=== PATIENT | male | born 1950 | race Caucasian/White ===

== ENCOUNTER 2017-07-25 07:36 | Day surgery (SDC) | payer OTHER, SELFPAY ==
[2017-07-25] VITALS (7 sets, daily range): BP systolic 109–143; BP diastolic 70–88; PULSE 77–102; RESP 16–18; TEMP 36.2–37.3; O2SAT 92–95; BMI 40.6
--- NOTE | 2017-07-25 07:47 | EKG12_ITS ---
Test Reason : PRE OP Blood Pressure : / mmHG Vent. Rate : 075 BPM Atrial Rate : 075 BPM P-R Int : 144 ms QRS Dur : 136 ms QT Int : 414 ms P-R-T Axes : 034 059 035 degrees QTc Int : 462 ms Normal sinus rhythm Right bundle branch block Abnormal ECG When compared with ECG of 27-OCT-2015 16:54, Right bundle branch block is now Present Confirmed by BRANDEE HWALEY, MICHAEL ([id number]), photographic editor MONTSERRAT NORRIS ([id number]) on 07/27/2017 2:35:31 PM Referred By: Chuyita Mcbride Confirmed By:MICHAEL IRVIN MD
[2017-07-25 08:13] LABS: Anion Gap 8 (5-15); BUN 12 mg/dL (7-18); Chloride 105 mmol/L (98-107); Creatinine, Serum 1.09 mg/dL (0.70-1.30); EST Glomerular Filtration Rate 72 mL/min (>60); Est Glom Filt Rate - Afr Amer 87 mL/min (>60); Glucose 183 mg/dL (74-106); Potassium 4.2 mmol/L (3.5-5.1); Sodium Level 141 mmol/L (136-145)
[2017-07-25 08:22] LABS: Hemoglobin A1c 6.8 % (4.2-6.3)
[2017-07-25 08:41] LABS: Bedside Glucose 185 mg/dL (70-110)
[2017-07-25] MEDS: Bupivacaine 0.25% 30 ML Vial (08:55)
[2017-07-25] MEDS: Clindamycin 900 MG/50 ML BAG 75 MG IV (09:12)
--- NOTE | 2017-07-25 09:30 | RAD_ITS ---
PROCEDURE: INTRAOPERATIVE CHOLANGIOGRAM. REASON FOR EXAM: Male, 67 years old. Laparoscopic cholecystectomy. FLUOROSCOPY TIME (if supplied): (0:02) minutes/seconds TECHNIQUE: Real-time fluoroscopy was provided during intraoperative contrast infusion via the cystic duct. A single intraoperative fluoroscopic spot film is submitted. COMPARISON: None. FINDINGS: Normal caliber extrahepatic bile ducts. The bile duct segments above the cystic duct are not opacified. No filling defects or strictures seen. Contrast flows to the duodenum. RAD/Cholangiogram/ O R,Initial IMPRESSION: Normal intraoperative cholangiogram. Electronically Signed: Bebeto Rosenberg MD at 13:08 EDT , Service support ,
--- NOTE | 2017-07-25 09:35 | GALL_PTH ---
PATIENT: PHILLIP MOORE LOC: [facility] U#:[id number] AGE/SX: 67/M ROOM: RE07/25/[address]: Dr. Chuyita Mcbride MD : 1950 BED: DIS: 07/25/2017 SPEC #: [id number] RECD: 07/25/17 11:49 STATUS: KILEY RADHA #: [id number] WESLY: 07/25/17 09:[address]: Chuyita Mcbride DEPT: SURGICAL PATHOLOGY RECD BY: Reji Laura ENTERED: 07/25/17 12:28 SP TYPE: WILBER VELASQUEZ DR: Dr. Ignacio Ayon III, MD Tissues: Gallbladder, NOS Procedures: Surgery Specimen Level III HEADER OPERATION: Laparoscopic cholecystectomy PRE-OP DIAGNOSIS: Cholelithiasis TISSUE SUBMITTED: Gallbladder and contents MICROSCOPIC DIAGNOSIS Gallbladder and contents: Chronic cholecystitis, cholelithiasis and focal cholesterolosis. 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 SJ:syed 07/26/17 MICROSCOPIC DESCRIPTION Slides are reviewed. GROSS DESCRIPTION Received is one container labeled with the patient's name and designated gallbladder and contents. The specimen consists of a gallbladder measuring 10 cm in length and up to 4 cm in diameter. The external surface is pink-drake, smooth and glistening for the most part. Focally it is granular, hemorrhagic and contains cautery artifact. The gallbladder contains green-yellow mucoid bile and two round to ovoid, mulberry-black stones measuring 0.7 and 0.6 cm in greatest dimension. The mucosa is bile-stained and without any mass lesions. A focal cystic to solid area is noted at the fundus measuring 1.5 x 1 x 1 cm. The rest of the gallbladder wall measures up to 0.3 cm in thickness. A few yellowish, minute raised lesions are noted consistent with cholesterolosis. Breaker Unit Assembler sections are submitted in two cassettes as follows: 1 ? gallbladder wall and cystic duct, 2 ? solid to cystic area at the fundus. This area is completely submitted. Cassette 1 also contains the minute raised yellowish lesion. / SANJUANA:syed 07/25/17 TC:3 CPT: 51645
--- NOTE | 2017-07-25 10:33 | PCM.IMDPSTOP ---
Immediate Post-Op Note Date of Procedure: 07/25/17 Primary Surgeon/Physician: Chuyita Mcbride integrated logistics programs director: Cody Quinn Pre-Operative Diagnosis: cholelithiasis Post-Operative Diagnosis: cholelithiasis, chronic cholecystitis Surgery/Procedure Performed:: laparoscopic cholecystectomy with cholangiograms Description of Surgical Findings:: intraoperative cholangiograms - no lesions in common bile duct, nodular liver - almost cirrhotic appearing, chronic cholecystitis with wall thickening Estimated Blood Loss: 20 ml Specimen's removed: gallbladder and contents Type of Anesthesia:: General ASA Class: ASA3 Severe Disease - Admit VTE Documentation VTE Present on Admission: Yes VTE Mechan Device Prophylaxis: SCD's
--- NOTE | 2017-07-25 10:35 | PCM.OPRPT ---
Report of Operation Date of Procedure: 07/25/17 Pre-Operative Diagnosis: cholelithiasis Post-Operative Diagnosis: cholelithiasis, chronic cholecystitis Surgery/Procedure Performed:: laparoscopic cholecystectomy with cholangiograms Description of Surgical Findings:: intraoperative cholangiograms - no lesions in common bile duct, nodular liver - almost cirrhotic appearing, chronic cholecystitis with wall thickening speech language pathologist: Cody Quinn Type of Anesthesia:: General Anesthesiologist: Lida Gilbert Specimen's removed: gallbladder and contents Estimated Blood Loss (mL): 20 ml Fluids Replaced: 1500 ml RL Description of Procedure: After informed consent was given, the patient was brought to the Operating Room and placed in the supine position. Appropriate time out protocol was followed. The patient was then placed under general endotracheal anesthesia. The abdomen was then prepped with a sterile surgical skin preparation and sterile surgical drapes were placed. A skin fold superior to the umbilicus was grasped with penetrating clamps and the skin and subcutaneous tissues were infiltrated with local anesthetic. A skin incision was then made with a 15 blade scalpel. The anterior abdominal wall was elevated and a Veress needle was carefully inserted into the intraabdominal cavity. It was checked to be in the proper position with a normal saline drop test. A CO2 pneumoperitoneum was then created. Once this was achieved, then the Veress needle was removed and an 11mm trocar was placed in its stead. A 10mm laparoscope was then inserted into the trocar and careful attention was directed to the intraabdominal contents. There was no evidence of injury to any intraabdominal organs from insertion of the Veress needle or the trocar. Under direct visualization, a 5mm subxiphoid trocar and two lateral 5mm right subcostal trocars were placed. The skin and subcutaneous tissues at these sites were infiltrated with local anesthetic prior to placement of these trocars. Attention was then directed to the right upper quadrant of the abdomen. The liver was nodular appearing, almost cirrhotic looking. The liver edge was greatly blunted. The gallbladder wall was slightly thickened. It was also friable. Graspers were placed in the lateral trocars to grasp the distal aspect of the gallbladder and direct it cephalad and to grasp the gallbladder at Hartmans pouch and direct it laterally. Dissection then began on the proximal gallbladder continuing down to the area of the triangle of Calot to bluntly dissect out the cystic duct. The neck of the gallbladder was identified and blunt dissection continued to dissect out a segment of the cystic duct. A clip was then placed on the neck of the gallbladder. A small ductotomy was then made. A Ranfac catheter was brought in through a separate skin incision and placed into the cystic duct. An intraoperative cholangiogram was performed under fluoroscopy. The xray revealed no lesions in the common bile duct and good flow into the duodenum. The Ranfac catheter was then removed and two clips were placed proximal to the ductotomy and the cystic duct was then transected. The cystic artery was visualized and bluntly isolated and then two clips were placed proximally and one clip distally and then it was transected between the proximal and distal clips. The gallbladder was then from the liver bed using electrocautery and thus able to be brought out of the umbilical port. It was then forwarded to pathology for analysis. The liver bed was carefully examined. There was no evidence of bile leakage or bleeding. The cystic duct stump and cystic artery stump had their clips intact and there was no evidence of bile leakage or bleeding. The remainder of the abdomen was grossly normal. The CO2 was released and all trocars removed intact. The periumbilical fascia was approximated with a [id number] 0 vicryl suture. All skin incision were closed with 4-0 monocryl in a subdermal fashion. Cavilol and Steristrips were used to reinforce the skin closure. Sterile dressings were applied to all wounds. The patient was extubated and brought to the Recovery Room in stable condition. - Complications none noted - Admit VTE Documentation VTE Present on Admission: Yes VTE Mechan Device Prophylaxis: SCD's
--- NOTE | 2017-07-25 10:40 | PCM.DC.GB ---
Discharge Diet: No Restrictions Discharge Activity: Return to Normal Activity, May not drive while taking narcotic pain medications. Lifting Restrictions: no lifting greater than 20 pounds for 2 weeks Call your doctor if your incision/area has: Continuous Slow Oozing, Foul Smelling Discharge Call your doctor if you observe: Fever of 101 or Higher Additional Dressing/Incision Instructions:: Leave dressings in place. May get wet in shower. Do not soak - no tub baths/swimming Allergies/Adverse Reactions: Allergies Penicillins Allergy (Verified 07/22/17 08:28) Hives ibuprofen [From Motrin] Adverse Reaction (Verified 07/22/17 08:28) Nausea lisinopril Adverse Reaction (Verified 07/22/17 08:28) COUGH Medications to take at Discharge Aspirin E.C. [Ecotrin] 81 mg PO DAILY@0800 12/11/13 Losartan Potassium [Cozaar] 50 mg PO DAILY 12/11/13 Antiarthritic Combination No.2 [Glucosamine-Chondroitin] 900 mg PO DAILY 10/27/15 Atorvastatin Calcium [Lipitor] 20 mg PO DAILY 10/27/15 Sitagliptin Phos/Metformin HCl [Janumet Xr 50-1,000 mg Tablet] 2 tablet PO DAILY 10/27/15 Hydrocodone Bitart/Apap 5-325 [Canton 5MG-325MG] 1 tab PO Q6H PRN PRN 5 Days #20 tab 07/25/17 The following prescriptions were given: Hydrocodone Bitart/Apap 5-325 [Canton 5MG-325MG] 1 tab PO Q6H PRN PRN 5 Days #20 tab PRN Reason: Pain Primary Care Physician: Ignacio Ayon III, MD [Primary Care Provider] - Please Follow Up With: Chuyita Mcbride MD - call When: to be seen next week, appointment already scheduled
[2017-07-25 11:16] LABS: Bedside Glucose 210 mg/dL (70-110)
== END 2017-07-25 13:29 | disposition home or self-care (01) ==
LOC: SDC 07:37 → AC 07:38
PROVIDERS: Family Provider Family Medicine; PCP Family Medicine; Visit Provider Surgery
PROC: (CPT 47610; principal; 2017-07-25 09:15)
DX: K80.10 Calculus of gallbladder with chronic cholecystitis without obstruction (principal); K82.8 Other specified diseases of gallbladder; K76.89 Other specified diseases of liver; I10 Essential (primary) hypertension; I45.10 Unspecified right bundle-branch block; E78.5 Hyperlipidemia, unspecified; E11.65 Type 2 diabetes mellitus with hyperglycemia; E66.09 Other obesity due to excess calories; Z68.39 Body mass index [BMI] 39.0-39.9, adult; Z79.84 Long term (current) use of oral hypoglycemic drugs; Z79.82 Long term (current) use of aspirin; Z79.899 Other long term (current) drug therapy
CPT/HCPCS: 47563; 74300; 76000; 80048; 82962; 83036; 88304; 93005; J7050; J7120; J2405

== ENCOUNTER 2020-09-03 07:42 | Day surgery (SDC) | payer MEDICARE, BC, SELFPAY ==
--- NOTE | 2020-09-03 07:09 | HP.PCM_ITS ---
History and Physical Date of Admission: 09/03/20 Josue Wilson 1950 ? ? REFERRING PHYSICIAN: Ignacio Ayon III, MD ? CHIEF COMPLAINT: Consult (Consult Anemia) ? HPI: The patient is a pleasant 70 year old male presents with anemia. He also notes dysphagia, he states that food gets stuck in his throat. He also notes sharp, burning pain in the RLQ of the abdomen. He had a colonoscopy in February 2019 with findings of tubular adenoma of the sigmoid colon. He notes no colon cancer in the family. ? ? PAST MEDICAL HISTORY Diagnosis Date ? Essential hypertension, benign 08/06/2013 ? Hyperlipidemia LDL goal < 100 08/06/2013 ? Hyperlipidemia with target LDL less than 100 08/06/2013 ? Iron deficiency anemia due to chronic blood loss 07/05/2020 ? Non morbid obesity due to excess calories 08/23/2016 ? Snoring ? ? 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 Type II or unspecified type diabetes mellitus without mention of complication, uncontrolled 08/20/2013 ? PAST SURGICAL HISTORY Procedure Laterality Date ? LAPAROSCOPIC CHOLEYCYSTECTOMY ? [facility] PAST SURGICAL HISTORY OF Right 2015 ? incision and drainage of knee abscess ? ? Current Outpatient Medications Medication Sig ? aspirin 81 mg chewable tablet Take 81 mg by mouth once daily. ? blood sugar diagnostic (ACCU-CHEK TOMASZ PLUS TEST STRP) test strip Test daily DX: E11.65 Insulin: No ? ferrous sulfate 325 mg (65 mg iron) tablet Take 1 tablet by mouth twice daily with meals. ? glimepiride (AMARYL) 4 mg tablet take 1 tablet once daily with BREAKFAST ? atorvastatin (LIPITOR) 20 mg tablet Take 1 tablet by mouth once daily. ? losartan (COZAAR) 50 mg tablet Take 1 tablet by mouth once daily. ? metFORMIN (GLUCOPHAGE) 500 mg tablet Take 2 tablets by mouth twice daily with meals. ? chondro durham A/vit C/manganese (CHONDROITIN SULFATE COMPLEX ORAL) Take 2 tablets by mouth once daily. ? pioglitazone (ACTOS) 45 mg tablet Take 1 tablet by mouth once daily. ? sildenafil (VIAGRA) 50 mg tablet daily as needed ? ? ALLERGIES: Ibuprofen, Lisinopril, and Penicillins ? PERSONAL HISTORY: Social History ? Tobacco Use ? Smoking status: Never Smoker ? Smokeless tobacco: Never Used Substance Use Topics ? Alcohol use: No ? Drug use: No ? FAMILY HISTORY Problem Relation Age of Onset ? COPD Father ? ? Diabetes Mother ? ? Coronary Artery Disease Mother ? ? CABG 7 ? Multiple Sclerosis Sister ? ? None Brother ? ? None Brother ? ? ? REVIEW OF SYSTEMS: General: The patient denies fatigue, denies weight loss, denies weight g ain, denies feeling hot, and denies feelings of cold. Eyes: The patient denies glaucoma, denies eye injury/surgery, wears glasses or contacts. Ear/Nose/Throat: The patient NOTES allergies, denies hayfever, denies ear infections, and denies bloody noses. Cardiovascular: The patient denies chest pain, denies heart disease, NOTES high blood pressure,denies cardiac stent, denies prior heart attack, denies irregular heart beat, NOTES high cholesterol, denies poor circulation, denies heart failure, other cardiac issues, denies claudication, denies cold feet, denies peripheral arterial stent. Respiratory: The patient denies tuberculosis, denies pneumonia, denies frequent cough, denies pulmonary embolism, denies shortness of breath, and denies coughing up blood. Gastrointestinal: The patient denies difficulty swallowing, denies acid reflux, denies ulcers, denies vomiting, denies jaundice/hepatitis, denies gallbladder problems, denies black or tarry stools, denies hemorrhoids, denies bleeding from rectum, denies diverticulitis, denies constipation, denies diarrhea, denies loss of stool control, and denies hernias. Kidney/Bladder: The patient denies kidney stones, denies urine infections, and denies bloody urine. Skin: The patient denies a history of skin cancer, denies bleeding/changing moles, and denies a history of skin rash. Neurologic: The patient denies a history of epilepsy/convulsions, denies headaches, denies head/spinal injuries, and denies stroke/TIA. Psychiatric: The patient denies psychiatric medications, denies depr ession, and denies voices, denies substance abuse. Endocrine: The patient denies thyroid disorders, NOTES diabetes, and denies hormonal problems. Hematologic: The patient denies a history of bruising, denies bleeding, and NOTES anemia, denies blood clots. Infections: The patient NOTES a history of measles and mumps, denies rheumatic fever, and denies sexually transmitted diseases. Musculoskeletal: The patient denies back pain/injury, NOTES back problems, denies sciatica, denies knee/foot trouble, denies arthritis, or denies gout. When was patient's last Mammogram screening? N/A Last Colonoscopy: 03/08 Venkatesh William MANDY ? ? PHYSICAL EXAMINATION: General: The patient is 70 year old male, well nourished, well hydrated in no acute distress. The patient is oriented to time, place, and person. VITALS: Pulse 98, temperature 36.3 ?C (97.3 ?F), height 167.6 cm (5' 6), weight 124.5 kg (274 lb 6.4 oz), SpO2 97 %. Body mass index is 44.29 kg/m?. ? Head ? Normocephalic. EOM intact with sclera clear and no icterus noted. Neck - supple with no jugular venous distention noted. Trachea is midline. Lungs ? clear to auscultation. Normal breath sounds. No rales/rhonchi/wheezing noted. No labored breathing noted, such as retractions. No cough heard. Heart ? normal S1 and S2 auscultated. No rubs/clicks/murmurs noted. Regular rate. Abdomen ? soft and benign. Normal bowel sounds. No abdominal bruits noted. Difficult to determine if any masses or organomegaly due to body habitus. Extremities ? no calf tenderness noted. No pitting edema noted. Skin ? normal skin integrity. Neurological ? gait normal, no focal deficits noted. Psych ? calm and appropriate ? ? Assessment IMPRESSION: anemia, RLQ abdominal pain, dysphagia ? PLAN: I have discussed the above with the patient. I have discussed the above with the patient. I have offered colonoscopy and EGD, possible biopsies for anemia and patient also complains of lower abdominal pain. I have explained the procedure to the patient. I have counseled the patient as to the risks of the procedure, including but not limited to: infection, bleeding, injury to any intrabdominal organs such as liver/spleen, perforation of the GI tract, inability to complete the procedure, complications of anesthesia, etc. ? the patient understands. ? The patient was offered a surgery/procedure. The provider and patient have discussed in detail the risk of exposure to and/or potential harm posed by the COVID-19 virus with having a surgery/procedure at this time versus the risk of? delaying the surgery/procedure. It is not possible to know either the risk of delaying the surgery or procedure or chance of getting an infection with perfect accuracy, but a joint decision was made between the patient and the provider ?to proceed at this time with the scheduled surgery/procedure. ? The patient wishes to proceed. He wishes to have procedure using [facility] end[facility] and wants to have procedure at [facility]. I have told him that there is limited availability to do [facility] endo at [facility] and therefore have offered [place] [facility], but patient wants to go to [facility]. Next availability is September 03. Patient agrees with this. ? ? I have answered all questions to the patient?s satisfaction and the patient has no further questions. ? Plan procedure at [facility] as per patient's request. I have recommended [facility], because patient states that he is concerned about gagging Because of lack of endoscopy time given, will have to await procedure until September 03, 2020. Patient understands and agrees. . Diagnoses: (D64.9) Anemia, unspecified type (primary encounter diagnosis) (R10.31) RLQ abdominal pain (R13.10) Dysphagia, unspecified type Return to Clinic: The patient is instructed to follow-up with me as above ? Chuyita Mcbride MD
[2020-09-03 08:16] VITALS: BP 144/78; PULSE 92; RESP 92; TEMP 36.6; O2SAT 95; BMI 42.6
[2020-09-03] MEDS: Lactated Ringers 1,000 ML 100 ML IV (08:31)
[2020-09-03 08:40] LABS: Bedside Glucose 149 mg/dL (70-110)
--- NOTE | 2020-09-03 09:00 | IMM_PTH ---
PATIENT: PHILLIP MOORE LOC: [place] U#:[id number] AGE/SX: 70/M ROOM: RE09/03/[address]: Dr. Chuyita Mcbride MD : 1950 BED: DIS: 09/03/2020 SPEC #: [id number] RECD: 09/03/20 12:26 STATUS: KILEY REVinnie #: [id number] WESLY: 09/03/20 09:[address]: Chuyita Mcbride DEPT: IMMUNOHISTOCHEMISTRY RECD BY: Betsey Morales ENTERED: 09/03/20 12:26 SP TYPE: IMMUNO OTHR DR: Dr. Sorin Miranda MD Tissues: A - Stomach, NOS Procedures: H Pylori (initial) PHYSICIAN & INSTITUTION [place] [id number] SPECIMEN INFORMATION: Tissue Source: A ? Antrum biopsy Clinical Info: Anemia, RLQ abdominal pain, dysphagia Specimen Number: [id number] CPT code: 17277 METHODOLOGY: Deparaffinized sections of prefer/formalin-fixed tissue or PAP/DQ stained slides are incubated with monoclonal/polyclonal antibodies/oligonucleotide probes. Localization is made via biotin free immunoperoxidase method. Appropriate controls are performed and reacted as expected. Results on target cell population are indicated in the following table: RESULTS: ANTIBODY / CLONE RESULT Block A H Pylori (polyclonal) negative These tests were developed and their performance characteristics determined by [facility]. They may not have been cleared or approved by the U.S. Food and Drug Administration. The FDA has determined that such clearance or approval is not necessary. INTERPRETATION: A. Antrum, biopsy: Negative for Helicobacter pylori organisms. AM:syed 09/04/2020
--- NOTE | 2020-09-03 09:00 | EGD_PTH ---
PATIENT: PHILLIP MOORE LOC: EN U#:[id number] AGE/SX: 70/M ROOM: RE09/03/[address]: Dr. Chuyita Mcbride MD : 1950 BED: DIS: 09/03/2020 SPEC #: [id number] RECD: 09/03/20 09:42 STATUS: KILEY REVinnie #: [id number] WESLY: 09/03/20 09:[address]: Chuyita Mcbride DEPT: SURGICAL PATHOLOGY RECD BY: Rosa Elena Gayle ENTERED: 09/03/20 10:45 SP TYPE: EGD BIOPSY EVA DR: Dr. Sorin Miranda MD Tissues: A - Gastric mucous membrane B - Gastric mucous membrane Procedures: Special Stain Group II Surgery Specimen Level IV Alcian Blue/PAS (control) HEADER OPERATION: Colonoscopy, EGD ([facility]) PRE-OP DIAGNOSIS: Anemia, RLQ abdominal pain, dysphagia TISSUE SUBMITTED: A ? Biopsy antrum for H. pylori and path, B ? GE junction biopsy MICROSCOPIC DIAGNOSIS A. Gastric antrum, biopsy: Chronic gastritis. See comment. B. Gastroesophageal junction, biopsy: Gastric mucosa with chronic inflammation. No evidence of goblet cell metaplasia. See comment. AM:syed 09/04/2020 COMMENT A. The results of immunohistochemistry for Helicobacter pylori will be reported separately ([id number]). B. Alcian blue/PAS stain with matched control supports the above diagnosis. MICROSCOPIC DESCRIPTION Slides are reviewed. GROSS DESCRIPTION A - Received in fixative is one container labeled with the patient's name and designated antrum biopsy. The specimen consists of multiple irregular fragments of light drake soft tissue that in aggregate measure 0.5 x 0.4 x 0.1 cm. The specimen is totally submitted in one cassette. B - Received in fixative is one container labeled with the patient's name and designated GE junction biopsy. The specimen consists of one irregular fragment of light drake soft tissue that measures 0.3 x 0.3 x 0.1 cm. The specimen is totally submitted in one cassette. / SJ:syed 09/03/20 TC:3 CPT: 32738 x2, 92276
[2020-09-03 09:30] VITALS: BP 104/72; BP 144/78; PULSE 84; RESP 16; TEMP 36; O2SAT 96
[2020-09-03 09:35] VITALS: BP 116/72; BP 144/78; PULSE 81; RESP 16; O2SAT 93
[2020-09-03 09:40] VITALS: BP 118/77; BP 144/78; PULSE 80; RESP 16; O2SAT 93
[2020-09-03 09:45] VITALS: BP 122/74; BP 144/78; PULSE 76; RESP 16; TEMP 36.2; O2SAT 95
[2020-09-03 10:18] VITALS: BP 144/78
--- NOTE | 2020-09-03 13:00 | OP.COLON_ITS ---
Patient Name: Josue Wilson Procedure Date: 09/03/2020 9:11 AM Date of : 1950 Age: 70 Procedure: Colonoscopy Indications: High risk colon cancer surveillance: Personal history of colonic polyps, Incidental - Iron deficiency anemia Providers: Chuyita Mcbride MD Referring MD: Chuyita Mcbride MD Medicines: See the Anesthesia note for documentation of the administered medications Patient Profile: Refer to note in patient chart for documentation of history and physical. Last Colonoscopy: 3 years ago. Complications: No immediate complications. Estimated blood loss: None. Procedure: Pre-Anesthesia Assessment: - see anesthesia note After I obtained informed consent, the scope was passed under direct vision. Throughout the procedure, the patient's blood pressure, pulse, and oxygen saturations were monitored continuously. The Colonoscope was introduced through the anus and advanced to the cecum, identified by the appendiceal orifice, ileocecal valve and palpation. The colonoscopy was performed without difficulty. The patient tolerated the procedure well. The quality of the bowel preparation was poor, there was still retained fecal material. Therefore lavage and aspiration was done to clear the fecal material. This took some time. The lakhani were cleared adequately for adequate visualization. Scope In: 9:13:20 AM Scope Withdrawal Time 0 hours 9 minutes 35 seconds Scope Out: 9:26:37 AM Total Procedure Duration Time 0 hours 13 minutes 17 seconds Findings: The perianal and digital rectal examinations were normal. Multiple small and large-mouthed diverticula were found in the sigmoid colon. Non-bleeding external and internal hemorrhoids were found. Impression: - Diverticulosis in the sigmoid colon. - Non-bleeding external and internal hemorrhoids. - No specimens collected. Recommendation: - Repeat colonoscopy in 5 years for surveillance for history of colon polyps (found in 2019). - Return to primary care physician PRN. - Continue present medications. Diagnosis Code(s): --- Professional --- Z86.010, Personal history of colonic polyps K64.8, Other hemorrhoids K57.30, Diverticulosis of large intestine without perforation or abscess without bleeding MD Chuyita Kc MD 09/03/2020 9:37:52 AM This report has been signed electronically. Number of Addenda: 0 Note Initiated On: 09/03/2020 9:11 AM
--- NOTE | 2020-09-03 13:00 | OP.CCLET_ITS ---
09/03/2020 Sorin Miranda MD Re : Upper GI endoscopy procedure for Josue Wilson Dear Dr. Miranda This procedure was performed on Thursday, September 03, 2020. My impressions and recommendations are as follows: Impressions : - Normal first portion of the duodenum and second portion of the duodenum. - Erythematous mucosa in the antrum. Biopsied. - LA Grade A reflux esophagitis. Rule out Walden's esophagus. Biopsied. Recommendations : - Discharge patient to home (ambulatory). - Resume previous diet. - Continue present medications. - Await pathology results. - Follow up visit via telemedicine with Sirisha Tripathi PA-C to discuss results. Patient prefers telephone (rather than Zoom) visit. Call to set this up, thank you My findings are described in the full procedure note, which is enclosed. If I can be of further assistance, please feel free to contact me at Doctor phone number(s): , Work: . Sincerely, MD Chuyita Kc MD 09/03/2020 9:35:11 AM This report has been signed electronically.
--- NOTE | 2020-09-03 13:00 | OP.CCLET_ITS ---
09/03/2020 Sorin Miranda MD Re : Colonoscopy procedure for Josue Wilson Dear Dr. Miranda This procedure was performed on Thursday, September 03, 2020. My impressions and recommendations are as follows: Impressions : - Diverticulosis in the sigmoid colon. - Non-bleeding external and internal hemorrhoids. - No specimens collected. Recommendations : - Repeat colonoscopy in 5 years for surveillance for history of colon polyps (found in 2019). - Return to primary care physician PRN. - Continue present medications. My findings are described in the full procedure note, which is enclosed. If I can be of further assistance, please feel free to contact me at Doctor phone number(s): , Work: . Sincerely, MD Chuyita Kc MD 09/03/2020 9:37:52 AM This report has been signed electronically.
--- NOTE | 2020-09-03 13:00 | OP.EGD_ITS ---
Patient Name: Josue Wilson Procedure Date: 09/03/2020 8:53 AM Date of : 1950 Age: 70 Procedure: Upper GI endoscopy Indications: Abdominal pain in the right lower quadrant, Iron deficiency anemia Providers: Chuyita Mcbride MD Referring MD: Chuyita Mcbride MD Medicines: See the Anesthesia note for documentation of the administered medications Patient Profile: Refer to note in patient chart for documentation of history and physical. Complications: No immediate complications. Procedure: Pre-Anesthesia Assessment: - see anesthesia note After obtaining informed consent, the endoscope was passed under direct vision. Throughout the procedure, the patient's blood pressure, pulse, and oxygen saturations were monitored continuously. The Endoscope was introduced through the mouth, and advanced to the second part of duodenum. The upper GI endoscopy was accomplished without difficulty. The patient tolerated the procedure well. Scope In: 9:03:19 AM Scope Out: 9:10:37 AM Total Procedure Duration Time 0 hours 7 minutes 18 seconds Findings: The first portion of the duodenum and second portion of the duodenum were normal. Striped radially moderately erythematous mucosa with stigmata of recent bleeding was found in the gastric antrum. Biopsies were taken with a cold forceps for histology. Verification of patient identification for the specimen was done by the nurse. LA Grade A (one or more mucosal breaks less than 5 mm, not extending between tops of 2 mucosal folds) esophagitis with no bleeding was found. Biopsies were taken with a cold forceps for histology. Verification of patient identification for the specimen was done by the nurse. Estimated blood loss was minimal. Small hiatal hernia noted, the remainder of the esophagus appeared normal Impression: - Normal first portion of the duodenum and second portion of the duodenum. - Erythematous mucosa in the antrum. Biopsied. - LA Grade A reflux esophagitis. Rule out Walden's esophagus. Biopsied. Recommendation: - Discharge patient to home (ambulatory). - Resume previous diet. - Continue present medications. - Await pathology results. - Follow up visit via telemedicine with Sirisha Tripathi PA-C to discuss results. Patient prefers telephone (rather than Zoom) visit. Call to set this up, thank you Procedure Code(s): --- Professional --- 87303, Esophagogastroduodenoscopy, flexible, transoral; with biopsy, single or multiple Diagnosis Code(s): --- Professional --- K31.89, Other diseases of stomach and duodenum K21.0, Gastro-esophageal reflux disease with esophagitis R10.31, Right lower quadrant pain D50.9, Iron deficiency anemia, unspecified CPT copyright 2017 [employer]. All rights reserved. The codes documented in this report are preliminary and upon rn invasive review may be revised to meet current compliance requirements. MD Chuiyta Kc MD 09/03/2020 9:35:11 AM This report has been signed electronically. Number of Addenda: 0 Note Initiated On: 09/03/2020 8:53 AM
== END 2020-09-03 10:19 ==
LOC: EN 07:47 → AC 07:48
PROVIDERS: PCP Family Medicine; Referring Provider Surgery; Visit Provider Surgery
PROC: 0DJD8ZZ Inspection of Lower Intestinal Tract, Via Natural or Artificial Opening Endoscopic (ICD-10-PCS; CPT 45378; principal; 2020-09-03 08:55)
DX: K29.70 Gastritis, unspecified, without bleeding (principal); K31.89 Other diseases of stomach and duodenum; K20.90 Esophagitis, unspecified without bleeding; K44.9 Diaphragmatic hernia without obstruction or gangrene; K57.30 Diverticulosis of large intestine without perforation or abscess without bleeding; K64.4 Residual hemorrhoidal skin tags; K64.8 Other hemorrhoids; E78.5 Hyperlipidemia, unspecified; E11.9 Type 2 diabetes mellitus without complications; E66.9 Obesity, unspecified; I10 Essential (primary) hypertension; Z68.41 Body mass index [BMI] 40.0-44.9, adult; Z79.899 Other long term (current) drug therapy; Z79.84 Long term (current) use of oral hypoglycemic drugs; Z87.19 Personal history of other diseases of the digestive system; Z86.010 Personal history of colon polyps; Z79.82 Long term (current) use of aspirin
CPT/HCPCS: 43239; 45378; 82962; 88305; 88313; 88342; J7120; J2405

== ENCOUNTER 2021-10-14 16:42 | Emergency (ER) | payer MEDICARE, BC, SELFPAY ==
[2021-10-14 16:43] VITALS: BP 145/85; PULSE 80; RESP 16; TEMP 36; O2SAT 93; BMI 43.5
--- NOTE | 2021-10-14 17:05 | CT_ITS ---
EXAM: CT ABDOMEN AND PELVIS WITH INTRAVENOUS CONTRAST CLINICAL INDICATION: DIVERTICULITIS TECHNIQUE: Helically acquired images were obtained of the abdomen and pelvis with intravenous contrast. This CT exam was performed using one or more of the following dose reduction techniques: automated exposure control, adjustment of the mA and/or kV according to patient size, and/or use of iterative reconstruction technique. This report was created using Home[employer] report generation technology. CONTRAST: IV 100mL Isovue-300 COMPARISON: None. FINDINGS: LOWER THORAX: There is calcified granuloma at the left lung base. No cardiomegaly. No significant pericardial effusion. ABDOMEN: LIVER: Unremarkable. Homogeneous. No focal mass. GALLBLADDER AND BILE DUCTS: The gallbladder is not well-visualized and may be surgically absent. No intra- or extrahepatic biliary ductal dilation. PANCREAS: Unremarkable. No focal cystic or solid mass. SPLEEN: Unremarkable. Normal size without focal cystic or solid mass. ADRENALS: Unremarkable. No nodules. KIDNEYS AND URETERS: There is left-sided hydronephrosis and hydroureter. There is a 4 mm stone at the left UVJ. Normal renal size and position. STOMACH AND BOWEL: Unremarkable. No stomach or bowel distention. No focal inflammatory change. PELVIS: APPENDIX: No evidence of acute appendicitis. BLADDER: Unremarkable. REPRODUCTIVE: Unremarkable as visualized. No mass. ABDOMEN and PELVIS: INTRAPERITONEAL SPACE: Unremarkable. No ascites or other fluid collection. No free air. BONES/JOINTS: Unremarkable. No suspicious lytic or blastic abnormality. SOFT TISSUES: Unremarkable. No discrete abdominal or pelvic wall hernia. VASCULATURE: Unremarkable. Abdominal aorta is non-dilated. LYMPH NODES: Unremarkable. No enlarged lymph nodes. CT/Abdomen/Pelvis W IV Cont ONLY IMPRESSION: Obstruction of the left collecting system due to a 4 mm stone at the UVJ. There is left-sided hydronephrosis and hydroureter. Electronically Signed: Myron Reese MD at 18:13 EDT ,
--- NOTE | 2021-10-14 17:06 | ED.VIS.GI ---
HPI HPI - GI History of Present Illness Chief Complaint: Abd Pain Informant: patient Narrative Narrative: 71-year-old male presenting to the emergency department for left lower quadrant abdominal pain. Patient states that he developed the pain on Tuesday and it was very mild into Tuesday. 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 He notes dry heaves and diarrhea. He denies any fever. No blood in the stool. He has had a prior colonoscopy that showed a polyp but no diverticulosis. He does not feel bloated or distended. [facility] Medical History (Updated 10/14/21 @ 18:[address] Eugene Thmoas, DO) Anemia Diabetes Hypertension Injury of back (~2012) Non-smoker Shortness of breath on exertion Wears glasses Home Medications losartan 50 mg tablet 50 mg PO DAILY 12/11/13 [History Last Taken 09/03/20] antiarthritic combination no.2 900 mg tablet (glucosamine-chondroitin) 900 mg PO DAILY 10/27/15 [History Last Taken 10/27/15] atorvastatin 20 mg tablet 20 mg PO DAILY 10/27/15 [History Last Taken 10/27/15] ferrous sulfate 325 mg (65 mg iron) tablet (FeroSul) 325 mg PO DAILY 09/01/20 [History Last Taken Unknown] glimepiride 4 mg tablet 4 mg PO DAILY 09/01/20 [History Last Taken Unknown] metformin 500 mg tablet 1,000 mg PO BID 09/01/20 [History Last Taken Unknown] ondansetron 4 mg disintegrating tablet 4 mg PO Q6H PRN PRN Nausea #15 tabs 10/14/21 [Rx Last Taken Unknown] oxycodone 10 mg tablet 10 mg PO TID PRN pain 5 days #15 tabs 10/14/21 [Rx Last Taken Unknown] tamsulosin 0.4 mg capsule 0.4 mg PO DAILY #7 CAPSULES 10/14/21 [Rx Last Taken Unknown] Allergy/AdvReac Type Severity Reaction Status Date / Time Penicillins Allergy Hives Verified 10/14/21 16:45 ibuprofen [From Motrin] AdvReac Nausea Verified 10/14/21 16:45 lisinopril AdvReac COUGH Verified 10/14/21 16:45 Surgical History Hx laparoscopic cholecystectomy (~07/25/17) Hx of right knee surgery Social History Smoking Status: Never smoker ROS ROS ED Constitutional Constitutional ED: Denies chills or weight loss Eyes Eyes: Denies change in vision or diplopia ENT ENT ED: Denies ear pain, rhinorrhea or sore throat Cardiovascular Cardiovascular: Denies chest pain, orthopnea, palpitations or racing heartbeat Respiratory/Chest Respiratory/Chest: Denies cough, dyspnea or orthopnea Gastrointestinal Gastrointestinal: Reports abdominal pain, diarrhea and nausea; Denies vomiting Genitourinary Genitourinary ED: Denies dysuria, hematuria or urinary frequency Musculoskeletal Musculoskeletal: Denies arthralgias or myalgias Integumentary Denies abscess or rash Neurologic Neurologic: Denies headache(s) or weakness Psychiatric Psychiatric: Denies anxiety, depression, suicidal ideation or suicidal thoughts Endocrine Endocrinology: Denies polydipsia, polyphagia or polyuria Allergic/Immunologic Allergic/Immunologic ED: Denies mouth swelling, tongue swelling or urticaria EXAM Physical Exam Const Vital Signs: 10/14/21 16:43 Temperature 96.8 F L Temperature Source Temporal Pulse Rate 80 Respiratory Rate 16 Blood Pressure 145/85 H Blood Pressure Mean 105 Pulse Ox 93 Oxygen Delivery Method Room Air Positive well nourished and well developed General Appearance ED: well developed HEENT Reports normocephalic, head/scalp atraumatic and moist mucous membranes Eyes PERRL and EOMs intact bilaterally Neck no lymphadenopathy, supple and no JVD Resp normal respiratory effort and clear to auscultation bilaterally Cardio regular rate, regular rhythm and no murmurs GI non-distended and no masses Inspection: Negative for abdominal distention Auscultation: normoactive bowel sounds Palpation: soft and tender LLQ; Negative for guarding or rebound tenderness present Back/Spine no CVA tenderness and normal ROM Extremity normal to inspection General Extremety ED: Negative for edema General Extremity: Negative for edema Neuro oriented x3 and CN's II-XII intact bilaterally Sensorium / Orientation: alert Motor Exam: strength 5/5 throughout Psych mental status grossly normal Mood & Affect: Negative for depressed or tearful Skin no rashes or lesions noted and no wounds MDM MDM MDM Narrative Medical decision making narrative: Initially patient declined pain medication but later asked for some when his pain increased. His white count is 11.6 hemoglobin 13.2 and platelet count of 232. Creatinine elevated off baseline at 1.58 BUN of 26. Urinalysis shows 5-10 red cells 1+ bacteria negative nitrates 0-5 white cells. Patient got improvement with Toradol and morphine. CT of the abdomen pelvis demonstrates a 4 mm UVJ stone. There is associated hydronephroureter. I will write for him to have oxycodone and Zofran and Flomax at home. Lab Data Attestation: I reviewed the patient's lab results. Labs: Laboratory Results - last 24 hr 10/14/21 10/14/21 10/14/21 17:10 17:10 17:50 WBC 11.6 H RBC 4.30 L Hgb 13.2 Hct 38.9 L MCV 90.5 MCH 30.7 MCHC 33.9 RDW Std Deviation 43.6 RDW Coeff of Silver 13.3 Plt Count 232 MPV 10.2 Immature Gran % (Auto) 0.300 Neut % (Auto) 89.2 H Lymph % (Auto) 6.3 L [place] % (Auto) 4.0 Eos % (Auto) 0.0 Baso % (Auto) 0.2 Absolute Neuts (auto) 10.4 H Absolute Lymphs (auto) 0.73 L Nucleated RBC % 0 Sodium 137 Potassium 4.1 Chloride 102 Carbon Dioxide 27.0 Anion Gap 8 BUN 26 H Creatinine 1.58 H Estim Creat Clear Calc 38.70 Est GFR (MDRD) Af Amer 56 L Est GFR (MDRD) Non-Af 46 L BUN/Creatinine Ratio 16.5 Glucose 194 H Calcium 9.6 Urine Color Yellow Urine Clarity Clear Urine pH 5.0 Ur Specific [place] 1.025 Urine Protein 30 H Urine Glucose (UA) 100 H Urine Ketones 5 H Urine Occult Blood 250 H Urine Nitrite Negative Urine Bilirubin Negative Urine Urobilinogen Normal Ur Leukocyte Esterase 25 H Urine RBC 5-10 SEEN Urine WBC 0-5 SEEN Ur Squamous Epith Cells 0-5 SEEN Urine Bacteria 1+ Urine Mucus 0 SEEN Radiography Diagnostic Testing: Clinical Impression(s) from Imaging Studies Abdomen/Pelvis CT 10/14/21 17:05 IMPRESSION: Obstruction of the left collecting system due to a 4 mm stone at the UVJ. There is left-sided hydronephrosis and hydroureter. Electronically Signed: Myron Reese MD at 18:13 EDT , Discharge Plan Triage Chief Complaint: Abd Pain ED Provider: Eugene Thomas Dx/Rx/DC Orders Clinical Impression: Ureterolithiasis, Hydronephrosis, Hydroureter on left, Abdominal pain, acute Instructions: ED Kidney Stone w/ Colic Prescriptions: New tamsulosin [tamsulosin] 0.4 mg capsule 0.4 mg PO DAILY Qty: 7 0RF ondansetron [ondansetron] 4 mg tablet,disintegrating 4 mg PO Q6H PRN PRN (Reason: Nausea) Qty: 15 0RF oxycodone 10 mg tablet 10 mg PO TID PRN (Reason: pain) 5 Days Qty: 15 0RF No Action losartan 50 MG tablet 50 mg PO DAILY Label Comments: BLOOD PRESSURE atorvastatin 20 MG tablet 20 mg PO DAILY Label Comments: CHOLESTEROL LOWERING glucosamine-chondroitin 900 MG tablet 900 mg PO DAILY Label Comments: [facility] metformin 500 mg tablet 1,000 mg PO BID Label Comments: take 2 tablets by mouth twice a day with meals ferrous sulfate [FeroSul] 325 mg (65 mg iron) tablet 325 mg PO DAILY Label Comments: take 1 tablet by mouth twice a day WITH MEALS glimepiride 4 mg tablet 4 mg PO DAILY Label Comments: take 1 tablet by mouth once daily with BREAKFAST Primary Care Provider: Sorin Miranda Referrals: Sorin Miranda MD [Primary Care Provider] - Klaus Crane MD [Med Staff - Active Staff] - As soon as possible Disposition Disposition: Home, Self Care
[2021-10-14 17:16] LABS: Absolute Lymphocyte Count 0.73 X10^3/uL (0.83-4.51); Absolute Neutrophil Count 10.4 X10^3/uL (2.0-7.7); Basophil# 0.02 X10^3/uL; Basophil% 0.2 % (0-1); Hematocrit 38.9 % (40-54); Hemoglobin 13.2 g/dL (13.0-16.5); Lymphocyte # 0.73 X10^3/ul (0.83-4.51); Lymphocyte % 6.3 % (19-41); Mean Corp Hgb Conc 33.9 g/dL (32-36); Mean Corpuscular Hgb 30.7 pg (27.0-32.0); Mean Corpuscular Volume 90.5 fL (80-94); Mean Platelet Vol. 10.2 fl (6.2-12.0); Monocyte# 0.46 X10^3/uL; NRBC Flagged by Analyzer 0 % (0-5); Neutrophil # 10.37 X10^3/uL (2.7-7.7); Neutrophil % 89.2 % (47-70); Platelet Count 232 K/mm3 (150-450); RBC Distribution Width CV 13.3 % (11.6-14.6); RBC Distribution Width SD 43.6 fl (35.1-43.9); White Blood Count 11.6 K/mm3 (4.4-11.0)
[2021-10-14 17:29] LABS: Anion Gap 8 (5-15); BUN 26 mg/dL (7-18); BUN/Creat Ratio 16.5 RATIO (10-20); Calcium,Total 9.6 mg/dL (8.5-10.1); Chloride 102 mmol/L (98-107); Creatinine, Serum 1.58 mg/dL (0.70-1.30); EST Glomerular Filtration Rate 46 mL/min (>60); Est Glom Filt Rate - Afr Amer 56 mL/min (>60); Glucose 194 mg/dL (74-106); Potassium 4.1 mmol/L (3.5-5.1); Sodium Level 137 mmol/L (136-145)
[2021-10-14 17:56] LABS: Mucous, Urine 0 SEEN /hpf (<or=2+)
[2021-10-14 18:00] LABS: Color, Urine Yellow (Yellow); Glucose, Dipstick 100 mg/dl (Normal); Ketone-Dipstick 5 mg/dl (Negative); Leukocyte Esterase-Dipstick 25 /ul (Negative); Nitrite-Dipstick Negative (Negative); Occult Blood-Urine 250 /ul (Negative); Protein-Dipstick 30 mg/dl (Negative); Specific Gravity, Urine 1.025 (1.002-1.030); Urine Bilirubin Dipstick Negative (Negative); Urine Clarity Clear (Clear); Urine Urobilinogen Normal (Normal)
[2021-10-14] MEDS: Morphine 4 MG/ML Syringe IV (18:08)
[2021-10-14] MEDS: Ketorolac 15 MG/ML Vial IV (18:09)
[2021-10-14 18:10] LABS: Bacteria 1+ /hpf (None Seen); Red Blood Cells-Urine 5-10 SEEN /hpf (0-5); Squamous Epithelial Cells - UA 0-5 SEEN /hpf (0-5); White Blood Cells 0-5 SEEN /hpf (0-5)
[2021-10-14 18:47] VITALS: BP 129/64; PULSE 74; RESP 14; TEMP 37.1; O2SAT 99
== END 2021-10-14 18:47 | disposition home or self-care (01) ==
PROVIDERS: Emergency Provider Emergency Medicine; PCP Family Medicine; Visit Provider Emergency Medicine
DX: N13.2 Hydronephrosis with renal and ureteral calculous obstruction (principal); N13.4 Hydroureter; R10.32 Left lower quadrant pain
CPT/HCPCS: 74177; 80048; 81001; 85025; 96374; 96375; 99283; Q9967

== ENCOUNTER 2023-10-07 05:40 | Emergency (ER) | payer OTHER, MEDICARE, BC, SELFPAY ==
[2023-10-07 05:41] VITALS: BP 134/71; PULSE 84; RESP 16; TEMP 36.5; O2SAT 97; BMI 39.3
--- NOTE | 2023-10-07 05:58 | RAD_ITS ---
INDICATION: injury EXAMINATION/TECHNIQUE: X-RAY - LEFT XR Wrist Min 3 Views 3 VIEWS COMPARISON: No relevant prior comparison study available FINDINGS: SOFT TISSUES: No soft tissue swelling or gas. No radiopaque foreign body. 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 Electronically Signed: Mali Reece MD at 6:37 EDT ,
--- NOTE | 2023-10-07 05:58 | EDS_ITS ---
HPI History of Present Illness Chief Complaint: Upper Extremity Injury Informant: patient Narrative Narrative: [id number] male states he was at work yesterday and tripped over some wires accidentally, falling to his hands and knees. He scraped the knee which is not bothering him but he injured his left wrist in the process, thinks he fell on the left outstretched hand, and the pain has been progressively worsening. Denies any other injury. No numbness or tingling. [facility] History Wears glasses Diabetes Anemia Injury of back (~2012) Non-smoker Shortness of breath on exertion Hypertension Home Medications ?Medication ?Instructions ?Recorded ?Last Taken ?Type antiarthritic combination no.2 900 900 mg PO DAILY 10/27/15 10/27/15 History mg tablet (glucosamine-chondroitin) atorvastatin 20 mg tablet 20 mg PO DAILY 10/27/15 10/27/15 History ferrous sulfate 325 mg (65 mg 325 mg PO DAILY 09/01/20 Unknown History iron) tablet (FeroSul) glimepiride 4 mg tablet 4 mg PO DAILY 09/01/20 Unknown History metformin 500 mg tablet 1,000 mg PO BID 09/01/20 Unknown History empagliflozin 25 mg tablet 25 mg PO DAILY 10/07/23 Unknown History (Jardiance) losartan 50 mg-hydrochlorothiazide 1 tab PO DAILY 10/07/23 Unknown History 12.5 mg tablet sitagliptin phosphate 100 mg 100 mg PO DAILY 10/07/23 Unknown History tablet (Januvia) Allergy/AdvReac Type Severity Reaction Status Date / Time Penicillins Allergy Hives Verified 10/07/23 05:41 ibuprofen (From Motrin) AdvReac Nausea Verified 10/07/23 05:41 lisinopril AdvReac COUGH Verified 10/07/23 05:41 Surgical History Hx of right knee surgery Hx laparoscopic cholecystectomy (~07/25/17) Social History Smoking Status: Never smoker ROS ROS ED Constitutional Constitutional ED: Denies chills or fever(s) Musculoskeletal Musculoskeletal: Reports extremity pain; Denies neck pain Integumentary Reports Abrasions; Denies rash or wounds Neurologic Neurologic: Denies paresthesias or weakness EXAM Physical Exam Const Vital Signs: 10/07/23 05:41 Temperature 97.7 F L Temperature Source Oral Pulse Rate 84 Respiratory Rate 16 Blood Pressure 134/71 H Blood Pressure Mean 92 Pulse Ox 97 Positive well nourished and well developed General Appearance ED: well developed and NAD Neck full ROM and supple Back/Spine normal ROM and normal to inspection Extremity Extremity Narrative: Limited range of motion left wrist due to pain specially with pronation/supination. He has some mild tenderness in the area of the snuffbox, although the landmarks are obscured by some mild swelling in this area, and some tenderness in the distal ulnar. Mild tenderness at the base of the metacarpals 2-4, with some mild swelling there. No gross deformities. No tenderness at the distal metacarpals, fingers, elbow, shoulder. No other injuries or limitations. Neuro oriented x3, no focal motor deficits and no sensory deficits noted Sensorium / Orientation: alert Psych mental status grossly normal and thought process normal Skin no wounds Rashes: no rashes MDM MDM MDM Narrative Medical decision making narrative: Three view x-ray series of the left wrist are obtained, and on my interpretation there is significant degenerative changes, including in the area of the scaphoid, I am most suspicious of injury in this area. I?m not able to rule out an acute or occult scaphoid fracture. He has a lot of pain with movement there. Given that, and the fact that the distal radius and ulna do not appear to be fractured, I am placing him in a thumb spica splint. See the procedure note. He is advised to follow up with [facility], [facility], and he was given appropriate work restrictions in the meantime. 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 Electronically Signed: Mali Reece MD at 6:37 EDT , Procedures Upper Extremity Splints Upper Extremity Splint: Orthoglass (Left short arm AP thumb spike a fabricated oral splint placed. Nerve vascular intact distally after placement to well without complications.) Splint Fabrication: Fabricated Location: Left Discharge Plan Triage Chief Complaint: Upper Extremity Injury ED Provider: Brett Hinojosa Dx/Rx/DC Orders Clinical Impression: Left wrist sprain, Fall from slip, trip, or stumble Instructions: ED Possible Wrist Fracture, ED Wrist Sprain Prescriptions: No Action atorvastatin 20 MG tablet 20 mg PO DAILY Patient Comments: CHOLESTEROL LOWERING glucosamine-chondroitin 900 MG tablet 900 mg PO DAILY Patient Comments: [facility] metformin 500 mg tablet 1,000 mg PO BID Patient Comments: take 2 tablets by mouth twice a day with meals ferrous sulfate [FeroSul] 325 mg (65 mg iron) tablet 325 mg PO DAILY Patient Comments: take 1 tablet by mouth twice a day WITH MEALS glimepiride 4 mg tablet 4 mg PO DAILY Patient Comments: take 1 tablet by mouth once daily with BREAKFAST Jardiance 25 mg tablet 25 mg PO DAILY losartan-hydrochlorothiazide 50-12.5 mg tablet 1 tab PO DAILY Januvia 100 mg tablet 100 mg PO DAILY Stand Alone Forms: Work Status Form Primary Care Provider: Sorin Miranda Referrals: [facility] [Group of Physicians] - As soon as possible Sorin Miranda MD [Primary Care Provider] - Chidi Yuen MD [Med Staff - Active Staff] - 1 Week if not improving Print Language: Maori Disposition Disposition: Home, Self Care Discharge Date/Time: 10/07/23 08:42
[2023-10-07] MEDS: HYDROcodone Bitartrate/Apap 5/325 Tablet PO (06:49)
--- NOTE | 2023-10-07 07:09 | ED.RN ---
per Anne RN, at the time of pt arrival, employer was not sure if he needs a drug screen. employer will call employee when they know.
== END 2023-10-07 08:42 | disposition home or self-care (01) ==
PROVIDERS: Emergency Provider Emergency Medicine; PCP Family Medicine; Visit Provider Emergency Medicine
DX: S63.502A Unspecified sprain of left wrist, initial encounter (principal); E11.9 Type 2 diabetes mellitus without complications; I10 Essential (primary) hypertension; Z79.899 Other long term (current) drug therapy; Z79.84 Long term (current) use of oral hypoglycemic drugs; W19.XXXA Unspecified fall, initial encounter
CPT/HCPCS: 29125; 73110; 99282

== ENCOUNTER → 2023-11-07 | Outpatient (CLI) | payer MEDICARE, BC, SELFPAY ==
--- NOTE | 2023-11-07 | TISS_PTH ---
PATIENT: PHILLIP MOORE LOC: [facility] U#:[id number] AGE/SX: 73/M ROOM: RE11/07/[address]: Dr. Clarke Jimenez MD : 1950 BED: DIS: 11/07/2023 SPEC #: [id number] RECD: 11/07/23 17:00 STATUS: KILEY RADHA #: [id number] WESLY: 11/07/23 00:[address]: Clarke Jimenez DEPT: SURGICAL PATHOLOGY RECD BY: Griselda Cole ENTERED: 11/08/23 07:03 SP TYPE: Tissue Bx EVA DR: Dr. Sorin Miranda MD Tissues: Ear, NOS Procedures: Surgery Specimen Level IV HEADER OPERATION: Permanent pathology PRE-OP DIAGNOSIS: Ear canal mass, otorrhea left ear TISSUE SUBMITTED: Ear canal mass MICROSCOPIC DIAGNOSIS Ear canal mass, biopsy: Basal cell carcinoma. SANJUANA/ 11/09/2023 COMMENT Case has been reviewed in consultation with Dr. Ramos who concurs with the above diagnosis. IDC:AM MICROSCOPIC DESCRIPTION Slides are reviewed. GROSS DESCRIPTION Received in fixative is one container labeled with the patient's name and designated Ear biopsy. The specimen consists of a piece of drake-brown skin measuring 0.3 x 0.2 x 0.1cm. The entire specimen is submitted in one cassette. SANJUANA. 11/08/2023 TC:0 CPT:44434
== END | disposition home or self-care (01) ==
LOC: LABSPEC 16:46
PROVIDERS: PCP Family Medicine; Referring Provider Otolaryngology Otolaryngology/Facial Plastic Surgery; Visit Provider Otolaryngology Otolaryngology/Facial Plastic Surgery
DX: H92.12 Otorrhea, left ear (principal); R22.0 Localized swelling, mass and lump, head
CPT/HCPCS: 87070; 87075; 87077; 87186; 87205; 88305

== ENCOUNTER 2024-01-09 07:01 | Day surgery (SDC) | payer MEDICARE, BC, SELFPAY ==
[2024-01-03 11:25] LABS: Anion Gap 8 (5-15); BUN 26 mg/dL (7-18); BUN/Creat Ratio 17.8 RATIO (10-20); Calcium,Total 9.8 mg/dL (8.5-10.1); Chloride 108 mmol/L (98-107); Creatinine, Serum 1.46 mg/dL (0.70-1.30); EST Glomerular Filtration Rate 50 mL/min (>60); Est Glom Filt Rate - Afr Amer 61 mL/min (>60); Glucose 173 mg/dL (74-106); Potassium 3.9 mmol/L (3.5-5.1); Sodium Level 140 mmol/L (136-145)
[2024-01-09] VITALS (11 sets, daily range): BP systolic 129–145; BP diastolic 71–94; PULSE 75–88; RESP 10–16; TEMP 36.1–36.6; O2SAT 92–96; BMI 39.4
--- NOTE | 2024-01-09 | LES_PTH ---
PATHOLOGY RESULTS PATIENT: PHILLIP MOORE LOC: [facility] [place] U#:[id number] AGE/SX: 73/M ROOM: RE01/09/[address]: Dr. Lester Jimenez MD : 1950 BED: DIS: 01/09/2024 SPEC #: [id number] RECD: 01/09/24 13:25 STATUS: KILEY REQ #: [id number] WESLY: 01/09/24 00:[address]: Lester Jimenez DEPT: SURGICAL PATHOLOGY RECD BY: Biju Rawls ENTERED: 01/09/24 13:26 SP TYPE: Lesion OTHR DR: Dr. 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 Skin lesion of left ear, biopsy: Ulcerated basal cell carcinoma extending to the lateral (6o'clock) margin of excision. B. Left ear skin lesion, posterior margin, biopsy: Negative for carcinoma. C. Left ear lesion, anterior margin, biopsy: Negative for carcinoma. D. Skin lesion, left ear, deep margin, biopsy: Negative for carcinoma. E. Skin lesion of left ear, lateral margin, biopsy: Negative for carcinoma. F. Left ear skin lesion, medial margin, biopsy: Negative for carcinoma. Maryellen 01/09/2024 MICROSCOPIC DIAGNOSIS A. Left ear canal lesion, excision: Basal cell carcinoma, ulcerated and with extension to the inked lateral margin of excision. Fragments of benign cartilage. Fragments of benign salivary gland tissue. B. Left ear skin lesion, posterior margin, biopsy: Negative for carcinoma. C. Left ear lesion, anterior margin, biopsy: Negative for carcinoma. D. Skin lesion of left ear, deep margin, biopsy: Negative for carcinoma. E. Skin lesion of left ear, lateral margin, biopsy: Negative for carcinoma. F. Skin lesion of left ear, medial margin, biopsy: Negative for carcinoma. . 01/10/2024 COMMENT Case has been reviewed in consultation with Dr. Shaikh who concurs with the above diagnosis. IDC:[id number] MICROSCOPIC DESCRIPTION Slides are reviewed. GROSS DESCRIPTION A. Received fresh for frozen section consultation labeled with the patient's name is a specimen designated Left ear canal lesion. The specimen consists of an irregular fragment of pink-drake skin with central area of ulceration measuring 1.7 x 1.5 x 0.3cm. The specimen has been oriented and is differentially inked as follows: 12o'clock- black, 6o'clock- blue (lateral), 9o'clock- red, 3o'clock- orange. The specimen is serially sectioned and submitted in its entirety for frozen section consultation in two blocks. B. Received fresh for frozen section consultation labeled with the patient's name is a specimen designated Posterior margin. The specimen consists of an irregular fragment of pink-drake soft tissue measuring 1.0 x 0.3 x 0.1cm. The specimen is submitted in its entirety in one cassette for frozen section consultation. C. Received fresh for frozen section consultation labeled with the patient's name is a specimen designated Anterior margin. The specimen consists of an irregular fragment of pink-drake soft tissue measuring 0.5 x 0.3 x 0.1cm. The specimen is submitted in its entirety in one cassette for frozen section consultation. D. Received fresh for frozen section consultation labeled with the patient's name is a specimen designated Deep margin. The specimen consists of an irregular fragment of pink-drake soft tissue measuring 0.5 x 0.2 x 0.1cm. The specimen is submitted in its entirety in one cassette for frozen section consultation. E. Received fresh for frozen section consultation labeled with the patient's name is a specimen designated Lateral margin. The specimen consists of an irregular fragment of pink-drake soft tissue measuring 0.5 x 0.2 x 0.1cm. The specimen is submitted in its entirety in one cassette for frozen section consultation. F. Received fresh for frozen section consultation labeled with the patient's name is a specimen designated Medial margin. The specimen consists of an irregular fragment of pink-drake soft tissue measuring 0.2 x 0.2 x 0.1cm. The specimen is submitted in its entirety in one cassette for frozen section consultation. 01/09/2024 TC:0 CPT:83233m9,[id number],[id number]
--- OUTSIDE RECORDS SUMMARY | 2024-01-09 07:05 | XMS RPT_ITS | CCD ---
Author Organization [facility] Care Team Providers Care Chief Nurse Anesthetist Name Role Phone Moiz WHALEY, Rommel Champagne Primary Care Provider SELF Referring Unavailable BETZY MARQUES Attending Unavailable ROMMEL ROCKWELL Primary Care Unavailab ROMMEL Hernández Referring Unavailab ROMMEL Hernández Primary Care Unavailab ROMMEL Hernández Primary Care Unavailab le PODLOGAR, JENNY Attending Unavailable ROMMEL ROCKWELL Primary Care Unavailab le PODLOGAR, JENNY Referring Unavailable ROMMEL ROCKWELL Primary Care Unavailab CAIN Cunningham JR Attending Unavailable PODLOGAR, JENNY Attending Unavailable ROMMEL ROCKWELL Primary Care Unavailab ROMMEL Hernández Primary Care Unavailab le PODLOGAR, JENNY Referring Unavailable PODLOGAR, JENNY Attending Unavailable ROMMEL ROCKWELL Primary Care Unavailab le PODLOGAR, JENNY Attending Unavailable ROMMEL ROCKWELL Primary Care Unavailab ROMMEL Hernández Referring Unavailab ROMMEL Hernández Primary Care Unavailab jackie Ayon III, MD, Ignacio Darnell Primary Care Provider Rachel vailable Allergies Allergy Classification Reported Allergen(s) Allergy Type Date of Onset Reaction(s) Facility Angiotensin Converting Enzyme (ANIKET) Inhibitors (1 source) Lisinopril Drug Allergy 08-07-19 14 Cough [facility] NSAIDs (1 source) Ibuprofen Drug Allergy 08-07-19 14 GI Upset [facility] Penicillins (antibiotic) (1 source) Penicillins Drug Allergy 08-07-19 14 Rash [facility] Proton Pump Inhibitors (1 source) Omeprazole Drug Allergy 10-14-19 21 Intolerance [facility] Thiazolidinediones (glitazones) (1 source) pioglitazone Drug Allergy 01-06-20 Other: See Comments [facility] Work Phone: (20 sources) Ibuprofen; Translations: [IBUPROFEN] Drug Allergy 08-07-19 14 GI Upset [facility] (20 sources) Lisinopril; Translations: [LISINOPRIL] Drug Allergy 08-07-19 14 Cough [facility] (20 sources) Omeprazole; Translations: [OMEPRAZOLE] Drug Allergy 10-14-19 21 Intolerance [facility] (7 sources) Penicillins; Translations: [PENICILLINS] Drug Intolerance 08-07-19 14 Rash [facility] (20 sources) Penicillins Drug Intolerance 08-07-19 14 Rash [facility] (20 sources) pioglitazone; Translations: [PIOGLITAZONE] Drug Allergy 01-06-20 Other: See Comments [facility] Work Phone: Medications Current Medications Medication Drug Class(es) Dates Sig (Normalized) Sig (Original) atorvastatin 20 mg oral tablet (20 sources) HMG-CoA Reductase Inhibitor Start: 05-24-2022 End: 05-14-2024 take 1 tablet by mouth once daily atorvastatin (LIPITOR) 20 mg tablet Indications: Hyperlipidemia with target LDL less than 100 Take 1 tablet by mouth once daily. 90 tablet 1 11/16/2023 05/14/2024 Active Start: 03-31-2021 End: 05-21-2022 take 1 tablet by mouth once daily atorvastatin (LIPITOR) 20 mg tablet Indications: Hyperlipidemia with target LDL less than 100 Take 1 tablet by mouth once daily. 90 tablet 1 09/28/2021 05/21/2022 Discontinued Start: 11-05-2019 End: 03-24-2020 take 1 tablet by mouth once daily atorvastatin (LIPITOR) 20 mg tablet Indications: Hyperlipidemia with target LDL less than 100 Take 1 tablet by mouth once daily. 30 tablet 11 11/05/2019 03/24/2020 Discontinued Comment on above: Take 1 tablet by maegan once daily. chondro durham A/vit C/manganese (CHONDROITIN SULFATE COMPLEX ORAL) (20 sources) take 2 tablets by mouth once daily chondro durham A/vit C/manganese (CHONDROITIN SULFATE COMPLEX ORAL) Take 2 tablets by mouth once daily. Active take 2 tablets by mouth once reynaldo ly chondro durham A/vit C/manganese (CHONDROITIN SULFATE COMPLEX ORAL) Take 2 tablets by mouth once daily. 0 Active Comment on above: Take 2 tablets by mo [facility] once daily. CPAP (20 sources) Start: 03-18-2021 CPAP Initiate Auto PAP @ 10-20 cm of water with humidification. Mask (per patient preference) optional chin strap (if indicated) , filters, tubing, humidifier and lifetime supplies. 1 Each 03/18/2021 Active Start: 03-18-2021 CPAP Initiate Auto PAP @ 10-20 cm of water with humidification. Mask (per patient preference) optional chin strap (if indicated) , filters, tubing, humidifier and lifetime supplies. 1 Each 0 03/18/2021 Active Comment on above: Initiate Auto PAP @ 10-20 cm of water with humidification. Mask (per patient preference) optional chin strap (if indicated) , filters, tubing, humidifier and lifetime supplies. doxycycline hyclate 100 mg oral tablet (1 source) Tetracycline-class Drug Start: End: take 1 tablet by mouth twice daily doxycycline (VIBRA-TABS) 100 mg tablet Take 1 tablet by mouth twice daily for 7 days. 14 tablet 0 03/01/2022 03/08/2022 Active Comment on above: Take 1 tablet by [facility] twice daily for 7 days. 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 Take 1 tablet once daily in the morning 30 tablet 2 07/06/2022 08/03/2022 Discontinued Comment on above: Take 1 tablet by maegan th once daily. Take 1 tablet once daily in the morning furosemide 40 mg oral tablet (4 sources) Loop Diuretic Start: 03-31-19 End: 07-04-19 take 1 tablet by mouth once daily furosemide (LASIX) 40 mg tablet Indications: Bilateral lower extremity edema Take 1 tablet by mouth once daily. 30 tablet 3 03/31/2021 07/03/2021 Discontinued Comment on above: Take 1 tablet by maegan th once daily. 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 Take 2 tablets by mo ut daily with breakfast. hydroCHLOROthiazide 12.5 mg / losartan potassium 50 mg oral tablet (20 sources) Thiazide Diuretic, Angiotensin 2 Receptor Veronique Start: End: take 1 tablet by mouth once daily losartan-hydro CHLOROthiazide (HYZAAR) 50-12.5 mg per tablet Take 1 tablet by mouth once daily. 90 tablet 3 04/13/2023 04/12/2024 Active Start: 06-15-2021 End: 04-06-2023 take 1 tablet by mouth once daily losartan-hydroCHLOROthiazide (HYZAAR) 50-12.5 mg per tablet Take 1 tablet by mouth once daily. 90 tablet 3 04/06/2022 04/06/2023 Active Comment on above: Take 1 tablet by [facility] once daily. MEDICAL SUPPLY (20 sources) Start: 10-15-2021 MEDICAL SUPPLY Calculi strainer to be used daily until passage of kidney stone. 1 Each 10/15/2021 Active Start: 10-15-2021 MEDICAL SUPPLY Calculi strainer to be used daily until passage of kidney stone. 1 Each 0 10/15/2021 Active Comment on above: Calculi strainer to be used daily until passage of kidney stone. 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 120 tablet 11 08/11/2023 Active Comment on above: Take 2 tablets by mo [facility] twice daily with meals. perflutren lipid microspheres 1.3 mL in NaCl (PF) 0.9% 10 mL injection (DEFINITY) (20 sources) Start: 12-24-19 End: 03-24-19 perflutren lipid microspheres 1.3 mL in NaCl (PF) 0.9% 10 mL injection (DEFINITY) SITagliptin 100 mg oral tablet (20 sources) Dipeptidyl Peptidase 4 Inhibitor Start: 02-03-20 End: 01-13-20 23 take 1 tablet by mouth once daily sitaGLIPtin phosphate (JANUVIA) 100 mg tablet Take 1 tablet by mouth once daily. 30 tablet 11 01/12/2023 Active Comment on above: Take 1 tablet by maegan th once daily. 125 ml sodium chloride 9 mg/ml prefilled syringe (20 sources) Start: 12-24-19 21 End: 03-24-19 23 sodium chloride 0.9 % (flush) 10 mL (BD POSIFLUSH) Completed/Discontinued Medications Medication Drug Class(es) Dates Sig (Normalized) Sig (Original) aspirin 81 mg delayed release oral tablet (20 sources) Platelet Aggregation Inhibitor, Nonsteroidal Anti-inflammatory Drug Start: 08-06-2013 End: 06-23-2020 take 1 tablet by mouth once daily aspirin, enteric coated 81 mg EC tablet Take 1 tablet by mouth once daily. 0 08/06/2013 06/23/2020 Discontinued (Clinical Decision) take 1 tablet by mouth once per y aspirin 81 mg chewable tablet Take 81 mg by mouth once daily. Active Comment on above: Take 81 mg by mouth once daily. diclofenac sodium 75 mg delayed release oral tablet (1 source) Nonsteroidal Anti-inflammatory Drug Start: 0 End: 1 take 1 tablet by mouth twice daily as needed for pain diclofenac, EC, (VOLTAREN) 75 mg EC tablet Indications: Bursitis of other bursa of left hip Take 1 tablet by mouth twice daily as needed (hip pain). For pain/inflammation. Take with food. 30 tablet 1 11/14/2019 06/23/2020 Discontinued (Discontinued by Patient) losartan potassium 50 mg oral tablet (3 sources) Angiotensin 2 Receptor Veronique Start: 2 End: 2 take 1 tablet by mouth once daily losartan (COZAAR) 50 mg tablet Indications: Essential hypertension, benign Take 1 tablet by mouth once daily. 90 tablet 1 03/31/2021 06/15/2021 Discontinued Start: 04-13-2019 End: 03-24-2020 take 1 tablet by mouth once daily losartan (COZAAR) 50 mg tablet Indications: Essential hypertension, benign Take 1 tablet by mouth once daily. 30 tablet 12 04/13/2019 03/24/2020 Discontinued Comment on above: Take 1 tablet by maegan th once daily. 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 90 tablet 1 09/28/2021 09/29/2021 Discontinued Start: 12-20-2019 End: 03-24-2020 take 1 tablet by mouth once daily pioglitazone (ACTOS) 45 mg tablet Take 1 tablet by mouth once daily. 30 tablet 11 12/20/2019 03/24/2020 Discontinued Comment on above: Take 1 tablet by maegan th once daily. sildenafil 50 mg oral tablet (5 sources) Phosphodiesterase 5 Inhibitor Start: 07-22-2014 End: 07-03-2021 sildenafil (VIAGRA) 50 mg tablet daily as needed 6 tablet 3 07/22/2014 07/03/2021 Discontinued Comment on above: daily as needed Problems Active Problems Problem Classification Problem Date Documented Da te Episodic/Chronic Chronic kidney disease (20 sources) Chronic kidney disease stage 3; Translations: [Stage 3 chronic kidney disease, unspecified whether stage 3a or 3b CKD (HCC)] Onset: 08-03-2022 Chronic Chronic kidney disease (1 source) Chronic kidney disease; Translations: [Stage 3 chronic kidney disease, unspecified whether stage 3a or 3b CKD (HCC)] Onset: 08-03-2022 Congestive heart failure; nonhypertensive (20 sources) Chronic diastolic heart failure; Translations: [Chronic diastolic (congestive) heart failure] Onset: 09-29-2021 Chronic Deficiency and other anemia (20 sources) Iron deficiency anemia due to blood loss; Translations: [Iron deficiency anemia secondary to blood loss (chronic)] Onset: 07-05-2020 07-05-2020 Chronic Diabetes mellitus without complication (20 sources) Type 2 diabetes mellitus without complication; Translations: [Type 2 diabetes mellitus without complications] Onset: 08-20-2013 05-21-2019 Chronic Disorders of lipid metabolism (20 sources) Hyperlipidemia; Translations: [Hyperlipidemia, unspecified] Onset: 08-06-2013 Chronic Essential hypertension (20 sources) Benign essential hypertension; Translations: [Essential (primary) hypertension] Onset: 08-06-2013 Chronic Hyperplasia of prostate (20 sources) Benign prostatic hypertrophy with outflow obstruction; Translations: [Benign prostatic hyperplasia with lower urinary tract symptoms] Onset: 05-21-2019 05-21-2019 Chronic Mycoses (1 source) Onychomycosis; Translations: [Tinea unguium] Episodic Nausea and vomiting (1 source) Retching; Translations: [Vomiting, unspecified] Episodic Other and ill-defined heart disease (1 source) Ventricular hypertrophy ; Translations: [Cardiomegaly] Chronic Other connective tissue disease (1 source) Swelling of lower limb; Translations: [Other specified soft tissue disorders] Episodic Other gastrointestinal disorders (1 source) Diarrhea; Translations: [Diarrhea, unspecified] Episodic Other lower respiratory disease (2 sources) Dyspnea on exertion; Translations: [Dyspnea, unspecified] Episodic Other non-traumatic joint disorders (1 source) Hip pain; Translations: [Pain in left hip] 12-29-2019 Episodic Other nutritional; endocrine; and metabolic disorders (20 sources) Body mass index 40+ - severely obese; Translations: [Morbid (severe) obesity due to excess calories] Onset: 08-06-2013 Chronic Other nutritional; endocrine; and metabolic disorders (1 source) Severe obesity; Translations: [Morbid (severe) obesity due to excess calories] Chronic Other nutritional; endocrine; and metabolic disorders (1 source) Obesity; Translations: [Obesity, unspecified] 02-07-2023 Chronic Other nutritional; endocrine; and metabolic disorders (8 sources) Obese class II; Translations: [Obesity, unspecified] Onset: 10-26-2023 10-26-2023 Chronic Other nutritional; endocrine; and metabolic disorders (1 source) Obesity, unspecified; Translations: [Obesity, Class II, BMI 35-39.9] Onset: 10-26-2023 Chronic Other nutritional; endocrine; and metabolic disorders (1 source) Morbid (severe) obesity due to excess calories; Translations: [Obesity, Class III, BMI 40-49.9 (morbid obesity) (HCC)] Onset: 01-02-2018 Chronic Other skin disorders (2 sources) Corns and callosities; Translations: [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)] Onset: 04-13-2023 Episodic Residual codes; unclassified (20 sources) Obstructive sleep apnea syndrome; Translations: [Obstructive sleep apnea (adult) (pediatric)] Onset: 11-29-2022 Chronic Residual codes; unclassified (2 sources) Hypoxia; Translations: [Idiopathic sleep related nonobstructive alveolar hypoventilation] Chronic Residual codes; unclassified (1 source) Obstructive sleep apnea (adult) (pediatric); Translations: [BRETT on CPAP] Onset: 01-12-2023 Chronic Residual codes; unclassified (2 sources) Bilateral lower limb edema; Translations: [Localized edema] Episodic Skin and subcutaneous tissue infections (1 source) Cellulitis of face; Translations: [Cellulitis of face] Episodic Spondylosis; intervertebral disc disorders; other back problems (20 sources) Cervical arthritis; Translations: [Spondylosis without myelopathy or radiculopathy, cervical region] Onset: 02-05-2019 02-05-2019 Chronic Spondylosis; intervertebral disc disorders; other back problems (1 source) Chronic low back pain; Translations: [Lumbago with sciatica, left side] 12-29-2019 Episodic Past or Other Problems Problem Classification Problem Date Documented Date Episodic/Chronic Abdominal pain (13 sources) Left lower quadrant pain; Translations: [Left lower quadrant pain] Onset: 07-22-2014 Resolved: 05-26-2015 Episodic Biliary tract disease (12 sources) Gallstone; Translations: [Calculus of gallbladder without cholecystitis without obstruction] Onset: 07-05-2017 Resolved: 01-02-2018 01-02-2018 Episodic Diabetes mellitus with complications (20 sources) Type 2 diabetes mellitus; Translations: [Type 2 diabetes mellitus with other skin complications] Onset: 05-26-2015 Resolved: 04-07-2022 05-26-2015 Chronic Immunizations and screening for infectious disease (2 sources) Patient encounter status; Translations: [Encounter for immunization] Onset: 01-12-2023 01-12-2023 Episodic Infective arthritis and osteomyelitis (except that caused by tuberculosis or sexually transmitted disease) (12 sources) 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; Translations: [Staphylococcal arthritis, right knee] Onset: 10-27-2015 Resolved: 12-08-2015 12-08-2015 Episodic Other connective tissue disease (20 sources) Supraspinatus tendinitis; Translations: [Shoulder lesion, unspecified, unspecified shoulder] Onset: 07-22-2014 Resolved: 12-08-2015 05-24-2016 Episodic Other connective tissue disease (20 sources) Bursitis of hip; Translations: [Other bursitis of hip, unspecified hip] Onset: 11-19-2019 11-19-2019 Episodic Other connective tissue disease (12 sources) Prepatellar bursitis; Translations: [Prepatellar bursitis, unspecified knee] Onset: 07-04-2017 Resolved: 01-02-2018 01-02-2018 Episodic Other non-traumatic joint disorders (20 sources) Chronic ankle pain; Translations: [Pain in left ankle and joints of left foot] Onset: 02-05-2019 02-05-2019 Episodic Other nutritional; endocrine; and metabolic disorders (12 sources) Obesity caused by energy imbalance; Translations: [Other obesity due to excess calories] Onset: 08-23-2016 Resolved: 12-23-2020 12-23-2020 Chronic Screening and history of mental health and substance abuse codes (1 source) Encounter for screening for depression; Translations: [Screening for depression] Onset: 04-13-2023 Episodic Results Test Name Value Interpretation Reference Range Facility [facility]ILLIP [facility]IL[facility] ([id number]) 1950 M Date Time Provider Department 12/09/23 JENNY VAIL During your visit today, we recorded the following information about you: Nik Rosario LPN 12/09/2023 7:46 AM Signed ----- Message from Jenny Vail APRN.PATENT LITIGATION ASSOCIATE sent at 12/09/2023 6:42 AM EDT ----- CBC with diff is normal. Patient is cleared for surgery. Please fax clearance form, recent office note, labs and EKG to Heidi MCCANN. Clearance form in my outbox. Jenny Vail APRN.Nik Harris LPN 12/09/2023 10:30 AM Addendum All below faxed to Heidi MCCANN at [phone] with confirmation received. Telephoned patient and notified. Nik Rosario LPN Allergies As of Date: 12/09/2023 Noted Allergy Reaction ACTOS (PIOGLITAZONE) 01/05/2022 14 - Other: See Comments Comments: LE edema IBUPROFEN 08/06/2013 8 - GI Upset LISINOPRIL 08/06/2013 3 - Cough OMEPRAZOLE 10/13/2020 5 - Intolerance Comments: Bilateral lower extremity swelling and water retention. PENICILLINS 08/06/2013 2 - Rash Date Reviewed: 12/07/2023 Reviewed by: Nik Rosario LPN - Fully Assessed Reason for Visit: Forms [913] Cmt: Pre-Op clearance Prescriptions as of 12/09/2023 - empagliflozin (JARDIANCE) 25 mg tablet Take 1 tablet by mouth once daily. Take 1 tablet once daily in the morning - atorvastatin (LIPITOR) 20 mg tablet Take 1 tablet by mouth once daily. - glimepiride (AMARYL) 4 mg tablet Take 2 tablets by mouth daily with breakfast. - metFORMIN (GLUCOPHAGE) 500 mg tablet Take 2 tablets by mouth two times a day with meals. - losartan-hydroCHLOROt hiazide (HYZAAR) 50-12.5 mg per tablet Take 1 tablet by mouth once daily. - blood sugar diagnostic (ACCU-CHEK TOMASZ PLUS TEST STRP) test strip Test daily DX: E11.65 Insulin: No - sitaGLIPtin phosphate (JANUVIA) 100 mg tablet Take 1 tablet by mouth once daily. - MEDICAL SUPPLY Calculi strainer to be used daily until passage of kidney stone. - CPAP Initiate Auto PAP @ 10-20 cm of water with humidification. Mask (per patient preference) optional chin strap (if indicated) , filters, tubing, humidifier and lifetime supplies. - aspirin 81 mg chewable tablet Take 81 mg by mouth once daily. - chondro durham A/vit C/manganese (CHONDROITIN SULFATE COMPLEX ORAL) Take 2 tablets by mouth once daily. 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36]02/28/2020 Iron deficiency anemia due to chronic blood los*07/05/2020 Chronic diastolic heart failure (HCC) [I50.32] 09/29/2021 Stage 3 chronic kidney disease, unspecified whe*08/03/2022 BRETT (obstructive sleep apnea) [G47.33] 11/29/2022 Obesity, Class II, BMI 35-39.9 [E66.9] 10/26/2023 Encounter Status:Closed by NIK ROSARIO on 12/09/23 Normal [facility] CBC W Auto Differential pane l (Bld)on 12-08-2023 Basophils (Bld) [#/Vol] 0.05 10*3/uL Normal <0.11 [facility] Comment on above: Order Comment: Speci men Type: BLOOD SPECIMENOrdering Facility: [facility] Address: [address] [place] [address] [place] [address] Performed By: #### 5 7021-8 ####[facility] LABCLIA [id number] [place] [address] [place] Basophils/100 WBC (Bld) 0.6 % Normal [facility] Comment on above: Order Comment: Speci men Type: BLOOD SPECIMENOrdering Facility: [facility] Address: [address] [place] [address] Performed By: #### 5 7021-8 ####[facility] LABCLIA [id number] [place] [address] [place] Differential cell count method Nom (Bld) Auto Normal [facility] Comment on above: Order Comment: Speci men Type: BLOOD SPECIMENOrdering Facility: [facility] Address: [address] [place] [address] Performed By: #### 5 7021-8 ####[facility] LABCLIA [id number] [place] [address] [place] Eosinophils (Bld) [#/Vol] 0.16 10*3/uL Normal <0.46 [facility] Comment on above: Order Comment: Speci men Type: BLOOD SPECIMENOrdering Facility: [facility] Address: [address] [place] [address] Performed By: #### 5 7021-8 ####[facility] LABCLIA [id number] [place] [address] [place] Eosinophils/100 WBC (Bld) 1.9 % Normal [facility] Comment on above: Order Comment: Speci men Type: BLOOD SPECIMENOrdering Facility: [facility] Address: [address] [place] [address] Performed By: #### 5 7021-8 ####[facility] LABCLIA [id number] [place] [address] [place] Erythrocyte distribution width (RBC) [Ratio] 13.4 % Normal 11.5-15.0 [facility] Comment on above: Order Comment: Speci men Type: BLOOD SPECIMENOrdering Facility: [facility] Address: [address] [place] [address] Performed By: #### 5 7021-8 ####[facility] LABCLIA [id number] [place] [address] [place] Hematocrit (Bld) [Volume fraction] 41.2 % Normal 39.0-51.0 [facility] Comment on above: Order Comment: Speci men Type: BLOOD SPECIMENOrdering Facility: [facility] Address: [address] [place] [address] Performed By: #### 5 7021-8 ####[facility] LABCLIA [id number] [place] [address] [place] Hemoglobin (Bld) [Mass/Vol] 13.9 g/dL Normal 13.0-17.0 [facility] Comment on above: Order Comment: Speci men Type: BLOOD SPECIMENOrdering Facility: [facility] Address: [address] [place] [address] Performed By: #### 5 7021-8 ####[facility] LABCLIA [id number] [place] [address] [place] Immature granulocytes (Bld) [#/Vol] 0.07 10*3/uL Normal <0.10 [facility] Comment on above: Order Comment: Speci men Type: BLOOD SPECIMENOrdering Facility: [facility] Address: [address] [place] [address] Performed By: #### 5 7021-8 ####[facility] LABCLIA [id number] [place] [address] [place] Immature granulocytes/100 WBC (Bld) 0.8 % Normal [facility] Comment on above: Order Comment: Speci men Type: BLOOD SPECIMENOrdering Facility: [facility] Address: [address] [place] [address] Performed By: #### 5 7021-8 ####[facility] LABCLIA [id number] [place] [address] [place] Lymphocytes (Bld) [#/Vol] 1.81 10*3/uL Normal 1.00-4.00 [facility] Comment on above: Order Comment: Speci men Type: BLOOD SPECIMENOrdering Facility: [facility] Address: [address] [place] [address] Performed By: #### 5 7021-8 ####[facility] LABCLIA [id number] [place] [address] [place] Lymphocytes/100 WBC (Bld) 21.5 % Normal [facility] Comment on above: Order Comment: Speci men Type: BLOOD SPECIMENOrdering Facility: [facility] Address: [address] [place] [address] Performed By: #### 5 7021-8 ####[facility] LABIA [id number] [place] [address] [place] MCH (RBC) [Entitic mass] 30.2 pg Normal 26.0-34.0 [facility] Comment on above: Order Comment: Speci men Type: BLOOD SPECIMENOrdering Facility: [facility] Address: [address] [place] [address] Performed By: #### 5 7021-8 ####[facility] LABIA [id number] [place] [address] [place] MCHC (RBC) [Mass/Vol] 33.7 g/dL Normal 30.5-36.0 [facility] Comment on above: Order Comment: Speci men Type: BLOOD SPECIMENOrdering Facility: [facility] Address: [address] [place] [address] Performed By: #### 5 7021-8 ####[facility] LABCLIA [id number] [place] [address] [place] MCV (RBC) [Entitic vol] 89.4 fL Normal 80.0-100.0 [facility] Comment on above: Order Comment: Speci men Type: BLOOD SPECIMENOrdering Facility: [facility] Address: [address] [place] [address] Performed By: #### 5 7021-8 ####[facility] LABCLIA [id number] [place] [address] [place] Monocytes (Bld) [#/Vol] 0.57 10*3/uL Normal <0.87 [facility] Comment on above: Order Comment: Speci men Type: BLOOD SPECIMENOrdering Facility: [facility] Address: [address] [place] [address] Performed By: #### 5 7021-8 ####[facility] LABCLIA [id number] [place] [address] [place] Monocytes/100 WBC (Bld) 6.8 % Normal [facility] Comment on above: Order Comment: Speci men Type: BLOOD SPECIMENOrdering Facility: [facility] Address: [address] [place] [address] Performed By: #### 5 7021-8 ####[facility] LABCLIA [id number] [place] [address] [place] Neutrophils (Bld) [#/Vol] 5.77 10*3/uL Normal 1.45-7.50 [facility] Comment on above: Order Comment: Speci men Type: BLOOD SPECIMENOrdering Facility: [facility] Address: [address] [place] [address] Performed By: #### 5 7021-8 ####[facility] LABCLIA [id number] [place] [address] [place] Neutrophils/100 WBC (Bld) 68.4 % Normal [facility] Comment on above: Order Comment: Speci men Type: BLOOD SPECIMENOrdering Facility: [facility] Address: [address] [place] [address] Performed By: #### 5 7021-8 ####[facility] LABCLIA [id number] [place] [address] [place] Nucleated RBC (Bld) [#/Vol] 10*3/uL Normal <0.01 [facility] Comment on above: Order Comment: Speci men Type: BLOOD SPECIMENOrdering Facility: [facility] Address: [address] [place] [address] Performed By: #### 5 7021-8 ####[facility] LABCLIA [id number] [place] [address] [place] Nucleated RBC/100 WBC (Bld) [Ratio] 0.0 /100 WBC Normal [facility] Comment on above: Order Comment: Speci men Type: BLOOD SPECIMENOrdering Facility: [facility] Address: [address] [place] [address] Performed By: #### 5 7021-8 ####[facility] LABIA [id number] [place] [address] [place] Platelet mean volume (Bld) [Entitic vol] 10.2 fL Normal 9.0-12.7 [facility] Comment on above: Order Comment: Speci men Type: BLOOD SPECIMENOrdering Facility: [facility] Address: [address] [place] [address] Performed By: #### 5 7021-8 ####[facility] LABCLIA [id number] [place] [address] [place] Platelets (Bld) [#/Vol] 264 10*3/uL Normal 150-400 [facility] Comment on above: Order Comment: Speci men Type: BLOOD SPECIMENOrdering Facility: [facility] Address: [address] [place] [address] Performed By: #### 5 7021-8 ####[facility] LABCLIA [id number] [place] [address] [place] RBC (Bld) [#/Vol] 4.61 10*6/uL Normal 4.20-6.00 [facility] Comment on above: Order Comment: Speci men Type: BLOOD SPECIMENOrdering Facility: [facility] Address: [address] [place] [address] Performed By: #### 5 7021-8 ####[facility] LABCLIA [id number] [place] [address] [place] WBC (Bld) [#/Vol] 8.43 10*3/uL Normal 3.70-11.00 [facility] Comment on above: Order Comment: Speci men Type: BLOOD SPECIMENOrdering Facility: [facility] Address: [address] [place] [address] Performed By: #### 5 7021-8 ####[facility] LABCLIA [id number] [address] [place] PASCUALOVon 12-07-2023 [facility] PHILLIP WILSON ([id number]) 1950 M Date Time Provider Department 12/07/23 6:00 PM JENNY VAIL During your visit today, we recorded the following information about you: Pulse Respiration Blood pressure Weight 93/minute 18/minute 124/66 107.5 kg Jenny Vail APRN.CNP 12/07/2023 6:29 PM Signed CC: Patient presents with: Pre-Op Exam: Left ear HPI Phillip Wilson is a 73 year old male who presents today for pre-op evaluation. 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 Jimenez Diabetes Yes Hypertension requiring medication Yes Congestive Heart Failure Yes Current Smoker within 1 Year No COPD/asthma No BRETT Yes- wears CPAP nightly Dialysis No Acute renal failure No Steroid use for chronic condition No Disseminated cancer No METS: Walk indoors, such as around the house (1.75 METs): YES Do light work around the house, such as dusting or washing dishes (2.70 METs): YES Take care of self; that is eating, dressing, bathing, using the toilet (2.75 METs): YES Walk a block or two on level ground (2.75 METs): YES Do moderate work around the house such as vacuuming, sweeping floors, or carrying in groceries (3.50 METs): YES Do yardwork, such as raking leaves, weeding,or pushing a power mower (4.50 METs): YES Climb a flight of stairs or walk up a hill (5.50 METs): YES Participate in moderate recreational activities, such as golf, bowling, dancing, doubles tennis, or throwing a baseball or football (6.00 METs): YES Participate in strenuous sport, such as swimming, singles tennis, football, basketball, or skiing (7.50 METs): YES Do heavy work around the house, such as scrubbing floors, lifting or moving heavy furniture (8.00 METs): YES Run a short distance (8.00 METs): YES Total: 52.95 Patient denies any chest pain or undue shortness of breath with the above physical activity. REVIEW OF SYSTEMS GENERAL: No weight loss, malaise or fevers RESPIRATORY: Negative for cough, hemoptysis, wheezing, COPD, dyspnea or shortness of breath CARDIOVASCULAR: Negative for chest pain, leg swelling, hypertension, CHF or palpitations 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 glimepiride (AMARYL) 4 mg tablet Take 2 tablets by mouth daily with breakfast. metFORMIN (GLUCOPHAGE) 500 mg tablet Take 2 tablets by mouth two times a day with meals. empagliflozin (JARDIANCE) 25 mg tablet Take 1 tablet by mouth once daily. Take 1 tablet once daily in the morning losartan-hydroCHLOROt hiazide (HYZAAR) 50-12.5 mg per tablet Take 1 tablet by mouth once daily. blood sugar diagnostic (ACCU-CHEK TOMASZ PLUS TEST STRP) test strip Test daily DX: E11.65 Insulin: No sitaGLIPtin phosphate (JANUVIA) 100 mg tablet Take 1 tablet by mouth once daily. MEDICAL SUPPLY Calculi strainer to be used daily until passage of kidney stone. CPAP Initiate Auto PAP @ 10-20 cm of water with humidification. Mask (per patient preference) optional chin strap (if indicated) , filters, tubing, humidifier and lifetime supplies. aspirin 81 mg chewable tablet Take 81 mg by mouth once daily. chondro durham A/vit C/manganese (CHONDROITIN SULFATE COMPLEX ORAL) Take 2 tablets by mouth once daily. FAMILY HISTORY Problem Relation Age of Onset Diabetes Mother Coronary Artery Disease Mother CABG 7 COPD Father Multiple Sclerosis Sister No Known Problems Brother No Known Problems Brother No Known Problems Son No Known Problems Son No Known Problems Son Social History Tobacco Use Smoking status: Never Smokeless tobacco: Never Substance Use Topics Alcohol use: No Drug use: No BP 124/66 Pulse 93 Resp 18 Wt 107.5 kg (236 lb 15.9 oz (more content not included)... Normal [facility] ECG COMPLETEon 12-07-2023 ECG COMPLETE Ventricular Rate : 8 7 BPM Atrial Rate : 87 BPM P-R Interval : 136 ms QRS Duration : 154 ms Q-T Interval : 404 ms QTC Calculation(Bazett) : 486 ms Calculated P [place] : 44 degrees Calculated R [place] : 24 degrees Calculated T [place] : 21 degrees NORMAL SINUS RHYTHM COMPLETE RIGHT BUNDLE BRANCH BLOCK ABNORMAL ECG Confirmed by MD THOMPSON GREGORY () on 12/08/2023 11:27:48 AM NAME : PHILLIP WILSON PID : [id number] : 1950 Gender : Male Race : ORD : [id number] Procedure Date : Dec 07 2023 18:30:06 Edit Date : Dec 08 2023 11:27:55 Diagnosis: NORMAL SINUS RHYTHM COMPLETE RIGHT BUNDLE BRANCH BLOCK ABNORMAL ECG Confirmed by MD THOMPSON GREGORY () on 12/08/2023 11:27:48 AM Test Reason : Z01.818 Preop examination Location : [facility] : [facility] Overread By : MD THOMPSON GREGORY Edited By : MD THOMPSON GREGORY Referred By : PODLOGVLAD, Acquired by : Linda RESENDEZ [facility] KATIEPHILLIP W ([id number]) 1950 M Date Time Provider Department 11/25/23 [facility] During your visit today, we recorded the following information about you: Jaime Juárez LPN 11/25/2023 11:21 AM Signed Pt phones office requesting surgical clearance from PCP. He states he was seen by [facility] for an ear issue and was referred to a surgeon for removal of a skin cancer in his L ear. No surgical date yet, but was told sometime in the next 2 weeks. Pt is unsure of surgeon's name also. Appt scheduled with [employer] [facility] on 12/06. Joanie Clinton LPN 11/25/2023 3:06 PM Signed Called [facility] and spoke with an MA. Advised her our office is looking for their pre-op clearance form for patient. She wasn't sure who would be handling this in their office so she advised she would follow up next week and get back with us or fax information to our direct fax #. MANDY Alonso Lori, LPN 11/29/2023 2:52 PM Signed Surgical clearance form received and forwarded to Jenny's nurse. Joanie Clinton LPN Allergies As of Date: 11/25/2023 Noted Allergy Reaction ACTOS (PIOGLITAZONE) 01/05/2022 14 - Other: See Comments Comments: LE edema IBUPROFEN 08/06/2013 8 - GI Upset LISINOPRIL 08/06/2013 3 - Cough OMEPRAZOLE 10/13/2020 5 - Intolerance Comments: Bilateral lower extremity swelling and water retention. PENICILLINS 08/06/2013 2 - Rash Date Reviewed: 10/26/2023 Reviewed by: Shawanda Jennings LPN - Fully Assessed Reason for Visit: Preop Appt [Other] Prescriptions as of 12/07/2023 - atorvastatin (LIPITOR) 20 mg tablet Take 1 tablet by mouth once daily. - glimepiride (AMARYL) 4 mg tablet Take 2 tablets by mouth daily with breakfast. - metFORMIN (GLUCOPHAGE) 500 mg tablet Take 2 tablets by mouth two times a day with meals. - empagliflozin (JARDIANCE) 25 mg tablet Take 1 tablet by mouth once daily. Take 1 tablet once daily in the morning - losartan-hydroCHLOROt hiazide (HYZAAR) 50-12.5 mg per tablet Take 1 tablet by mouth once daily. - blood sugar diagnostic (ACCU-CHEK TOMASZ PLUS TEST STRP) test strip Test daily DX: E11.65 Insulin: No - sitaGLIPtin phosphate (JANUVIA) 100 mg tablet Take 1 tablet by mouth once daily. - MEDICAL SUPPLY Calculi strainer to be used daily until passage of kidney stone. - CPAP Initiate Auto PAP @ 10-20 cm of water with humidification. Mask (per patient preference) optional chin strap (if indicated) , filters, tubing, humidifier and lifetime supplies. - aspirin 81 mg chewable tablet Take 81 mg by mouth once daily. - chondro durham A/vit C/manganese (CHONDROITIN SULFATE COMPLEX ORAL) Take 2 tablets by mouth once daily. 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36]02/28/2020 Iron deficiency anemia due to chronic blood los*07/05/2020 Chronic diastolic heart failure (HCC) [I50.32] 09/29/2021 Stage 3 chronic kidney disease, unspecified whe*08/03/2022 BRETT (obstructive sleep apnea) [G47.33] 11/29/2022 Obesity, Class II, BMI 35-39.9 [E66.9] 10/26/2023 Encounter Status:Closed by NIK ROSARIO on 12/07/23 [facility] Goldie 10-26-2023 CNOV Office Visit ([facility] ) KATIEPHILLIP ([id number]) 1950 M Date Time Provider Department 10/26/23 7:00 PM JENNY VAIL During your visit today, we recorded the following information about you: Temperature Pulse Respiration Blood pressure 98 degrees 80/minute 20/minute 118/64 Weight 110.5 kg Jenny Vail APRN.PATENT LITIGATION ASSOCIATE 10/26/2023 7:33 PM Signed 10/26/2023 Patient presents with: 6 Month Exam SUBJECTIVE: This is a 73 year old that is here today for Above Complaints. Since last office visit has been in good health without ER visits or hospitalizations DIABETES MELLITUS: Since our last visit he denies excessive thirst or increased frequency of urination, chest pain or dyspnea , numbness, tingling or pain in extremities, new or unusual visual symptoms, low sugar/hypoglycemic reactions, weight loss/gain, lightheadedness/dizzi ness, and bowel changes/loose stools. Follows a diabetic diet generally not very much. He is compliant with medication(s) and is tolerating med(s) without any side effects. He reports checking his glucose on a once a day schedule with sugars in the fasting < 200 range. Patient's last HgA1C was Hemoglobin A1C (%) Date Value 10/06/2023 8.9 04/01/2023 7.6 12/12/2020 6.9 06/14/2020 6.9 ) Last Ophthalmology exam was within the past 12 months HTN: Patient is compliant with meds Yes Monitors bp at home: No. Denies side effects: No. Chest pain: No. Dyspnea: No. Edema: No. Palpitations: No. Syncope: No. Headache: No. Dizziness: No. BRETT: Follow with sleep medicine. Has follow-up scheduled for 01/30/2024. Uses CPAP nightly HYPERLIPIDEMIA: Patient is taking medications: Yes. Patient is watching diet: No. Patient denies myalgias: Yes Patient denies gi upset: Yes Hx of RBB and CHF: follows with [facility] cardiology. Last appointment on 05/16/2023. No medication changes at that time. Advised to follow-up as needed. Denies SOB, dyspnea, orthopnea, chest pain, palpitations, or leg swelling PAST MEDICAL HISTORY No date: Benign prostatic hyperplasia with lower urinary tract symptoms No date: Cataracts, bilateral No date: Cervical arthritis No date: Chronic diastolic heart failure (HCC) No date: DDD (degenerative disc disease), lumbar 08/06/2013: Essential hypertension, benign 08/06/2013: Hyperlipidemia with target LDL less than 100 07/05/2020: Iron deficiency anemia due to chronic blood loss No date: Morbid obesity with BMI of 40.0-44.9, adult ([facility]) 02/05/2021: BRETT (obstructive sleep apnea) Comment: severe 2018: RBBB No date: Snoring 05/26/2015: 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 metFORMIN (GLUCOPHAGE) 500 mg tablet Take 2 tablets by mouth two times a day with meals. empagliflozin (JARDIANCE) 25 mg tablet Take 1 tablet by mouth once daily. Take 1 tablet once daily in the morning atorvastatin (LIPITOR) 20 mg tablet Take 1 tablet by mouth once daily. losartan-hydroCHLOROt hiazide (HYZAAR) 50-12.5 mg per tablet Take 1 tablet by mouth once daily. blood sugar diagnostic (ACCU-CHEK TOMASZ PLUS TEST STRP) test strip Test daily DX: E11.65 Insulin: No sitaGLIPtin phosphate (JANUVIA) 100 mg tablet Take 1 tablet by mouth once daily. MEDICAL SUPPLY Calculi strainer to be used daily until passage of kidney stone. CPAP Initiate Auto PAP @ 10-20 cm of water with humidification. Mask (per patient preference) optional chin strap (if indicated) , filters, tubing, humidifier and lifetime supplies. aspirin 81 mg chewable tablet Take 81 mg by mouth once daily. chondro durham A/vit C/manganese (CHONDROITIN SULFATE COMPLEX ORAL) Take 2 tablets by mouth once daily. No current facility-administered medications for this visit. Medications and allergies reviewed by this provider. SOCIAL HISTORY Social History Tobacco Use Smoking status: Never Smokeless tobacco: Never Substance Use Topics Alcohol use: No Drug use: No REVIEW OF SYSTEMS All other reviewed and negative other than HPI. OBJECTIVE: BP 118/64 Pulse 80 Temp 36.7 ?C (98 ?F) (Temporal) Resp 20 Wt 110.5 kg (243 lb 9.7 oz) BMI 39.32 kg/m? . Vital signs reviewed by this provider. APPEARANCE Well appearing, alert, in no acute distress, well-hydrated, well nourished. EYES conjunctiva and sclera normal. HEART RRR with normal S1 and S2, no murmurs, no gallops, no JVD appreciated LUNG clear to auscultation. No wheezes, rhonchi or rales EXTREMITIES Extremities normal, No deformities, No skin discoloration, and No edema SKIN Skin color, textu (more content not included)... Normal [facility] Comprehensive metabolic 2000 panelon 10-06-2023 Albumin [Mass/Vol] 4.8 g/dL Normal 3.9-4.9 [facility] Comment on above: Order Comment: Speci men Type: BLOOD SPECIMENOrdering Facility: [facility] Address: [address] [place] [address] Performed By: #### 2 4323-8, 40734-5 ####[facility] LABCLIA [id number] [place] [address] [place] ALP [Catalytic activity/Vol] 58 U/L Normal 38-113 [facility] Comment on above: Order Comment: Speci men Type: BLOOD SPECIMENOrdering Facility: [facility] Address: [address] [place] [address] Performed By: #### 2 4323-8, 91689-2 ####[facility] LABCLIA [id number] [place] [id number] [place] ALT [Catalytic activity/Vol] 29 U/L Normal 10-54 [facility] Comment on above: Order Comment: Speci men Type: BLOOD SPECIMENOrdering Facility: [facility] Address: [address] [place] [address] Performed By: #### 2 4323-8, 34641-3 ####[facility] LABCLIA [id number] [place] [address] [place] Anion gap [Moles/Vol] 12 mmol/L Normal 8-15 [facility] Comment on above: Order Comment: Speci men Type: BLOOD SPECIMENOrdering Facility: [facility] Address: [address] [place] [address] Performed By: #### 2 4323-8, 15777-8 ####[facility] LABCLIA [id number] [place] [address] [place] AST [Catalytic activity/Vol] 29 U/L Normal 14-40 [facility] Comment on above: Order Comment: Speci men Type: BLOOD SPECIMENOrdering Facility: [facility] Address: [address] [place] [address] Performed By: #### 2 4323-8, 70556-4 ####[facility] LABCLIA [id number] [place] [address] [place] Bilirubin [Mass/Vol] 1.1 mg/dL Normal 0.2-1.3 [facility] Comment on above: Order Comment: Speci men Type: BLOOD SPECIMENOrdering Facility: [facility] Address: [address] [place] [address] Performed By: #### 2 4323-8, 77255-7 ####[facility] LABCLIA [id number] [place] [address] [place] Calcium [Mass/Vol] 10.2 mg/dL Normal 8.5-10.2 [facility] Comment on above: Order Comment: Speci men Type: BLOOD SPECIMENOrdering Facility: [facility] Address: [address] [place] [address] Performed By: #### 2 4323-8, 80377-3 ####[facility] LABCLIA [id number] [place] [address] [place] Chloride [Moles/Vol] 101 mmol/L Normal 98-107 [facility] Comment on above: Order Comment: Speci men Type: BLOOD SPECIMENOrdering Facility: [facility] Address: [address] [place] [address] Performed By: #### 2 4323-8, 57210-6 ####[facility] LABCLIA [id number] [place] [address] [place] CO2 [Moles/Vol] 24 mmol/L Normal 22-30 [facility] Comment on above: Order Comment: Speci men Type: BLOOD SPECIMENOrdering Facility: [facility] Address: [address] [place] [address] Performed By: #### 2 4323-8, 04081-9 ####[facility] LABCLIA [id number] [place] [address] [place] Creatinine [Mass/Vol] 1.39 mg/dL High 0.73-1.22 [facility] Comment on above: Order Comment: Speci men Type: BLOOD SPECIMENOrdering Facility: [facility] Address: [address] [place] [address] Performed By: #### 2 4323-8, 53092-6 ####[facility] LABIA [id number] [place] [address] [place] Creatinine and Glomerular filtration rate.predicted panel (S/P/Bld) 54 mL/min/1.73m??? Low >=60 [facility] Comment on above: Order Comment: Speci men Type: BLOOD SPECIMENOrdering Facility: [facility] Address: [address] [place] [address] Result Comment: Valentina mated Glomerular Filtration Rate (eGFR) is calculated using the 2020 CKD-EPI creatinine equation. This equation utilizes serum creatinine, sex, and age as parameters. The creatinine assay has traceable calibration to isotope dilution-mass spectrometry. Refer to KDIGO guidelines for clinical interpretation. In patients with unstable renal function, e.g. those with acute kidney injury, the eGFR may not accurately reflect actual GFR. Performed By: #### 2 4323-8, 87617-2 ####[facility] LABCLIA [id number] [place] [address] [place] Glucose [Mass/Vol] 108 mg/dL High 74-99 [facility] Comment on above: Order Comment: Speci men Type: BLOOD SPECIMENOrdering Facility: [facility] Address: [address] [place] [address] Result Comment: The [place] Diabetes Association (ADA) provides guidance for cutoff values for fasting glucose and random glucose. The ADA defines fasting as no caloric intake for at least 8 hours. Fasting plasma glucose results between 100 to 125 mg/dL indicate increased risk for diabetes (prediabetes). Fasting plasma glucose results greater than or equal to 126 mg/dL meet the criteria for diagnosis of diabetes. In the absence of unequivocal hyperglycemia, results should be confirmed by repeat testing. In a patient with classic symptoms of hyperglycemia or hyperglycemic crisis, random plasma glucose results greater than or equal to 200 mg/dL meet the criteria for diagnosis of diabetes. Reference: Standards of Medical Care in Diabetes 2016, [place] Diabetes Association. Diabetes Care. 2016.39(Suppl 1). Performed By: #### 2 4323-8, 79003-1 ####[facility] LABCLIA [id number] [place] [address] [place] Potassium [Moles/Vol] 4.1 mmol/L Normal 3.7-5.1 [facility] Comment on above: Order Comment: Speci men Type: BLOOD SPECIMENOrdering Facility: [facility] Address: [address] [place] [address] Performed By: #### 2 4323-8, 86295-8 ####[facility] LABIA [id number] [place] [address] [place] Protein [Mass/Vol] 7.6 g/dL Normal 6.3-8.0 [facility] Comment on above: Order Comment: Speci men Type: BLOOD SPECIMENOrdering Facility: [facility] Address: [address] [place] [address] Performed By: #### 2 4323-8, 82251-4 ####[facility] LABCLIA [id number] [place] [address] [place] Sodium [Moles/Vol] 137 mmol/L Normal 136-144 [facility] Comment on above: Order Comment: Speci men Type: BLOOD SPECIMENOrdering Facility: [facility] Address: [address] [place] [address] Performed By: #### 2 4323-8, 20229-5 ####[facility] LABIA [id number] [place] [address] [place] Urea nitrogen [Mass/Vol] 32 mg/dL High 9-24 [facility] Comment on above: Order Comment: Speci men Type: BLOOD SPECIMENOrdering Facility: [facility] Address: [address] [place] [address] Performed By: #### 2 4323-8, 47377-1 ####[facility] LABIA [id number] [place] [address] [place] HbA1c (Bld)on 10-06-2023 Average glucose Estimated from glycated hemoglobin (Bld) [Mass/Vol] 209 mg/dL Normal [facility] Comment on above: Order Comment: Speci men Type: BLOOD SPECIMENOrdering Facility: [facility] Address: [address] [place] [address] Result Comment: eAG: (Estimated average glucose) is a calculated value from HgbA1c and is floor representative of the average blood glucose level in the last 2-3 month period. Performed By: #### 5 5454-3 ####[facility] [id number] [place] [address] [place] HbA1c (Bld) [Mass fraction] 8.9 % High 4.3-5.6 [facility] Comment on above: Order Comment: Speci men Type: BLOOD SPECIMENOrdering Facility: [facility] Address: [address] [place] [address] Result Comment: [place] Diabetes Association guidelines indicate that patients with HgbA1c in the range 5.7-6.4% are at increased risk for development of diabetes, and intervention by lifestyle modification may be beneficial. HgbA1c greater or equal to 6.5% is considered diagnostic of diabetes. Performed By: #### 5 5454-3 ####[facility] LABCLIA [id number] [place] [address] [place] Lipid 1996 panelon 4 Cholesterol [Mass/Vol] 151 mg/dL Normal <200 [facility] Comment on above: Order Comment: Speci men Type: BLOOD SPECIMENOrdering Facility: [facility] Address: [address] [place] [address] Result Comment: <200 mg/dL, Desirable 200-239 mg/dL, Borderline high >239 mg/dL, High Performed By: #### 2 4323-8, 39980-8 ####[facility] LABCLIA [id number] [address] STATES OF [facility] Cholesterol in HDL [Mass/Vol] 41 mg/dL Normal >39 [facility] Comment on above: Order Comment: Dahlia piper Type: BLOOD SPECIMENOrdering Facility: [facility] Address: [address] [place] [address] Result Comment: 40-5 9 mg/dL, Acceptable >59 mg/dL, High: Negative risk factor for coronary heart disease <40 mg/dL, Low: Positive risk factor for coronary heart disease Performed By: #### 2 4323-8, 28675-2 ####[facility] LABCLIA [id number] [address] [place] Cholesterol in LDL [Mass/Vol] 67 mg/dL Normal <100 [facility] Comment on above: Order Comment: Dahlia men Type: BLOOD SPECIMENOrdering Facility: [facility] Address: [address] [place] [address] Result Comment: <100 mg/dL, Optimal 100-129 mg/dL, Near optimal/above optimal 130-159 mg/dL, Borderline high 160-189 mg/dL, High >189 mg/dL, Very high Secondary prevention optimal LDL Cholesterol levels are recommended to be < 70 mg/dL Performed By: #### 2 4323-8, 05785-2 ####[facility] LABCLIA [id number] [place] [address] [place] Cholesterol in LDL/Cholesterol in HDL [Mass ratio] 1.63 {ratio} Normal <2.54 [facility] Comment on above: Order Comment: Speci men Type: BLOOD SPECIMENOrdering Facility: [facility] Address: [address] [place] [address] Result Comment: Refe rence: 1. National Cholesterol Education Program ATP III Guideline At-A-Glance Quick Desk Reference: National Heart, Lung, and Blood [place]. National Institutes of Health. 2001: NIH Publication No. 01-3305. 2. An International Atherosclerosis Society position paper: global recommendations for the management of dyslipidemia: executive summary, Atherosclerosis. 2014: 232(2):410-413. Performed By: #### 2 4323-8, 18531-8 ####[facility] LABIA [id number] [place] [address] [place] Cholesterol in VLDL [Mass/Vol] 43 mg/dL High <30 [facility] Comment on above: Order Comment: Dahlia piper Type: BLOOD SPECIMENOrdering Facility: [facility] Address: [address] [place] [address] Performed By: #### 2 4323-8, 03751-5 ####[facility] LABIA [id number] [place] [id number] [place] Cholesterol non HDL [Mass/Vol] 110 mg/dL Normal <130 [facility] Comment on above: Order Comment: Dahlia men Type: BLOOD SPECIMENOrdering Facility: [facility] Address: [address] [place] [address] Result Comment: <130 mg/dL, Optimal 130-159 mg/dL, Near optimal/above optimal 160-189 mg/dL, Borderline high 190-219 mg/dL, High >219 mg/dL, Very high Secondary prevention optimal non HDL Cholesterol levels are recommended to be <100 mg/dL Performed By: #### 2 4323-8, 08235-3 ####[facility] LABCLIA [id number] [place] [address] [place] Cholesterol.total/Alecia sterol in HDL [Mass ratio] 3.68 {ratio} Normal <5.10 [facility] Comment on above: Order Comment: Speci men Type: BLOOD SPECIMENOrdering Facility: [facility] Address: [address] [place] [address] Performed By: #### 2 4323-8, 49939-6 ####[facility] LABIA [id number] [address] OF [facility] FASTING TIME 21 hrs Normal [facility] Comment on above: Order Comment: Speci men Type: BLOOD SPECIMENOrdering Facility: [facility] Address: [address] [place] [address] Performed By: #### 2 4323-8, 96332-2 ####[facility] LABIA [id number] [place] [address] [place] Triglyceride [Mass/Vol] 216 mg/dL High <150 [facility] Comment on above: Order Comment: Speci men Type: BLOOD SPECIMENOrdering Facility: [facility] Address: [address] [place] [address] Result Comment: <150 mg/dL, Normal 150-199 mg/dL, Borderline high 200-499 mg/dL, High >499 mg/dL, Very high Performed By: #### 2 4323-8, 37372-3 ####[facility] LABIA [id number] [place] [address] [place] Yomi 10-05-2023 RITA Telephone (4CQ) PHILLIP WILSON ([id number]) 1950 M Date Time Provider Department 10/05/23 ROMMEL ROCKWELL 4CQ During your visit today, we recorded the following information about you: Yeimi Gentile 10/05/2023 1:09 PM Signed PT requesting lab work prior to appt 10/11 please advise and call pt when ordered. Thank you Rommel Rockwell MD 10/05/2023 2:45 PM Signed Fasting labs ordered. Varun Perla LPN 10/05/2023 3:59 PM Signed Patient notified. Varun Perla LPN Allergies As of Date: 10/05/2023 Noted Allergy Reaction ACTOS (PIOGLITAZONE) 01/05/2022 14 - Other: See Comments Comments: LE edema IBUPROFEN 08/06/2013 8 - GI Upset LISINOPRIL 08/06/2013 3 - Cough OMEPRAZOLE 10/13/2020 5 - Intolerance Comments: Bilateral lower extremity swelling and water retention. 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 - metFORMIN (GLUCOPHAGE) 500 mg tablet Take 2 tablets by mouth two times a day with meals. - empagliflozin (JARDIANCE) 25 mg tablet Take 1 tablet by mouth once daily. Take 1 tablet once daily in the morning - atorvastatin (LIPITOR) 20 mg tablet Take 1 tablet by mouth once daily. - losartan-hydroCHLOROt hiazide (HYZAAR) 50-12.5 mg per tablet Take 1 tablet by mouth once daily. - blood sugar diagnostic (ACCU-CHEK TOMASZ PLUS TEST STRP) test strip Test daily DX: E11.65 Insulin: No - sitaGLIPtin phosphate (JANUVIA) 100 mg tablet Take 1 tablet by mouth once daily. - MEDICAL SUPPLY Calculi strainer to be used daily until passage of kidney stone. - CPAP Initiate Auto PAP @ 10-20 cm of water with humidification. Mask (per patient preference) optional chin strap (if indicated) , filters, tubing, humidifier and lifetime supplies. - aspirin 81 mg chewable tablet Take 81 mg by mouth once daily. - chondro durham A/vit C/manganese (CHONDROITIN SULFATE COMPLEX ORAL) Take 2 tablets by mouth once daily. Problem List As Of Date 10/05/2023 Noted Resolved Essential hypertension, benign [I10] 08/06/2013 Hyperlipidemia with target LDL less than 100 [E*08/06/2013 Obesity, Class III, BMI 40-49.9 (morbid obesity*08/06/2013 Supraspinatus tendinitis [M75.90] 07/22/2014 12/08/2015 Pelvic pain in male [R10.2] 07/22/2014 05/26/2015 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 (*05/26/2015 04/07/2022 Staphylococcal arthritis of right knee (HCC) [M*10/27/2015 12/08/2015 Supraspinatus tendinitis [M75.90] 05/24/2016 Bursitis, prepatellar [M70.40] 07/04/2017 01/02/2018 Gallstones [K80.20] 07/05/2017 01/02/2018 Cervical arthritis [M47.812] 02/05/2019 Chronic pain of left ankle [M25.572, G89.29] 02/05/2019 Type 2 diabetes mellitus without complication, *08/20/2013 Non morbid obesity due to excess calories [E66.*08/23/2016 12/23/2020 BPH with obstruction/lower urinary tract sympto*05/21/2019 Bursitis of hip [M70.70] 11/19/2019 DDD (degenerative disc disease), lumbar [M51.36]02/28/2020 Iron deficiency anemia due to chronic blood los*07/05/2020 Chronic diastolic heart failure (HCC) [I50.32] 09/29/2021 Stage 3 chronic kidney disease, unspecified whe*08/03/2022 BRETT (obstructive sleep apnea) [G47.33] 11/29/2022 Encounter Status:Closed by VARUN PERLA on 10/05/23 Normal [facility] CNOVon 05-16-2023 CNOV Office Visit (CAWSTR ) KATIEROSEY Mackenzie ([id number]) 1950 M Date Time Provider Department 05/16/23 4:00 PM BETZY MARQUES [facility] During your visit today, we recorded the following information about you: Pulse Respiration Blood pressure Weight 97/minute 16/minute 121/71 112.9 kg Betzy Marques MD 05/16/2023 4:59 PM Signed [facility] Cardiology ([address]) [address] [facility] [id number] OUTPATIENT VISIT DATE 05/15/2023 PRIMARY CARE PHYSICIAN: Rommel Rockwell [address] [place] [address] HISTORY OF PRESENT ILLNESS: Mr. Wilson is a 72 year old gentleman who is here for routine follow-up of hypertension, dyslipidemia, diabetes (hto-dprlkrh-lzlqnzqs g) and obesity. He has a history of obstructive sleep apnea and is maintained on CPAP. He still works 4 to 6 days a week. He has had no significant decline in his functional capacity. He denies symptoms of chest pain or pressure. He has not had symptoms concerning for CHF including PND, orthopnea, or lower extremity edema. PAST CARDIAC HISTORY: From last office visit with STEPHON Barahona Katie is a very pleasant 72 year old male who presents for routine follow up. He has a PMhx of HTN, HLD, DM2, RBBB, BRETT, obesity. No known CAD but multiple risk factors. Stress testing 2020 without ischemia. He was last seen in office on 03/01/2022. He continues to do well since he was seen last. 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 He estimates he walks about 5,000 steps in a day and 25 flights of stairs. He has baseline shortness of breath and lower extremity swelling unchanged. He denies chest discomfort, dizziness, palpitations, orthopnea. We reviewed cardiac risk factors modifications. He expresses frustration with elevated A1C despite four oral glucose lowering medications. We reviewed diabetic teaching and recommended a wireline supervisor evaluation which he declines at this time. 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) 05/26/2015 Type II or unspecified type diabetes mellitus without mention of complication, uncontrolled 08/20/2013 PAST SURGICAL HISTORY Procedure Laterality Date COLONOSCOPY FLX DX W/COLLJ SPEC WHEN PFRMD 09/03/2020 ESOPHAGOGASTRODUODENO SCOPY TRANSORAL DIAGNOSTIC 09/03/2020 LAPAROSCOPY SURG CHOLECYSTECTOMY 07/25/2017 JOEYJose PAST SURGICAL HISTORY OF Right 2016 incision and drainage of knee abscess SOCIAL HISTORY Social History Tobacco Use Smoking status: Never Smokeless tobacco: Never Substance Use Topics Alcohol use: No Drug use: No FAMILY HISTORY Problem Relation Age of Onset Diabetes Mother Coronary Artery Disease Mother CABG 7 COPD Father Multiple Sclerosis Sister No Known Problems Brother No Known Problems Brother No Known Problems Son No Known Problems Son No Known Problems Son ALLERGIES: ALLERGIES Allergen Reactions Actos [Pioglitazone] Other: See Comments LE edema Ibuprofen GI Upset Lisinopril Cough Omeprazole Intolerance Bilateral lower extremity swelling and water retention. Penicillins Rash MEDICATIONS: atorvastatin (LIPITOR) 20 mg tablet Take 1 tablet by mouth once daily. losartan-hydroCHLOROt hiazide (HYZAAR) 50-12.5 mg per tablet Take 1 tablet by mouth once daily. empagliflozin (JARDIANCE) 25 mg tablet Take 1 tablet by mouth once daily. Take 1 tablet once daily in the morning glimepiride (AMARYL) 4 mg tablet Take 2 tablets by mouth daily with breakfast. blood sugar diagnostic (ACCU-CHEK TOMASZ PLUS TEST STRP) test strip Test daily DX: E11.65 Insulin: No sitaGLIPtin phosphate (JANUVIA) 100 mg tablet Take 1 tablet by mouth once daily. metFORMIN (GLUCOPHAGE) 500 mg tablet Take 2 tablets by mouth twice daily with meals. MEDICAL SUPPLY Calculi strainer to be used daily until passage of kidney stone. CPAP Initiate Auto PAP @ 10-20 cm of water with humidification. Mask (per patient preference) optional chin strap (if indicated) , filters, tubing, humidifier and lifetime supplies. aspirin 81 mg chewable tablet Take 81 mg by mouth once daily. chondro durham A/vit C/manganese (CHONDROITIN SULFATE COMPLEX ORAL) Take 2 tablets by mouth once daily. REVIEW OF SYSTEMS: Review of Systems (more content not included)... Normal [facility] CNOVon 04-13-2023 PASCUAL Office Visit (OPALWS ) PHILLIP WILSON ([id number]) 1950 M Date Time Provider Department 04/13/23 6:40 PM JENNY VAIL During your visit today, we recorded the following information about you: Pulse Respiration Blood pressure Weight 101/minute 18/minute 118/64 112.9 kg Jenny Vail APRN.PATENT LITIGATION ASSOCIATE 04/13/2023 7:00 PM Signed 04/13/2023 Patient presents with: F/U 3 Month SUBJECTIVE: This is a 72 year old that is here today for Above Complaints. Since last office visit has been in good health without ER visits or hospitalizations. DIABETES MELLITUS: Since our last visit he denies excessive thirst or increased frequency of urination, chest pain or dyspnea , numbness, tingling or pain in extremities, new or unusual visual symptoms, low sugar/hypoglycemic reactions, weight loss/gain, lightheadedness/dizzi ness, and bowel changes/loose stools. Follows a diabetic diet some of the time. He is compliant with medication(s) and is tolerating med(s) without any side effects. He reports checking his glucose on a once a day schedule with sugars in the fasting 140-180 range. Patient's last HgA1C was Hemoglobin A1C (%) Date Value 04/01/2023 7.6 01/17/2023 9.1 12/12/2020 6.9 06/14/2020 6.9 ) Component Latest Ref Rng AND Units 10/01/2022 Hemoglobin A1C 4.3 - 5.6 % 7.6 (H) Estimated Average Glucose mg/dL 171 Last Ophthalmology exam was on 07/24/2023 HTN: Patient is compliant with meds Yes Monitors bp at home: No. Denies side effects: Yes. Chest pain: No. Dyspnea: No. Edema: yeas mild . Palpitations: No. Syncope: No. Headache: No. Dizziness: No. BRETT: Followed with sleep medicine 02/07/2023. Using CPAP nightly Next follow-up scheduled for HYPERLIPIDEMIA: Patient is taking medications: Yes. Patient is watching diet: somewhat . Patient denies myalgias: Yes. Patient denies gi upset: Yes Hx of RBB and CHF: follows with [facility] cardiology. Last appointment on 08/30/2022 with recommended follow-up in 6 months. Has follow-up scheduled for April. 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 Take 1 tablet once daily in the morning glimepiride (AMARYL) 4 mg tablet Take 2 tablets by mouth daily with breakfast. blood sugar diagnostic (ACCU-CHEK TOMASZ PLUS TEST STRP) test strip Test daily DX: E11.65 Insulin: No sitaGLIPtin phosphate (JANUVIA) 100 mg tablet Take 1 tablet by mouth once daily. metFORMIN (GLUCOPHAGE) 500 mg tablet Take 2 tablets by mouth twice daily with meals. atorvastatin (LIPITOR) 20 mg tablet Take 1 tablet by mouth once daily. losartan-hydroCHLOROt hiazide (HYZAAR) 50-12.5 mg per tablet Take 1 tablet by mouth once daily. MEDICAL SUPPLY Calculi strainer to be used daily until passage of kidney stone. CPAP Initiate Auto PAP @ 10-20 cm of water with humidification. Mask (per patient preference) optional chin strap (if indicated) , filters, tubing, humidifier and lifetime supplies. aspirin 81 mg chewable tablet Take 81 mg by mouth once daily. chondro durham A/vit C/manganese (CHONDROITIN SULFATE COMPLEX ORAL) Take 2 tablets by mouth once daily. No current facility-administered medications for this visit. Medications and allergies reviewed by this provider. SOCIAL HISTORY Social History Tobacco Use Smoking status: Never Smokeless tobacco: Never Substance Use Topics Alcohol use: No Drug use: No REVIEW OF SYSTEMS All other reviewed and negative other than HPI. OBJECTIVE: BP 118/64 Pulse 101 Resp 18 Wt 112.9 kg (249 lb) SpO2 93% BMI 40.19 kg/m? . Vital signs reviewed by this provider. APPEARANCE Well appearing, alert, in no acute distress, well-hydrated, well nourished. EYES conjunctiva and sclera normal. HEART RRR with normal S1 and S2, no murmurs, no gallops, no JVD appreciated LUNG clear to auscultation. No wheezes, rhonchi or rales EXTREMITIES Extremities normal, No deformities, No skin discoloration, and No edema SKIN Skin color, texture, turgor normal, no suspicious rashes or lesions to expo (more content not included)... Normal [facility] Comprehensive metabolic 2000 panelon 04-01-2023 Albumin [Mass/Vol] 4.6 g/dL Normal 3.9-4.9 [facility] Comment on above: Order Comment: Speci men Type: BLOOD SPECIMENOrdering Facility: [facility] Address: [address] [place] [address] Performed By: #### 2 4323-8 ####[facility] LABCLIA [id number] [place] [address] [place] ALP [Catalytic activity/Vol] 47 U/L Normal 38-113 [facility] Comment on above: Order Comment: Speci men Type: BLOOD SPECIMENOrdering Facility: [facility] Address: [address] [place] [address] Performed By: #### 2 4323-8 ####[facility] LABCLIA [id number] [place] [address] [place] ALT [Catalytic activity/Vol] 26 U/L Normal 10-54 [facility] Comment on above: Order Comment: Speci men Type: BLOOD SPECIMENOrdering Facility: [facility] Address: [address] [place] [address] Performed By: #### 2 4323-8 ####[facility] LABCLIA [id number] [place] [address] [place] Anion gap [Moles/Vol] 13 mmol/L Normal 9-18 [facility] Comment on above: Order Comment: Speci men Type: BLOOD SPECIMENOrdering Facility: [facility] Address: [address] [place] [address] Performed By: #### 2 4323-8 ####[facility] LABCLIA [id number] [place] [address] [place] AST [Catalytic activity/Vol] 30 U/L Normal 14-40 [facility] Comment on above: Order Comment: Speci men Type: BLOOD SPECIMENOrdering Facility: [facility] Address: [address] [place] [address] Performed By: #### 2 4323-8 ####[facility] LABCLIA [id number] [place] [id number] [place] Bilirubin [Mass/Vol] 0.9 mg/dL Normal 0.2-1.3 [facility] Comment on above: Order Comment: Speci men Type: BLOOD SPECIMENOrdering Facility: [facility] Address: [address] [place] [address] Performed By: #### 2 4323-8 ####[facility] LABCLIA [id number] [place] [address] [place] Calcium [Mass/Vol] 10.3 mg/dL High 8.5-10.2 [facility] Comment on above: Order Comment: Speci men Type: BLOOD SPECIMENOrdering Facility: [facility] Address: [address] [place] [address] Performed By: #### 2 4323-8 ####[facility] LABCLIA [id number] [place] [address] [place] Chloride [Moles/Vol] 103 mmol/L Normal 97-105 [facility] Comment on above: Order Comment: Speci men Type: BLOOD SPECIMENOrdering Facility: [facility] Address: [address] [place] [address] Performed By: #### 2 4323-8 ####[facility] LABCLIA [id number] [place] [address] [place] CO2 [Moles/Vol] 25 mmol/L Normal 22-30 [facility] Comment on above: Order Comment: Speci men Type: BLOOD SPECIMENOrdering Facility: [facility] Address: [address] [place] [address] Performed By: #### 2 4323-8 ####[facility] LABCLIA [id number] [place] [id number] [place] Creatinine [Mass/Vol] 1.42 mg/dL High 0.73-1.22 [facility] Comment on above: Order Comment: Dahlia piper Type: BLOOD SPECIMENOrdering Facility: [facility] Address: [address] [place] [address] Performed By: #### 2 4323-8 ####[facility] LABCLIA [id number] [place] [address] [place] Creatinine and Glomerular filtration rate.predicted panel (S/P/Bld) 53 mL/min/1.73m??? Low >=60 [facility] Comment on above: Order Comment: Dahlia piper Type: BLOOD SPECIMENOrdering Facility: [facility] Address: [address] [place] [address] Result Comment: Valentina mated Glomerular Filtration Rate (eGFR) is calculated using the 2020 CKD-EPI creatinine equation. This equation utilizes serum creatinine, sex, and age as parameters. The creatinine assay has traceable calibration to isotope dilution-mass spectrometry. Refer to KDIGO guidelines for clinical interpretation. In patients with unstable renal function, e.g. those with acute kidney injury, the eGFR may not accurately reflect actual GFR. Performed By: #### 2 4323-8 ####[facility] LABIA [id number] [place] [address] [place] Glucose [Mass/Vol] 90 mg/dL Normal 74-99 [facility] Comment on above: Order Comment: Dahlia piper Type: BLOOD SPECIMENOrdering Facility: [facility] Address: [address] [place] [address] Result Comment: The [place] Diabetes Association (ADA) provides guidance for cutoff values for fasting glucose and random glucose. The ADA defines fasting as no caloric intake for at least 8 hours. Fasting plasma glucose results between 100 to 125 mg/dL indicate increased risk for diabetes (prediabetes). Fasting plasma glucose results greater than or equal to 126 mg/dL meet the criteria for diagnosis of diabetes. In the absence of unequivocal hyperglycemia, results should be confirmed by repeat testing. In a patient with classic symptoms of hyperglycemia or hyperglycemic crisis, random plasma glucose results greater than or equal to 200 mg/dL meet the criteria for diagnosis of diabetes. Reference: Standards of Medical Care in Diabetes 2016, [place] Diabetes Association. Diabetes Care. 2016.39(Suppl 1). Performed By: #### 2 4323-8 ####[facility] LABCLIA [id number] [place] [address] [place] Potassium [Moles/Vol] 4.2 mmol/L Normal 3.7-5.1 [facility] Comment on above: Order Comment: Speci men Type: BLOOD SPECIMENOrdering Facility: [facility] Address: [address] [place] [address] Performed By: #### 2 4323-8 ####[facility] LABCLIA [id number] [place] [address] [place] Protein [Mass/Vol] 7.8 g/dL Normal 6.3-8.0 [facility] Comment on above: Order Comment: Speci men Type: BLOOD SPECIMENOrdering Facility: [facility] Address: [address] [place] [address] Performed By: #### 2 4323-8 ####[facility] LABCLIA [id number] [place] [address] [place] Sodium [Moles/Vol] 141 mmol/L Normal 136-144 [facility] Comment on above: Order Comment: Speci men Type: BLOOD SPECIMENOrdering Facility: [facility] Address: [address] [place] [address] Performed By: #### 2 4323-8 ####[facility] LABCLIA [id number] [place] [address] [place] Urea nitrogen [Mass/Vol] 35 mg/dL High 9-24 [facility] Comment on above: Order Comment: Speci men Type: BLOOD SPECIMENOrdering Facility: [facility] Address: [address] [place] [address] Performed By: #### 2 4323-8 ####[facility] LABCLIA [id number] [place] [address] [place] HbA1c (Bld)on 04-01-2023 Average glucose Estimated from glycated hemoglobin (Bld) [Mass/Vol] 171 mg/dL Normal [facility] Comment on above: Order Comment: Dahlia piper Type: BLOOD SPECIMENOrdering Facility: [facility] Address: [address] [place] [address] Result Comment: eAG: (Estimated average glucose) is a calculated value from HgbA1c and is floor representative of the average blood glucose level in the last 2-3 month period. Performed By: #### 5 5454-3 ####[facility] LABCLIA [id number] [place] [address] [place] HbA1c (Bld) [Mass fraction] 7.6 % High 4.3-5.6 [facility] Comment on above: Order Comment: Dahlia piper Type: BLOOD SPECIMENOrdering Facility: [facility] Address: [address] [place] [address] Result Comment: [place] Diabetes Association guidelines indicate that patients with HgbA1c in the range 5.7-6.4% are at increased risk for development of diabetes, and intervention by lifestyle modification may be beneficial. HgbA1c greater or equal to 6.5% is considered diagnostic of diabetes. Performed By: #### 5 5454-3 ####[facility] LABCLIA [id number] [address] OF [facility] CNPMallory 03-30[facility] PHILLIP WILSON ([id number]) 1950 M Date Time Provider Department 03/30/23 ROMMEL ROCKWELL During your visit today, we recorded the following information about you: Obdulio Walker 03/30/2023 12:54 PM Signed Pt called asking about lab work for blood draw that was discussed with Dr. Rockwell. Please advise Rommel Rockwell MD 03/30/2023 3:06 PM Signed I have placed orders to recheck his diabetes. If he is wanting something different ordered, let me know. Nik Rosario LPN 03/30/2023 6:27 PM Signed Patient notified of labs ordered. OK with the ones that are ordered. Nik Rosaroi LPN Allergies As of Date: 03/30/2023 Noted Allergy Reaction ACTOS (PIOGLITAZONE) 01/05/2022 14 - Other: See Comments Comments: LE edema IBUPROFEN 08/06/2013 8 - GI Upset LISINOPRIL 08/06/2013 3 - Cough OMEPRAZOLE 10/13/2020 5 - Intolerance Comments: Bilateral lower extremity swelling and water retention. PENICILLINS 08/06/2013 2 - Rash Date Reviewed: 02/07/2023 Reviewed by: Cain Randle Jr., MD - Fully Assessed Reason for Visit: Orders [681] Cmt: Blood labs that were discussed w/ Dr. Rockwell. Primary Visit Diagnosis:Type 2 diabetes mellitus without complication, without long-term current use of insulin (HCC) [E11.9] Order(s):HGB A1C [AWOBA6C] Order #: [id number] FUTURE COMP METABOLIC PANEL [SQCMP] Order #: [id number] FUTURE Prescriptions as of 03/30/2023 - empagliflozin (JARDIANCE) 25 mg tablet Take 1 tablet by mouth once daily. Take 1 tablet once daily in the morning - glimepiride (AMARYL) 4 mg tablet Take 2 tablets by mouth daily with breakfast. - blood sugar diagnostic (ACCU-CHEK TOMASZ PLUS TEST STRP) test strip Test daily DX: E11.65 Insulin: No - sitaGLIPtin phosphate (JANUVIA) 100 mg tablet Take 1 tablet by mouth once daily. - metFORMIN (GLUCOPHAGE) 500 mg tablet Take 2 tablets by mouth twice daily with meals. - atorvastatin (LIPITOR) 20 mg tablet Take 1 tablet by mouth once daily. - losartan-hydroCHLOROt hiazide (HYZAAR) 50-12.5 mg per tablet Take 1 tablet by mouth once daily. - MEDICAL SUPPLY Calculi strainer to be used daily until passage of kidney stone. - CPAP Initiate Auto PAP @ 10-20 cm of water with humidification. Mask (per patient preference) optional chin strap (if indicated) , filters, tubing, humidifier and lifetime supplies. - aspirin 81 mg chewable tablet Take 81 mg by mouth once daily. - chondro durham A/vit C/manganese (CHONDROITIN SULFATE COMPLEX ORAL) Take 2 tablets by mouth once daily. 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 Yomi 03-11-2023 [facility] Telephone (SURESHPST) PHILLIP WILSON ([id number]) 1950 M Date Time Provider Department 03/11/23 ROMMEL ROCKWELL During your visit today, we recorded the following information about you: Lora [facility] Felicia 03/11/2023 12:32 PM Signed Patient has been identified by name and date of : Yes, Provider Rommel Rockwell Date 03/11/2023 Time 12:30 PM Patient phones for refill(s): Requested Prescriptions Pending Prescriptions Disp Refills empagliflozin (JARDIANCE) 25 mg tablet 90 tablet 0 Sig: Take 1 tablet by mouth once daily. Take 1 tablet once daily in the morning Date of last office visit in primary care: Visit date not found Date of next office visit in primary care: Appointments for Next 60 Days Date Time Provider Location Dept Phone 04/13/2023 6:40 PM [facility] [phone] Patient advised this RX if to be sent to [facility] in [place] and was sent to wrong pharmacy, please resend to [facility] today Please advise. Thank you. Felicia Paulino [facility]. Jenny Vail APRN.STEPHON 03/11/2023 12:40 PM Signed Prescription sent to [facility] in [place]. Jenny Vail APRN.Keshawn Lopez LPN 03/11/2023 1:08 PM Signed Pt notified of same. Keshawn Aguilar LPN Allergies As of Date: 03/11/2023 Noted Allergy Reaction ACTOS (PIOGLITAZONE) 01/05/2022 14 - Other: See Comments Comments: LE edema IBUPROFEN 08/06/2013 8 - GI Upset LISINOPRIL 08/06/2013 3 - Cough OMEPRAZOLE 10/13/2020 5 - Intolerance Comments: Bilateral lower extremity swelling and water retention. 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 Take 1 tablet once daily in the morningDisp: 90 tabletRfl: 0 Prescriptions as of 03/11/2023 - empagliflozin (JARDIANCE) 25 mg tablet Take 1 tablet by mouth once daily. Take 1 tablet once daily in the morning - glimepiride (AMARYL) 4 mg tablet Take 2 tablets by mouth daily with breakfast. - blood sugar diagnostic (ACCU-CHEK TOMASZ PLUS TEST STRP) test strip Test daily DX: E11.65 Insulin: No - sitaGLIPtin phosphate (JANUVIA) 100 mg tablet Take 1 tablet by mouth once daily. - metFORMIN (GLUCOPHAGE) 500 mg tablet Take 2 tablets by mouth twice daily with meals. - atorvastatin (LIPITOR) 20 mg tablet Take 1 tablet by mouth once daily. - losartan-hydroCHLOROt hiazide (HYZAAR) 50-12.5 mg per tablet Take 1 tablet by mouth once daily. - MEDICAL SUPPLY Calculi strainer to be used daily until passage of kidney stone. - CPAP Initiate Auto PAP @ 10-20 cm of water with humidification. Mask (per patient preference) optional chin strap (if indicated) , filters, tubing, humidifier and lifetime supplies. - aspirin 81 mg chewable tablet Take 81 mg by mouth once daily. - chondro durham A/vit C/manganese (CHONDROITIN SULFATE COMPLEX ORAL) Take 2 tablets by mouth once daily. 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 Take 1 tablet once daily in the morning Medications Discontinued During This Encounter Prescriptions - empagliflozin (JARDIANCE) 25 mg tablet (Discontinued) Take 1 tablet by mouth once daily. Take 1 tablet once daily in the morning Encounter Status:Close (more content not included)... Normal [facility] Yomi 03-03-2023 [facility] Telephone (Conject) PHILLIP WILSON ([id number]) 1950 M Date Time Provider Department 03/03/23 CAIN RANDLE JR During your visit today, we recorded the following information about you: Gisselle Armas LPN 03/03/2023 2:35 PM Signed [employer] results received on PAP testing patient did not qualify per insurance guidelines for oxygen. Gisselle Chanda [employer] Scan on 03/03/2023 12:33 PM by Provider, External, PA-C: [employer] PAP testing Cain Randle Jr., MD 03/03/2023 3:50 PM Signed That is ok as goal of PAP therapy was to eliminate need for supplemental O2. Cain Randle MD Allergies As of Date: 03/03/2023 Noted Allergy Reaction ACTOS (PIOGLITAZONE) 01/05/2022 14 - Other: See Comments Comments: LE edema IBUPROFEN 08/06/2013 8 - GI Upset LISINOPRIL 08/06/2013 3 - Cough OMEPRAZOLE 10/13/2020 5 - Intolerance Comments: Bilateral lower extremity swelling and water retention. PENICILLINS 08/06/2013 2 - Rash Date Reviewed: 02/07/2023 Reviewed by: Cain Randle Jr., MD - Fully Assessed Reason for Visit: Patient Update [1234] Prescriptions as of 03/29/2023 - empagliflozin (JARDIANCE) 25 mg tablet Take 1 tablet by mouth once daily. Take 1 tablet once daily in the morning - glimepiride (AMARYL) 4 mg tablet Take 2 tablets by mouth daily with breakfast. - blood sugar diagnostic (ACCU-CHEK TOMASZ PLUS TEST STRP) test strip Test daily DX: E11.65 Insulin: No - sitaGLIPtin phosphate (JANUVIA) 100 mg tablet Take 1 tablet by mouth once daily. - metFORMIN (GLUCOPHAGE) 500 mg tablet Take 2 tablets by mouth twice daily with meals. - atorvastatin (LIPITOR) 20 mg tablet Take 1 tablet by mouth once daily. - losartan-hydroCHLOROt hiazide (HYZAAR) 50-12.5 mg per tablet Take 1 tablet by mouth once daily. - MEDICAL SUPPLY Calculi strainer to be used daily until passage of kidney stone. - CPAP Initiate Auto PAP @ 10-20 cm of water with humidification. Mask (per patient preference) optional chin strap (if indicated) , filters, tubing, humidifier and lifetime supplies. - aspirin 81 mg chewable tablet Take 81 mg by mouth once daily. - chondro durham A/vit C/manganese (CHONDROITIN SULFATE COMPLEX ORAL) Take 2 tablets by mouth once daily. 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 CNOVon 02-07-2023 CNOV Office Visit (SLEWST ) PHILLIP WILSON ([id number]) 1950 M Date Time Provider Department 02/07/23 9:00 AM CAIN RANDLE JR During your visit today, we recorded the following information about you: Pulse Respiration Blood pressure Weight 96/minute 16/minute 138/84 112.1 kg Gisselle Armas LPN 02/07/2023 9:27 AM Signed There is no data to display for this encounter Cain Randle Jr., MD 02/07/2023 9:27 AM Signed ESTABLISHED PATIENT VISIT CHIEF COMPLAINT: Follow Up HISTORY OF PRESENT ILLNESS: Phillip Wilson is a 72 year old male, with a PMH significant for and per last office visit note of 07/12/22: 1. BRETT on CPAP - ICD9: 327.23, V46.8, ICD10: G47.33, Z99.89 (primary diagnosis) 2. Nocturnal hypoxia - ICD9: 327.24, ICD10: G47.34 3. Class 3 severe obesity with body mass index (BMI) of 40.0 to 44.9 in adult, unspecified obesity type, unspecified whether serious comorbidity present (HCC) - ICD9: 278.01, V85.41, ICD10: E66.01, Z68.41 Patient with known BRETT for which he was diagnosed by HSAT as above and now on PAP. Risk factors for BRETT include crowded airway and obesity. Pt with both subjective history and objective data to suggest PAP compliance with pt endorsing benefit from PAP use. Pt with following med conditions that could be exacerbated by untreated BRETT: DM, HTN, HLD. Discussed with patient: the physiology of OSAS, medical conditions associated with OSAS (DM, HTN, CAD, Depression, Stroke, Headache...) and treatment options (UPPP, Dental appliances, CPAP...). Encouraged continued PAP compliance. Reminded pt to clean and replace his PAP equipment regularly. Pt has been worked up for abnml ECG (on HSAT) by PCP. Pt with no lab findings or other to suggest hypercapnia as was noted during PAP titration (possibly resolving with PAP use). Pt however with low O2 the night of HSAT and PAP titration and feel appropriate to further evaluate for nocturnal hypoxia despite PAP use. Thus, will order nocturnal oximetry study. Also explained to pt how to increase humidifier settings on his specific PAP (now set at 2) -- this should allow for improvement in nasal congestion and dry mouth. PAP data download for past 90 days shows nightly use for avg of 8 hours 27 minutes. Avg AHI is 0.7. P95 is 10.3 cmH2O. Avg leak is 22.8 LPM. Patient not aware of sig leak and can fix it quite quickly. Will wake with a hiss sound. Feels sleeping good at night. Feels awake in the AM but as day goes on he reports blood sugars take over and make him feel fatigued. States did go through a recent bout in which he did not have his metformin resulting in glucose measures in the 230-240 range. Once on meds, back to 150-160 range. Sometimes takes a nap while waiting for a load of concrete but states out of boredom. If he is active, he does not think about sleeping. During visit reviewed prior sleep studies with pt. REVIEW OF SYSTEMS GENERAL:No weight loss, malaise or fevers. HEENT:Negative for frequent or significant headaches, No changes in hearing or vision, no nose bleeds or other nasal problems RESPIRATORY: Negative for cough, wheezing or shortness of breath. CARDIOVASCULAR: Negative for chest pain, leg swelling or palpitations. LAB/IMAGING: Those performed since patient's last visit have been reviewed. WBC (k/uL) Date Value 01/17/2023 6.66 RBC (m/uL) Date Value 01/17/2023 4.83 Hemoglobin (g/dL) Date Value 01/17/2023 14.5 Hematocrit (%) Date Value 01/17/2023 43.6 MCV (fL) Date Value 01/17/2023 90.3 MCH (pg) Date Value 01/17/2023 30.0 MCHC (g/dL) Date Value 01/17/2023 33.3 RDW-CV (%) Date Value 01/17/2023 13.7 Platelet Count (k/uL) Date Value 01/17/2023 211 MPV (fL) Date Value 01/17/2023 10.6 Glucose (mg/dL) Date Value 01/17/2023 325 (H) BUN (mg/dL) Date Value 01/17/2023 24 Creatinine (mg/dL) Date Value 01/17/2023 1.48 (H) Sodium (mmol/L) Date Value 01/17/2023 136 Potassium (mmol/L) Date Value 01/17/2023 4.1 Chloride (mmol/L) Date Value 01/17/2023 102 CO2 (mmol/L) Date Value 01/17/2023 23 Protein, Total (g/dL) Date Value 01/17/2023 7.1 Albumin (g/dL) Date Value 01/17/2023 4.3 Calcium, Total (mg/dL) Date Value 01/17/2023 9.6 Alkaline Phosphatase (U/L) Date Value 01/17/2023 53 Bilirubin, Total (mg/dL) Date Value 01/17/2023 0.6 AST (U/L) Date Value 01/17/2023 31 ALT (U/L) Date Value 01/17/2023 32 Hep C Antibody IA (no units) Date Value 05/07/2016 Negative MEDICATIONS: sitaGLIPtin phosphate (JANUVIA) 100 mg tablet Take 1 tablet by mouth once daily. empagliflozin (JARDIANCE) 25 mg tablet Take 1 tablet by mouth once daily. Take 1 tablet once daily in the morning metFORMIN (GLUCOPHAGE) 500 mg tablet Take 2 tablets by mouth twice daily with meals. atorvastatin (LIPITOR) 20 mg tablet Take 1 tablet by (more content not included)... Normal [facility] PHILLIP WILSON ([id number]) 1950 M Date Time Provider Department 01/18/23 [facility] During your visit today, we recorded the following information about you: Joanie Clinton LPN 01/18/2023 12:21 PM Signed ----- Message from Jenny Vail APRN.CNP sent at 01/18/2023 11:09 AM EDT ----- A1c has worsened to 9.1% from 7.6%. Recommend either an injectable of a GLP or long acting insulin. If he would like I can have him talk to clinical pharmacist. Also recommend low carbohydrate diet and aim for at least 150 minutes of exercise a week. Urine sample shows elevation in Albumin/creatinine ratio likely due to uncontrolled blood sugars. Kidney function is stable. The rest of his blood work is in acceptable ranges. AGNES Freeman Lori, LPN 01/18/2023 12:26 PM Signed Phoned patient and reviewed results and recommendations with him. Patient reports that he had an A1C of 9.1% before and was able to get it back down to the 7.6% without an injectable. Patient stated he does not want to do any injectables and does not want to speak to a clinical pharmacist at this time. Advised patient I would forward his message to the provider for review. He voiced understanding. Jenny Vail APRN.CNP 01/18/2023 3:03 PM Signed He was prescribed jardiance when it was elevated like that. He is the max dose on the medications he is on. If he doesn't want to take use injectable or insulin then I recommend he work on lower carbohydrate diet and aim for at least 150 minutes of exercise per week. If he changes his mind he can let me know. AGNES Freeman Amanda, RN 01/18/2023 3:17 PM Signed Pt called and is notified of providers message and instructions. Pt asked how many carbs he should be eating. I asked him how many he eats now, and the Pt did not know. I told him to keep track of the carbohydrates and sugar he consumes, and it would give us a better idea of what he would need to decrease to. Let Pt know provider could put in a consult for a dietitian to talk with him, but he declined at this time. JUAN Mejia Julie, APRN.CNP 01/18/2023 3:26 PM Signed 60-75 grams per meal to maintain weight or 45-60 grams per meal if wants to lose weight. Snacks should be about 15 grams. Jenny Vail APRN.Sirisha Crowley RN 01/18/2023 3:32 PM Signed Pt called and is notified of providers instructions. Pt voices understanding. Sirisha Herrera RN Allergies As of Date: 01/18/2023 Noted Allergy Reaction ACTOS (PIOGLITAZONE) 01/05/2022 14 - Other: See Comments Comments: LE edema IBUPROFEN 08/06/2013 8 - GI Upset LISINOPRIL 08/06/2013 3 - Cough OMEPRAZOLE 10/13/2020 5 - Intolerance Comments: Bilateral lower extremity swelling and water retention. PENICILLINS 08/06/2013 2 - Rash Date Reviewed: 01/12/2023 Reviewed by: Nik Rosario LPN - Fully Assessed Reason for Visit: Results [95] Prescriptions as of 01/18/2023 - sitaGLIPtin phosphate (JANUVIA) 100 mg tablet Take 1 tablet by mouth once daily. - empagliflozin (JARDIANCE) 25 mg tablet Take 1 tablet by mouth once daily. Take 1 tablet once daily in the morning - metFORMIN (GLUCOPHAGE) 500 mg tablet Take 2 tablets by mouth twice daily with meals. - glimepiride (AMARYL) 4 mg tablet Take 2 tablets by mouth daily with breakfast. - atorvastatin (LIPITOR) 20 mg tablet Take 1 tablet by mouth once daily. - losartan-hydroCHLOROt hiazide (HYZAAR) 50-12.5 mg per tablet Take 1 tablet by mouth once daily. - blood sugar diagnostic (ACCU-CHEK TOMASZ PLUS TEST STRP) test strip Test daily DX: E11.65 Insulin: No - MEDICAL SUPPLY Calculi strainer to be used daily until passage of kidney stone. - CPAP Initiate Auto PAP @ 10-20 cm of water with humidification. Mask (per patient preference) optional chin strap (if indicated) , filters, tubing, humidifier and lifetime supplies. - aspirin 81 mg chewable tablet Take 81 mg by mouth once daily. - chondro durham A/vit C/manganese (CHONDROITIN SULFATE COMPLEX ORAL) Take 2 tablets by mouth once daily. 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 Normal [facility] ALBUMIN/CREAT RATIO RND URon 01-17-2023 Albumin DL <= 20 mg/L (U) [Mass/Vol] 29.2 mg/L Normal [facility] Comment on above: Order Comment: Speci men Type: URINE SPECIMENOrdering Facility: [facility] Address: [address] [place] [address] Performed By: #### U ACR ####[facility] LABCLIA [id number] [facility] [id number] [address] [place] Albumin/Creatinine (U) [Mass ratio] 52 mg/g High <30 [facility] Comment on above: Order Comment: Speci men Type: URINE SPECIMENOrdering Facility: [facility] Address: [address] [place] [address] Result Comment: Adul t Male and Female Nephrotic Criteria: <30 mg/g is considered normal to mildly increased 30-300 mg/g is considered moderately increased >300 mg/g is considered severely increased KDIGO. (2013). KDIGO 2012 Clinical Practice Guideline for the Evaluation and Management of Chronic Kidney Disease. Official Journal of the International Society of Nephrology, 3(1), 1-150. Performed By: #### U ACR ####[facility] LABCLIA [id number] [place] [address] [place] Creatinine (U) [Mass/Vol] 56.6 mg/dL Normal 20.0-300.0 [facility] Comment on above: Order Comment: Speci men Type: URINE SPECIMENOrdering Facility: [facility] Address: [address] [place] [address] Performed By: #### U ACR ####[facility] LABCLIA [id number] [place] [address] [place] CBC panel Auto (Bld)on 01-17 Erythrocyte distribution width (RBC) [Ratio] 13.7 % Normal 11.5-15.0 [facility] Comment on above: Order Comment: Speci men Type: BLOOD SPECIMENOrdering Facility: [facility] Address: [address] [place] [address] Performed By: #### 5 8410-2 ####[facility] LABIA [id number] [place] [address] [place] Hematocrit (Bld) [Volume fraction] 43.6 % Normal 39.0-51.0 [facility] Comment on above: Order Comment: Speci men Type: BLOOD SPECIMENOrdering Facility: [facility] Address: [address] [place] [address] Performed By: #### 5 8410-2 ####[facility] LABCLIA [id number] [place] [id number] [place] Hemoglobin (Bld) [Mass/Vol] 14.5 g/dL Normal 13.0-17.0 [facility] Comment on above: Order Comment: Speci men Type: BLOOD SPECIMENOrdering Facility: [facility] Address: [address] [place] [address] Performed By: #### 5 8410-2 ####[facility] LABCLIA [id number] [place] [address] [place] MCH (RBC) [Entitic mass] 30.0 pg Normal 26.0-34.0 [facility] Comment on above: Order Comment: Speci men Type: BLOOD SPECIMENOrdering Facility: [facility] Address: [address] [place] [address] Performed By: #### 5 8410-2 ####[facility] LABIA [id number] [place] [address] [place] MCHC (RBC) [Mass/Vol] 33.3 g/dL Normal 30.5-36.0 [facility] Comment on above: Order Comment: Speci men Type: BLOOD SPECIMENOrdering Facility: [facility] Address: [address] [place] [address] Performed By: #### 5 8410-2 ####[facility] LABCLIA [id number] [place] [address] [place] MCV (RBC) [Entitic vol] 90.3 fL Normal 80.0-100.0 [facility] Comment on above: Order Comment: Speci men Type: BLOOD SPECIMENOrdering Facility: [facility] Address: [address] [place] [address] Performed By: #### 5 8410-2 ####[facility] LABIA [id number] [place] [address] [place] Nucleated RBC (Bld) [#/Vol] 10*3/uL Normal <0.01 [facility] Comment on above: Order Comment: Speci men Type: BLOOD SPECIMENOrdering Facility: [facility] Address: [address] [place] [address] Performed By: #### 5 8410-2 ####[facility] LABCLIA [id number] [place] [address] [place] Platelet mean volume (Bld) [Entitic vol] 10.6 fL Normal 9.0-12.7 [facility] Comment on above: Order Comment: Speci men Type: BLOOD SPECIMENOrdering Facility: [facility] Address: [address] [place] [address] Performed By: #### 5 8410-2 ####[facility] LABCLIA [id number] [place] [address] [place] Platelets (Bld) [#/Vol] 211 10*3/uL Normal 150-400 [facility] Comment on above: Order Comment: Speci men Type: BLOOD SPECIMENOrdering Facility: [facility] Address: [address] [place] [address] Performed By: #### 5 8410-2 ####[facility] LABIA [id number] [place] [address] [place] RBC (Bld) [#/Vol] 4.83 10*6/uL Normal 4.20-6.00 [facility] Comment on above: Order Comment: Speci men Type: BLOOD SPECIMENOrdering Facility: [facility] Address: [address] [place] [address] Performed By: #### 5 8410-2 ####[facility] LABIA [id number] [place] [address] [place] WBC (Bld) [#/Vol] 6.66 10*3/uL Normal 3.70-11.00 [facility] Comment on above: Order Comment: Speci men Type: BLOOD SPECIMENOrdering Facility: [facility] Address: [address] [place] [address] Performed By: #### 5 8410-2 ####[facility] LABIA [id number] [place] [address] [place] Comprehensive metabolic 2000 panelon 01-17-2023 Albumin [Mass/Vol] 4.3 g/dL Normal 3.9-4.9 [facility] Comment on above: Order Comment: Speci men Type: BLOOD SPECIMENOrdering Facility: [facility] Address: [address] [place] [address] Performed By: #### 2 4323-8 ####[facility] LABCLIA [id number] [place] [address] [place] ALP [Catalytic activity/Vol] 53 U/L Normal 38-113 [facility] Comment on above: Order Comment: Speci men Type: BLOOD SPECIMENOrdering Facility: [facility] Address: [address] [place] [address] Performed By: #### 2 4323-8 ####[facility] LABCLIA [id number] [place] [address] [place] ALT [Catalytic activity/Vol] 32 U/L Normal 10-54 [facility] Comment on above: Order Comment: Speci men Type: BLOOD SPECIMENOrdering Facility: [facility] Address: [address] [place] [address] Performed By: #### 2 4323-8 ####[facility] LABCLIA [id number] [place] [address] [place] Anion gap [Moles/Vol] 11 mmol/L Normal 9-18 [facility] Comment on above: Order Comment: Speci men Type: BLOOD SPECIMENOrdering Facility: [facility] Address: [address] [place] [address] Performed By: #### 2 4323-8 ####[facility] LABCLIA [id number] [place] [address] [place] AST [Catalytic activity/Vol] 31 U/L Normal 14-40 [facility] Comment on above: Order Comment: Speci men Type: BLOOD SPECIMENOrdering Facility: [facility] Address: [address] [place] [address] Performed By: #### 2 4323-8 ####[facility] LABCLIA [id number] [place] [address] [place] Bilirubin [Mass/Vol] 0.6 mg/dL Normal 0.2-1.3 [facility] Comment on above: Order Comment: Speci men Type: BLOOD SPECIMENOrdering Facility: [facility] Address: [address] [place] [address] Performed By: #### 2 4323-8 ####[facility] LABCLIA [id number] [address] [address] [place] Calcium [Mass/Vol] 9.6 mg/dL Normal 8.5-10.2 [facility] Comment on above: Order Comment: Speci men Type: BLOOD SPECIMENOrdering Facility: [facility] Address: [address] [place] [address] Performed By: #### 2 4323-8 ####[facility] LABCLIA [id number] [place] [address] [place] Chloride [Moles/Vol] 102 mmol/L Normal 97-105 [facility] Comment on above: Order Comment: Speci men Type: BLOOD SPECIMENOrdering Facility: [facility] Address: [address] [place] [address] Performed By: #### 2 4323-8 ####[facility] LABCLIA [id number] [place] [address] [place] CO2 [Moles/Vol] 23 mmol/L Normal 22-30 [facility] Comment on above: Order Comment: Speci men Type: BLOOD SPECIMENOrdering Facility: [facility] Address: [address] [place] [address] Performed By: #### 2 4323-8 ####[facility] LABCLIA [id number] [place] [address] [place] Creatinine [Mass/Vol] 1.48 mg/dL High 0.73-1.22 [facility] Comment on above: Order Comment: Speci men Type: BLOOD SPECIMENOrdering Facility: [facility] Address: [address] [place] [address] Performed By: #### 2 4323-8 ####[facility] LABCLIA [id number] [place] [address] [place] Creatinine and Glomerular filtration rate.predicted panel (S/P/Bld) 50 mL/min/1.73m??? Low >=60 [facility] Comment on above: Order Comment: Speci feliz Type: BLOOD SPECIMENOrdering Facility: [facility] Address: [address] [place] [address] Result Comment: Valentina mated Glomerular Filtration Rate (eGFR) is calculated using the 2020 CKD-EPI creatinine equation. This equation utilizes serum creatinine, sex, and age as parameters. The creatinine assay has traceable calibration to isotope dilution-mass spectrometry. Refer to KDIGO guidelines for clinical interpretation. In patients with unstable renal function, e.g. those with acute kidney injury, the eGFR may not accurately reflect actual GFR. Performed By: #### 2 4323-8 ####[facility] LABIA [id number] [place] [address] [place] Glucose [Mass/Vol] 325 mg/dL High 74-99 [facility] Comment on above: Order Comment: Speci feliz Type: BLOOD SPECIMENOrdering Facility: [facility] Address: [address] [place] [address] Result Comment: The [place] Diabetes Association (ADA) provides guidance for cutoff values for fasting glucose and random glucose. The ADA defines fasting as no caloric intake for at least 8 hours. Fasting plasma glucose results between 100 to 125 mg/dL indicate increased risk for diabetes (prediabetes). Fasting plasma glucose results greater than or equal to 126 mg/dL meet the criteria for diagnosis of diabetes. In the absence of unequivocal hyperglycemia, results should be confirmed by repeat testing. In a patient with classic symptoms of hyperglycemia or hyperglycemic crisis, random plasma glucose results greater than or equal to 200 mg/dL meet the criteria for diagnosis of diabetes. Reference: Standards of Medical Care in Diabetes 2016, [place] Diabetes Association. Diabetes Care. 2016.39(Suppl 1). Performed By: #### 2 4323-8 ####[facility] LABCLIA [id number] [place] [address] [place] Potassium [Moles/Vol] 4.1 mmol/L Normal 3.7-5.1 [facility] Comment on above: Order Comment: Speci men Type: BLOOD SPECIMENOrdering Facility: [facility] Address: [address] [place] [address] Performed By: #### 2 4323-8 ####[facility] LABCLIA [id number] [place] [address] [place] Protein [Mass/Vol] 7.1 g/dL Normal 6.3-8.0 [facility] Comment on above: Order Comment: Speci men Type: BLOOD SPECIMENOrdering Facility: [facility] Address: [address] [place] [address] Performed By: #### 2 4323-8 ####[facility] LABCLIA [id number] [place] [address] [place] Sodium [Moles/Vol] 136 mmol/L Normal 136-144 [facility] Comment on above: Order Comment: Speci men Type: BLOOD SPECIMENOrdering Facility: [facility] Address: [address] [place] [address] Performed By: #### 2 4323-8 ####[facility] LABCLIA [id number] [place] [address] [place] Urea nitrogen [Mass/Vol] 24 mg/dL Normal 9-24 [facility] Comment on above: Order Comment: Speci men Type: BLOOD SPECIMENOrdering Facility: [facility] Address: [address] [place] [address] Performed By: #### 2 4323-8 ####[facility] LABCLIA [id number] [place] [address] [place] HbA1c (Bld)on 01-17-2023 Average glucose Estimated from glycated hemoglobin (Bld) [Mass/Vol] 214 mg/dL Normal [facility] Comment on above: Order Comment: Speci men Type: BLOOD SPECIMENOrdering Facility: [facility] Address: [address] [place] [address] Result Comment: eAG: (Estimated average glucose) is a calculated value from HgbA1c and is floor representative of the average blood glucose level in the last 2-3 month period. Performed By: #### 5 5454-3 ####[facility] LABIA [id number] [place] [address] [place] HbA1c (Bld) [Mass fraction] 9.1 % High 4.3-5.6 [facility] Comment on above: Order Comment: Speci men Type: BLOOD SPECIMENOrdering Facility: [facility] Address: [address] [place] [address] Result Comment: [place] Diabetes Association guidelines indicate that patients with HgbA1c in the range 5.7-6.4% are at increased risk for development of diabetes, and intervention by lifestyle modification may be beneficial. HgbA1c greater or equal to 6.5% is considered diagnostic of diabetes. Performed By: #### 5 5454-3 ####[facility] LABIA [id number] [address] [facility] CNOVon 01-12-2023 CNOV Office Visit (OJE ) PHILLIP WILSON ([id number]) 1950 M Date Time Provider Department 01/12/23 6:00 PM JENNY VAIL During your visit today, we recorded the following information about you: Pulse Respiration Blood pressure Weight 101/minute 18/minute 138/80 113.3 kg Jenny Vail APRN.CNP 01/12/2023 6:40 PM Signed 01/12/2023 Patient presents with: F/U 3 Month SUBJECTIVE: This is a 72 year old that is here today for Above Complaints. Since last office visit has been in good health without ER visits or hospitalizations DIABETES MELLITUS:Since our last visit he denies excessive thirst or increased frequency of urination, chest pain or dyspnea , numbness, tingling or pain in extremities, new or unusual visual symptoms, low sugar/hypoglycemic reactions, weight loss/gain, lightheadedness/dizzi ness, and bowel changes/loose stoolsFollows a diabetic diet some of the time. He is compliant with medication(s) and is tolerating med(s) without any side effects. He reports checking his glucose on a once a day schedule with sugars in the 150 range. Patient's last HgA1C was Hemoglobin A1C (%) Date Value 10/01/2022 7.6 06/25/2022 9.1 12/12/2020 6.9 06/14/2020 6.9 ) Last Ophthalmology exam was within the past 12 months Was out of metformin about three days and blood sugars running in the lows 200 HTN: Patient is compliant with meds Yes Monitors bp at home: No. Denies side effects: Yes. Chest pain: No. Dyspnea: No. Edema: No. Palpitations: No. Syncope: No. Headache: Yes- occasionally Dizziness: No. BRETT: following with sleep medicine with last office visit on 07/12/2022. No changes with PAP therapy made. Has upcoming follow-up in January. Uses nightly. Still with some fatigue when he gets up but this is not new HYPERLIPIDEMIA: Patient is taking medications: Yes. Patient is watching diet: No. Patient denies myalgias: Yes. Patient denies gi upset: Yes Follows with cardiology for hx of RBB and CHF with last office visit on 08/30/2022. No medication changes at last visit. Recommended follow-up in six months which is scheduled for April Reports has noted some bleeding to left ear. Gets up in the AM and rubs his left ear and got blood on his finger. 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 Take 1 tablet once daily in the morning metFORMIN (GLUCOPHAGE) 500 mg tablet Take 2 tablets by mouth twice daily with meals. glimepiride (AMARYL) 4 mg tablet Take 2 tablets by mouth daily with breakfast. atorvastatin (LIPITOR) 20 mg tablet Take 1 tablet by mouth once daily. losartan-hydroCHLOROt hiazide (HYZAAR) 50-12.5 mg per tablet Take 1 tablet by mouth once daily. SITagliptin (JANUVIA) 100 mg tablet Take 1 tablet by mouth once daily. blood sugar diagnostic (ACCU-CHEK TOMASZ PLUS TEST STRP) test strip Test daily DX: E11.65 Insulin: No MEDICAL SUPPLY Calculi strainer to be used daily until passage of kidney stone. CPAP Initiate Auto PAP @ 10-20 cm of water with humidification. Mask (per patient preference) optional chin strap (if indicated) , filters, tubing, humidifier and lifetime supplies. aspirin 81 mg chewable tablet Take 81 mg by mouth once daily. chondro durham A/vit C/manganese (CHONDROITIN SULFATE COMPLEX ORAL) Take 2 tablets by mouth once daily. No current facility-administered medications for this visit. Medications and allergies reviewed by this provider. SOCIAL HISTORY Social History Tobacco Use Smoking status: Never Smokeless tobacco: Never Substance Use Topics Alcohol use: No Drug use: No REVIEW OF SYSTEMS All other reviewed and negative other than HPI. OBJECTIVE: BP 138/80 Pulse 101 Resp 18 Wt 113.3 kg (249 lb 12.8 oz) SpO2 92% BMI 40.32 kg/m? . Vital signs reviewed by this provider. APPEARANCE Well appearing, alert, in no acute distress, well-hydrated, well nourished. EYES conjunctiva and sclera normal. EARS: left outer ear canal with small scabbed area which st (more content not included)... Normal [facility] PHILLIP WILSON ([id number]) 1950 M Date Time Provider Department 01/01/23 ROMMEL ROCKWELL [facility] During your visit today, we recorded the following information about you: Yeimi Gentile 01/01/2023 8:54 AM Signed Patient came for labs. There are no labs in chart please advise and call patient Ann Bush MA 01/01/2023 11:17 AM Signed Spoke with patient on the phone. He was very upset that he came up here to office fasting and no lab orders were in. He explained to me that it was discussed at last OV (10/12/22) with Dr. Rockwell that lab orders would be placed prior to his upcoming appointment with Jenny on 01/12/23. I apologized for the confusion but explained to him that Dr. Rockwell did not place any orders at that time and per his notes I did not see anything stating that. I apologized to him again and did state that I would make Dr. Rockwell aware of the mishap. Patient then said It doesn't matter because I will no longer come up there for labs prior to my appointment. This happens all the time to me . Rommel Gilbert MD 01/03/2023 7:49 AM Signed Reviewed. Will order labs at his upcoming appointment. Allergies As of Date: 01/01/2023 Noted Allergy Reaction ACTOS (PIOGLITAZONE) 01/05/2022 14 - Other: See Comments Comments: LE edema IBUPROFEN 08/06/2013 8 - GI Upset LISINOPRIL 08/06/2013 3 - Cough OMEPRAZOLE 10/13/2020 5 - Intolerance Comments: Bilateral lower extremity swelling and water retention. PENICILLINS 08/06/2013 2 - Rash Date Reviewed: 10/12/2022 Reviewed by: Joanie Clinton LPN - Fully Assessed Reason for Visit: Orders [681] Prescriptions as of 10/11/2023 - glimepiride (AMARYL) 4 mg tablet Take 2 tablets by mouth daily with breakfast. - metFORMIN (GLUCOPHAGE) 500 mg tablet Take 2 tablets by mouth two times a day with meals. - empagliflozin (JARDIANCE) 25 mg tablet Take 1 tablet by mouth once daily. Take 1 tablet once daily in the morning - atorvastatin (LIPITOR) 20 mg tablet Take 1 tablet by mouth once daily. - losartan-hydroCHLOROt hiazide (HYZAAR) 50-12.5 mg per tablet Take 1 tablet by mouth once daily. - blood sugar diagnostic (ACCU-CHEK TOMASZ PLUS TEST STRP) test strip Test daily DX: E11.65 Insulin: No - sitaGLIPtin phosphate (JANUVIA) 100 mg tablet Take 1 tablet by mouth once daily. - MEDICAL SUPPLY Calculi strainer to be used daily until passage of kidney stone. - CPAP Initiate Auto PAP @ 10-20 cm of water with humidification. Mask (per patient preference) optional chin strap (if indicated) , filters, tubing, humidifier and lifetime supplies. - aspirin 81 mg chewable tablet Take 81 mg by mouth once daily. - chondro durham A/vit C/manganese (CHONDROITIN SULFATE COMPLEX ORAL) Take 2 tablets by mouth once daily. Problem List As Of Date 01/01/2023 Noted Resolved Essential hypertension, benign [I10] 08/06/2013 Hyperlipidemia with target LDL less than 100 [E*08/06/2013 Obesity, Class III, BMI 40-49.9 (morbid obesity*08/06/2013 Supraspinatus tendinitis [M75.90] 07/22/2014 12/08/2015 Pelvic pain in male [R10.2] 07/22/2014 05/26/2015 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 (*05/26/2015 04/07/2022 Staphylococcal arthritis of right knee (HCC) [M*10/27/2015 12/08/2015 Supraspinatus tendinitis [M75.90] 05/24/2016 Bursitis, prepatellar [M70.40] 07/04/2017 01/02/2018 Gallstones [K80.20] 07/05/2017 01/02/2018 Cervical arthritis [M47.812] 02/05/2019 Chronic pain of left ankle [M25.572, G89.29] 02/05/2019 Type 2 diabetes mellitus without complication, *08/20/2013 Non morbid obesity due to excess calories [E66.*08/23/2016 12/23/2020 BPH with obstruction/lower urinary tract sympto*05/21/2019 Bursitis of hip [M70.70] 11/19/2019 DDD (degenerative disc disease), lumbar [M51.36]02/28/2020 Iron deficiency anemia due to chronic blood los*07/05/2020 Chronic diastolic heart failure (HCC) [I50.32] 09/29/2021 Stage 3 chronic kidney disease, unspecified whe*08/03/2022 BRETT (obstructive sleep apnea) [G47.33] 11/29/2022 Encounter Status:Closed by YEIMI GENTILE on 10/11/23 [facility]15-2021 [facility] LVEF TRANSTHORACIC ECHOon LV Ejection Fraction 59 % [facility] XR CHEST 2V FRONTAL/LATon [facility] NM CARDIAC PERF STRESS/PHARM on 03-16-2021 NM CARDIAC PERF STRESS/PHARM * * *Final Report* * * DATE OF EXAM: Mar 16 2021 11:00AM TRIPP 0006 - NM CARDIAC PERF STRESS/PHARM / PROCEDURE REASON: multiple diagnoses * * * * Physician Interpretation * * * * Stress Kettle Operator Head Report: [facility] Date of service: 03/16/2021 9:33:19 AM Supervising physician: Sorin Quinonse MD PATIENT: Name: MR. PHILLIP WILSON Age: 70 years Gender: M The supervising physician was present during the stress procedure. Final -------- PATIENT: Name: MR. PHILLIP WILSON Age: 70 years Gender: M CONCLUSIONS: 1. SPECT Perfusion Study: Normal. 2. There is no scintigraphic evidence for inducible ischemia. 3. No evidence of scarred myocardium. 4. Left ventricle is small. The left ventricle systolic function is hyperdynamic. 5. This is a low risk scan. Gated Stress FBP Gated Rest FBP LVEF % 77 77 Prior Study Comparison No prior nuclear cardiology exam available for comparison. Nuclear Med Report:1-Day Tc-Tetrofosmin Gated SPECT Myocardial Perfusion with Regadenoson Stress: Myocardial perfusion imaging was performed at rest 30 minutes following the IV injection of Tc-99m tetrofosmin. The patient received 0.4 mg of regadenoson, via rapid IV push, immediately followed by Tc-99m tetrofosmin IV. Gated post stress tomographic imaging was performed 30 to 60 minutes later. See administered doses below. [facility] Date of service: 03/16/2021 9:33:19 AM Indication: Shortness of breath produced by exertion or stress Interpreting physician: Lucas Gregory MD Height: 167.64 cm BSA: 2.41 m? Weight: 124.74 kg BMI: 44.4 kg/m? Exam Type: Rest Stress Radiopharm: Tc-99m Tetrofosmin Tc-99m Tetrofosmin Dosage(mCi): 15.4 46.9 Atten Correction: not performed not performed Stress Agent: Regadenoson 0.4mg Supply provided from [facility] Resting Blood Press: 149/83 mmHg Image Quality The overall study imaging quality was deemed to be fair. FINDINGS: Stress IR:3D Gated Stress FBP Gated Rest FBP LVEF: 77 % 77 % ED Volume: 102 ml 94 ml ES Volume: 23 ml 22 ml TID: 1.00 Perfusion Findings Stress IR:3D - Summed Score=0 All segments demonstrate normal perfusion. Rest IR:3D - Summed Score=2 There is a mild perfusion defect in the inferior wall. All remaining scored segments show normal perfusion. Stress IR:3D Rest IR:3D Summed Score=0 Summed Score=2 LEFT VENTRICLE The left ventricle is small. Left ventricular systolic function is hyperdynamic. There is present left ventricular hypertrophy. Right Ventricle The right ventricle is unseen or not interrogated. Stress Test Findings: There is no scintigraphic evidence for inducible ischemia. There is no evidence of scarring. Final -------- Stress ECG Report: [facility] Date of service: 03/16/2021 9:33:19 AM Ordering physician: ROMMEL ROCKWELL Specialist: Beth Ibanez Carpet Mechanic: Tracie Jacobsen Stress ECG interpreting physician: Sorin Quinones MD PATIENT: Name: MR. PHILLIP WILSON Age: 70 years Gender: M Height: 167.64 cm BSA: 2.41 m? Weight: 124.74 kg BMI: 44.4 kg/m? Stress ECG Conclusion: Conclusion: Normal Stress ECG Summary: The patient's resting heart rate was 73 bpm and blood pressure was 149/83 mmHg. The test was terminated due to end of protocol. No symptoms provoked during stress. The maximum heart rate was 100 bpm, which is 67% of the predicted heart rate for age. This is an adequate heart rate response. Peak blood pressure was 130/68 mmHg. The double product achieved was [address]. Indication: Dyspnea on exertion Medical History and Comorbidities: Non-insulin dependent diabetes, hypertension and hyper-cholesterol. Medications: Last Used LASIX LIPITOR AMARYL COZAAR ACTOS GLUCOPHAGE ASPIRIN VIAGRA Resting ECG: Normal Sinus Rhythm and RBBB Symptoms at rest: No symptoms Pharamcologic Protocol: Regadenoson Stress Exercise Table: +----+---+---+---+ Step HR SYS MELANIE +----+---+---+---+ 1 79 125 103 +----+---+---+---+ 2 100 130 68 +----+---+---+---+ 3 96 133 70 +----+---+---+---+ 4 93 134 69 +----+---+---+---+ 5 91 125 66 +----+---+---+---+ 6 90 129 78 +----+---+---+---+ +-----+++---+---+---+ HR SYS MELANIE +-----+++---+---+---+ Final 100 130 68 +-----+++---+---+---+ Stress ECG Findings: Resting HR: 73 bpm Peak HR: 100 bpm (67% MPHR) Resting BP: 149 / 83 mmHg Peak BP: 130 / 68 mmHg Rate Pressure Product (RPP): 04662 Stress Exercise Observations: Reason for test termina (more content not included)... [facility] 03-12-2021 [facility] Telephone (CDLBME) PHILLIP WILSON ([id number]) 1950 M Date Time Provider Department 03/12/21 BETH IBANEZ During your visit today, we recorded the following information about you: Beth Ibanez RN 03/12/2021 12:30 PM Signed Spoke with patient regarding reminder for stress test on Tuesday and given instructions Allergies As of Date: 03/12/2021 Noted Allergy Reaction IBUPROFEN 08/06/2013 8 - GI Upset LISINOPRIL 08/06/2013 3 - Cough OMEPRAZOLE 10/13/2020 5 - Intolerance Comments: Bilateral lower extremity swelling and water retention. PENICILLINS 08/06/2013 2 - Rash Date Reviewed: 12/23/2020 Reviewed by: Kwesi Sen Ma - Fully Assessed Reason for Visit: Reminder Call [[id number]] Prescriptions as of 03/12/2021 - furosemide (LASIX) 40 mg tablet Take 1 tablet by mouth once daily. - atorvastatin (LIPITOR) 20 mg tablet Take 1 tablet by mouth once daily. - glimepiride (AMARYL) 4 mg tablet take 1 tablet once daily with BREAKFAST - losartan (COZAAR) 50 mg tablet Take 1 tablet by mouth once daily. - pioglitazone (ACTOS) 45 mg tablet Take 1 tablet by mouth once daily. - metFORMIN (GLUCOPHAGE) 500 mg tablet Take 2 tablets by mouth twice daily with meals. - aspirin 81 mg chewable tablet Take 81 mg by mouth once daily. - blood sugar diagnostic (ACCU-CHEK TOMASZ PLUS TEST STRP) test strip Test daily DX: E11.65 Insulin: No - chondro durham A/vit C/manganese (CHONDROITIN SULFATE COMPLEX ORAL) Take 2 tablets by mouth once daily. 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 (*05/26/2015 Staphylococcal arthritis of right knee (HCC) [M*10/27/2015 12/08/2015 Supraspinatus tendinitis [M75.90] 05/24/2016 Bursitis, prepatellar [M70.40] 07/04/2017 01/02/2018 Gallstones [K80.20] 07/05/2017 01/02/2018 Cervical arthritis [M47.812] 02/05/2019 Chronic pain of left ankle [M25.572, G89.29] 02/05/2019 Type 2 diabetes mellitus without complication, *08/20/2013 Non morbid obesity due to excess calories [E66.*08/23/2016 12/23/2020 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 No Panel Informationon 12-28 IMPRESSION: 1. Small rounded soft tissue appearing density lateral to the RIGHT side of the lumbar spine. CT abdomen and pelvis recommended 2. Marked degenerative changes in the lower thoracic and lumbar spine. 3. Moderate narrowing of both hip joints Division Chair: PSCB Transcribe Date/Time: Dec 29 2019 2:46P Dictated by : SUHAS LIU DO This examination was interpreted and the report reviewed and electronically signed by: SUHAS LIU DO on Dec 29 2019 2:50PM [facility] DIVISION OF RADIOLOGY Radiology Study observation (narrative) [facility] No Panel InformationOrdered By: Ccf Provider on 12-29-2019 [facility] XR Lumbar spine 3 Viewson * * *Final Report* * * DATE OF EXAM: Dec 29 2019 12:34PM WOX [id number] - XR LUMBAR 3V AP/LAT/L5-S1 / PROCEDURE REASON: multiple diagnoses * * * * Physician Interpretation * * * * LUMBAR SPINE/PELVIS AND LEFT hip is HISTORY: Indication: Left hip pain Pt. states low back pain and Lt hip pain for about 6 months. No new injury. Had fall from a significant heighth several years ago. TECHNIQUE: Views obtained: XR HIP 3V PELV+ AP/LAT LT, XR LUMBAR 3V AP/LAT/L5-S1 Comparison: None. RESULT: Findings: LUMBAR SPINE: Moderate disc space narrowing throughout the lower thoracic and upper lumbar levels. There is also marked narrowing at the L5-S1 level. Severe degenerative changes in the posterior elements L4-S1.1 Somewhat rounded soft tissue density projecting lateral to the lumbar spine at the L1-L3 levels Mild S-shaped scoliosis. No fractures or dislocations are seen. PELVIS AND Both hips : Pelvis: No fractures or dislocations are seen. Bone density appears well preserved. Moderate narrowing of both hip joints. Right hip: No fractures or dislocations are seen. Left hip: No fractures or dislocations are seen. DIVISION OF RADIOLOGY Provider, Soraya Willett - 12/29/2019 * * *Final Report* * * DATE OF EXAM: Dec 29 2019 12:34PM WOX [id number] - XR LUMBAR 3V AP/LAT/L5-S1 / PROCEDURE REASON: multiple diagnoses * * * * Physician Interpretation * * * * LUMBAR SPINE/PELVIS AND LEFT hip is HISTORY: Indication: Left hip pain Pt. states low back pain and Lt hip pain for about 6 months. No new injury. Had fall from a significant heighth several years ago. TECHNIQUE: Views obtained: XR HIP 3V PELV+ AP/LAT LT, XR LUMBAR 3V AP/LAT/L5-S1 Comparison: None. RESULT: Findings: LUMBAR SPINE: Moderate disc space narrowing throughout the lower thoracic and upper lumbar levels. There is also marked narrowing at the L5-S1 level. Severe degenerative changes in the posterior elements L4-S1.1 Somewhat rounded soft tissue density projecting lateral to the lumbar spine at the L1-L3 levels Mild S-shaped scoliosis. No fractures or dislocations are seen. PELVIS AND Both hips : Pelvis: No fractures or dislocations are seen. Bone density appears well preserved. Moderate narrowing of both hip joints. Right hip: No fractures or dislocations are seen. Left hip: No fractures or dislocations are seen. IMPRESSION IMPRESSION: 1. Small rounded soft tissue appearing density lateral to the RIGHT side of the lumbar spine. CT abdomen and pelvis recommended 2. Marked degenerative changes in the lower thoracic and lumbar spine. 3. Moderate narrowing of both hip joints Division Chair: NANDO Transcribe Date/Time: Dec 29 2019 2:46P Dictated by : SUHAS LIU DO This examination was interpreted and the report reviewed and electronically signed by: SUHSA LIU DO on Dec 29 2019 2:50PM [facility] XR Pelvis and Hip - left AP and Lateral [facility] 12-29-2019 * * *Final Report* * * DATE OF EXAM: Dec 29 2019 12:34PM WOX [id number] - XR HIP 3V PELV+ AP/LAT LT / PROCEDURE REASON: Left hip pain * * * * Physician Interpretation * * * * LUMBAR SPINE/PELVIS AND LEFT hip is HISTORY: Indication: Left hip pain Pt. states low back pain and Lt hip pain for about 6 months. No new injury. Had fall from a significant heighth several years ago. TECHNIQUE: Views obtained: XR HIP 3V PELV+ AP/LAT LT, XR LUMBAR 3V AP/LAT/L5-S1 Comparison: None. RESULT: Findings: LUMBAR SPINE: Moderate disc space narrowing throughout the lower thoracic and upper lumbar levels. There is also marked narrowing at the L5-S1 level. Severe degenerative changes in the posterior elements L4-S1.1 Somewhat rounded soft tissue density projecting lateral to the lumbar spine at the L1-L3 levels Mild S-shaped scoliosis. No fractures or dislocations are seen. PELVIS AND Both hips : Pelvis: No fractures or dislocations are seen. Bone density appears well preserved. Moderate narrowing of both hip joints. Right hip: No fractures or dislocations are seen. Left hip: No fractures or dislocations are seen. DIVISION OF RADIOLOGY Provider, [facility] - 12/29/2019 * * *Final Report* * * DATE OF EXAM: Dec 29 2019 12:34PM WOX [id number] - XR HIP 3V PELV+ AP/LAT LT / PROCEDURE REASON: Left hip pain * * * * Physician Interpretation * * * * LUMBAR SPINE/PELVIS AND LEFT hip is HISTORY: Indication: Left hip pain Pt. states low back pain and Lt hip pain for about 6 months. No new injury. Had fall from a significant heighth several years ago. TECHNIQUE: Views obtained: XR HIP 3V PELV+ AP/LAT LT, XR LUMBAR 3V AP/LAT/L5-S1 Comparison: None. RESULT: Findings: LUMBAR SPINE: Moderate disc space narrowing throughout the lower thoracic and upper lumbar levels. There is also marked narrowing at the L5-S1 level. Severe degenerative changes in the posterior elements L4-S1.1 Somewhat rounded soft tissue density projecting lateral to the lumbar spine at the L1-L3 levels Mild S-shaped scoliosis. No fractures or dislocations are seen. PELVIS AND Both hips : Pelvis: No fractures or dislocations are seen. Bone density appears well preserved. Moderate narrowing of both hip joints. Right hip: No fractures or dislocations are seen. Left hip: No fractures or dislocations are seen. IMPRESSION IMPRESSION: 1. Small rounded soft tissue appearing density lateral to the RIGHT side of the lumbar spine. CT abdomen and pelvis recommended 2. Marked degenerative changes in the lower thoracic and lumbar spine. 3. Moderate narrowing of both hip joints Division Chair: NANDO Transcribe Date/Time: Dec 29 2019 2:46P Dictated by : SUHAS LIU DO This examination was interpreted and the report reviewed and electronically signed by: SUHAS LIU DO on Dec 29 2019 2:50PM [facility] Vital Signs Date Time Vital Sign Value Performing Clinician Azarmendoza preston 12-07-2023 17:52-0400 Body mass index (BMI) [Ratio] 38.25 kg/m2 Jenny Podlogar RACKING TECHNICIAN.PATENT LITIGATION ASSOCIATE Work Phone: [facility] 12-07-2023 17:52-0400 Body weight 107.5 kg Jenny Podlogar RACKING TECHNICIAN.PATENT LITIGATION ASSOCIATE Work Phone: [facility] 12-07-2023 17:52-0400 Diastolic blood pressure 66 mm[Hg] Jenny Podlogar RACKING TECHNICIAN.PATENT LITIGATION ASSOCIATE Work Phone: [facility] 12-07-2023 17:52-0400 Heart rate 93 /min Jenny Podlogar RACKING TECHNICIAN.PATENT LITIGATION ASSOCIATE Work Phone: [facility] 12-07-2023 17:52-0400 Respiratory rate 18 /min Jenny Podlogar RACKING TECHNICIAN.PATENT LITIGATION ASSOCIATE Work Phone: [facility] 12-07-2023 17:52-0400 SaO2% (BldA) [Mass fraction] 94 % Jenny Podlogar RACKING TECHNICIAN.PATENT LITIGATION ASSOCIATE Work Phone: [facility] 12-07-2023 17:52-0400 Systolic blood pressure 124 mm[Hg] Jenny Podlogar RACKING TECHNICIAN.PATENT LITIGATION ASSOCIATE Work Phone: [facility] 10-26-2023 18:42-0400 Body mass index (BMI) [Ratio] 39.32 kg/m2 Jenny Podlogar RACKING TECHNICIAN.PATENT LITIGATION ASSOCIATE Work Phone: [facility] 10-26-2023 18:42-0400 Body temperature 98.01 [degF] Jenny Podlogar RACKING TECHNICIAN.PATENT LITIGATION ASSOCIATE Work Phone: [facility] 10-26-2023 18:42-0400 Body weight 110.5 kg Jenny Podlogar RACKING TECHNICIAN.PATENT LITIGATION ASSOCIATE Work Phone: [facility] 10-26-2023 18:42-0400 Diastolic blood pressure 64 mm[Hg] Jenny Podlogar RACKING TECHNICIAN.PATENT LITIGATION ASSOCIATE Work Phone: [facility] 10-26-2023 18:42-0400 Heart rate 80 /min Jenny Podlogar RACKING TECHNICIAN.PATENT LITIGATION ASSOCIATE Work Phone: [facility] 10-26-2023 18:42-0400 Respiratory rate 20 /min Jenny Podlogar RACKING TECHNICIAN.PATENT LITIGATION ASSOCIATE Work Phone: [facility] 10-26-2023 18:42-0400 Systolic blood pressure 118 mm[Hg] Jenny Podlogar RACKING TECHNICIAN.PATENT LITIGATION ASSOCIATE Work Phone: [facility] 02-07-2023 08:56-0500 Body weight 112.13 kg Cain Randle Jr., MD Work Phone: [facility] 02-07-2023 08:56-0500 Diastolic blood pressure 84 mm[Hg] Cain Randle Jr., MD Work Phone: [facility] 02-07-2023 08:56-0500 Heart rate 96 /min Cain Randle Jr., MD Work Phone: [facility] 02-07-2023 08:56-0500 Respiratory rate 16 /min Cain Randle Jr., MD Work Phone: [facility] 02-07-2023 08:56-0500 SaO2% (BldA) [Mass fraction] 98 % Cain Randle Jr., MD Work Phone: [facility] 02-07-2023 08:56-0500 Systolic blood pressure 138 mm[Hg] Cain Randle Jr., MD Work Phone: [facility] 01-12-2023 17:51-0400 Body weight 113.31 kg Jenny Podlogar RACKING TECHNICIAN.PATENT LITIGATION ASSOCIATE Work Phone: [facility] 01-12-2023 17:51-0400 Diastolic blood pressure 80 mm[Hg] Jenny Podlogar RACKING TECHNICIAN.PATENT LITIGATION ASSOCIATE Work Phone: [facility] 10-25-2023 17:51-0400 Heart rate 101 /min Jenny Podlogar RACKING TECHNICIAN.PATENT LITIGATION ASSOCIATE Work Phone: [facility] 01-12-2023 17:51-0400 Respiratory rate 18 /min Jenny Podlogar RACKING TECHNICIAN.PATENT LITIGATION ASSOCIATE Work Phone: [facility] 01-12-2023 17:51-0400 SaO2% (BldA) [Mass fraction] 92 % Jenny Podlogar RACKING TECHNICIAN.PATENT LITIGATION ASSOCIATE Work Phone: [facility] 01-12-2023 17:51-0400 Systolic blood pressure 138 mm[Hg] Jenny Podlogar RACKING TECHNICIAN.PATENT LITIGATION ASSOCIATE Work Phone: [facility] 08-03-2022 18:23-0400 Heart rate 72 /min Rommel Rockwell MD Work Phone: [facility] 08-03-2022 18:05-0400 Body weight 113.76 kg Rommel Rockwell MD Work Phone: [facility] 08-03-2022 18:05-0400 Diastolic blood pressure 64 mm[Hg] Rommel Rockwell MD Work Phone: [facility] 08-03-2022 18:05-0400 Respiratory rate 16 /min Rommel Rockwell MD Work Phone: [facility] 08-03-2022 18:05-0400 SaO2% (BldA) [Mass fraction] 96 % Rommel Rockwell MD Work Phone: [facility] 08-03-2022 18:05-0400 Systolic blood pressure 116 mm[Hg] Rommel Rockwell MD Work Phone: [facility] 07-12-2022 08:00-0400 Body temperature 97.2 [degF] Cain Randle Jr., MD Work Phone: [facility] 07-12-2022 08:00-0400 Body weight 112.76 kg Cain Randle Jr., MD Work Phone: [facility] 07-12-2022 08:00-0400 Diastolic blood pressure 82 mm[Hg] Cain Randle Jr., MD Work Phone: [facility] 07-12-2022 08:00-0400 Heart rate 105 /min Cain Randle Jr., MD Work Phone: [facility] 07-12-2022 08:00-0400 Respiratory rate 16 /min Cain Randle Jr., MD Work Phone: [facility] 07-12-2022 08:00-0400 SaO2% (BldA) [Mass fraction] 93 % Cain Randle Jr., MD Work Phone: [facility] 07-12-2022 08:00-0400 Systolic blood pressure 134 mm[Hg] Cain Randle Jr., MD Work Phone: [facility] 07-06-2022 18:18-0400 Body weight 115.21 kg Rommel Rockwell MD Work Phone: [facility] 07-06-2022 18:18-0400 Diastolic blood pressure 72 mm[Hg] Rommel Rockwell MD Work Phone: [facility] 07-06-2022 18:18-0400 Heart rate 86 /min Rommel Rockwell MD Work Phone: [facility] 07-06-2022 18:18-0400 Respiratory rate 16 /min Rommel Rockwell MD Work Phone: [facility] 07-06-2022 18:18-0400 SaO2% (BldA) [Mass fraction] 94 % Rommel Rockwell MD Work Phone: [facility] 07-06-2022 18:18-0400 Systolic blood pressure 136 mm[Hg] Rommel Rockwell MD Work Phone: [facility] 04-06-2022 18:25-0500 Body weight 117.03 kg Rommel Rockwell MD Work Phone: [facility] 04-06-2022 18:25-0500 Diastolic blood pressure 64 mm[Hg] Rommel Rockwell MD Work Phone: [facility] 04-06-2022 18:25-0500 Heart rate 88 /min Rommel Rockwell MD Work Phone: [facility] 04-06-2022 18:25-0500 Respiratory rate 16 /min Rommel Rockwell MD Work Phone: [facility] 04-06-2022 18:25-0500 SaO2% (BldA) [Mass fraction] 94 % Rommel Rockwell MD Work Phone: [facility] 04-06-2022 18:25-0500 Systolic blood pressure 124 mm[Hg] Rommel Rockwell MD Work Phone: [facility] 03-01-2022 15:56-0500 Body weight 114.31 kg Radha Adia RACKING TECHNICIAN.PATENT LITIGATION ASSOCIATE Work Phone: [facility] 03-01-2022 15:56-0500 Diastolic blood pressure 80 mm[Hg] Radha Adia RACKING TECHNICIAN.PATENT LITIGATION ASSOCIATE Work Phone: [facility] 03-01-2022 15:56-0500 Heart rate 80 /min Radha Adia RACKING TECHNICIAN.PATENT LITIGATION ASSOCIATE Work Phone: [facility] 03-01-2022 15:56-0500 Systolic blood pressure 124 mm[Hg] Radha Adia RACKING TECHNICIAN.PATENT LITIGATION ASSOCIATE Work Phone: [facility] 02-02-2022 18:42-0500 Body weight 114.94 kg Rommel Rockwell MD Work Phone: [facility] 02-02-2022 18:42-0500 Diastolic blood pressure 72 mm[Hg] Rommel Rockwell MD Work Phone: [facility] 02-02-2022 18:42-0500 Heart rate 100 /min Rommel Rockwell MD Work Phone: [facility] 02-02-2022 18:42-0500 Respiratory rate 16 /min Rommel Rockwell MD Work Phone: [facility] 02-02-2022 18:42-0500 SaO2% (BldA) [Mass fraction] 94 % Rommel Rockwell MD Work Phone: [facility] 02-02-2022 18:42-0500 Systolic blood pressure 122 mm[Hg] Rommel Rockwell MD Work Phone: [facility] 01-05-2022 18:35-0400 Body weight 118.39 kg Rommel Rockwell MD Work Phone: [facility] 01-05-2022 18:35-0400 Diastolic blood pressure 72 mm[Hg] Rommel Rockwell MD Work Phone: [facility] 01-05-2022 18:35-0400 Heart rate 97 /min Rommel Rockwell MD Work Phone: [facility] 01-05-2022 18:35-0400 Respiratory rate 16 /min Rommel Rockwell MD Work Phone: [facility] 01-05-2022 18:35-0400 SaO2% (BldA) [Mass fraction] 94 % Rommel Rockwell MD Work Phone: [facility] 01-05-2022 18:35-0400 Systolic blood pressure 130 mm[Hg] Rommel Rockwell MD Work Phone: [facility] 10-14-2021 16:14-0400 Body temperature 100 [degF] Rommel Rockwell MD Work Phone: [facility] 10-14-2021 16:14-0400 Body weight 122.47 kg Rommel Rockwell MD Work Phone: [facility] 10-14-2021 16:14-0400 Diastolic blood pressure 78 mm[Hg] Rommel Rockwell MD Work Phone: [facility] 10-14-2021 16:14-0400 Heart rate 88 /min Rommel Rockwell MD Work Phone: [facility] 10-14-2021 16:14-0400 Respiratory rate 18 /min Rommel Rockwell MD Work Phone: [facility] 10-14-2021 16:14-0400 Systolic blood pressure 148 mm[Hg] Rommel Rockwell MD Work Phone: [facility] 09-29-2021 19:06-0400 Heart rate 90 /min Rommel Rockwell MD Work Phone: [facility] 09-29-2021 18:41-0400 Body weight 125.37 kg Rommel Rockwell MD Work Phone: [facility] 09-29-2021 18:41-0400 Diastolic blood pressure 66 mm[Hg] Rommel Rockwell MD Work Phone: [facility] 09-29-2021 18:41-0400 Respiratory rate 16 /min Rommel Rockwell MD Work Phone: [facility] 09-29-2021 18:41-0400 SaO2% (BldA) [Mass fraction] 97 % Rommel Rockwell MD Work Phone: [facility] 09-29-2021 18:41-0400 Systolic blood pressure 134 mm[Hg] Rommel Rockwell MD Work Phone: [facility] 08-31-2021 16:05-0400 Body weight 123.83 kg Radha Adia RACKING TECHNICIAN.PATENT LITIGATION ASSOCIATE Work Phone: [facility] 08-31-2021 16:05-0400 Diastolic blood pressure 66 mm[Hg] Radha Adia RACKING TECHNICIAN.PATENT LITIGATION ASSOCIATE Work Phone: [facility] 08-31-2021 16:05-0400 Heart rate 78 /min Radha Adia RACKING TECHNICIAN.PATENT LITIGATION ASSOCIATE Work Phone: [facility] 08-31-2021 16:05-0400 Respiratory rate 22 /min Radha Adia RACKING TECHNICIAN.PATENT LITIGATION ASSOCIATE Work Phone: [facility] 08-31-2021 16:05-0400 Systolic blood pressure 120 mm[Hg] Radha Adia RACKING TECHNICIAN.PATENT LITIGATION ASSOCIATE Work Phone: [facility] 06-30-2021 19:48-0400 Diastolic blood pressure 64 mm[Hg] Rommel Rockwell MD Work Phone: [facility] 06-30-2021 19:48-0400 Systolic blood pressure 128 mm[Hg] Rommel Rockwell MD Work Phone: [facility] 06-30-2021 18:43-0400 Body weight 127.01 kg Rommel Rockwell MD Work Phone: [facility] 06-30-2021 18:43-0400 Heart rate 94 /min Rommel Rockwell MD Work Phone: [facility] 06-30-2021 18:43-0400 Respiratory rate 18 /min Rommel Rockwell MD Work Phone: [facility] 06-30-2021 18:43-0400 SaO2% (BldA) [Mass fraction] 94 % Rommel Rockwell MD Work Phone: [facility] 06-15-2021 08:23-0400 Body height 167.6 cm Radha Cheek APRN.PATENT LITIGATION ASSOCIATE Work Phone: [facility] 06-15-2021 08:23-0400 Body weight 129.28 kg Radha Cheek APRN.PATENT LITIGATION ASSOCIATE Work Phone: [facility] 06-15-2021 08:23-0400 Diastolic blood pressure 88 mm[Hg] Radha Cheek RACKING TECHNICIAN.PATENT LITIGATION ASSOCIATE Work Phone: [facility] 06-15-2021 08:23-0400 Heart rate 90 /min Radha Adia RACKING TECHNICIAN.PATENT LITIGATION ASSOCIATE Work Phone: [facility] 06-15-2021 08:23-0400 Respiratory rate 18 /min Radha Adia RACKING TECHNICIAN.PATENT LITIGATION ASSOCIATE Work Phone: [facility] 06-15-2021 08:23-0400 Systolic blood pressure 162 mm[Hg] Radha Cheek RACKING TECHNICIAN.PATENT LITIGATION ASSOCIATE Work Phone: [facility] Encounters Encounter Date Encounter Type Care Provider Facility Start: 12-09-2023 End: 12-09-2023 Telephone encounter Jenny Vail APRN.PATENT LITIGATION ASSOCIATE Work Phone: Family [facility] [place] Comment on above: Forms (Pre-Op cleara nce ) Start: 12-08-2023 End: 12-08-2023 ambulatory ROMMEL ROCKWELL Facility:[facility] Start: 12-08-2023 Encounter for other preprocedural examination [facility] Start: 12-07-2023 End: 12-07-2023 ambulatory JENNY STEVENSLOGVLAD Facility:[facility] Start: 12-07-2023 End: 12-07-2023 Patient encounter procedure Jenny Podlogvlad RACKING TECHNICIAN.PATENT LITIGATION ASSOCIATE Work Phone: [facility] [place] Comment on above: Preop examination (P rimary Dx); 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) Start: 12-07-2023 End: 12-07-2023 Preprocedural examination done Jenny Vail APRN.PATENT LITIGATION ASSOCIATE Work Phone: [facility] Work Phone: Start: 11-25-2023 End: 12-07-2023 Telephone encounter Rommel Rockwell MD Work Phone: [facility] [place] Comment on above: Preop Appt Start: 11-16-2023 End: 11-16-2023 Refill Rommel Rockwell MD Work Phone: [facility] [place] Comment on above: Refill Request Start: 11-11-2023 End: 11-11-2023 Chart abstracting Rommel Rockwell MD Work Phone: [facility] [place] Comment on above: Opened In Error Start: 11-06-2023 End: 11-07-2023 Refill Varsha Arriaaz APRN.PATENT LITIGATION ASSOCIATE Work Phone: [facility] [place] Comment on above: Med Change Request Start: 10-26-2023 End: 10-26-2023 Patient encounter procedure Jenny Podlogvlad SHEIKH.PATENT LITIGATION ASSOCIATE Work Phone: [facility] [place] Comment on above: 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 pressure callus (HCC) (Primary Dx); Obesity, Class II, BMI 35-39.9; Essential hypertension, benign; Chronic diastolic heart failure (HCC); BRETT on CPAP; Hyperlipidemia with target LDL less than 100 Start: 10-26-2023 End: 10-26-2023 ambulatory JENNY PODLOGAR Facility:[facility] Start: 10-06-2023 End: 10-06-2023 ambulatory ROMEML ROCKWELL Facility:[facility] Start: 10-05-2023 Telephone encounter Ramiro Rockwell MD Work Phone: [address] [place] [address] Comment on above: Results Start: 09-06-2023 Refill Rommel Rockwell MD Work Phone: [facility] [place] Comment on above: Refill Request Start: 08-11-2023 Refill Rommel Rockwell MD Work Phone: [facility] [place] Comment on above: Refill Request Start: 05-16-2023 End: 05-16-2023 ambulatory SELF Facility:[facility] Start: 05-03-2023 Refill Varsha fall APRN.CNP Work Phone: [facility] Comment on above: Refill Request Start: 05-03-2023 Refill Rommel Rockwell MD Work Phone: [facility] Comment on above: Refill Request; Refi ll Request Start: 04-13-2023 End: 04-13-2023 ambulatory JENNY PODLOGAR Facility:[facility] Start: 04-01-2023 End: 04-01-2023 ambulatory ROMMEL ROCKWELL Facility:[facility] Start: 02-16-2023 Refill Rommel Rockwell MD Work Phone: [facility] [place] Comment on above: Refill Request Start: 02-07-2023 End: 02-07-2023 ambulatory ROMMEL ROCKWELL Facility:[facility] Start: 02-07-2023 End: 02-07-2023 Patient encounter procedure Cain Randle MD Work Phone: Neurology Comment on above: BRETT on CPAP (Primary Dx); Nocturnal hypoxia; Class 2 obesity with body mass index (BMI) of 39.0 to 39.9 in adult, unspecified obesity type, unspecified whether serious comorbidity present Start: 02-02-2023 ambulatory [facility] Work Phone: [facility] Start: 01-18-2023 Telephone encounter Ramiro Rockwell MD Work Phone: [facility] [place] Comment on above: Results Start: 01-17-2023 End: 01-17-2023 ambulatory ROMMEL ROCKWELL Facility:[facility] Start: 01-12-2023 End: 01-12-2023 Patient encounter procedure Jenny Yared HIGGINBOTHAMPATENT LITIGATION ASSOCIATE Work Phone: [facility] [place] Comment on above: 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out complication, without long- term current use of insulin (HCC) (Primary Dx); Essential hypertension, benign; Stage 3 chronic kidney disease, unspecified whether stage 3a or 3b CKD (HCC); Hyperlipidemia with target LDL less than 100; Obesity, Class III, BMI 40-49.9 (morbid obesity) (HCC); Chronic diastolic heart failure (HCC); BRETT on CPAP; Encounter for immunization Start: 01-12-2023 End: 01-12-2023 ambulatory ROMMEL ROCKWELL Facility:[facility] Start: 01-01-2023 Telephone encounter Ramiro Rockwell MD Work Phone: [facility] Comment on above: Orders Start: 12-07-2022 Refill Rommel Rockwell MD Work Phone: [address] [place] [address] Comment on above: Refill Request Start: 08-17-2022 Refill Rommel Rockwell MD Work Phone: [facility] [place] Comment on above: Refill Request Start: 08-03-2022 End: 08-03-2022 Patient encounter procedure Rommel Rockwell MD Work Phone: [facility] [place] Comment on above: 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 pressure callus (HCC) (Primary Dx); Stage 3 chronic kidney disease, unspecified whether stage 3a or 3b CKD (HCC) Start: 07-12-2022 End: 07-12-2022 Patient encounter procedure Cain Randle MD Work Phone: Neurology Comment on above: BRETT on CPAP (Primary Dx); Nocturnal hypoxia; Class 3 severe obesity with body mass index (BMI) of 40.0 to 44.9 in adult, unspecified obesity type, unspecified whether serious comorbidity present (HCC) Start: 07-06-2022 End: 07-06-2022 Patient encounter procedure Rommel Rockwell MD Work Phone: [facility] Comment on above: 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 pressure callus (HCC) Start: 06-24-2022 Telephone encounter Ramiro Rockwell MD Work Phone: [facility] Comment on above: Orders Start: 05-21-2022 Refill Rommel Rockwell MD Work Phone: [facility] Comment on above: Refill Request Start: 04-06-2022 End: 04-06-2022 Patient encounter procedure Rommel Rockwell MD Work Phone: [facility] Comment on above: 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 pressure callus (HCC) (Primary Dx); Essential hypertension, benign; BRETT on CPAP; Obesity, Class III, BMI 40-49.9 (morbid obesity) (HCC); Type 2 diabetes mellitus without complication, without long-term current use of insulin (HCC); Chronic diastolic heart failure (HCC) Start: 03-01-2022 End: 03-01-2022 Patient encounter procedure Radha Cheek APRN.CNP Work Phone: Cardiology Comment on above: Chronic diastolic (c ongestive) heart failure (HCC) (Primary Dx); Essential hypertension, benign; Hyperlipidemia with target LDL less than 100; Obesity, Class III, BMI 40-49.9 (morbid obesity) (HCC); Type 2 diabetes mellitus without complication, without long-term current use of insulin (HCC); Cellulitis of face Start: 02-02-2022 End: 02-02-2022 Patient encounter procedure Rommel Rockwell MD Work Phone: [facility] Comment on above: 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 pressure callus (HCC) (Primary Dx); Essential hypertension, benign Start: 01-20-2022 Telephone encounter Ramiro Rockwell MD Work Phone: [facility] [place] Comment on above: Patient Update Start: 01-11-2022 Telephone encounter Ramiro Rockwell MD Work Phone: [facility] [place] Comment on above: Results Start: 01-05-2022 End: 01-05-2022 Patient encounter procedure Rommel Rockwell MD Work Phone: [facility] [place] Comment on above: 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 pressure callus (HCC) (Primary Dx); BRETT on CPAP; Essential hypertension, benign; Hyperlipidemia with target LDL less than 100; Obesity, Class III, BMI 40-49.9 (morbid obesity) (HCC); Onychomycosis Start: 12-26-2021 Telephone encounter Ramiro Rockwell MD Work Phone: [facility] [place] Comment on above: Orders Start: 12-11-2021 Telephone encounter Ramiro Rockwell MD Work Phone: [facility] [place] Comment on above: Forms ([id number] note being requested by [facility]) Start: 11-26-2021 Telephone encounter Ramiro Rockwell MD Work Phone: [facility] [place] Comment on above: Medication Problem Start: 11-25-2021 Refill Rommel Rockwell MD Work Phone: [facility] [place] Comment on above: Refill Request Start: 10-15-2021 Telephone encounter Ramiro Rockwell MD Work Phone: [facility] [place] Comment on above: Patient Update Start: 10-14-2021 End: 10-14-2021 Patient encounter procedure Rommel Rockwell MD Work Phone: [facility] [place] Comment on above: LLQ abdominal pain ( Primary Dx); Dry heaves; Diarrhea, unspecified type Start: 10-12-2021 Telephone encounter Ramiro Rockwell MD Work Phone: [facility] [place] Comment on above: Blood Sugar Reading Start: 09-29-2021 End: 09-29-2021 Patient encounter procedure Rommel Rockwell MD Work Phone: [facility] Comment on above: 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 pressure callus (HCC) (Primary Dx); Essential hypertension, benign; Hyperlipidemia with target LDL less than 100; BRETT (obstructive sleep apnea); Chronic diastolic heart failure (HCC); Bilateral lower extremity edema Start: 09-28-2021 Telephone encounter Radha Cheek APRN.PATENT LITIGATION ASSOCIATE Work Phone: Cardiology Comment on above: Results Refill Request Start: 08-31-2021 End: 08-31-2021 Patient encounter procedure Radha Cheek APRN.PATENT LITIGATION ASSOCIATE Work Phone: Cardiology Comment on above: Chronic diastolic (c ongestive) heart failure (HCC) (Primary Dx); Leg swelling; Essential hypertension, benign; Hyperlipidemia with target LDL less than 100; Obesity, Class III, BMI 40-49.9 (morbid obesity) (HCC); Type 2 diabetes mellitus without complication, without long-term current use of insulin (HCC) Start: 07-15-2021 Refill Rommel Rockwell MD Work Phone: [facility] Comment on above: Refill Request Start: 06-30-2021 End: 06-30-2021 Patient encounter procedure Rommel Rockwell MD Work Phone: [facility] Comment on above: 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 pressure callus (HCC) (Primary Dx); Essential hypertension, benign; Hyperlipidemia with target LDL less than 100; BRETT (obstructive sleep apnea); Bilateral lower extremity edema; BPH with obstruction/lower urinary tract symptoms Start: 06-15-2021 End: 06-15-2021 Patient encounter procedure Echocardiogram Wstr Work Phone: Cardiology Comment on above: PARKER (dyspnea on exer tion) Start: 06-15-2021 End: 06-15-2021 Patient encounter procedure Radha Cheek APRN.PATENT LITIGATION ASSOCIATE Work Phone: Cardiology Comment on above: Essential hypertensi on, benign (Primary Dx); Ventricular hypertrophy; Hyperlipidemia with target LDL less than 100; Obesity, Class III, BMI 40-49.9 (morbid obesity) (HCC) Start: 06-15-2021 End: 06-15-2021 Subsequent hospital visit by physician [facility] [place] [facility] Work Phone: Radiology Comment on above: PARKER (dyspnea on exer tion) [R06.00] Start: 12-29-2019 End: 12-29-2019 Subsequent hospital visit by physician Xr [facility] [place] Work Phone: Radiology Comment on above: 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, G89.29] Procedures Date Procedure Procedure Detail Performing Clinician Start: 01-12-2023 [employer] COVI D-19 VACCINE ( SEASON) AGE 12+ YR Jenny Podlogar RACKING TECHNICIAN.PATENT LITIGATION ASSOCIATE Work Phone: Start: 06-30-2021 Adult depression scr eening assessment Rommel Rockwell MD Work Phone: Start: 06-15-2021 Echo tthrc r-t 2d w/wom-mode compl spec&colr d Rommel Rockwell MD Work Phone: Start: 06-15-2021 LVEF TRANSTHORACIC ECHO Rommel Rockwell MD Work Phone: Start: 06-15-2021 Radiologic exam ches t 2 views Rommel Rockwell MD Work Phone: Start: 09-03-2020 Colonoscopy Radha odom RACKING TECHNICIAN.PATENT LITIGATION ASSOCIATE Work Phone: Start: 06-24-2020 Adult depression scr eening assessment Radha Cheek RACKING TECHNICIAN.PATENT LITIGATION ASSOCIATE Work Phone: Start: 12-29-2019 Radex hip unilateral with pelvis 2-3 views Ignacio Ayon MD Plan of Treatment Date Care Activity Detail Author Start: 09-03-2025 Colonoscopy COLONOSCOPY [facility] Start: 09-03-2025 COLORECTAL CANCER SCREENING COLORECTAL CANCER SCREENING [facility] Start: 09-03-2025 Screening for malign ant neoplasm of colon [facility] Start: 12-07-2024 Complete blood count Hemoglobin/Vinay tocrit [facility] Start: 12-06-2024 Annual PCP Team Healthcare Account Manager berna Disease Visit Annual PCP Team Chronic Disease Visit [facility] Start: 12-06-2024 BP Controlled (<130/80) BP Controlle d (<130/80) [facility] Start: 10-25-2024 Annual PCP Team Healthcare Account Manager berna Disease Visit Annual PCP Team Chronic Disease Visit [facility] Start: 10-25-2024 BP Controlled (<130/80) BP Controlle d (<130/80) [facility] Start: 10-05-2024 Creatinine measurement Serum Creatin ine [facility] Start: 10-05-2024 Hepatitis B surface antibody level LDL Cholesterol [facility] Start: 07-22-2024 Urine microalbumin profile [facility] Start: 05-16-2024 BP Controlled (<130/80) BP Controlle d (<130/80) [facility] Start: 04-13-2024 Annual PCP Team Healthcare Account Manager berna Disease Visit Annual PCP Team Chronic Disease Visit [facility] Start: 04-13-2024 BP Controlled (<130/80) BP Controlle d (<130/80) [facility] Start: 04-01-2024 Creatinine measurement Serum Creatin ine [facility] Start: 03-25-2024 Glaucoma screening Dilated Retinal E xam [facility] Start: 02-13-2024 End: 02-13-2024 Patient encounter procedure Neurology Comment on above: 1 year follow up 1 year follow up BRETT w/ CPAP, 02/07/23 russel w/ [facility] Start: 01-26-2024 End: 04-26-2024 Comprehensive metabolic 2000 panel - Serum or Plasma COMPREHENSIVE METABOLIC PANEL Lab Routine 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) Expected: 01/26/2024, Expires: 04/26/2024 [facility] Comment on above: Expected: 01/26/2024 , Expires: 04/26/2024 Start: 01-26-2024 End: 04-26-2024 Hemoglobin A1c in Blood HEMOGLOBIN A1C Lab Routine 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) Expected: 01/26/2024, Expires: 04/26/2024 [facility] Work Phone: Comment on above: Expected: 01/26/2024 , Expires: 04/26/2024 Start: 01-25-2024 End: 01-25-2024 Patient encounter procedure 01/25/2024 5:40 PM EST Office Visit [facility] [place] [address] [place] [address] Jenny Vail APRN.PATENT LITIGATION ASSOCIATE [address] [place] [address] 3 month follow up [facility] Comment on above: 3 month follow up Start: 01-18-2024 Complete blood count Hemoglobin/Vinay tocrit [facility] Start: 01-18-2024 Hemoglobin/Hematocrit Hemoglobin/Hem atocrit [facility] Start: 01-18-2024 Hepatitis B screening Urine Albumin:Creatinine Ratio [facility] Start: 01-18-2024 Serum Creatinine Serum Creatinine Cl [facility] Start: 01-13-2024 3 comp foot exam completed Diabetic Foot Exam [facility] Start: 01-13-2024 Annual PCP Team Healthcare Account Manager berna Disease Visit Annual PCP Team Chronic Disease Visit [facility] Start: 01-13-2024 Diabetic foot examination Diabetic Foot Exam [facility] Start: 01-06-2024 Hemoglobin A1c measurement HbA1C [facility] Start: 12-07-2023 End: 03-07-2024 CBC W Auto Differential panel - Blood COMPLETE BLOOD COUNT AND DIFFERENTIAL Lab Routine Preop examination Expected: 12/07/2023, Expires: 03/07/2024 [facility] Comment on above: Expected: 12/07/2023 , Expires: 03/07/2024 Start: 11-20-2023 Covid-19 Vaccine ( season) Covid-19 Vaccine () [facility] Start: 11-20-2023 Covid-19 Vaccine ( season) Covid-19 Vaccine ( season) [facility] Start: 10-26-2023 End: 10-26-2023 Patient encounter procedure 10/26/2023 7:00 PM EDT Office Visit [facility] [address] [place] [address] Jenny Vail, RACKING TECHNICIAN.PATENT LITIGATION ASSOCIATE [address] [place] [address] 6 month follow up Family [facility] Comment on above: 6 month follow up Start: 10-13-2023 Annual PCP Team Healthcare Account Manager berna Disease Visit Annual PCP Team Chronic Disease Visit [facility] Start: 10-13-2023 BP Controlled (<130/80) BP Controlle d (<130/80) [facility] Start: 10-12-2023 End: 10-12-2023 Patient encounter procedure 10/12/2023 5:40 PM EDT Office Visit [facility] [place] [address] [place] [address] Jenny Vail APRN.PATENT LITIGATION ASSOCIATE [address] [place] [address] 6 month follow up [facility] [place] Comment on above: 6 month follow up Start: 10-05-2023 End: 01-04-2024 Comprehensive metabolic 2000 panel - Serum or Plasma COMPREHENSIVE METABOLIC PANEL Lab Routine 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) Expected: 10/05/2023, Expires: 01/04/2024 [facility] Work Phone: Comment on above: Expected: 10/05/2023 , Expires: 01/04/2024 Start: 10-05-2023 End: 01-04-2024 Hemoglobin A1c in Blood HEMOGLOBIN A1C Lab Routine 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) Expected: 10/05/2023, Expires: 01/04/2024 [facility] Comment on above: Expected: 10/05/2023 , Expires: 01/04/2024 Start: 10-05-2023 End: 01-04-2024 Lipid 1996 panel - Serum or Plasma LIPID PANEL BASIC Lab Routine 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) Expected: 10/05/2023, Expires: 01/04/2024 [facility] Comment on above: Expected: 10/05/2023 , Expires: 01/04/2024 Start: 10-02-2023 Serum Creatinine Serum [facility] Start: 09-30-2023 Hemoglobin A1c measurement HbA1C [facility] Start: 08-04-2023 ANNUAL PCP TEAM TRACKMAN BERNA DISEASE VISIT ANNUAL PCP TEAM CHRONIC DISEASE VISIT [facility] Start: 08-04-2023 BP CONTROLLED (<130/80) BP CONTROLLE D (<130/80) [facility] Start: 07-07-2023 ANNUAL PCP TEAM TRACKMAN BERNA DISEASE VISIT ANNUAL PCP TEAM CHRONIC DISEASE VISIT [facility] Start: 06-26-2023 Hepatitis B surface antibody level LDL CHOLESTEROL [facility] Start: 06-26-2023 SERUM CREATININE SERUM CREATININE [facility] Start: 05-15-2023 Covid-19 Vaccine () Covid-19 Vaccine () [facility] Start: 04-19-2023 Hemoglobin A1c/Hemoglobin.total in Blood HbA1C [facility] Start: 04-06-2023 ANNUAL PCP TEAM TRACKMAN BERNA DISEASE VISIT ANNUAL PCP TEAM CHRONIC DISEASE VISIT [facility] Start: 04-06-2023 BP CONTROLLED (<130/80) BP CONTROLLE D (<130/80) [facility] Start: 04-03-2023 Hemoglobin A1c/Hemoglobin.total in Blood HbA1C [facility] Start: 03-24-2023 Hepatitis C antibody , confirmatory test DILATED RETINAL EXAM [facility] Start: 03-21-2023 Advance Directive Discussion Advance Directive Discussion [facility] Start: 03-21-2023 Behavioral Health Screening Behavioral Health Screening [facility] Start: 02-02-2023 ANNUAL PCP TEAM TRACKMAN BERNA DISEASE VISIT ANNUAL PCP TEAM CHRONIC DISEASE VISIT [facility] Start: 02-02-2023 BP CONTROLLED (<130/80) BP CONTROLLE D (<130/80) [facility] Start: 01-12-2023 End: 04-13-2023 ALBUMIN/CREAT RATIO RND UR ALBUMIN/CREAT RATIO RND UR Lab Routine Type 2 diabetes mellitus without complication, without long-term current use of insulin (HCC) Expected: 01/12/2023, Expires: 04/13/2023 [facility] Work Phone: Comment on above: Expected: 01/12/2023 , Expires: 04/13/2023 Start: 01-12-2023 End: 04-13-2023 CBC panel - Blood by Automated count CBC Lab Routine Type 2 diabetes mellitus without complication, without long-term current use of insulin (HCC) Expected: 01/12/2023, Expires: 04/13/2023 [facility] Work Phone: Comment on above: Expected: 01/12/2023 , Expires: 04/13/2023 Start: 01-12-2023 End: 04-13-2023 Comprehensive metabolic 2000 panel - Serum or Plasma COMP METABOLIC PANEL Lab Routine Stage 3 chronic kidney disease, unspecified whether stage 3a or 3b CKD (HCC) Expected: 01/12/2023, Expires: 04/13/2023 [facility] Work Phone: Comment on above: Expected: 01/12/2023 , Expires: 04/13/2023 Start: 01-12-2023 End: 04-13-2023 Hemoglobin A1c in Blood HGB A1C Lab Routine Type 2 diabetes mellitus without complication, without long-term current use of insulin (HCC) Expected: 01/12/2023, Expires: 04/13/2023 [facility] Work Phone: Comment on above: Expected: 01/12/2023 , Expires: 04/13/2023 Start: 01-09-2023 Hepatitis B screening URINE ALBUMIN:CREATININE RATIO [facility] Start: 01-05-2023 3 comp foot exam completed DIABETIC FOOT EXAM [facility] Start: 01-05-2023 ANNUAL PCP TEAM TRACKMAN BERNA DISEASE VISIT ANNUAL PCP TEAM CHRONIC DISEASE VISIT [facility] Start: 01-05-2023 COVID-19 VACCINE (4 - Booster for Moderna series) COVID-19 VACCINE (4 - Booster for Moderna series) [facility] Comment on above: Postponed from 06/27 (Declined at this time) Start: 01-05-2023 Covid-19 Vaccine (4 - Moderna series) Covid-19 Vaccine (4 - Moderna series) [facility] Comment on above: Postponed from 06/27 (Declined at this time) Start: 10-14-2022 ANNUAL PCP TEAM TRACKMAN BERNA DISEASE VISIT ANNUAL PCP TEAM CHRONIC DISEASE VISIT [facility] Start: 10-03-2022 End: 12-03-2022 Comprehensive metabolic 2000 panel - Serum or Plasma COMP METABOLIC PANEL Lab Routine 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) Expected: 10/03/2022 (Approximate), Expires: 12/03/2022 [facility] Work Phone: Comment on above: Expected: 10/03/2022 (Approximate), Expires: 12/03/2022 Start: 10-03-2022 End: 12-03-2022 Hemoglobin A1c in Blood HGB A1C Lab Routine 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) Expected: 10/03/2022 (Approximate), Expires: 12/03/2022 [facility] Work Phone: Comment on above: Expected: 10/03/2022 (Approximate), Expires: 12/03/2022 Start: 09-29-2022 ANNUAL PCP TEAM TRACKMAN BERNA DISEASE VISIT ANNUAL PCP TEAM CHRONIC DISEASE VISIT [facility] Start: 09-24-2022 Hemoglobin A1c/Hemoglobin.total in Blood HBA1C [facility] Start: 08-31-2022 BP CONTROLLED (<130/80) BP CONTROLLE D (<130/80) [facility] Start: 08-06-2022 Hepatitis C antibody , confirmatory test DILATED RETINAL EXAM [facility] Start: 06-30-2022 Adult depression screening assessment DEPRESSION SCREENING [facility] Start: 06-30-2022 ANNUAL PCP TEAM TRACKMAN BERNA DISEASE VISIT ANNUAL PCP TEAM CHRONIC DISEASE VISIT [facility] Start: 06-30-2022 BP CONTROLLED (<130/80) BP CONTROLLE D (<130/80) [facility] Start: 06-24-2022 End: 08-24-2022 Comprehensive metabolic 2000 panel - Serum or Plasma COMP METABOLIC PANEL Lab Routine 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) Expected: 06/24/2022, Expires: 08/24/2022 [facility] Work Phone: Comment on above: Expected: 06/24/2022 , Expires: 08/24/2022 Start: 06-24-2022 End: 08-24-2022 Hemoglobin A1c in Blood HGB A1C Lab Routine 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) Expected: 06/24/2022, Expires: 08/24/2022 [facility] Work Phone: Comment on above: Expected: 06/24/2022 , Expires: 08/24/2022 Start: 06-24-2022 End: 08-24-2022 LIPID PANEL, NONFASTING LIPID PANEL, NONFASTING Lab Routine 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) Expected: 06/24/2022, Expires: 08/24/2022 [facility] Work Phone: Comment on above: Expected: 06/24/2022 , Expires: 08/24/2022 Start: 06-15-2022 Hepatitis B surface antibody level LDL CHOLESTEROL [facility] Start: 04-02-2022 Hemoglobin A1c/Hemoglobin.total in Blood HBA1C [facility] Start: 03-31-2022 ANNUAL PCP TEAM TRACKMAN BERNA DISEASE VISIT ANNUAL PCP TEAM CHRONIC DISEASE VISIT [facility] Start: 03-21-2022 ADVANCE DIRECTIVE DISCUSSION ADVANCE DIRECTIVE DISCUSSION [facility] Start: 03-21-2022 DEPRESSION ASSESSMENT DEPRESSION ASS ESSMENT [facility] Start: 03-07-2022 End: 05-07-2022 Comprehensive metabolic 2000 panel - Serum or Plasma COMP METABOLIC PANEL Lab Routine 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) Expected: 03/07/2022, Expires: 05/07/2022 [facility] Work Phone: Comment on above: Expected: 03/07/2022 , Expires: 05/07/2022 Start: 03-07-2022 End: 05-07-2022 Hemoglobin A1c in Blood HGB A1C Lab Routine 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) Expected: 03/07/2022, Expires: 05/07/2022 [facility] Work Phone: Comment on above: Expected: 03/07/2022 , Expires: 05/07/2022 Start: 12-26-2021 End: 02-25-2022 ALBUMIN/CREAT RATIO RND UR ALBUMIN/CREAT RATIO RND UR Lab Routine 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) Expected: 12/26/2021, Expires: 02/25/2022 [facility] Work Phone: Comment on above: Expected: 12/26/2021 , Expires: 02/25/2022 Start: 12-26-2021 End: 02-25-2022 Comprehensive metabolic 2000 panel - Serum or Plasma COMP METABOLIC PANEL Lab Routine 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) Expected: 12/26/2021, Expires: 02/25/2022 [facility] Work Phone: Comment on above: Expected: 12/26/2021 , Expires: 02/25/2022 Start: 12-26-2021 End: 02-25-2022 Hemoglobin A1c in Blood HGB A1C Lab Routine 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) Expected: 12/26/2021, Expires: 02/25/2022 [facility] Work Phone: Comment on above: Expected: 12/26/2021 , Expires: 02/25/2022 Start: 12-23-2021 3 comp foot exam completed DIABETIC FOOT EXAM [facility] Start: 12-16-2021 Hemoglobin A1c/Hemoglobin.total in Blood HBA1C [facility] Start: 12-12-2021 HEMOGLOBIN/HEMATOCRIT HEMOGLOBIN/HEM ATOCRIT [facility] Start: 12-12-2021 Hepatitis B screening URINE ALBUMIN:CREATININE RATIO [facility] Start: 08-31-2021 End: 10-31-2021 Natriuretic peptide.B prohormone N-Terminal [Mass/volume] in Serum or Plasma NT PRO BNP Lab Routine Leg swelling Chronic diastolic (congestive) heart failure (HCC) Expected: 08/31/2021, Expires: 10/31/2021 [facility] Work Phone: Comment on above: Expected: 08/31/2021 , Expires: 10/31/2021 Start: 08-30-2021 COVID-19 VACCINE (4 - Booster for Moderna series) COVID-19 VACCINE (4 - Booster for Moderna series) [facility] Start: 07-19-2021 Hepatitis C antibody , confirmatory test DILATED RETINAL EXAM [facility] Start: 06-27-2021 COVID-19 VACCINE (4 - Booster for Moderna series) COVID-19 VACCINE (4 - Booster for Moderna series) [facility] Start: 06-24-2021 Adult depression screening assessment DEPRESSION SCREENING [facility] Start: 06-14-2021 Hepatitis B surface antibody level LDL CHOLESTEROL [facility] Start: 06-11-2021 Hemoglobin A1c/Hemoglobin.total in Blood HBA1C [facility] Start: 03-21-2021 ADVANCE DIRECTIVE DISCUSSION ADVANCE DIRECTIVE DISCUSSION [facility] Start: 03-21-2021 DEPRESSION ASSESSMENT DEPRESSION ASS ESSMENT [facility] Start: 01-27-2020 FECAL OCCULT BLOOD FECAL OCCULT BLOO D [facility] Start: 01-27-2020 Screening for malign ant neoplasm of colon Fecal Occult Blood [facility] Start: 2010 Hepatitis B Vaccine (1 of 3 - Risk 3-dose series) Hepatitis B Vaccine (1 of 3 - Risk 3-dose series) [facility] Start: 2010 RSV Vaccine (1 - 1-d ose 60+ series) RSV Vaccine (1 - 1-dose 60+ series) [facility] Start: 2010 RSV Vaccine (1 - Ris k 60-74 years 1-dose series) RSV Vaccine (1 - Risk 60-74 years 1-dose series) [facility] Start: 2000 SHINGRIX VACCINE (1 of 2) SHINGRIX VACCINE (1 of 2) [facility] Start: 06-09-1995 COLOGUARD (FIT-DNA) COLOGUARD (FIT-D NA) [facility] Start: 06-09-[address] COLONOGRAPHY [facility] Start: 06-09-1995 Screening for malign ant neoplasm of colon [facility] Start: 06-09-1995 SIGMOIDOSCOPY SIGMOIDOSCOPY [facility] Start: 1968 Anxiety Screening Anxiety Screening [facility] Start: 1968 BP CONTROLLED (<130/80) BP CONTROLLE D (<130/80) [facility] Start: 1968 Depression Screening Depression Scre ening [facility] ECG COMPLETE ECG COMPLETE ECG Routine Preop examination Ordered: 12/07/2023 [facility] Work Phone: Comment on above: Ordered: 12/07/2023 OXIMETRY - NOCTURNAL OXIMETRY - NOCTURNAL Procedures Routine BRETT on CPAP Nocturnal hypoxia Ordered: 07/12/2022 [facility] Work Phone: Comment on above: Ordered: 07/12/2022 [facility] Immunizations Immunization Date Immunization Notes Care Provider Johnna shaffer 01-12-2023 COVID-19 vaccine, ag e 12+ yr, 2022- season ([employer]) Jenny Vail APRN.PATENT LITIGATION ASSOCIATE Work Phone: [facility] 12-20-2016 pneumococcal polysaccharide vaccine, 23 valent Radha Cheek APRN.PATENT LITIGATION ASSOCIATE Work Phone: [facility] 12-08-2015 pneumococcal conjuga te vaccine, 13 valent Radha Cheek RACKING TECHNICIAN.PATENT LITIGATION ASSOCIATE Work Phone: [facility] 07-22-2014 tetanus toxoid, redu devi diphtheria toxoid, and acellular pertussis vaccine, adsorbed Radha Cheek APRN.PATENT LITIGATION ASSOCIATE Work Phone: [facility] 12-11-2013 tetanus and diphther ia toxoids, adsorbed, preservative free, for adult use (2 Lf of tetanus toxoid and 2 Lf of diphtheria toxoid) Radha Cheek APRN.PATENT LITIGATION ASSOCIATE Work Phone: [facility] Payers Date Payer Category Payer Unknown ERIN KHAN [place] DICARE SUPPLEMENT [id number] 2018-Present [phone] [address] [place] [address] Indemnity [id number] 2018 Unknown [id number] 2018 Medicare [id number] 2018 Medicare MEDICARE MEDICAR E A AND B [id number] 2018-Present [phone] [place] [address] Medicare [id number] 2018 Medicare MEDICARE MEDICAR E A AND B [id number] 2018-Present [phone] [place] [address] Medicare [id number] 2018 Medicare [id number] Social History Date Type Detail Facility Start: 08-06-2013 End: 07-18-2017 Tobacco smoking status NHIS Never smoked tobacco [facility] Start: 08-06-2013 End: 07-18-2017 Tobacco use and exposure Smokeless tobacco non-user [facility] Start: 12-17-2019 End: 06-15-2021 Alcohol intake Current non-drinker of alcohol (finding) [facility] Start: 1950 Sex Assigned At Not on file [facility] Start: 11-29-2019 End: 02-02-2022 Exposure to SARS-CoV-2 (event) Not sure [facility] Start: 10-30-2018 End: 10-12-2022 History of Social function [facility] Work Phone: Start: 10-30-2018 End: 10-12-2022 Tobacco use panel [facility] Work Phone: Adult Depression Screening Assessment 0 [facility] Work Phone: Medical Equipment Procedure Code Equipment Code Equipment Origin al Text Equipment Identifier Dates Test daily DX: E11.65 Insulin: No [id number], [id number] Start: 05-21-2019 End: 11-26-2021 Comment on above: Test daily DX: E11.6 5 Insulin: No Clinical Notes 07-05-2017 to 12-09-2023 Telephone Encounter - Nik Rosario LPN - 12/09/2023 10:22 AM EDTTelephone Encounter - Nik Rosario LPN - 12/09/2023 10:22 AM Jenny Espinal APRN.STEPHON - 12/07/2023 5:52 PM EDT Note Date & Type Note Facility 12-09-2023 Telephone encounter Note All below faxed to Heidi MCCANN at [phone] with confirmation received. Telephoned patient and notified. Nik Rosario LPN [facility] 12-09-2023 Miscellaneous Notes All below faxed to [facility] at [phone] with confirmation received. Telephoned patient and notified. Nik Rosario LPN ----- Message from Jenny Vail APRN.PATENT LITIGATION ASSOCIATE sent at 12/09/2023 6:42 AM EDT ----- CBC with diff is normal. Patient is cleared for surgery. Please fax clearance form, recent office note, labs and EKG to [facility]. Clearance form in my outbox. Jenny Vail APRN.PATENT LITIGATION ASSOCIATE documented in this encounter [facility] 12-09-2023 Telephone encounter Note ----- Message from Jenny Vail APRN.PATENT LITIGATION ASSOCIATE sent at 12/09/2023 6:42 AM EDT ----- CBC with diff is normal. Patient is cleared for surgery. Please fax clearance form, recent office note, labs and EKG to [facility]. Clearance form in my outbox. Jenny Vail APRN.PATENT LITIGATION ASSOCIATE [facility] 12-07-2023 Note HNO ID: [id number] Author: JENNY VAIL APRN.PATENT LITIGATION ASSOCIATE Service: ? Author Type: Nurse Practitioner Type: Progress Notes Filed: 12/07/2023 18:29 Note Text: CC: Patient presents with: Pre-Op Exam: Left ear HPI Phillip Wilson is a 73 year old male who presents today for pre-op evaluation. 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 Jimenez Diabetes Yes Hypertension requiring medication Yes Congestive Heart Failure Yes Current Smoker within 1 Year No COPD/asthma No BRTET Yes- wears CPAP nightly Dialysis No Acute renal failure No Steroid use for chronic condition No Disseminated cancer No METS: Walk indoors, such as around the house (1.75 METs): YES Do light work around the house, such as dusting or washing dishes (2.70 METs): YES Take care of self; that is eating, dressing, bathing, using the toilet (2.75 METs): YES Walk a block or two on level ground (2.75 METs): YES Do moderate work around the house such as vacuuming, sweeping floors, or carrying in groceries (3.50 METs): YES Do yardwork, such as raking leaves, weeding,or pushing a power mower (4.50 METs): YES Climb a flight of stairs or walk up a hill (5.50 METs): YES Participate in moderate recreational activities, such as golf, bowling, dancing, doubles tennis, or throwing a baseball or football (6.00 METs): YES Participate in strenuous sport, such as swimming, singles tennis, football, basketball, or skiing (7.50 METs): YES Do heavy work around the house, such as scrubbing floors, lifting or moving heavy furniture (8.00 METs): YES Run a short distance (8.00 METs): YES Total: 52.95 Patient denies any chest pain or undue shortness of breath with the above physical activity. REVIEW OF SYSTEMS GENERAL: No weight loss, malaise or fevers RESPIRATORY: Negative for cough, hemoptysis, wheezing, COPD, dyspnea or shortness of breath CARDIOVASCULAR: Negative for chest pain, leg swelling, hypertension, CHF or palpitations 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 glimepiride (AMARYL) 4 mg tablet Take 2 tablets by mouth daily with breakfast. metFORMIN (GLUCOPHAGE) 500 mg tablet Take 2 tablets by mouth two times a day with meals. empagliflozin (JARDIANCE) 25 mg tablet Take 1 tablet by mouth once daily. Take 1 tablet once daily in the morning losartan-hydroCHLOROthiazide (HYZAAR) 50-12.5 mg per tablet Take 1 tablet by mouth once daily. blood sugar diagnostic (ACCU-CHEK TOMASZ PLUS TEST STRP) test strip Test daily DX: E11.65 Insulin: No sitaGLIPtin phosphate (JANUVIA) 100 mg tablet Take 1 tablet by mouth once daily. MEDICAL SUPPLY Calculi strainer to be used daily until passage of kidney stone. CPAP Initiate Auto PAP @ 10-20 cm of water with humidification. Mask (per patient preference) optional chin strap (if indicated) , filters, tubing, humidifier and lifetime supplies. aspirin 81 mg chewable tablet Take 81 mg by mouth once daily. chondro durham A/vit C/manganese (CHONDROITIN SULFATE COMPLEX ORAL) Take 2 tablets by mouth once daily. FAMILY HISTORY Problem Relation Age of Onset Diabetes Mother Coronary Artery Disease Mother CABG 7 COPD Father Multiple Sclerosis Sister No Known Problems Brother No Known Problems Brother No Known Problems Son No Known Problems Son No Known Problems Son Social History Tobacco Use Smoking status: Never Smokeless tobacco: Never Substance Use Topics Alcohol use: No Drug use: No BP 124/66 Pulse 93 Resp 18 Wt 107.5 kg (236 lb 15.9 oz) SpO2 94% BMI 38.25 kg/m? Physical Exam General appearance: Well appearing, alert, in no acute distress, well-hydrated, well nourished. Skin: Skin color, texture, turgor normal, no suspicious rashes or lesions to exposed skin Eyes: Anicteric scl (more content not included)... [facility] 12-07-2023 History of Presen t illness Narrative CC: Patient presents with: Pre-Op Exam: Left ear HPI Phillip Wilson is a 73 year old male who presents today for pre-op evaluation. 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 Jimenez Diabetes Yes Hypertension requiring medication Yes Congestive Heart Failure Yes Current Smoker within 1 Year No COPD/asthma No BRETT Yes- wears CPAP nightly Dialysis No Acute renal failure No Steroid use for chronic condition No Disseminated cancer No METS: Walk indoors, such as around the house (1.75 METs): YES Do light work around the house, such as dusting or washing dishes (2.70 METs): YES Take care of self; that is eating, dressing, bathing, using the toilet (2.75 METs): YES Walk a block or two on level ground (2.75 METs): YES Do moderate work around the house such as vacuuming, sweeping floors, or carrying in groceries (3.50 METs): YES Do yardwork, such as raking leaves, weeding,or pushing a power mower (4.50 METs): YES Climb a flight of stairs or walk up a hill (5.50 METs): YES Participate in moderate recreational activities, such as golf, bowling, dancing, doubles tennis, or throwing a baseball or football (6.00 METs): YES Participate in strenuous sport, such as swimming, singles tennis, football, basketball, or skiing (7.50 METs): YES Do heavy work around the house, such as scrubbing floors, lifting or moving heavy furniture (8.00 METs): YES Run a short distance (8.00 METs): YES Total: 52.95 Patient denies any chest pain or undue shortness of breath with the above physical activity. REVIEW OF SYSTEMS GENERAL: No weight loss, malaise or fevers RESPIRATORY: Negative for cough, hemoptysis, wheezing, COPD, dyspnea or shortness of breath CARDIOVASCULAR: Negative for chest pain, leg swelling, hypertension, CHF or palpitations PAST MEDICAL HISTORY Diagnosis Date Benign prostatic hyperplasia with lower urinary tract symptoms Cataracts, bilateral Cervical arthritis Chronic diastolic heart failure (HCC) DDD (degenerative disc disease), lumbar Essential hypertension, benign 08/06/2013 Hyperlipidemia with target LDL less than 100 08/06/2013 Iron deficiency anemia due to chronic blood loss 07/05/2020 Morbid obesity with BMI of 40.0-44.9, adult (HCC) BRETT (obstructive sleep apnea) 02/05/2021 severe RBBB 2017 Snoring 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 glimepiride (AMARYL) 4 mg tablet Take 2 tablets by mouth daily with breakfast. metFORMIN (GLUCOPHAGE) 500 mg tablet Take 2 tablets by mouth two times a day with meals. empagliflozin (JARDIANCE) 25 mg tablet Take 1 tablet by mouth once daily. Take 1 tablet once daily in the morning losartan-hydroCHLOROthiazide (HYZAAR) 50-12.5 mg per tablet Take 1 tablet by mouth once daily. blood sugar diagnostic (ACCU-CHEK TOMASZ PLUS TEST STRP) test strip Test daily DX: E11.65 Insulin: No sitaGLIPtin phosphate (JANUVIA) 100 mg tablet Take 1 tablet by mouth once daily. MEDICAL SUPPLY Calculi strainer to be used daily until passage of kidney stone. CPAP Initiate Auto PAP @ 10-20 cm of water with humidification. Mask (per patient preference) optional chin strap (if indicated) , filters, tubing, humidifier and lifetime supplies. aspirin 81 mg chewable tablet Take 81 mg by mouth once daily. chondro durham A/vit C/manganese (CHONDROITIN SULFATE COMPLEX ORAL) Take 2 tablets by mouth once daily. FAMILY HISTORY Problem Relation Age of Onset Diabetes Mother Coronary Artery Disease Mother CABG 7 COPD Father Multiple Sclerosis Sister No Known Problems Brother No Known Problems Brother No Known Problems Son No Known Problems Son No Known Problems Son Social History Tobacco Use Smoking status: Never Smokeless tobacco: Never Substance Use Topics Alcohol use: No Drug use: No BP 124/66 Pulse 93 Resp 18 Wt 107.5 kg (236 lb 15.9 oz) SpO2 94% BMI 38.25 kg/m Physical Exam General appearance: Well appearing, alert, in no acute distress, well-hydrated, well nourished. Skin: Skin color, texture, turgor normal, no suspicious rashes or lesions to exposed skin Eyes: Anicteric sclera. Ears: left ear canal with scabbing - external ear WNL Neck: Supple, no adenopathy; Lungs: Lungs clear to auscultation. No wheezing, rhonchi, rales. Heart: RRR without murmur, gallop, or rubs. No ectopy Diagnoses/Plan ASSESSMENT/PLAN: 1. Preop examination - ICD9: V72.84, ICD10: Z01.818 (primary diagnosis) Patient has the following medical conditions CHF Diabetes - uncontrolled- patient declines further medications- possibly could delay wound healing HTN - Well controlled Morbid Obesity BRETT - Advised to bring CPAP/BIPAP machine to hospital GARCIA risk: Patient is scheduled for a low-risk procedure. 0.9% change of complications including MT, PE, ventricular fib, cardiac arrest or complete heart block using Alex's Simple Cardiac Risk Index Functional status: Independent The patient will be cleared for surgery pending CBC with diff results - ECG COMPLETE - COMPLETE BLOOD COUNT AND DIFFERENTIAL 2. 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 Patient advised if symptoms do not improve or if symptoms worsen sooner, to contact their primary care physician. Potential red flag symptoms discussed with the patient. Reviewed appropriate action plan to take if red flag symptoms occur. Patient agreeable to treatment plan. documented in this encounter [facility] 11-29-2023 Telephone encounter Note Surgical clearance form received and forwarded to Jenny's nurse. Joanie Clinton LPN [facility] 11-29-2023 Miscellaneous Notes Surgical clearance form received and forwarded to Jenny's nurse. Joanie Clinton LPN Called Heidi MCCANN and spoke with an MA. Advised her our office is looking for their pre-op clearance form for patient. She wasn't sure who would be handling this in their office so she advised she would follow up next week and get back with us or fax information to our direct fax #. Joanie Clinton LPN Pt phones office requesting surgical clearance from PCP. He states he was seen by Heidi MCCANN for an ear issue and was referred to a surgeon for removal of a skin cancer in his L ear. No surgical date yet, but was told sometime in the next 2 weeks. Pt is unsure of surgeon's name also. Appt scheduled with ELECTRONIC PREPRESS OPERATOR on 12/06. documented in this encounter [facility] 11-25-2023 Telephone encounter Note Called Heidi MCCANN and spoke with an MA. Advised her our office is looking for their pre-op clearance form for patient. She wasn't sure who would be handling this in their office so she advised she would follow up next week and get back with us or fax information to our direct fax #. Joanie Clinton LPN [facility] 11-25-2023 Telephone encounter Note Pt phones office requesting surgical clearance from PCP. He states he was seen by Heidi MCCANN for an ear issue and was referred to a surgeon for removal of a skin cancer in his L ear. No surgical date yet, but was told sometime in the next 2 weeks. Pt is unsure of surgeon's name also. Appt scheduled with ELECTRONIC PREPRESS OPERATOR on 12/06. [facility] 11-16-2023 Telephone encounter Note Prescription Refill Information The patient has been identified by name and date of : Yes Caregiver verified no other encounters exist for this prescription request: Yes Caregiver confirmed with patient/requestor that no other refills are due, in the near future, with this provider at this time: Yes The last office visit in the department: 10/26/23 Does the patient have a future office visit with this provider/department: Yes Requested Prescriptions Pending Prescriptions Disp Refills atorvastatin (LIPITOR) 20 mg tablet 90 tablet 1 Sig: Take 1 tablet by mouth once daily. Keshawn Aguilar LPN November 16, 2023 9:16 AM [facility] 11-16-2023 Miscellaneous Notes Prescription Refill Information The patient has been identified by name and date of : Yes Caregiver verified no other encounters exist for this prescription request: Yes Caregiver confirmed with patient/requestor that no other refills are due, in the near future, with this provider at this time: Yes The last office visit in the department: 10/26/23 Does the patient have a future office visit with this provider/department: Yes Requested Prescriptions Pending Prescriptions Disp Refills atorvastatin (LIPITOR) 20 mg tablet 90 tablet 1 Sig: Take 1 tablet by mouth once daily. Keshawn Aguilar LPN November 16, 2023 9:16 AM documented in this encounter [facility] 10-26-2023 History of Presen t illness Narrative 10/26/2023 Patient presents with: 6 Month Exam SUBJECTIVE: This is a 73 year old that is here today for Above Complaints. Since last office visit has been in good health without ER visits or hospitalizations DIABETES MELLITUS: Since our last visit he denies excessive thirst or increased frequency of urination, chest pain or dyspnea , numbness, tingling or pain in extremities, new or unusual visual symptoms, low sugar/hypoglycemic reactions, weight loss/gain, lightheadedness/dizziness, and bowel changes/loose stools. Follows a diabetic diet generally not very much. He is compliant with medication(s) and is tolerating med(s) without any side effects. He reports checking his glucose on a once a day schedule with sugars in the fasting < 200 range. Patient's last HgA1C was Hemoglobin A1C (%) Date Value 10/06/2023 8.9 04/01/2023 7.6 12/12/2020 6.9 06/14/2020 6.9 ) Last Ophthalmology exam was within the past 12 months HTN: Patient is compliant with meds Yes Monitors bp at home: No. Denies side effects: No. Chest pain: No. Dyspnea: No. Edema: No. Palpitations: No. Syncope: No. Headache: No. Dizziness: No. BRETT: Follow with sleep medicine. Has follow-up scheduled for 01/30/2024. Uses CPAP nightly HYPERLIPIDEMIA: Patient is taking medications: Yes. Patient is watching diet: No. Patient denies myalgias: Yes Patient denies gi upset: Yes Hx of RBB and CHF: follows with [facility] cardiology. Last appointment on 05/16/2023. No medication changes at that time. Advised to follow-up as needed. Denies SOB, dyspnea, orthopnea, chest pain, palpitations, or leg swelling PAST MEDICAL HISTORY No date: Benign prostatic hyperplasia with lower urinary tract symptoms No date: Cataracts, bilateral No date: Cervical arthritis No date: Chronic diastolic heart failure (HCC) No date: DDD (degenerative disc disease), lumbar 08/06/2013: Essential hypertension, benign 08/06/2013: Hyperlipidemia with target LDL less than 100 07/05/2020: Iron deficiency anemia due to chronic blood loss No date: Morbid obesity with BMI of 40.0-44.9, adult ([facility]) 02/05/2021: BRETT (obstructive sleep apnea) Comment: severe 2018: RBBB No date: Snoring 05/26/2015: 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 metFORMIN (GLUCOPHAGE) 500 mg tablet Take 2 tablets by mouth two times a day with meals. empagliflozin (JARDIANCE) 25 mg tablet Take 1 tablet by mouth once daily. Take 1 tablet once daily in the morning atorvastatin (LIPITOR) 20 mg tablet Take 1 tablet by mouth once daily. losartan-hydroCHLOROthiazide (HYZAAR) 50-12.5 mg per tablet Take 1 tablet by mouth once daily. blood sugar diagnostic (ACCU-CHEK TOMASZ PLUS TEST STRP) test strip Test daily DX: E11.65 Insulin: No sitaGLIPtin phosphate (JANUVIA) 100 mg tablet Take 1 tablet by mouth once daily. MEDICAL SUPPLY Calculi strainer to be used daily until passage of kidney stone. CPAP Initiate Auto PAP @ 10-20 cm of water with humidification. Mask (per patient preference) optional chin strap (if indicated) , filters, tubing, humidifier and lifetime supplies. aspirin 81 mg chewable tablet Take 81 mg by mouth once daily. chondro durham A/vit C/manganese (CHONDROITIN SULFATE COMPLEX ORAL) Take 2 tablets by mouth once daily. No current facility-administered medications for this visit. Medications and allergies reviewed by this provider. SOCIAL HISTORY Social History Tobacco Use Smoking status: Never Smokeless tobacco: Never Substance Use Topics Alcohol use: No Drug use: No REVIEW OF SYSTEMS All other reviewed and negative other than HPI. OBJECTIVE: BP 118/64 Pulse 80 Temp 36.7 C (98 F) (Temporal) Resp 20 Wt 110.5 kg (243 lb 9.7 oz) BMI 39.32 kg/m . Vital signs reviewed by this provider. APPEARANCE Well appearing, alert, in no acute distress, well-hydrated, well nourished. EYES conjunctiva and sclera normal. HEART RRR with normal S1 and S2, no murmurs, no gallops, no JVD appreciated LUNG clear to auscultation. No wheezes, rhonchi or rales EXTREMITIES Extremities normal, No deformities, No skin discoloration, and No edema SKIN Skin color, texture, turgor normal, no suspicious rashes or lesions to exposed skin Latest Ref Rng 10/06/2023 Protein, Total 6.3 - 8.0 g/dL 7.6 Albumin 3.9 - 4.9 g/dL 4.8 Calcium 8.5 - 10.2 mg/dL 10.2 Bilirubin, Total 0.2 - 1.3 mg/dL 1.1 Alkaline Phosphatase 38 - 113 U/L 58 AST 14 - 40 U/L 29 ALT 10 - 54 U/L 29 Glucose 74 - 99 mg/dL 108 (H) BUN 9 - 24 mg/dL 32 (H) Creatinine 0.73 - 1.22 mg/dL 1.39 (H) Sodium 136 - 144 mmol/L 137 Potassium 3.7 - 5.1 mmol/L 4.1 Chloride 98 - 107 mmol/L 101 CO2 22 - 30 mmol/L 24 Anion Gap 8 - 15 mmol/L 12 eGFR >=60 mL/min/1.73m 54 (L) Cholesterol, Total <200 mg/dL 151 Triglyceride <150 mg/dL 216 (H) HDL Cholesterol >39 mg/dL 41 Non HDL Cholesterol <130 mg/dL 110 Fasting Time hrs 21 VLDL Cholesterol <30 mg/dL 43 (H) TC:HDL Ratio <5.10 3.68 LDL Cholesterol <100 mg/dL 67 LDL:HDL Ratio <2.54 1.63 Hemoglobin A1C 4.3 - 5.6 % 8.9 (H) Estimated Average Glucose mg/dL 209 Legend: (H) High (L) Low Depression Screening Never done Anxiety Screening Never done Shingrix Vaccine(1 of 2) Never done RSV Vaccine(1 - 1-dose 60+ series) Never done Advance Directive Discussion Never done Covid-19 Vaccine() due on 05/15/2023 HbA1C due on 01/06/2024 Diabetic Foot Exam due on 01/13/2024 Urine Albumin:Creatinine Ratio due on 01/18/2024 Hemoglobin/Hematocrit due on 01/18/2024 Dilated Retinal Exam due on 03/25/2024 DTaP,Tdap,Td Vaccine(2 - Td or Tdap) due on 07/22/2024 LDL Cholesterol due on 10/05/2024 Serum Creatinine due on 10/05/2024 Annual PCP Team Chronic Disease Visit due on 10/25/2024 BP Controlled (<130/80) due on 10/25/2024 Colorectal Cancer Screening due on 09/03/2025 Hepatitis C Screening Completed Pneumococcal Vaccine: 65+ Completed Influenza Vaccine Discontinued ASSESSMENT/PLAN: 1. 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 BMI 39.32 kg/(m^2) - Discussed diabetic education issues of diabetes complications and monitoring required and hypoglycemic/hyperglycemic symptoms - Follow up in 3 months, sooner should any other issues arise. - HEMOGLOBIN A1C - COMPREHENSIVE METABOLIC PANEL - discussed with patient addition of GLP or insulin- patient declining. Discussed diabetes management program- declines. Discussed risks of untreated diabetes- stroke, heart attack, lose of limb, kindey failure and including - patient verbalizes understanding 2. Obesity, Class II, BMI 35-39.9 - ICD9: 278.00, ICD10: E66.9 - Lengthy discussion in office today regarding diet and exercise. Discussed use of small plate to eat meals from, drink 1 glass of water 10-15 minutes prior to eating meal, drink 8 glasses of water daily, eat fresh fruit and vegetable during meal first then lean protein such as grilled/baked chicken breast or fish, limit carbohydrate intake (less pasta, breads, rice and snack foods) as well as limiting sugars (desserts etc). Important to count / track your calories and exercise as well. 3. Essential hypertension, benign - ICD9: 401.1, ICD10: I10 - Controlled - Continue current medications - Recommend home blood pressure monitoring, to bring results to next visit - Encouraged sodium restriction, DASH or Mediterranean diet - Recommend regular aerobic exercise - Discussed need for and benefit of weight loss. BMI 39.32 kg/(m^2) - Follow up in 3 months for hypertension visit 4. Chronic diastolic heart failure (HCC) - ICD9: 428.32, ICD10: I50.32 - stable - Continue current medications - Encouraged sodium restriction - Recommend regular aerobic exercise - follow-up with cardiology as needed 5. BRETT on CPAP - ICD9: 327.23, ICD10: G47.33 - continue nighty use - follow-up with sleep medicine as scheduled 6. Hyperlipidemia with target LDL less than 100 - ICD9: 272.4, ICD10: E78.5 - Controlled - Continue current medications - Counseled on healthy diet and regular exercise - Discussed need for and benefit of weight loss. BMI 39.32 kg/(m^2) - Follow up in 3 months, sooner should any other issues arise. Jenny Vail APRN.STEPHON Prescription instructions reviewed with patient as applicable. Patient advised if symptoms do not improve or if symptoms worsen sooner, to contact their primary care physician. Potential red flag symptoms discussed with the patient. Reviewed appropriate action plan to take if red flag symptoms occur. Patient agreeable to treatment plan. Medical Decision Making: Problems: Moderate: 1+ chronic illnesses with change and 2+ stable chronic illnesses Data: Unique test(s) ordered: 2 Risk: Moderate: Moderate risk from testing/treatment Medical Decision Making Level: 4 - Moderate documented in this encounter [facility] 10-26-2023 Note HNO ID: [id number] Author: JENNY VAIL APRN.STEPHON Service: ? Author Type: Nurse Practitioner Type: Progress Notes Filed: 10/26/2023 19:33 Note Text: 10/26/2023 Patient presents with: 6 Month Exam SUBJECTIVE: This is a 73 year old that is here today for Above Complaints. Since last office visit has been in good health without ER visits or hospitalizations DIABETES MELLITUS: Since our last visit he denies excessive thirst or increased frequency of urination, chest pain or dyspnea , numbness, tingling or pain in extremities, new or unusual visual symptoms, low sugar/hypoglycemic reactions, weight loss/gain, lightheadedness/dizziness, and bowel changes/loose stools. Follows a diabetic diet generally not very much. He is compliant with medication(s) and is tolerating med(s) without any side effects. He reports checking his glucose on a once a day schedule with sugars in the fasting < 200 range. Patient's last HgA1C was Hemoglobin A1C (%) Date Value 10/06/2023 8.9 04/01/2023 7.6 12/12/2020 6.9 06/14/2020 6.9 ) Last Ophthalmology exam was within the past 12 months HTN: Patient is compliant with meds Yes Monitors bp at home: No. Denies side effects: No. Chest pain: No. Dyspnea: No. Edema: No. Palpitations: No. Syncope: No. Headache: No. Dizziness: No. BRETT: Follow with sleep medicine. Has follow-up scheduled for 01/30/2024. Uses CPAP nightly HYPERLIPIDEMIA: Patient is taking medications: Yes. Patient is watching diet: No. Patient denies myalgias: Yes Patient denies gi upset: Yes Hx of RBB and CHF: follows with [facility] cardiology. Last appointment on 05/16/2023. No medication changes at that time. Advised to follow-up as needed. Denies SOB, dyspnea, orthopnea, chest pain, palpitations, or leg swelling PAST MEDICAL HISTORY No date: Benign prostatic hyperplasia with lower urinary tract symptoms No date: Cataracts, bilateral No date: Cervical arthritis No date: Chronic diastolic heart failure (HCC) No date: DDD (degenerative disc disease), lumbar 08/06/2013: Essential hypertension, benign 08/06/2013: Hyperlipidemia with target LDL less than 100 07/05/2020: Iron deficiency anemia due to chronic blood loss No date: Morbid obesity with BMI of 40.0-44.9, adult ([facility]) 02/05/2021: BRETT (obstructive sleep apnea) Comment: severe 2018: RBBB No date: Snoring 05/26/2015: 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 metFORMIN (GLUCOPHAGE) 500 mg tablet Take 2 tablets by mouth two times a day with meals. empagliflozin (JARDIANCE) 25 mg tablet Take 1 tablet by mouth once daily. Take 1 tablet once daily in the morning atorvastatin (LIPITOR) 20 mg tablet Take 1 tablet by mouth once daily. losartan-hydroCHLOROthiazide (HYZAAR) 50-12.5 mg per tablet Take 1 tablet by mouth once daily. blood sugar diagnostic (ACCU-CHEK TOMASZ PLUS TEST STRP) test strip Test daily DX: E11.65 Insulin: No sitaGLIPtin phosphate (JANUVIA) 100 mg tablet Take 1 tablet by mouth once daily. MEDICAL SUPPLY Calculi strainer to be used daily until passage of kidney stone. CPAP Initiate Auto PAP @ 10-20 cm of water with humidification. Mask (per patient preference) optional chin strap (if indicated) , filters, tubing, humidifier and lifetime supplies. aspirin 81 mg chewable tablet Take 81 mg by mouth once daily. chondro durham A/vit C/manganese (CHONDROITIN SULFATE COMPLEX ORAL) Take 2 tablets by mouth once daily. No current facility-administered medications for this visit. Medications and allergies reviewed by this provider. SOCIAL HISTORY Social History Tobacco Use Smoking status: Never Smokeless tobacco: Never Substance Use Topics Alcohol use: No Drug use: No REVIEW OF SYSTEMS All other reviewed and negative other than HPI. OBJECTIVE: BP 118/64 Pulse 80 Temp 36.7 ?C (98 ?F) (Temporal) Resp 20 Wt 110.5 kg (243 lb 9.7 oz) BMI 39.32 kg/m? . Vital signs reviewed by this provider. APPEARANCE Well appearing, alert, in no acute distress, well-hydrated, well nourished. EYES conjunctiva and sclera normal. HEART RRR with normal S1 and S2, no murmurs, no gallops, no JVD appreciated LUNG clear to auscultation. No wheezes, rhonchi or rales EXTREMITIES Extremities normal, No deformities, No skin discoloration, and No edema SKIN Skin color, texture, turgor normal, no suspicious rashes or lesions to exposed skin Latest Ref Rng 10/06/2023 Protein, Total 6.3 - 8.0 g/dL 7.6 Albumin 3.9 - 4.9 g/dL 4.8 Calcium 8.5 - 10.2 mg/dL 10.2 Bilirubin, Total 0.2 - 1.3 mg/dL 1.1 Alkaline Phosphatase 38 - 113 U/L 58 AST 14 - 40 U/L 29 (more content not included)... [facility] 10-05-2023 Telephone encounter Note Patient notified. Varun Perla LPN [facility] 10-05-2023 Miscellaneous Notes Patient notified. Varun Perla LPN Fasting labs ordered. PT requesting lab work prior to appt 10/11 please advise and call pt when ordered. Thank you documented in this encounter [facility] 10-05-2023 Telephone encounter Note Fasting labs ordered. [facility] 10-05-2023 Telephone encounter Note PT requesting lab work prior to appt 10/11 please advise and call pt when ordered. Thank you [facility] 09-06-2023 Telephone encounter Note Prescription Refill Information The patient has been identified by name and date of : Yes Caregiver verified no other encounters exist for this prescription request: Yes Caregiver confirmed with patient/requestor that no other refills are due, in the near future, with this provider at this time: Yes The last office visit in the department: 04/13/23 Does the patient have a future office visit with this provider/department: Yes 10/12/23 Requested Prescriptions Pending Prescriptions Disp Refills glimepiride (AMARYL) 4 mg tablet 180 tablet 3 Sig: Take 2 tablets by mouth daily with breakfast. Rx Notes; Please send today Kendra Bender September 06, 2023 2:01 PM [facility] 09-06-2023 Miscellaneous Notes Prescription Refill Information The patient has been identified by name and date of : Yes Caregiver verified no other encounters exist for this prescription request: Yes Caregiver confirmed with patient/requestor that no other refills are due, in the near future, with this provider at this time: Yes The last office visit in the department: 04/13/23 Does the patient have a future office visit with this provider/department: Yes 10/12/23 Requested Prescriptions Pending Prescriptions Disp Refills glimepiride (AMARYL) 4 mg tablet 180 tablet 3 Sig: Take 2 tablets by mouth daily with breakfast. Rx Notes; Please send today Kendra Bender September 06, 2023 2:01 PM documented in this encounter [facility] 08-11-2023 Telephone encounter Note Patient has been identified by name and date of : Yes, Provider Dr. Rockwell Date 08-11-23 Time 1:13p Patient phones for refill(s): Requested Prescriptions Pending Prescriptions Disp Refills metFORMIN (GLUCOPHAGE) 500 mg tablet 120 tablet 11 Sig: Take 2 tablets by mouth two times a day with meals. Date of last office visit in primary care: 04/13/2023 Date of next office visit in primary care: 10/12/2023 Patient is out of medication and will need by this evening. Please advise. Thank you. Jo Bender. [facility] 08-11-2023 Miscellaneous Notes Patient has been identified by name and date of : Yes, Provider Dr. Rockwell Date 08-11-23 Time 1:13p Patient phones for refill(s): Requested Prescriptions Pending Prescriptions Disp Refills metFORMIN (GLUCOPHAGE) 500 mg tablet 120 tablet 11 Sig: Take 2 tablets by mouth two times a day with meals. Date of last office visit in primary care: 04/13/2023 Date of next office visit in primary care: 10/12/2023 Patient is out of medication and will need by this evening. Please advise. Thank you. Jo Bender. documented in this encounter [facility] 05-16-2023 Note HNO ID: [id number] Author: BETZY MARQUES MD Service: ? Author Type: Physician Type: Progress Notes Filed: 05/16/2023 16:59 Note Text: [facility] Cardiology ([address]) [address] [facility] [id number] OUTPATIENT VISIT DATE 05/15/2023 PRIMARY CARE PHYSICIAN: Rommel Rockwell [address] [place] [address] HISTORY OF PRESENT ILLNESS: Mr. Wilson is a 72 year old gentleman who is here for routine follow-up of hypertension, dyslipidemia, diabetes ([id number]-zewdbpqog) and obesity. He has a history of obstructive sleep apnea and is maintained on CPAP. He still works 4 to 6 days a week. He has had no significant decline in his functional capacity. He denies symptoms of chest pain or pressure. He has not had symptoms concerning for CHF including PND, orthopnea, or lower extremity edema. PAST CARDIAC HISTORY: From last office visit with Radha Cheek, STEPHON Salas Mackenzie Wilson is a very pleasant 72 year old male who presents for routine follow up. He has a PMhx of HTN, HLD, DM2, RBBB, BRETT, obesity. No known CAD but multiple risk factors. Stress testing 2020 without ischemia. He was last seen in office on 03/01/2022. He continues to do well since he was seen last. 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 He estimates he walks about 5,000 steps in a day and 25 flights of stairs. He has baseline shortness of breath and lower extremity swelling unchanged. He denies chest discomfort, dizziness, palpitations, orthopnea. We reviewed cardiac risk factors modifications. He expresses frustration with elevated A1C despite four oral glucose lowering medications. We reviewed diabetic teaching and recommended a wireline supervisor evaluation which he declines at this time. 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) 05/26/2015 Type II or unspecified type diabetes mellitus without mention of complication, uncontrolled 08/20/2013 PAST SURGICAL HISTORY Procedure Laterality Date COLONOSCOPY FLX DX W/COLLJ SPEC WHEN PFRMD 09/03/2020 ESOPHAGOGASTRODUODENOSCOPY TRANSORAL DIAGNOSTIC 09/03/2020 LAPAROSCOPY SURG CHOLECYSTECTOMY 07/25/2017 Angel PAST SURGICAL HISTORY OF Right 2016 incision and drainage of knee abscess SOCIAL HISTORY Social History Tobacco Use Smoking status: Never Smokeless tobacco: Never Substance Use Topics Alcohol use: No Drug use: No FAMILY HISTORY Problem Relation Age of Onset Diabetes Mother Coronary Artery Disease Mother CABG 7 COPD Father Multiple Sclerosis Sister No Known Problems Brother No Known Problems Brother No Known Problems Son No Known Problems Son No Known Problems Son ALLERGIES: ALLERGIES Allergen Reactions Actos [Pioglitazone] Other: See Comments LE edema Ibuprofen GI Upset Lisinopril Cough Omeprazole Intolerance Bilateral lower extremity swelling and water retention. Penicillins Rash MEDICATIONS: atorvastatin (LIPITOR) 20 mg tablet Take 1 tablet by mouth once daily. losartan-hydroCHLOROthiazide (HYZAAR) 50-12.5 mg per tablet Take 1 tablet by mouth once daily. empagliflozin (JARDIANCE) 25 mg tablet Take 1 tablet by mouth once daily. Take 1 tablet once daily in the morning glimepiride (AMARYL) 4 mg tablet Take 2 tablets by mouth daily with breakfast. blood sugar diagnostic (ACCU-CHEK TOMASZ PLUS TEST STRP) test strip Test daily DX: E11.65 Insulin: No sitaGLIPtin phosphate (JANUVIA) 100 mg tablet Take 1 tablet by mouth once daily. metFORMIN (GLUCOPHAGE) 500 mg tablet Take 2 tablets by mouth twice daily with meals. MEDICAL SUPPLY Calculi strainer to be used daily until passage of kidney stone. CPAP Initiate Auto PAP @ 10-20 cm of water with humidification. Mask (per patient preference) optional chin strap (if indicated) , filters, tubing, humidifier and lifetime supplies. aspirin 81 mg chewable tablet Take 81 mg by mouth once daily. chondro durham A/vit C/manganese (CHONDROITIN SULFATE COMPLEX ORAL) Take 2 tablets by mouth once daily. REVIEW OF SYSTEMS: Review of Systems Constitutional: Negative for chills, fever, malaise/fatigue and weight loss. HENT: Negative for hearing loss and sore throat. Eyes: Negative for blurred vision and double vision. Respiratory: Negative. Cardiovascular: Negative. Genitourinary: Negative for dysuria, frequ (more content not included)... [facility] 05-03-2023 Miscellaneous Notes Patient has been identified by name and date of : Yes, Becca Carter RN Date 05/03/2023 Time 1100 am Patient phones for refill(s): Requested Prescriptions Pending Prescriptions Disp Refills atorvastatin (LIPITOR) 20 mg tablet 90 tablet 3 Sig: Take 1 tablet by mouth once daily. Date of last office visit in primary care: 04/13/2023 Date of next office visit in primary care: 10/12/2023 Please advise. Thank you. Becca Carter RN. documented in this encounter [facility] 04-13-2023 Note HNO ID: [id number] Author: JENNY VAIL APRN.PATENT LITIGATION ASSOCIATE Service: ? Author Type: Nurse Practitioner Type: Progress Notes Filed: 04/13/2023 19:00 Note Text: 04/13/2023 Patient presents with: F/U 3 Month SUBJECTIVE: This is a 72 year old that is here today for Above Complaints. Since last office visit has been in good health without ER visits or hospitalizations. DIABETES MELLITUS: Since our last visit he denies excessive thirst or increased frequency of urination, chest pain or dyspnea , numbness, tingling or pain in extremities, new or unusual visual symptoms, low sugar/hypoglycemic reactions, weight loss/gain, lightheadedness/dizziness, and bowel changes/loose stools. Follows a diabetic diet some of the time. He is compliant with medication(s) and is tolerating med(s) without any side effects. He reports checking his glucose on a once a day schedule with sugars in the fasting 140-180 range. Patient's last HgA1C was Hemoglobin A1C (%) Date Value 04/01/2023 7.6 01/17/2023 9.1 12/12/2020 6.9 06/14/2020 6.9 ) Component Latest Ref Rng AND Units 10/01/2022 Hemoglobin A1C 4.3 - 5.6 % 7.6 (H) Estimated Average Glucose mg/dL 171 Last Ophthalmology exam was on 07/24/2023 HTN: Patient is compliant with meds Yes Monitors bp at home: No. Denies side effects: Yes. Chest pain: No. Dyspnea: No. Edema: yeas mild . Palpitations: No. Syncope: No. Headache: No. Dizziness: No. BRETT: Followed with sleep medicine 02/07/2023. Using CPAP nightly Next follow-up scheduled for HYPERLIPIDEMIA: Patient is taking medications: Yes. Patient is watching diet: somewhat . Patient denies myalgias: Yes. Patient denies gi upset: Yes Hx of RBB and CHF: follows with [facility] cardiology. Last appointment on 08/30/2022 with recommended follow-up in 6 months. Has follow-up scheduled for April. 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 Take 1 tablet once daily in the morning glimepiride (AMARYL) 4 mg tablet Take 2 tablets by mouth daily with breakfast. blood sugar diagnostic (ACCU-CHEK TOMASZ PLUS TEST STRP) test strip Test daily DX: E11.65 Insulin: No sitaGLIPtin phosphate (JANUVIA) 100 mg tablet Take 1 tablet by mouth once daily. metFORMIN (GLUCOPHAGE) 500 mg tablet Take 2 tablets by mouth twice daily with meals. atorvastatin (LIPITOR) 20 mg tablet Take 1 tablet by mouth once daily. losartan-hydroCHLOROthiazide (HYZAAR) 50-12.5 mg per tablet Take 1 tablet by mouth once daily. MEDICAL SUPPLY Calculi strainer to be used daily until passage of kidney stone. CPAP Initiate Auto PAP @ 10-20 cm of water with humidification. Mask (per patient preference) optional chin strap (if indicated) , filters, tubing, humidifier and lifetime supplies. aspirin 81 mg chewable tablet Take 81 mg by mouth once daily. chondro durham A/vit C/manganese (CHONDROITIN SULFATE COMPLEX ORAL) Take 2 tablets by mouth once daily. No current facility-administered medications for this visit. Medications and allergies reviewed by this provider. SOCIAL HISTORY Social History Tobacco Use Smoking status: Never Smokeless tobacco: Never Substance Use Topics Alcohol use: No Drug use: No REVIEW OF SYSTEMS All other reviewed and negative other than HPI. OBJECTIVE: BP 118/64 Pulse 101 Resp 18 Wt 112.9 kg (249 lb) SpO2 93% BMI 40.19 kg/m? . Vital signs reviewed by this provider. APPEARANCE Well appearing, alert, in no acute distress, well-hydrated, well nourished. EYES conjunctiva and sclera normal. HEART RRR with normal S1 and S2, no murmurs, no gallops, no JVD appreciated LUNG clear to auscultation. No wheezes, rhonchi or rales EXTREMITIES Extremities normal, No deformities, No skin discoloration, and No edema SKIN Skin color, texture, turgor normal, no suspicious rashes or lesions to exposed skin Component Latest Ref Rng AND Units 04/01/2023 Protein, Total 6.3 - 8.0 g/dL 7.8 Albumin 3.9 - 4.9 g/dL 4.6 Calcium 8.5 - 10.2 mg/dL 10.3 (H) Bilirubin, Total 0.2 - 1.3 mg/dL 0.9 Alkaline Phosphatase 38 - 113 U/L 47 AST 14 - 40 U/L 30 ALT 10 - (more content not included)... [facility] 02-16-2023 Miscellaneous Notes Last OV 01/12/2023 Next appointment scheduled 04/13/2023 Patient has been identified by name and date of : Yes Requested Prescriptions Pending Prescriptions Disp Refills glimepiride (AMARYL) 4 mg tablet 180 tablet 1 Sig: Take 2 tablets by mouth daily with breakfast. RX INSTRUCTIONS: Patient aware RX will be sent to pharmacy. No need to notify patient. Eladio Ha Pss documented in this encounter [facility] 02-07-2023 Instructions Cain Randle Jr., MD - 02/07/2023 9:16 AM EST documented in this encounter [facility] 02-07-2023 Note HNO ID: [id number] Author: Cain Randle Jr., MD Service: ? Author Type: Physician Type: Progress Notes Filed: 02/07/2023 9:27 AM Note Text: ESTABLISHED PATIENT VISIT CHIEF COMPLAINT: Follow Up HISTORY OF PRESENT ILLNESS: Phillip Wilson is a 72 year old male, with a PMH significant for and per last office visit note of 07/12/22: 1. BRETT on CPAP - ICD9: 327.23, V46.8, ICD10: G47.33, Z99.89 (primary diagnosis) 2. Nocturnal hypoxia - ICD9: 327.24, ICD10: G47.34 3. Class 3 severe obesity with body mass index (BMI) of 40.0 to 44.9 in adult, unspecified obesity type, unspecified whether serious comorbidity present (HCC) - ICD9: 278.01, V85.41, ICD10: E66.01, Z68.41 Patient with known BRETT for which he was diagnosed by HSAT as above and now on PAP. Risk factors for BRETT include crowded airway and obesity. Pt with both subjective history and objective data to suggest PAP compliance with pt endorsing benefit from PAP use. Pt with following med conditions that could be exacerbated by untreated BRETT: DM, HTN, HLD. Discussed with patient: the physiology of OSAS, medical conditions associated with OSAS (DM, HTN, CAD, Depression, Stroke, Headache...) and treatment options (UPPP, Dental appliances, CPAP...). Encouraged continued PAP compliance. Reminded pt to clean and replace his PAP equipment regularly. Pt has been worked up for abnml ECG (on HSAT) by PCP. Pt with no lab findings or other to suggest hypercapnia as was noted during PAP titration (possibly resolving with PAP use). Pt however with low O2 the night of HSAT and PAP titration and feel appropriate to further evaluate for nocturnal hypoxia despite PAP use. Thus, will order nocturnal oximetry study. Also explained to pt how to increase humidifier settings on his specific PAP (now set at 2) -- this should allow for improvement in nasal congestion and dry mouth. PAP data download for past 90 days shows nightly use for avg of 8 hours 27 minutes. Avg AHI is 0.7. P95 is 10.3 cmH2O. Avg leak is 22.8 LPM. Patient not aware of sig leak and can fix it quite quickly. Will wake with a hiss sound. Feels sleeping good at night. Feels awake in the AM but as day goes on he reports blood sugars take over and make him feel fatigued. States did go through a recent bout in which he did not have his metformin resulting in glucose measures in the 230-240 range. Once on meds, back to 150-160 range. Sometimes takes a nap while waiting for a load of concrete but states out of boredom. If he is active, he does not think about sleeping. During visit reviewed prior sleep studies with pt. REVIEW OF SYSTEMS GENERAL:No weight loss, malaise or fevers. HEENT:Negative for frequent or significant headaches, No changes in hearing or vision, no nose bleeds or other nasal problems RESPIRATORY: Negative for cough, wheezing or shortness of breath. CARDIOVASCULAR: Negative for chest pain, leg swelling or palpitations. LAB/IMAGING: Those performed since patient's last visit have been reviewed. WBC (k/uL) Date Value 01/17/2023 6.66 RBC (m/uL) Date Value 01/17/2023 4.83 Hemoglobin (g/dL) Date Value 01/17/2023 14.5 Hematocrit (%) Date Value 01/17/2023 43.6 MCV (fL) Date Value 01/17/2023 90.3 MCH (pg) Date Value 01/17/2023 30.0 MCHC (g/dL) Date Value 01/17/2023 33.3 RDW-CV (%) Date Value 01/17/2023 13.7 Platelet Count (k/uL) Date Value 01/17/2023 211 MPV (fL) Date Value 01/17/2023 10.6 Glucose (mg/dL) Date Value 01/17/2023 325 (H) BUN (mg/dL) Date Value 01/17/2023 24 Creatinine (mg/dL) Date Value 01/17/2023 1.48 (H) Sodium (mmol/L) Date Value 01/17/2023 136 Potassium (mmol/L) Date Value 01/17/2023 4.1 Chloride (mmol/L) Date Value 01/17/2023 102 CO2 (mmol/L) Date Value 01/17/2023 23 Protein, Total (g/dL) Date Value 01/17/2023 7.1 Albumin (g/dL) Date Value 01/17/2023 4.3 Calcium, Total (mg/dL) Date Value 01/17/2023 9.6 Alkaline Phosphatase (U/L) Date Value 01/17/2023 53 Bilirubin, Total (mg/dL) Date Value 01/17/2023 0.6 AST (U/L) Date Value 01/17/2023 31 ALT (U/L) Date Value 01/17/2023 32 Hep C Antibody IA (no units) Date Value 05/07/2016 Negative MEDICATIONS: sitaGLIPtin phosphate (JANUVIA) 100 mg tablet Take 1 tablet by mouth once daily. empagliflozin (JARDIANCE) 25 mg tablet Take 1 tablet by mouth once daily. Take 1 tablet once daily in the morning metFORMIN (GLUCOPHAGE) 500 mg tablet Take 2 tablets by mouth twice daily with meals. atorvastatin (LIPITOR) 20 mg tablet Take 1 tablet by mouth once daily. losartan-hydroCHLOROthiazide (HYZAAR) 50-12.5 mg per tablet Take 1 tablet by mouth once daily. blood sugar diagnostic (ACCU-CHEK TOMASZ PLUS TEST STRP) test strip Test daily DX: E11.65 Insulin: No MEDICAL SUPPLY Calculi strainer to be used daily until passage of kidney stone. CPAP Initiate Auto PAP @ 10-20 cm of water with humidif (more content not included)... [facility] 02-07-2023 History of Presen t illness Narrative ESTABLISHED PATIENT VISIT CHIEF COMPLAINT: Follow Up HISTORY OF PRESENT ILLNESS: Phillip Wilson is a 72 year old male, with a PMH significant for and per last office visit note of 07/12/22: 1. BRETT on CPAP - ICD9: 327.23, V46.8, ICD10: G47.33, Z99.89 (primary diagnosis) 2. Nocturnal hypoxia - ICD9: 327.24, ICD10: G47.34 3. Class 3 severe obesity with body mass index (BMI) of 40.0 to 44.9 in adult, unspecified obesity type, unspecified whether serious comorbidity present (HCC) - ICD9: 278.01, V85.41, ICD10: E66.01, Z68.41 Patient with known BRETT for which he was diagnosed by HSAT as above and now on PAP. Risk factors for BRETT include crowded airway and obesity. Pt with both subjective history and objective data to suggest PAP compliance with pt endorsing benefit from PAP use. Pt with following med conditions that could be exacerbated by untreated BRETT: DM, HTN, HLD. Discussed with patient: the physiology of OSAS, medical conditions associated with OSAS (DM, HTN, CAD, Depression, Stroke, Headache...) and treatment options (UPPP, Dental appliances, CPAP...). Encouraged continued PAP compliance. Reminded pt to clean and replace his PAP equipment regularly. Pt has been worked up for abnml ECG (on HSAT) by PCP. Pt with no lab findings or other to suggest hypercapnia as was noted during PAP titration (possibly resolving with PAP use). Pt however with low O2 the night of HSAT and PAP titration and feel appropriate to further evaluate for nocturnal hypoxia despite PAP use. Thus, will order nocturnal oximetry study. Also explained to pt how to increase humidifier settings on his specific PAP (now set at 2) -- this should allow for improvement in nasal congestion and dry mouth. PAP data download for past 90 days shows nightly use for avg of 8 hours 27 minutes. Avg AHI is 0.7. P95 is 10.3 cmH2O. Avg leak is 22.8 LPM. Patient not aware of sig leak and can fix it quite quickly. Will wake with a hiss sound. Feels sleeping good at night. Feels awake in the AM but as day goes on he reports blood sugars take over and make him feel fatigued. States did go through a recent bout in which he did not have his metformin resulting in glucose measures in the 230-240 range. Once on meds, back to 150-160 range. Sometimes takes a nap while waiting for a load of concrete but states out of boredom. If he is active, he does not think about sleeping. During visit reviewed prior sleep studies with pt. REVIEW OF SYSTEMS GENERAL:No weight loss, malaise or fevers. HEENT:Negative for frequent or significant headaches, No changes in hearing or vision, no nose bleeds or other nasal problems RESPIRATORY: Negative for cough, wheezing or shortness of breath. CARDIOVASCULAR: Negative for chest pain, leg swelling or palpitations. LAB/IMAGING: Those performed since patient's last visit have been reviewed. WBC (k/uL) Date Value 01/17/2023 6.66 RBC (m/uL) Date Value 01/17/2023 4.83 Hemoglobin (g/dL) Date Value 01/17/2023 14.5 Hematocrit (%) Date Value 01/17/2023 43.6 MCV (fL) Date Value 01/17/2023 90.3 MCH (pg) Date Value 01/17/2023 30.0 MCHC (g/dL) Date Value 01/17/2023 33.3 RDW-CV (%) Date Value 01/17/2023 13.7 Platelet Count (k/uL) Date Value 01/17/2023 211 MPV (fL) Date Value 01/17/2023 10.6 Glucose (mg/dL) Date Value 01/17/2023 325 (H) BUN (mg/dL) Date Value 01/17/2023 24 Creatinine (mg/dL) Date Value 01/17/2023 1.48 (H) Sodium (mmol/L) Date Value 01/17/2023 136 Potassium (mmol/L) Date Value 01/17/2023 4.1 Chloride (mmol/L) Date Value 01/17/2023 102 CO2 (mmol/L) Date Value 01/17/2023 23 Protein, Total (g/dL) Date Value 01/17/2023 7.1 Albumin (g/dL) Date Value 01/17/2023 4.3 Calcium, Total (mg/dL) Date Value 01/17/2023 9.6 Alkaline Phosphatase (U/L) Date Value 01/17/2023 53 Bilirubin, Total (mg/dL) Date Value 01/17/2023 0.6 AST (U/L) Date Value 01/17/2023 31 ALT (U/L) Date Value 01/17/2023 32 Hep C Antibody IA (no units) Date Value 05/07/2016 Negative MEDICATIONS: sitaGLIPtin phosphate (JANUVIA) 100 mg tablet Take 1 tablet by mouth once daily. empagliflozin (JARDIANCE) 25 mg tablet Take 1 tablet by mouth once daily. Take 1 tablet once daily in the morning metFORMIN (GLUCOPHAGE) 500 mg tablet Take 2 tablets by mouth twice daily with meals. atorvastatin (LIPITOR) 20 mg tablet Take 1 tablet by mouth once daily. losartan-hydroCHLOROthiazide (HYZAAR) 50-12.5 mg per tablet Take 1 tablet by mouth once daily. blood sugar diagnostic (ACCU-CHEK TOMASZ PLUS TEST STRP) test strip Test daily DX: E11.65 Insulin: No MEDICAL SUPPLY Calculi strainer to be used daily until passage of kidney stone. CPAP Initiate Auto PAP @ 10-20 cm of water with humidification. Mask (per patient preference) optional chin strap (if indicated) , filters, tubing, humidifier and lifetime supplies. aspirin 81 mg chewable tablet Take 81 mg by mouth once daily. chondro durham A/vit C/manganese (CHONDROITIN SULFATE COMPLEX ORAL) Take 2 tablets by mouth once daily. glimepiride (AMARYL) 4 mg tablet Take 2 tablets by mouth daily with breakfast. 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 GENERAL EXAM: General appearance: NAD, pleasant. HEENT: NC/AT, nasal congestion absent, no oral lesions, membranes moist. NECK: No masses, supple. Lungs: CTA bilaterally. CV: RRR nl S1, S2 Extr: No cyanosis, clubbing or edema. NEUROLOGICAL EXAM: General: Awake, alert, oriented x3 (person,place,time), speech fluent, no dysarthria; comprehension, naming, repetition intact. CN: PERRL, EOMI and without nystagmus, VFF to confrontation, facial sensation and strength are normal and symmetric, hearing is intact to finger rub bilaterally, palate and tongue movements are intact and symmetric. SCM and trapezius strength normal. Motor: Normal tone, bulk and strength (5/5) bilaterally (throughout extremities x4). Coordination: FNF, ALEX, HTS intact. No tremors. Sensation: LT intact throughout. No evidence of neglect. Gait: Stable with normal stride and arm swing. Assessment and Plan: ASSESSMENT/PLAN: 1. BRETT on CPAP - ICD9: 327.23, ICD10: G47.33 (primary diagnosis) 2. Nocturnal hypoxia - ICD9: 327.24, ICD10: G47.34 3. Class 2 obesity with body mass index (BMI) of 39.0 to 39.9 in adult, unspecified obesity type, unspecified whether serious comorbidity present - ICD9: 278.00, V85.39, ICD10: E66.9, Z68.39 Patient overall doing well on PAP with no significant complaints. Continues to lose weight since 2021 (intentional). Still would like pt to have oximetry study to confirm no need for supplemental O2 given hypoxia noted on prior sleep studies. Will order test again (while on PAP). If O2 levels low, will order supplemental O2 and have pt follow up once using. Otherwise, pt can follow up in 1 year. Reminded pt to replace and clean PAP equipment regularly. Advised pt not to drive or operate heavy machinery when sleepy. Pt agrees with plan as above. Cain Randle MD I spent a total of 21 minutes on the date of the service which included preparing to see the patient, [id number] patient care, completing clinical documentation, obtaining and/or reviewing separately obtained history, performing a medically appropriate examination, counseling and educating the patient/family/caregiver, ordering medications, tests, or procedures, independently interpreting results (not separately reported), and communicating results to the patient/family/caregiver. There is no data to display for this encounter documented in this encounter [facility] 02-07-2023 Note HNO ID: [id number] Author: Gisselle Armas LPN Service: ? Author Type: ? Type: Progress Notes Filed: 02/07/2023 9:27 AM Note Text: There is no data to display for this encounter [facility] 02-02-2023 History of Presen t illness Narrative Primary Care Pharmacy Panel Management This patient has been identified through panel management efforts by the primary care pharmacy team. Per phone encounter on 01/18/23, pt was offered to speak with clinical PharmD regarding DM mngt but patient declined. Will not reach out at this time. Elizabeth Kimball RPh documented in this encounter [facility] 02-02-2023 Note HNO ID: [id number] Author: Elizabeth Kimball RPh Service: ? Author Type: Pharmacist Type: Progress Notes Filed: 02/02/2023 1:41 PM Note Text: Primary Care Pharmacy Panel Management This patient has been identified through panel management efforts by the primary care pharmacy team. Per phone encounter on 01/18/23, pt was offered to speak with clinical PharmD regarding DM mngt but patient declined. Will not reach out at this time. Elizabeth Kimball RPh [facility] 02-02-2023 Note Patient Outreach ( [facility]) PHILLIP WILSON ([id number]) 1950 Date Time Provider Department 02/02/23 ELIZABETH KIMBALL [facility] During your visit today, we recorded the following information about you: Elizabeth Kimball RPh 02/02/2023 1:41 PM Signed Primary Care Pharmacy Panel Management This patient has been identified through panel management efforts by the primary care pharmacy team. Per phone encounter on 01/18/23, pt was offered to speak with clinical PharmD regarding DM mngt but patient declined. Will not reach out at this time. Elizabeth Kimball [facility] Allergies As of Date: 02/02/2023 Noted Allergy Reaction ACTOS (PIOGLITAZONE) 01/05/2022 14 - Other: See Comments Comments: LE edema IBUPROFEN 08/06/2013 8 - GI Upset LISINOPRIL 08/06/2013 3 - Cough OMEPRAZOLE 10/13/2020 5 - Intolerance Comments: Bilateral lower extremity swelling and water retention. PENICILLINS 08/06/2013 2 - Rash Date Reviewed: 01/12/2023 Reviewed by: Nik Rosario LPN - Fully Assessed Prescriptions as of 02/02/2023 - sitaGLIPtin phosphate (JANUVIA) 100 mg tablet Take 1 tablet by mouth once daily. - empagliflozin (JARDIANCE) 25 mg tablet Take 1 tablet by mouth once daily. Take 1 tablet once daily in the morning - metFORMIN (GLUCOPHAGE) 500 mg tablet Take 2 tablets by mouth twice daily with meals. - glimepiride (AMARYL) 4 mg tablet Take 2 tablets by mouth daily with breakfast. - atorvastatin (LIPITOR) 20 mg tablet Take 1 tablet by mouth once daily. - losartan-hydroCHLOROthiazide (HYZAAR) 50-12.5 mg per tablet Take 1 tablet by mouth once daily. - blood sugar diagnostic (ACCU-CHEK TOMASZ PLUS TEST STRP) test strip Test daily DX: E11.65 Insulin: No - MEDICAL SUPPLY Calculi strainer to be used daily until passage of kidney stone. - CPAP Initiate Auto PAP @ 10-20 cm of water with humidification. Mask (per patient preference) optional chin strap (if indicated) , filters, tubing, humidifier and lifetime supplies. - aspirin 81 mg chewable tablet Take 81 mg by mouth once daily. - chondro durham A/vit C/manganese (CHONDROITIN SULFATE COMPLEX ORAL) Take 2 tablets by mouth once daily. 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36]02/28/2020 Iron deficiency anemia due to chronic blood los*07/05/2020 Chronic diastolic heart failure (HCC) [I50.32] 09/29/2021 Stage 3 chronic kidney disease, unspecified whe*08/03/2022 BRETT (obstructive sleep apnea) [G47.33] 11/29/2022 Encounter Status:Closed by ELIZABETH KIMBALL on 02/02/23 [facility] 01-18-2023 Miscellaneous Notes Pt called and is notified of providers instructions. Pt voices understanding. Sirisha Herrera RN 60-75 grams per meal to maintain weight or 45-60 grams per meal if wants to lose weight. Snacks should be about 15 grams. Jenny Vail APRN.STEPHON Pt called and is notified of providers message and instructions. Pt asked how many carbs he should be eating. I asked him how many he eats now, and the Pt did not know. I told him to keep track of the carbohydrates and sugar he consumes, and it would give us a better idea of what he would need to decrease to. Let Pt know provider could put in a consult for a dietitian to talk with him, but he declined at this time. Sirisha Herrera RN He was prescribed jardiance when it was elevated like that. He is the max dose on the medications he is on. If he doesn't want to take use injectable or insulin then I recommend he work on lower carbohydrate diet and aim for at least 150 minutes of exercise per week. If he changes his mind he can let me know. Jenny Vail APRN.STEPHON Phoned patient and reviewed results and recommendations with him. Patient reports that he had an A1C of 9.1% before and was able to get it back down to the 7.6% without an injectable. Patient stated he does not want to do any injectables and does not want to speak to a clinical pharmacist at this time. Advised patient I would forward his message to the provider for review. He voiced understanding. ----- Message from Jenny Vail APRN.PATENT LITIGATION ASSOCIATE sent at 01/18/2023 11:09 AM EDT ----- A1c has worsened to 9.1% from 7.6%. Recommend either an injectable of a GLP or long acting insulin. If he would like I can have him talk to clinical pharmacist. Also recommend low carbohydrate diet and aim for at least 150 minutes of exercise a week. Urine sample shows elevation in Albumin/creatinine ratio likely due to uncontrolled blood sugars. Kidney function is stable. The rest of his blood work is in acceptable ranges. Jenny Vail APRN.PATENT LITIGATION ASSOCIATE documented in this encounter [facility] 01-12-2023 Note HNO ID: [id number] Author: Jenny Vail APRN.PATENT LITIGATION ASSOCIATE Service: ? Author Type: Nurse Practitioner Type: Progress Notes Filed: 01/12/2023 6:40 PM Note Text: 01/12/2023 Patient presents with: F/U 3 Month SUBJECTIVE: This is a 72 year old that is here today for Above Complaints. Since last office visit has been in good health without ER visits or hospitalizations DIABETES MELLITUS:Since our last visit he denies excessive thirst or increased frequency of urination, chest pain or dyspnea , numbness, tingling or pain in extremities, new or unusual visual symptoms, low sugar/hypoglycemic reactions, weight loss/gain, lightheadedness/dizziness, and bowel changes/loose stoolsFollows a diabetic diet some of the time. He is compliant with medication(s) and is tolerating med(s) without any side effects. He reports checking his glucose on a once a day schedule with sugars in the 150 range. Patient's last HgA1C was Hemoglobin A1C (%) Date Value 10/01/2022 7.6 06/25/2022 9.1 12/12/2020 6.9 06/14/2020 6.9 ) Last Ophthalmology exam was within the past 12 months Was out of metformin about three days and blood sugars running in the lows 200 HTN: Patient is compliant with meds Yes Monitors bp at home: No. Denies side effects: Yes. Chest pain: No. Dyspnea: No. Edema: No. Palpitations: No. Syncope: No. Headache: Yes- occasionally Dizziness: No. BRETT: following with sleep medicine with last office visit on 07/12/2022. No changes with PAP therapy made. Has upcoming follow-up in January. Uses nightly. Still with some fatigue when he gets up but this is not new HYPERLIPIDEMIA: Patient is taking medications: Yes. Patient is watching diet: No. Patient denies myalgias: Yes. Patient denies gi upset: Yes Follows with cardiology for hx of RBB and CHF with last office visit on 08/30/2022. No medication changes at last visit. Recommended follow-up in six months which is scheduled for April Reports has noted some bleeding to left ear. Gets up in the AM and rubs his left ear and got blood on his finger. 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 Take 1 tablet once daily in the morning metFORMIN (GLUCOPHAGE) 500 mg tablet Take 2 tablets by mouth twice daily with meals. glimepiride (AMARYL) 4 mg tablet Take 2 tablets by mouth daily with breakfast. atorvastatin (LIPITOR) 20 mg tablet Take 1 tablet by mouth once daily. losartan-hydroCHLOROthiazide (HYZAAR) 50-12.5 mg per tablet Take 1 tablet by mouth once daily. SITagliptin (JANUVIA) 100 mg tablet Take 1 tablet by mouth once daily. blood sugar diagnostic (ACCU-CHEK TOMASZ PLUS TEST STRP) test strip Test daily DX: E11.65 Insulin: No MEDICAL SUPPLY Calculi strainer to be used daily until passage of kidney stone. CPAP Initiate Auto PAP @ 10-20 cm of water with humidification. Mask (per patient preference) optional chin strap (if indicated) , filters, tubing, humidifier and lifetime supplies. aspirin 81 mg chewable tablet Take 81 mg by mouth once daily. chondro durham A/vit C/manganese (CHONDROITIN SULFATE COMPLEX ORAL) Take 2 tablets by mouth once daily. No current facility-administered medications for this visit. Medications and allergies reviewed by this provider. SOCIAL HISTORY Social History Tobacco Use Smoking status: Never Smokeless tobacco: Never Substance Use Topics Alcohol use: No Drug use: No REVIEW OF SYSTEMS All other reviewed and negative other than HPI. OBJECTIVE: BP 138/80 Pulse 101 Resp 18 Wt 113.3 kg (249 lb 12.8 oz) SpO2 92% BMI 40.32 kg/m? . Vital signs reviewed by this provider. APPEARANCE Well appearing, alert, in no acute distress, well-hydrated, well nourished. EYES conjunctiva and sclera normal. EARS: left outer ear canal with small scabbed area which started bleeding with ear exam. Internal canal and TM WNL HEART RRR with normal S1 and S2, no murmurs, no gallops, no JVD appreciated LUNG clear to auscultation. No wheezes, rhonchi or rales EXTREMITIES Extremities normal, No deformities, No skin disc (more content not included)... [facility] 01-12-2023 History of Presen t illness Narrative 01/12/2023 Patient presents with: F/U 3 Month SUBJECTIVE: This is a 72 year old that is here today for Above Complaints. Since last office visit has been in good health without ER visits or hospitalizations DIABETES MELLITUS:Since our last visit he denies excessive thirst or increased frequency of urination, chest pain or dyspnea , numbness, tingling or pain in extremities, new or unusual visual symptoms, low sugar/hypoglycemic reactions, weight loss/gain, lightheadedness/dizziness, and bowel changes/loose stoolsFollows a diabetic diet some of the time. He is compliant with medication(s) and is tolerating med(s) without any side effects. He reports checking his glucose on a once a day schedule with sugars in the 150 range. Patient's last HgA1C was Hemoglobin A1C (%) Date Value 10/01/2022 7.6 06/25/2022 9.1 12/12/2020 6.9 06/14/2020 6.9 ) Last Ophthalmology exam was within the past 12 months Was out of metformin about three days and blood sugars running in the lows 200 HTN: Patient is compliant with meds Yes Monitors bp at home: No. Denies side effects: Yes. Chest pain: No. Dyspnea: No. Edema: No. Palpitations: No. Syncope: No. Headache: Yes- occasionally Dizziness: No. BRETT: following with sleep medicine with last office visit on 07/12/2022. No changes with PAP therapy made. Has upcoming follow-up in January. Uses nightly. Still with some fatigue when he gets up but this is not new HYPERLIPIDEMIA: Patient is taking medications: Yes. Patient is watching diet: No. Patient denies myalgias: Yes. Patient denies gi upset: Yes Follows with cardiology for hx of RBB and CHF with last office visit on 08/30/2022. No medication changes at last visit. Recommended follow-up in six months which is scheduled for April Reports has noted some bleeding to left ear. Gets up in the AM and rubs his left ear and got blood on his finger. 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 Take 1 tablet once daily in the morning metFORMIN (GLUCOPHAGE) 500 mg tablet Take 2 tablets by mouth twice daily with meals. glimepiride (AMARYL) 4 mg tablet Take 2 tablets by mouth daily with breakfast. atorvastatin (LIPITOR) 20 mg tablet Take 1 tablet by mouth once daily. losartan-hydroCHLOROthiazide (HYZAAR) 50-12.5 mg per tablet Take 1 tablet by mouth once daily. SITagliptin (JANUVIA) 100 mg tablet Take 1 tablet by mouth once daily. blood sugar diagnostic (ACCU-CHEK TOMASZ PLUS TEST STRP) test strip Test daily DX: E11.65 Insulin: No MEDICAL SUPPLY Calculi strainer to be used daily until passage of kidney stone. CPAP Initiate Auto PAP @ 10-20 cm of water with humidification. Mask (per patient preference) optional chin strap (if indicated) , filters, tubing, humidifier and lifetime supplies. aspirin 81 mg chewable tablet Take 81 mg by mouth once daily. chondro durham A/vit C/manganese (CHONDROITIN SULFATE COMPLEX ORAL) Take 2 tablets by mouth once daily. No current facility-administered medications for this visit. Medications and allergies reviewed by this provider. SOCIAL HISTORY Social History Tobacco Use Smoking status: Never Smokeless tobacco: Never Substance Use Topics Alcohol use: No Drug use: No REVIEW OF SYSTEMS All other reviewed and negative other than HPI. OBJECTIVE: BP 138/80 Pulse 101 Resp 18 Wt 113.3 kg (249 lb 12.8 oz) SpO2 92% BMI 40.32 kg/m . Vital signs reviewed by this provider. APPEARANCE Well appearing, alert, in no acute distress, well-hydrated, well nourished. EYES conjunctiva and sclera normal. EARS: left outer ear canal with small scabbed area which started bleeding with ear exam. Internal canal and TM WNL HEART RRR with normal S1 and S2, no murmurs, no gallops, no JVD appreciated LUNG clear to auscultation. No wheezes, rhonchi or rales EXTREMITIES Extremities normal, No deformities, No skin discoloration, No edema, and Normal pulses bilaterally. SKIN Skin color, texture, turgor normal, no suspicious rashes or lesions DM foot exam: shoes and socks removed, No deformities, ulcers, calluses, normal distal pulses, and sensitive to 10 gm monofilament Component Latest Ref Rng & Units 06/25/2022 10/01/2022 Protein, Total 6.3 - 8.0 g/dL 7.6 Albumin 3.9 - 4.9 g/dL 4.7 Calcium 8.5 - 10.2 mg/dL 9.7 Bilirubin, Total 0.2 - 1.3 mg/dL 0.9 Alkaline Phosphatase 38 - 113 U/L 53 AST 14 - 40 U/L 39 ALT 10 - 54 U/L 33 Glucose 74 - 99 mg/dL 79 BUN 9 - 24 mg/dL 21 Creatinine 0.73 - 1.22 mg/dL 1.57 (H) Sodium 136 - 144 mmol/L 142 Potassium 3.7 - 5.1 mmol/L 4.6 Chloride 97 - 105 mmol/L 105 CO2 22 - 30 mmol/L 22 Anion Gap 9 - 18 mmol/L 15 eGFR >=60 mL/min/1.73m 47 (L) Total Cholesterol, Nonfasting <200 mg/dL 112 Triglycerides, Nonfasting <150 mg/dL 107 HDL Cholesterol, Nonfasting >39 mg/dL 40 LDL Cholesterol, Nonfasting <100 mg/dL 51 Non HDL Cholesterol, Nonfasting <130 mg/dL 72 VLDL Cholesterol, Nonfasting <30 mg/dL 21 Total Chol/HDL Ratio, Nonfasting <5.10 mg/dL 2.80 LDL/HDL Ratio, Nonfasting <2.54 mg/dL 1.28 Hemoglobin A1C 4.3 - 5.6 % 7.6 (H) Estimated Average Glucose mg/dL 171 BP Controlled (<130/80) Never done Shingrix Vaccine(1 of 2) Never done Hepatitis B Vaccine(1 of 3 - Risk 3-dose series) Never done RSV Vaccine(1 - 1-dose 60+ series) Never done Hemoglobin/Hematocrit due on 12/12/2021 Advance Directive Discussion Never done Depression Assessment due on 03/21/2022 Urine Albumin:Creatinine Ratio due on 01/09/2023 Dilated Retinal Exam due on 03/24/2023 HbA1C due on 04/03/2023 LDL Cholesterol due on 06/26/2023 Serum Creatinine due on 10/02/2023 Diabetic Foot Exam due on 01/13/2024 Annual PCP Team Chronic Disease Visit due on 01/13/2024 DTaP,Tdap,Td Vaccine(2 - Td or Tdap) due on 07/22/2024 Colorectal Cancer Screening due on 09/03/2025 Hepatitis C Screening Completed Covid-19 Vaccine Completed Pneumococcal Vaccine: 65+ Completed Influenza Vaccine Discontinued ASSESSMENT/PLAN: 1. Type 2 diabetes mellitus without complication, without long-term current use of insulin ([facility]) - ICD9: 250.00, ICD10: E11.9 (primary diagnosis) - Control undetermined, due for labs - Continue current medications - Statin prescribed - atorvastatin - Blood glucose monitoring on a once daily schedule - Discussed need for and benefit of weight loss. BMI 40.32 kg/(m^2) - Follow up in 3 months, sooner should any other issues arise. - ALBUMIN/CREAT RATIO RND UR - HGB A1C - CBC 2. Essential hypertension, benign - ICD9: 401.1, ICD10: I10 - slightly above goal of 130/80 - Continue current medications - Recommend home blood pressure monitoring, to bring results to next visit - Encouraged sodium restriction, DASH or Mediterranean diet - Recommend regular aerobic exercise - Discussed need for and benefit of weight loss. BMI 40.32 kg/(m^2) - Follow up in 3 months for hypertension visit 3. Stage 3 chronic kidney disease, unspecified whether stage 3a or 3b CKD ([facility]) - ICD9: 585.3, ICD10: N18.30 - eGFR: 47 - due for labs - Albuminuria: due for urine ACR - Counseled on avoiding NSAIDs, adequate hydration - Counseled on low sodium diet - ACEi/ARB prescribed: Yes - SGLT2i prescribed: empagliflozin - COMP METABOLIC PANEL 4. Hyperlipidemia with target LDL less than 100 - ICD9: 272.4, ICD10: E78.5 - Controlled - Continue current medications - Counseled on healthy diet and regular exercise - Discussed need for and benefit of weight loss. BMI 40.32 kg/(m^2) - Follow up in 3 months, sooner should any other issues arise. 5. Obesity, Class III, BMI 40-49.9 (morbid obesity) ([facility]) - ICD9: 278.01, ICD10: E66.01 Weight decreasing - Behavioral intervention - Lengthy discussion in office today regarding diet and exercise. Discussed use of small plate to eat meals from, drink 1 glass of water 10-15 minutes prior to eating meal, drink 8 glasses of water daily, eat fresh fruit and vegetable during meal first then lean protein such as grilled/baked chicken breast or fish, limit carbohydrate intake (less pasta, breads, rice and snack foods) as well as limiting sugars (desserts etc). Important to count / track your calories and exercise as well. 6. Chronic diastolic heart failure (HCC) - ICD9: 428.32, ICD10: I50.32 - stable - Continue current medications - Encouraged sodium restriction - Recommend regular aerobic exercise - follow-up with cardiology as recommended 7. BRETT on CPAP - ICD9: 327.23, ICD10: G47.33 - continue nightly use - follow-up with sleep medicine as scheduled 8. Encounter for immunization - ICD9: V03.89, ICD10: Z23 - P[employer] COVID-19 VACCINE ( SEASON) AGE 12+ YR Jenny Vail APRN.STEPHON Prescription instructions reviewed with patient as applicable. Patient advised if symptoms do not improve or if symptoms worsen sooner, to contact their primary care physician. Potential red flag symptoms discussed with the patient. Reviewed appropriate action plan to take if red flag symptoms occur. Patient agreeable to treatment plan. I spent a total of 25 minutes on the date of the service which included preparing to see the patient, [id number] patient care, completing clinical documentation, obtaining and/or reviewing separately obtained history, performing a medically appropriate examination, counseling and educating the patient/family/caregiver, and ordering medications, tests, or procedures. documented in this encounter [facility] 01-03-2023 Telephone encounter Note Reviewed. Will order labs at his upcoming appointment. [facility] 01-03-2023 Miscellaneous Notes Reviewed. Will order labs at his upcoming appointment. Spoke with patient on the phone. He was very upset that he came up here to office fasting and no lab orders were in. He explained to me that it was discussed at last OV (10/12/22) with Dr. Rockwell that lab orders would be placed prior to his upcoming appointment with Jenny on 01/12/23. I apologized for the confusion but explained to him that Dr. Rockwell did not place any orders at that time and per his notes I did not see anything stating that. I apologized to him again and did state that I would make Dr. Rockwell aware of the mishap. Patient then said It doesn't matter because I will no longer come up there for labs prior to my appointment. This happens all the time to me . Ann Jolley Patient came for labs. There are no labs in chart please advise and call patient UTE documented in this encounter [facility] 01-01-2023 Telephone encounter Note Spoke with patient on the phone. He was very upset that he came up here to office fasting and no lab orders were in. He explained to me that it was discussed at last OV (10/12/22) with Dr. Rockwell that lab orders would be placed prior to his upcoming appointment with Jenny on 01/12/23. I apologized for the confusion but explained to him that Dr. Rockwell did not place any orders at that time and per his notes I did not see anything stating that. I apologized to him again and did state that I would make Dr. Rockwell aware of the mishap. Patient then said It doesn't matter because I will no longer come up there for labs prior to my appointment. This happens all the time to me . Ann Jolley [facility] 01-01-2023 Telephone encounter Note Patient came for labs. There are no labs in chart please advise and call patient UTE [facility] 12-07-2022 Miscellaneous Notes Date of last OV 10/12/2022 Next OV 01/12/2023 Pharmacy verified in Epic Patient has been identified by name and date of : Yes Patient aware RX will be sent to pharmacy. No need to notify patient. Patient phones for refill(s): Requested Prescriptions Pending Prescriptions Disp Refills empagliflozin (JARDIANCE) 25 mg tablet 30 tablet 2 Sig: Take 1 tablet by mouth once daily. Take 1 tablet once daily in the morning Date of last office visit : Visit date not found Date of next office visit : Visit date not found Last 2 Encounter Wt Readings: Date: Wt: 10/12/2022 114.6 kg (252 lb 9.6 oz) 08/30/2022 114.3 kg (252 lb) Not applicable Please advise. Jo Robles Pss documented in this encounter [facility] 08-17-2022 Miscellaneous Notes Patient's request for medication has been refused. See reason and notify patient. Requested Prescriptions Refused Prescriptions Disp Refills glimepiride (AMARYL) 4 mg tablet 180 tablet 1 Sig: Take 2 tablets by mouth daily with breakfast. Refused By: ELADIO BARILLAS Reason for Refusal: Records indicate that there is a valid prescription at the pharmacy 90 day supply with 1 refill sent to [facility] on 07/06/22. Eladio Barillas MA Patient has been identified by name and date of : Yes Requested Prescriptions Pending Prescriptions Disp Refills glimepiride (AMARYL) 4 mg tablet 180 tablet 1 Sig: Take 2 tablets by mouth daily with breakfast. RX INSTRUCTIONS: Patient aware RX will be sent to pharmacy. No need to notify patient. Noelle Armas Pss documented in this encounter [facility] 08-03-2022 History of Presen t illness Narrative Chief Complaint Patient presents with: Follow Up: 4 week HPI Phillip Wilson is a 72 year old male who presents here today for 1 month follow up on diabetes. At last OV, we started patient on Jardiance for uncontrolled DM and recommended improved diet, exercise, and weight loss. Patient was refusing injectable medication at that time. Advised to check sugars BID and bring results to this visit. Patient has been checking sugars on a daily since insurance will only cover once per day. Fasting readings typically in the 150-160's range. Denies hypoglycemia. No change in DM symptoms. Past medical history, appointments, medications, allergies reviewed. 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) 05/26/2015 Type II or unspecified type diabetes mellitus without mention of complication, uncontrolled 08/20/2013 Previous Surgical History PAST SURGICAL HISTORY Procedure Laterality Date COLONOSCOPY FLX DX W/COLLJ SPEC WHEN PFRMD 09/03/2020 ESOPHAGOGASTRODUODENOSCOPY TRANSORAL DIAGNOSTIC 09/03/2020 LAPAROSCOPY SURG CHOLECYSTECTOMY 07/25/2017 JOEYJose PAST SURGICAL HISTORY OF Right 2016 incision and drainage of knee abscess Family History FAMILY HISTORY Problem Relation Age of Onset Diabetes Mother Coronary Artery Disease Mother CABG 7 COPD Father Multiple Sclerosis Sister No Known Problems Brother No Known Problems Brother No Known Problems Son No Known Problems Son No Known Problems Son Patient Allergies ALLERGIES Allergen Reactions Actos [Pioglitazone] Other: See Comments LE edema Ibuprofen GI Upset Lisinopril Cough Omeprazole Intolerance Bilateral lower extremity swelling and water retention. Penicillins Rash Current Medications Current Outpatient Medications on File Prior to Visit Medication Sig metFORMIN (GLUCOPHAGE) 500 mg tablet Take 2 tablets by mouth twice daily with meals. glimepiride (AMARYL) 4 mg tablet Take 2 tablets by mouth daily with breakfast. empagliflozin (JARDIANCE) 10 mg tablet Take 1 tablet by mouth once daily. Take 1 tablet once daily in the morning atorvastatin (LIPITOR) 20 mg tablet Take 1 tablet by mouth once daily. losartan-hydroCHLOROthiazide (HYZAAR) 50-12.5 mg per tablet Take 1 tablet by mouth once daily. SITagliptin (JANUVIA) 100 mg tablet Take 1 tablet by mouth once daily. blood sugar diagnostic (ACCU-CHEK TOMASZ PLUS TEST STRP) test strip Test daily DX: E11.65 Insulin: No MEDICAL SUPPLY Calculi strainer to be used daily until passage of kidney stone. CPAP Initiate Auto PAP @ 10-20 cm of water with humidification. Mask (per patient preference) optional chin strap (if indicated) , filters, tubing, humidifier and lifetime supplies. aspirin 81 mg chewable tablet Take 81 mg by mouth once daily. chondro durham A/vit C/manganese (CHONDROITIN SULFATE COMPLEX ORAL) Take 2 tablets by mouth once daily. No current facility-administered medications on file prior to visit. Social History Social History Tobacco Use Smoking status: Never Smokeless tobacco: Never Substance Use Topics Alcohol use: No Drug use: No Review of Symptoms REVIEW OF SYSTEMS See HPI EXAM: BP 116/64 Pulse 72 Resp 16 Wt 113.8 kg (250 lb 12.8 oz) SpO2 96% BMI 40.48 kg/m General Appearance: Well appearing, alert, in no acute distress, well-hydrated, well nourished.. Skin: Skin color, texture, turgor normal, no suspicious rashes or lesions. Lungs: Lungs clear to auscultation. No wheezing, rhonchi, rales.. Heart: RRR without murmur, gallop, or rubs. No ectopy. Health Maintenance List BP CONTROLLED (<130/80) Never done SHINGRIX VACCINE(1 of 2) Never done ADVANCE DIRECTIVE DISCUSSION Never done DEPRESSION ASSESSMENT due on 03/21/2022 COVID-19 VACCINE(4 - Booster for Moderna series) due on 01/05/2023 HBA1C due on 09/24/2022 DIABETIC FOOT EXAM due on 01/05/2023 URINE ALBUMIN:CREATININE RATIO due on 01/09/2023 DILATED RETINAL EXAM due on 03/24/2023 LDL CHOLESTEROL due on 06/26/2023 ANNUAL PCP TEAM CHRONIC DISEASE VISIT due on 07/07/2023 DTAP,TDAP,TD(2 - Td or Tdap) due on 07/22/2024 COLORECTAL CANCER SCREENING due on 09/03/2025 HEPATITIS C SCREENING Completed PNEUMOCOCCAL: 65+ Completed INFLUENZA Discontinued Data reviewed Component Latest Ref Rng & Units 03/27/2022 06/25/2022 Protein, Total 6.3 - 8.0 g/dL 7.4 7.6 Albumin 3.9 - 4.9 g/dL 4.2 4.6 Calcium 8.5 - 10.2 mg/dL 9.8 10.0 Bilirubin, Total 0.2 - 1.3 mg/dL 0.7 0.9 Alkaline Phosphatase 38 - 113 U/L 56 54 AST 14 - 40 U/L 31 39 ALT 10 - 54 U/L 31 39 Glucose 74 - 99 mg/dL 204 (H) 90 BUN 9 - 24 mg/dL 16 22 Creatinine 0.73 - 1.22 mg/dL 1.19 1.49 (H) Sodium 136 - 144 mmol/L 141 141 Potassium 3.7 - 5.1 mmol/L 4.4 4.1 Chloride 97 - 105 mmol/L 103 102 CO2 22 - 30 mmol/L 25 25 Anion Gap 9 - 18 mmol/L 13 14 eGFR >=60 mL/min/1.73m 65 50 (L) Total Cholesterol, Nonfasting <200 mg/dL 112 Triglycerides, Nonfasting <150 mg/dL 107 HDL Cholesterol, Nonfasting >39 mg/dL 40 LDL Cholesterol, Nonfasting <100 mg/dL 51 Non HDL Cholesterol, Nonfasting <130 mg/dL 72 VLDL Cholesterol, Nonfasting <30 mg/dL 21 Total Chol/HDL Ratio, Nonfasting <5.10 mg/dL 2.80 LDL/HDL Ratio, Nonfasting <2.54 mg/dL 1.28 Hemoglobin A1C 4.3 - 5.6 % 7.9 (H) 9.1 (H) Estimated Average Glucose mg/dL 180 214 ASSESSMENT/PLAN: 1. 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 BMI 40.48 kg/(m^2) - Discussed diabetic education issues of diabetes complications and monitoring required, hypoglycemic/hyperglycemic symptoms, medication-specific side effects and monitoring, and diabetic sick day rules - Follow up in 2 months, sooner should any other issues arise. - EMPAGLIFLOZIN 25 MG TABLET - HGB A1C - COMP METABOLIC PANEL 2. Stage 3 chronic kidney disease, unspecified whether stage 3a or 3b CKD (HCC) - ICD9: 585.3, ICD10: N18.30 Recheck CMP in 2 months. Rommel Rockwell MD documented in this encounter [facility] 07-12-2022 Instructions Cain Randle Jr., MD - 07/12/2022 8:51 AM EDT Your most recent body mass index (BMI) that we have on record is (No recent BMI available). Obstructive sleep apnea (BRETT) worsens with an increase in weight; reduction in weight may improve or resolve your BRETT. If you are not already seeking treatment, there are resources available at the [facility] such as a nutrition consultation or referral to weight management programs at our [facility] [place]. Please let us know if we can assist with a referral. documented in this encounter [facility] 07-12-2022 History of Presen t illness Narrative NEW PATIENT (CONSULT) HISTORY AND PHYSICAL EXAM PRIMARY CARE PHYSICIAN: Rommel Rockwell MD REASON FOR CONSULT: BRETT REFERRING PHYSICIAN: Rommel Rockwell,* CHIEF COMPLAINT: BRETT Consultation requested by Rommel Rockwell,* for an opinion regarding chief complaint of Patient presents with: New Patient Sleep Apnea and my final recommendations will be communicated back to the requesting physician by way of shared medical record or letter via [place] mail. HISTORY OF PRESENT ILLNESS: Phillip Wilson is a 72 year old male, BMI 40.13 kg/m2 with a PMH significant for BRETT diagnosed in 02/05/21 by means of HSAT showing ANNE-MARIE/AHI of 50.1. Min O2 sat was 67% with pt spending 49.4% with O2 sat <90%. Pt then underwent PAP titration on 03/17/21. Study recommended AutoPAP 10-20 cmH2O. Pt was also noted to have hypercapnia and abnormal ECG at that time. Pt does not remember why he had sleep studies initially. States a little more refreshed since on PAP. States he is not on a regular schedule -- Some days has to be work at 530AM and others 630AM and leaves at various hours. Tries to get in bed by about 730-8PM. States goes in and asleep in less 15 minutes. No RLS symptoms. Wakes about once per night to use the restroom but right back to bed. No issues with PAP. Upon waking in AM feels somewhat refreshed. Does wake with a dry mouth and does have sinus drainage. He has never adjust humidifier. Uses nasal mask. Since sleep study cardiac eval by PCP with stress test and per pt no issues. Labs reviewed and would not suggest hypercapnia. PAP data download reviewed. For the past 90 days, used / days for an avg of 8 hours and 42 minutes. 95% pressure 10.4 cmH2O. Residual AHI is 0.8. Avg leak 19.8 LPM. Does not feel pressure is too high. No falling asleep driving. Not tired during the day. ESS = 4/24. No daytime sleepiness. No Parasomnias. REVIEW OF SYSTEMS GENERAL:No weight loss, malaise or fevers. HEENT:Negative for frequent or significant headaches, No changes in hearing or vision, no nose bleeds or other nasal problems NECK:Negative for lumps, goiter, pain and significant neck swelling RESPIRATORY: Negative for cough, wheezing or shortness of breath. CARDIOVASCULAR: Negative for chest pain, leg swelling or palpitations. GASTROINTESTINAL: Negative for abdominal discomfort, blood in stools or black stools or change in bowel habits GENITOURINARY: No history of dysuria, frequency or incontinence MUSCULOSKELETAL: Negative for joint pain or swelling, back pain or muscle pain. NEUROLOGIC:Negative for focal numbness or weakness, headaches and dizziness or syncope, vision changes, speech/language changes, changes in gait or falls -- besides those complaints as above in HPI. SKIN:Negative for lesions, rash, and itching. LAB/IMAGING: Reviewed and include: WBC (k/uL) Date Value 12/12/2020 7.67 RBC (m/uL) Date Value 12/12/2020 4.27 Hemoglobin (g/dL) Date Value 12/12/2020 13.1 Hematocrit (%) Date Value 12/12/2020 40.5 MCV (fL) Date Value 12/12/2020 94.8 MCH (pG) Date Value 12/12/2020 30.7 MCHC (g/dL) Date Value 12/12/2020 32.3 RDW-CV (%) Date Value 12/12/2020 13.5 Platelet Count (k/uL) Date Value 12/12/2020 214 MPV (fL) Date Value 12/12/2020 10.9 Glucose (mg/dL) Date Value 06/25/2022 90 BUN (mg/dL) Date Value 06/25/2022 22 Creatinine (mg/dL) Date Value 06/25/2022 1.49 (H) Sodium (mmol/L) Date Value 06/25/2022 141 Potassium (mmol/L) Date Value 06/25/2022 4.1 Chloride (mmol/L) Date Value 06/25/2022 102 CO2 (mmol/L) Date Value 06/25/2022 25 Protein, Total (g/dL) Date Value 06/25/2022 7.6 Albumin (g/dL) Date Value 06/25/2022 4.6 Calcium, Total (mg/dL) Date Value 06/25/2022 10.0 Alkaline Phosphatase (U/L) Date Value 06/25/2022 54 Bilirubin, Total (mg/dL) Date Value 06/25/2022 0.9 AST (U/L) Date Value 06/25/2022 39 ALT (U/L) Date Value 06/25/2022 39 Hep C Antibody IA (no units) Date Value 05/07/2016 Negative URINALYSIS No results found for: PH, SPGR, UGLUC, UBILI, UKET, UHB, UPROT, UROBIL, UWBC, SSA MEDICATIONS: metFORMIN (GLUCOPHAGE) 500 mg tablet Take 2 tablets by mouth twice daily with meals. glimepiride (AMARYL) 4 mg tablet Take 2 tablets by mouth daily with breakfast. empagliflozin (JARDIANCE) 10 mg tablet Take 1 tablet by mouth once daily. Take 1 tablet once daily in the morning atorvastatin (LIPITOR) 20 mg tablet Take 1 tablet by mouth once daily. losartan-hydroCHLOROthiazide (HYZAAR) 50-12.5 mg per tablet Take 1 tablet by mouth once daily. SITagliptin (JANUVIA) 100 mg tablet Take 1 tablet by mouth once daily. blood sugar diagnostic (ACCU-CHEK TOMASZ PLUS TEST STRP) test strip Test daily DX: E11.65 Insulin: No CPAP Initiate Auto PAP @ 10-20 cm of water with humidification. Mask (per patient preference) optional chin strap (if indicated) , filters, tubing, humidifier and lifetime supplies. aspirin 81 mg chewable tablet Take 81 mg by mouth once daily. chondro durham A/vit C/manganese (CHONDROITIN SULFATE COMPLEX ORAL) Take 2 tablets by mouth once daily. MEDICAL SUPPLY Calculi strainer to be used daily until passage of kidney stone. 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) 05/26/2015 Type II or unspecified type diabetes mellitus without mention of complication, uncontrolled 08/20/2013 FAMILY HISTORY Problem Relation Age of Onset Diabetes Mother Coronary Artery Disease Mother CABG 7 COPD Father Multiple Sclerosis Sister No Known Problems Brother No Known Problems Brother No Known Problems Son No Known Problems Son No Known Problems Son SOCIAL HISTORY Social History Tobacco Use Smoking status: Never Smokeless tobacco: Never Substance Use Topics Alcohol use: No Drug use: No PHYSICAL EXAMINATION BP 134/82 Pulse 105 Temp 36.2 C (97.2 F) Resp 16 Wt 112.8 kg (248 lb 9.6 oz) SpO2 93% BMI 40.13 kg/m GENERAL EXAM: General appearance: NAD, pleasant. HEENT: NC/AT, nasal congestion absent, no oral lesions, membranes moist. Nguyen IV. NECK: No masses, supple. Lungs: CTA bilaterally. CV: RRR nl S1, S2 Extr: No cyanosis, clubbing or edema. Skin: Cool to touch. NEUROLOGICAL EXAM: General: Awake, alert, oriented x3 (person,place,time), speech fluent, no dysarthria; comprehension, naming, repetition intact. CN: PERRL, EOMI and without nystagmus, VFF to confrontation, facial sensation and strength are normal and symmetric, hearing is intact to finger rub bilaterally, palate and tongue movements are intact and symmetric. SCM and trapezius strength normal. Motor: Normal tone, bulk and strength (5/5) bilaterally (throughout extremities x4). Coordination: FNF, ALEX, HTS intact. No tremors. Sensation: Light touch intact throughout. No evidence of neglect. Gait: Stable with normal stride and arm swing. Assessment and Plan: ASSESSMENT/PLAN: 1. BRETT on CPAP - ICD9: 327.23, V46.8, ICD10: G47.33, Z99.89 (primary diagnosis) 2. Nocturnal hypoxia - ICD9: 327.24, ICD10: G47.34 3. Class 3 severe obesity with body mass index (BMI) of 40.0 to 44.9 in adult, unspecified obesity type, unspecified whether serious comorbidity present (HCC) - ICD9: 278.01, V85.41, ICD10: E66.01, Z68.41 Patient with known BRETT for which he was diagnosed by HSAT as above and now on PAP. Risk factors for BRETT include crowded airway and obesity. Pt with both subjective history and objective data to suggest PAP compliance with pt endorsing benefit from PAP use. Pt with following med conditions that could be exacerbated by untreated BRETT: DM, HTN, HLD. Discussed with patient: the physiology of OSAS, medical conditions associated with OSAS (DM, HTN, CAD, Depression, Stroke, Headache...) and treatment options (UPPP, Dental appliances, CPAP...). Encouraged continued PAP compliance. Reminded pt to clean and replace his PAP equipment regularly. Pt has been worked up for abnml ECG (on HSAT) by PCP. Pt with no lab findings or other to suggest hypercapnia as was noted during PAP titration (possibly resolving with PAP use). Pt however with low O2 the night of HSAT and PAP titration and feel appropriate to further evaluate for nocturnal hypoxia despite PAP use. Thus, will order nocturnal oximetry study. Also explained to pt how to increase humidifier settings on his specific PAP (now set at 2) -- this should allow for improvement in nasal congestion and dry mouth. Advised patient to avoid activities that could harm self or others when tired/sleepy, including driving and/or operating heavy machinery. Encouraged weight loss, and continued compliance with other medications. Cain Randle MD I spent a total of 32 minutes on the date of the service which included preparing to see the patient, [id number] patient care, completing clinical documentation, obtaining and/or reviewing separately obtained history, performing a medically appropriate examination, counseling and educating the patient/family/caregiver, ordering medications, tests, or procedures, independently interpreting results (not separately reported), and communicating results to the patient/family/caregiver. documented in this encounter [facility] 07-06-2022 History of Presen t illness Narrative Chief Complaint Patient presents with: Follow Up: 3 month- refills 90 day supplies please HPI Phillip Wilson is a 72 year old male who presents here today for diabetes follow up. DIABETES MELLITUS: Mr. Wilson was last seen 3 months ago. At last OV we discussed changing Januvia to GLP-1 or adding SGLT 2 which he then refused. Since our last visit he denies numbness, tingling or pain in extremities and new or unusual visual symptoms. Admits to polyuria and polydipsia. Follows a diabetic diet generally not very much. He is compliant with medication(s) and is tolerating med(s) without any side effects. He reports checking his glucose on a once a day schedule with sugars in the fasting 180's range. Patient's last HgA1C was Hemoglobin A1C (%) Date Value 06/25/2022 9.1 03/27/2022 7.9 12/12/2020 6.9 06/14/2020 6.9 ) Last Ophthalmology exam was within the past 12 months Last Podiatry exam was within the past 12 months Past medical history, appointments, medications, allergies reviewed. 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) 05/26/2015 Type II or unspecified type diabetes mellitus without mention of complication, uncontrolled 08/20/2013 Previous Surgical History PAST SURGICAL HISTORY Procedure Laterality Date COLONOSCOPY FLX DX W/COLLJ SPEC WHEN PFRMD 09/03/2020 ESOPHAGOGASTRODUODENOSCOPY TRANSORAL DIAGNOSTIC 09/03/2020 LAPAROSCOPY SURG CHOLECYSTECTOMY 07/25/2017 JOEYJose PAST SURGICAL HISTORY OF Right 2016 incision and drainage of knee abscess Family History FAMILY HISTORY Problem Relation Age of Onset Diabetes Mother Coronary Artery Disease Mother CABG 7 COPD Father Multiple Sclerosis Sister No Known Problems Brother No Known Problems Brother No Known Problems Son No Known Problems Son No Known Problems Son Patient Allergies ALLERGIES Allergen Reactions Actos [Pioglitazone] Other: See Comments LE edema Ibuprofen GI Upset Lisinopril Cough Omeprazole Intolerance Bilateral lower extremity swelling and water retention. Penicillins Rash Current Medications Current Outpatient Medications on File Prior to Visit Medication Sig atorvastatin (LIPITOR) 20 mg tablet Take 1 tablet by mouth once daily. losartan-hydroCHLOROthiazide (HYZAAR) 50-12.5 mg per tablet Take 1 tablet by mouth once daily. SITagliptin (JANUVIA) 100 mg tablet Take 1 tablet by mouth once daily. blood sugar diagnostic (ACCU-CHEK TOMASZ PLUS TEST STRP) test strip Test daily DX: E11.65 Insulin: No metFORMIN (GLUCOPHAGE) 500 mg tablet Take 2 tablets by mouth twice daily with meals. CPAP Initiate Auto PAP @ 10-20 cm of water with humidification. Mask (per patient preference) optional chin strap (if indicated) , filters, tubing, humidifier and lifetime supplies. aspirin 81 mg chewable tablet Take 81 mg by mouth once daily. chondro durham A/vit C/manganese (CHONDROITIN SULFATE COMPLEX ORAL) Take 2 tablets by mouth once daily. glimepiride (AMARYL) 4 mg tablet Take 2 tablets by mouth daily with breakfast. MEDICAL SUPPLY Calculi strainer to be used daily until passage of kidney stone. No current facility-administered medications on file prior to visit. Social History Social History Tobacco Use Smoking status: Never Smokeless tobacco: Never Substance Use Topics Alcohol use: No Drug use: No Review of Symptoms REVIEW OF SYSTEMS See HPI EXAM: BP 136/72 Pulse 86 Resp 16 Wt 115.2 kg (254 lb) SpO2 94% BMI 41.00 kg/m General Appearance: Well appearing, alert, in no acute distress, well-hydrated, well nourished.. Skin: Skin color, texture, turgor normal, no suspicious rashes or lesions. Lungs: Lungs clear to auscultation. No wheezing, rhonchi, rales.. Heart: RRR without murmur, gallop, or rubs. No ectopy. Health Maintenance List SHINGRIX VACCINE(1 of 2) Never done ADVANCE DIRECTIVE DISCUSSION Never done DEPRESSION ASSESSMENT due on 03/21/2022 COVID-19 VACCINE(4 - Booster for Moderna series) due on 01/05/2023 HBA1C due on 09/24/2022 DIABETIC FOOT EXAM due on 01/05/2023 URINE ALBUMIN:CREATININE RATIO due on 01/09/2023 DILATED RETINAL EXAM due on 03/24/2023 ANNUAL PCP TEAM CHRONIC DISEASE VISIT due on 04/06/2023 BP CONTROLLED (<130/80) due on 04/06/2023 LDL CHOLESTEROL due on 06/26/2023 DTAP,TDAP,TD(2 - Td or Tdap) due on 07/22/2024 COLORECTAL CANCER SCREENING due on 09/03/2025 HEPATITIS C SCREENING Completed PNEUMOCOCCAL: 65+ Completed INFLUENZA Discontinued Data reviewed Component Latest Ref Rng & Units 01/09/2022 03/27/2022 06/25/2022 Protein, Total 6.3 - 8.0 g/dL 7.4 7.6 Albumin 3.9 - 4.9 g/dL 4.2 4.6 Calcium 8.5 - 10.2 mg/dL 9.8 10.0 Bilirubin, Total 0.2 - 1.3 mg/dL 0.7 0.9 Alkaline Phosphatase 38 - 113 U/L 56 54 AST 14 - 40 U/L 31 39 ALT 10 - 54 U/L 31 39 Glucose 74 - 99 mg/dL 204 (H) 90 BUN 9 - 24 mg/dL 16 22 Creatinine 0.73 - 1.22 mg/dL 1.19 1.49 (H) Sodium 136 - 144 mmol/L 141 141 Potassium 3.7 - 5.1 mmol/L 4.4 4.1 Chloride 97 - 105 mmol/L 103 102 CO2 22 - 30 mmol/L 25 25 Anion Gap 9 - 18 mmol/L 13 14 eGFR >=60 mL/min/1.73m 65 50 (L) Total Cholesterol, Nonfasting <200 mg/dL 112 Triglycerides, Nonfasting <150 mg/dL 107 HDL Cholesterol, Nonfasting >39 mg/dL 40 LDL Cholesterol, Nonfasting <100 mg/dL 51 Non HDL Cholesterol, Nonfasting <130 mg/dL 72 VLDL Cholesterol, Nonfasting <30 mg/dL 21 Total Chol/HDL Ratio, Nonfasting <5.10 mg/dL 2.80 LDL/HDL Ratio, Nonfasting <2.54 mg/dL 1.28 Creatinine, Ur Random (UCRR) 20.0 - 300.0 mg/dL 145.3 Albumin, Urine Random mg/L 62.2 Albumin/Creat Ratio <30 mg/g 43 (H) Hemoglobin A1C 4.3 - 5.6 % 7.9 (H) 9.1 (H) Estimated Average Glucose mg/dL 180 214 ASSESSMENT/PLAN: 1. 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 BMI 41.00 kg/(m^2) - Discussed diabetic education issues of diabetes complications and monitoring required, hypoglycemic/hyperglycemic symptoms, medication-specific side effects and monitoring, and diabetic sick day rules - Follow up in 3 months, sooner should any other issues arise. - METFORMIN 500 MG TABLET - GLIMEPIRIDE 4 MG TABLET - EMPAGLIFLOZIN 10 MG TABLET - EMPAGLIFLOZIN 10 MG TABLET Rommel Rockwell MD documented in this encounter [facility] 06-24-2022 Miscellaneous Notes Patient updated and will stop in tomorrow to have drawn. Labs ordered. Pt has upcoming appointment. Would like to get labs done yet this week. Please let pt know if he has lab orders placed. documented in this encounter [facility] 05-21-2022 Miscellaneous Notes RUSSEL 04/06/22 NOV 07/06/22 Patient has been identified by name and date of : No Requested Prescriptions Pending Prescriptions Disp Refills atorvastatin (LIPITOR) 20 mg tablet 90 tablet 1 Sig: Take 1 tablet by mouth once daily. RX INSTRUCTIONS: Patient aware RX will be sent to pharmacy. No need to notify patient. [employer] documented in this encounter [facility] 04-06-2022 History of Presen t illness Narrative Chief Complaint Patient presents with: Follow Up HPI Phillip Wilson is a 71 year old male who presents here today for DM follow up. DIABETES MELLITUS: Mr. Wilson was last seen 3 months ago. Since our last visit he denies excessive thirst or increased frequency of urination, numbness, tingling or pain in extremities, new or unusual visual symptoms, and low sugar/hypoglycemic reactions. Follows a diabetic diet most of the time. He is compliant with medication(s) and is tolerating med(s) without any side effects. He reports checking his glucose on a once a day schedule with sugars in the fasting 150-180 range. Patient's last HgA1C was Hemoglobin A1C (%) Date Value 03/27/2022 7.9 12/31/2021 8.4 12/12/2020 6.9 06/14/2020 6.9 ) Last Ophthalmology exam was within the past 12 months Last Podiatry exam was within the past 12 months BP well controlled on current regimen. Needs refills on his lisinopril/HCTZ. BRETT: using CPAP nightly and is waking up feeling well rested. Past medical history, appointments, medications, allergies reviewed. 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) 05/26/2015 Type II or unspecified type diabetes mellitus without mention of complication, uncontrolled 08/20/2013 Previous Surgical History PAST SURGICAL HISTORY Procedure Laterality Date COLONOSCOPY FLX DX W/COLLJ SPEC WHEN PFRMD 09/03/2020 ESOPHAGOGASTRODUODENOSCOPY TRANSORAL DIAGNOSTIC 09/03/2020 LAPAROSCOPY SURG CHOLECYSTECTOMY 07/25/2017 Angel PAST SURGICAL HISTORY OF Right 2016 incision and drainage of knee abscess Family History FAMILY HISTORY Problem Relation Age of Onset Diabetes Mother Coronary Artery Disease Mother CABG 7 COPD Father Multiple Sclerosis Sister No Known Problems Brother No Known Problems Brother No Known Problems Son No Known Problems Son No Known Problems Son Patient Allergies ALLERGIES Allergen Reactions Actos [Pioglitazone] Other: See Comments LE edema Ibuprofen GI Upset Lisinopril Cough Omeprazole Intolerance Bilateral lower extremity swelling and water retention. Penicillins Rash Current Medications Current Outpatient Medications on File Prior to Visit Medication Sig SITagliptin (JANUVIA) 100 mg tablet Take 1 tablet by mouth once daily. glimepiride (AMARYL) 4 mg tablet Take 2 tablets by mouth daily with breakfast. blood sugar diagnostic (ACCU-CHEK TOMASZ PLUS TEST STRP) test strip Test daily DX: E11.65 Insulin: No MEDICAL SUPPLY Calculi strainer to be used daily until passage of kidney stone. atorvastatin (LIPITOR) 20 mg tablet Take 1 tablet by mouth once daily. metFORMIN (GLUCOPHAGE) 500 mg tablet Take 2 tablets by mouth twice daily with meals. losartan-hydroCHLOROthiazide (HYZAAR) 50-12.5 mg per tablet Take 1 tablet by mouth once daily. CPAP Initiate Auto PAP @ 10-20 cm of water with humidification. Mask (per patient preference) optional chin strap (if indicated) , filters, tubing, humidifier and lifetime supplies. aspirin 81 mg chewable tablet Take 81 mg by mouth once daily. chondro durham A/vit C/manganese (CHONDROITIN SULFATE COMPLEX ORAL) Take 2 tablets by mouth once daily. No current facility-administered medications on file prior to visit. Social History Social History Tobacco Use Smoking status: Never Smokeless tobacco: Never Substance Use Topics Alcohol use: No Drug use: No Review of Symptoms REVIEW OF SYSTEMS GENERAL: No weight loss, malaise or fevers RESPIRATORY: Negative for cough, hemoptysis, wheezing, COPD, dyspnea or shortness of breath CARDIOVASCULAR: Negative for chest pain, leg swelling, hypertension, CHF or palpitations GI: No nausea, vomiting, or diarrhea SKIN: Negative for lesions, rash, and itching EXAM: BP 124/64 Pulse 88 Resp 16 Wt 117 kg (258 lb) SpO2 94% BMI 41.64 kg/m General Appearance: Well appearing, alert, in no acute distress, well-hydrated, well nourished. and Morbidly obese. Skin: Skin color, texture, turgor normal, no suspicious rashes or lesions. Lungs: Lungs clear to auscultation. No wheezing, rhonchi, rales.. Heart: RRR without murmur, gallop, or rubs. No ectopy. Abdomen: Normal abdominal exam, Abdomen soft, non-tender. Bowel sounds normal. No masses, organomegaly. Extremities: No deformities, edema, skin discoloration, clubbing or cyanosis. Good capillary refill. . Health Maintenance List BP CONTROLLED (<130/80) Never done SHINGRIX VACCINE(1 of 2) Never done ADVANCE DIRECTIVE DISCUSSION Never done DEPRESSION ASSESSMENT due on 03/21/2022 COVID-19 VACCINE(4 - Booster for Moderna series) due on 01/05/2023 LDL CHOLESTEROL due on 06/15/2022 HBA1C due on 09/24/2022 DIABETIC FOOT EXAM due on 01/05/2023 URINE ALBUMIN:CREATININE RATIO due on 01/09/2023 ANNUAL PCP TEAM CHRONIC DISEASE VISIT due on 02/02/2023 DILATED RETINAL EXAM due on 03/24/2023 DTAP,TDAP,TD(2 - Td or Tdap) due on 07/22/2024 COLORECTAL CANCER SCREENING due on 09/03/2025 HEPATITIS C SCREENING Completed PNEUMOCOCCAL: 65+ Completed INFLUENZA Discontinued Data reviewed Component Latest Ref Rng & Units 12/31/2021 01/09/2022 03/27/2022 Protein, Total 6.3 - 8.0 g/dL 7.4 7.4 Albumin 3.9 - 4.9 g/dL 4.4 4.2 Calcium 8.5 - 10.2 mg/dL 9.5 9.8 Bilirubin, Total 0.2 - 1.3 mg/dL 0.8 0.7 Alkaline Phosphatase 38 - 113 U/L 60 56 AST 14 - 40 U/L 27 31 ALT 10 - 54 U/L 23 31 Glucose 74 - 99 mg/dL 81 204 (H) BUN 9 - 24 mg/dL 21 16 Creatinine 0.73 - 1.22 mg/dL 1.23 (H) 1.19 Sodium 136 - 144 mmol/L 141 141 Potassium 3.7 - 5.1 mmol/L 4.1 4.4 Chloride 97 - 105 mmol/L 103 103 CO2 22 - 30 mmol/L 25 25 Anion Gap 9 - 18 mmol/L 13 13 eGFR >=60 mL/min/1.73m 63 65 Creatinine, Ur Random (UCRR) 20.0 - 300.0 mg/dL 145.3 Albumin, Urine Random mg/L 62.2 Albumin/Creat Ratio <30 mg/g 43 (H) Hemoglobin A1C 4.3 - 5.6 % 8.4 (H) 7.9 (H) Estimated Average Glucose mg/dL 194 180 ASSESSMENT/PLAN: 1. 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 Offered changing Januvia to GLP-1 which he refused. Also refusing SGLT-2. - Blood glucose monitoring on a once a day schedule - Encouraged regular aerobic exercise and weight loss - Follow up in 3 months, sooner should any other issues arise. - Discussed diabetic education issues of fpc diabetic complications, hypoglycemic symptoms, hyperglycemic symptoms, diet, medications- side effects and need for compliance, importance of exercise, and importance of annual examinations with Opthalmology with patient. 2. Essential hypertension, benign - ICD9: 401.1, ICD10: I10 - good control - Continue current medication(s) - Encouraged dietary sodium restriction/DASH diet - Recommended regular aerobic exercise. - Reviewed risks of HTN and principles of treatment - Goal of BP <140/90 3. BRETT on CPAP - ICD9: 327.23, V46.8, ICD10: G47.33, Z99.89 Controlled on nightly CPAP. 4. Obesity, Class III, BMI 40-49.9 (morbid obesity) (HCC) - ICD9: 278.01, ICD10: E66.01 Weight increasing - Behavioral intervention Rommel Rockwell MD documented in this encounter [facility] 03-01-2022 Instructions Radha Cheek APRN.PATENT LITIGATION ASSOCIATE - 03/01/2022 4:15 PM EST High Blood Pressure: Essential Hypertension What is high blood pressure? Blood pressure is the force of blood against artery lakhani as the heart pumps blood through the body. You may be told that you have high blood pressure (hypertension) if your blood pressure is higher than normal. Hypertension is called essential when no cause for it can be found. When the cause of hypertension is known, such as kidney disease or a tumor, it is called secondary hypertension. Blood pressure can rise and fall with exercise, rest, or emotions. Normal resting blood pressure ranges up to 120/80 ( 120 over 80 ). The first number (120 in this example) is the pressure when the heart beats and pushes blood out to the rest of the body. The second number (80 in this example) is the pressure when the heart rests between beats. Blood pressure is borderline high if it is 120/80 or higher but less than 140/90. High blood pressure is 140/90 or higher. If you have chronic kidney disease, 130/80 or higher is considered high blood pressure. Why is high blood pressure a problem? High blood pressure is a problem in many ways. Your heart has to work harder to pump blood through your body. The added workload on the heart causes thickening of the heart muscle. Over time, the thickening damages the heart muscle so that it can no longer pump normally. This can lead to a disease called heart failure. The higher pressure in your arteries may cause them to weaken and bleed, resulting in a stroke. As you get older, blood vessels may become hardened. High blood pressure speeds up this process. Hardened or narrowed arteries may not be able to supply enough blood to all parts of your body. High blood pressure may lead to atherosclerosis, in which deposits of cholesterol, fatty substances, and blood cells clog up an artery. Atherosclerosis is the leading cause of heart attacks. It can also cause strokes. Your kidneys, brain, and eyes may also be damaged. You may need treatment for high blood pressure for the rest of your life. However, proper treatment can control your blood pressure and help prevent heart disease, heart attack, or stroke. It can also help prevent long-term health problems, such as heart failure, kidney failure, blindness, and dementia. If you already have some complications, such as breathing problems or chest pain, lowering your blood pressure may make these problems less severe. What is the cause? There are no clear causes of essential hypertension. However, many things can increase blood pressure, such as: Being overweight Smoking Eating a diet high in salt Drinking a lot of alcohol Other important factors include: Race. Americans are more likely to have high blood pressure. Gender. Males have a greater chance of developing high blood pressure than women until age 55. After the age of 75, women are more likely to develop high blood pressure than men. Heredity. If you have parents with high blood pressure, you are more at risk. Age. The older you get, the more likely you are to have high blood pressure. Also, some medicines increase blood pressure. Stress and drinking caffeine can make blood pressure go up temporarily but it s not clear that they have any long-term effects on blood pressure. What are the symptoms? You may have high blood pressure for a long time without symptoms. You may not be able to tell by the way you feel that your blood pressure is high. The only way to find out if your blood pressure is high is to have it measured. That's why it s important to have your blood pressure checked at least once a year. When high blood pressure does cause symptoms, they may include: Headaches Nosebleeds Getting tired easily Blurred vision Dizziness Fast or irregular heartbeat Shortness of breath Chest pain How is it diagnosed? Blood pressure is checked at most healthcare visits. High blood pressure is usually discovered during one of these visits. If your blood pressure is high, you will be asked to return for follow-up checks. Your healthcare provider will ask about your personal and family medical history and examine you. Tests to look for a possible cause of high blood pressure may include: Urine and blood tests Chest X-ray Electrocardiogram (ECG), which measures and records your heartbeat You may be asked to use a portable blood-pressure measuring device, which will take your pressure at different times during day and night. How is it treated? If your blood pressure is borderline high, you may be able to bring it down to a normal level without medicine. Weight loss, changes in your diet, and exercise may be the only treatment you need. If lifestyle changes don t lower your blood pressure enough, your healthcare provider may prescribe medicine. Many people need to take 2 or more medicines to bring their blood pressure down to a healthy level. It may take several weeks or months to find the best treatment for you. How can I take care of myself? If you have high blood pressure, there are things you can do now to take care of yourself and to prevent problems in the future: Follow your treatment plan and know how to take your medicines. ?Work with your healthcare provider to find what lifestyle changes and medicines are right for you. ?Follow the directions that come with your medicine, including information about food or alcohol. Make sure you know how and when to take your medicine. Do not take more or less than you are supposed to take. ?Many medicines have side effects. A side effect is a symptom or problem that is caused by the medicine. Ask your healthcare provider or pharmacist what side effects your medicine may cause and what you should do if you have side effects. Ask if you should avoid some nonprescription medicines. ?Be careful with nonprescription medicines or herbal supplements. Some can raise blood pressure. This includes diet pills, cold and pain medicines, and energy boosters. Read labels or ask your pharmacist if the medicine or supplement affects blood pressure. Some illegal drugs, like cocaine, can also affect blood pressure. ?Check your blood pressure (or have it checked) as often as your provider advises. Keep a diary of the readings. A diary is also a good place to note your exercise, weight, salt intake, types of food you are eating, and your feelings. This can help you learn how these things can affect your blood pressure. Take your diary with you when you visit your provider. Don t smoke. Eat a healthy diet that is low in salt, saturated fat, trans fat, and cholesterol. Include lots of fruits, vegetables, and fat-free or low-fat milk and milk products. Get regular exercise, according to your healthcare provider's advice. For example, you might walk, bike, or swim at least 30 minutes 3 to 5 times a week. Limit the amount of alcohol you drink. Moderate drinking is up to 1 drink a day for women and up to 2 drinks for men. Lose weight if you need to. Try to reduce the stress in your life or learn how to deal better with situations that make you feel anxious. Ask your healthcare provider: ?How and when you will hear your test results ?How long it will take to recover ?What activities you should avoid and when you can return to your normal activities ?How to take care of yourself at home ?What symptoms or problems you should watch for and what to do if you have them Make sure you know when you should come back for a checkup. How can I help prevent high blood pressure? You can help prevent this disease with a heart-healthy lifestyle: Eat a healthy diet and keep a healthy weight. Stay fit with the right kind of exercise for you. Decrease stress. Don t smoke. Limit your use of alcohol. Talk to your healthcare provider about your personal and family medical history and your lifestyle habits. This will help you know what you can do to lower your risk for high blood pressure. Developed by [employer] Published by [employer] Copyright 2014 [employer] and/or one of its subsidiaries. All rights reserved. documented in this encounter [facility] 03-01-2022 History of Presen t illness Narrative Chief Complaint Patient presents with: Established Patient Follow-Up History of Present Illness: Phillip Wilson is a 71 year old male who presents for routine follow up. He has a PMhx of HTN, HLD, DM2, RBBB, BRETT, obesity. He was last seen in office on 08/31/2021. He states he has been doing ok since he was seen last. 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 He again traveled to [place] to visit family. He has had no change in activity tolerance. He remains with some LE swelling and baseline shortness of breath. He denies angina. We reviewed cardiac risk factors and modifications. He reports taking medications as prescribed. This morning he noticed R ear swelling, mild pain. He had a scab he scratched. I recommend antibiotics due to concern for cellulitis and follow up with PCP. 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 ([facility]) 05/26/2015 Type II or unspecified type diabetes mellitus without mention of complication, uncontrolled 08/20/2013 PAST SURGICAL HISTORY Procedure Laterality Date COLONOSCOPY FLX DX W/COLLJ SPEC WHEN PFRMD 09/03/2020 ESOPHAGOGASTRODUODENOSCOPY TRANSORAL DIAGNOSTIC 09/03/2020 LAPAROSCOPY SURG CHOLECYSTECTOMY 07/25/2017 Angel PAST SURGICAL HISTORY OF Right 2016 incision and drainage of knee abscess FAMILY HISTORY Problem Relation Age of Onset Diabetes Mother Coronary Artery Disease Mother CABG 7 COPD Father Multiple Sclerosis Sister No Known Problems Brother No Known Problems Brother No Known Problems Son No Known Problems Son No Known Problems Son Social History Tobacco Use Smoking status: Never Smokeless tobacco: Never Substance Use Topics Alcohol use: No Drug use: No ALLERGIES Allergen Reactions Actos [Pioglitazone] Other: See Comments LE edema Ibuprofen GI Upset Lisinopril Cough Omeprazole Intolerance Bilateral lower extremity swelling and water retention. Penicillins Rash Medications: Current Outpatient Medications Medication Sig Dispense Refill SITagliptin (JANUVIA) 100 mg tablet Take 1 tablet by mouth once daily. 30 tablet 11 glimepiride (AMARYL) 4 mg tablet Take 2 tablets by mouth daily with breakfast. 180 tablet 1 blood sugar diagnostic (ACCU-CHEK TOMASZ PLUS TEST STRP) test strip Test daily DX: E11.65 Insulin: No 100 Strip 3 MEDICAL SUPPLY Calculi strainer to be used daily until passage of kidney stone. 1 Each 0 atorvastatin (LIPITOR) 20 mg tablet Take 1 tablet by mouth once daily. 90 tablet 1 metFORMIN (GLUCOPHAGE) 500 mg tablet Take 2 tablets by mouth twice daily with meals. 120 tablet 11 losartan-hydroCHLOROthiazide (HYZAAR) 50-12.5 mg per tablet Take 1 tablet by mouth once daily. 90 tablet 3 CPAP Initiate Auto PAP @ 10-20 cm of water with humidification. Mask (per patient preference) optional chin strap (if indicated) , filters, tubing, humidifier and lifetime supplies. 1 Each 0 aspirin 81 mg chewable tablet Take 81 mg by mouth once daily. chondro durham A/vit C/manganese (CHONDROITIN SULFATE COMPLEX ORAL) Take 2 tablets by mouth once daily. doxycycline (VIBRA-TABS) 100 mg tablet Take 1 tablet by mouth twice daily for 7 days. 14 tablet 0 Current Facility-Administered Medications Medication Dose Route Frequency Provider Last Rate Last Admin perflutren lipid microspheres 1.3 mL in NaCl (PF) 0.9% 10 mL injection (DEFINITY) INTRAVENOUS DIRECTED PRN Rommel Rockwell MD sodium chloride 0.9 % (flush) 10 mL (BD POSIFLUSH) 10 mL INTRAVENOUS DIRECTED PRN Rommel Rockwell MD Review of Systems Constitutional: Negative for chills, diaphoresis, fever, malaise/fatigue and weight loss. HENT: Negative for congestion, ear pain, nosebleeds, sinus pain and sore throat. Eyes: Negative for pain. Respiratory: Positive for shortness of breath. Negative for cough and wheezing. Cardiovascular: Positive for leg swelling. Negative for chest pain and palpitations. Gastrointestinal: Negative for abdominal pain, blood in stool and melena. Genitourinary: Negative for hematuria. Musculoskeletal: Negative for falls. Skin: R ear swelling Neurological: Negative for dizziness, tingling, sensory change, speech change, focal weakness, loss of consciousness, weakness and headaches. Endo/Heme/Allergies: Does not bruise/bleed easily. Psychiatric/Behavioral: Negative for depression, memory loss and suicidal ideas. The patient is not nervous/anxious and does not have insomnia. Physical Examination: Vitals:BP 124/80 Pulse 80 Wt 252 lb (114.3kg) Last 2 Encounter Wt Readings: Date: Wt: 02/02/2022 253 lb 6.4 oz (114.9 kg) 01/05/2022 261 lb (118.4 kg) Physical Exam HENT: Head: Normocephalic. Eyes: Pupils: Pupils are equal, round, and reactive to light. Cardiovascular: Rate and Rhythm: Normal rate and regular rhythm. Pulses: Radial pulses are 2+ on the right side and 2+ on the left side. Dorsalis pedis pulses are 2+ on the right side and 2+ on the left side. Heart sounds: Normal heart sounds, S1 normal and S2 normal. Pulmonary: Effort: Pulmonary effort is normal. No accessory muscle usage or respiratory distress. Breath sounds: Normal breath sounds. Abdominal: General: Bowel sounds are normal. Palpations: Abdomen is soft. Musculoskeletal: General: Normal range of motion. Cervical back: Normal range of motion. Right lower le+ Pitting Edema present. Left lower le+ Pitting Edema present. Skin: General: Skin is warm and dry. Comments: R ear swelling Neurological: Mental Status: He is alert and oriented to person, place, and time. Gait: Gait is intact. Psychiatric: Mood and Affect: Affect normal. Cognition and Memory: Memory normal. Judgment: Judgment normal. Most Recent Cardiac Testing 05/2021 CONCLUSIONS: - Technically difficult exam due to body habitus. - Exam indication: PARKER - The left ventricle is normal in size. There is mild concentric left ventricular hypertrophy. Left ventricular systolic function is normal. EF = 59 5% (2D 4-ch.) Definity contrast used for endocardial border detection. Grade I left ventricular diastolic dysfunction. - The right ventricle is normal in size. Right ventricular systolic function is normal. - There are no significant valvular abnormalities. - The patient has not had a prior CC echocardiographic exam for comparison. 03/16/2021 CONCLUSIONS: 1. SPECT Perfusion Study: Normal. 2. There is no scintigraphic evidence for inducible ischemia. 3. No evidence of scarred myocardium. 4. Left ventricle is small. The left ventricle systolic function is hyperdynamic. 5. This is a low risk scan. Gated Stress FBP Gated Rest FBP LVEF % 77 LEFT VENTRICLE The left ventricle is small. Left ventricular systolic function is hyperdynamic. There is present left ventricular hypertrophy. Stress ECG Conclusion: Conclusion: Normal Assessment and Plan: HTN -124/80 -Continue current medication(s) -Encouraged dietary sodium restriction/DASH diet -Recommended regular aerobic exercise. -Recommend home blood pressure monitoring, to bring results in on next visit -Discussed need and benefit for weight loss. -Goal of BP <130/80 Chronic diastolic dysfunction -EF 59%, Grade I left ventricular diastolic dysfunction -Le swelling managed with compression stockings -continue HCTZ -recommended heart healthy, 2g low sodium diet, daily weights HLD -Lipid panel 05/2021 LDL 60 -Continue Lipitor 20 mg DM2 -A1c 8.4 -metformin and glimepiride BRETT -CPAP compliant Obesity -lifestyle modifications -encouraged a heart healthy diet, routine exercise and weight loss Possible cellulitis R ear, doxycyline. Follow up with PCP Follow up in 6 months. Patient to call with any issues or concerns prior to then. Electronically signed by Radha Cheek APRN.CNP on March 01, 2022, 3:53 PM documented in this encounter [facility] 02-02-2022 History of Presen t illness Narrative Chief Complaint Patient presents with: Follow Up: 2 Week DM HPI Phillip Wilson is a 71 year old male who presents here today for Above Complaints.. At last OV 1 month ago, we increased patient's glimepiride to 8 mg daily and recommended he monitor sugars 1-2 times per day. Checking his sugars on a daily basis and is getting readings in the 150-200 range. States he has been working on his diet, but still not great. Denies low sugars. Past medical history, appointments, medications, allergies reviewed. 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) 05/26/2015 Type II or unspecified type diabetes mellitus without mention of complication, uncontrolled 08/20/2013 Previous Surgical History PAST SURGICAL HISTORY Procedure Laterality Date COLONOSCOPY FLX DX W/COLLJ SPEC WHEN PFRMD 09/03/2020 ESOPHAGOGASTRODUODENOSCOPY TRANSORAL DIAGNOSTIC 09/03/2020 LAPAROSCOPY SURG CHOLECYSTECTOMY 07/25/2017 JOEYJose PAST SURGICAL HISTORY OF Right 2016 incision and drainage of knee abscess Family History FAMILY HISTORY Problem Relation Age of Onset Diabetes Mother Coronary Artery Disease Mother CABG 7 COPD Father Multiple Sclerosis Sister No Known Problems Brother No Known Problems Brother No Known Problems Son No Known Problems Son No Known Problems Son Patient Allergies ALLERGIES Allergen Reactions Actos [Pioglitazone] Other: See Comments LE edema Ibuprofen GI Upset Lisinopril Cough Omeprazole Intolerance Bilateral lower extremity swelling and water retention. Penicillins Rash Current Medications Current Outpatient Medications on File Prior to Visit Medication Sig glimepiride (AMARYL) 4 mg tablet Take 2 tablets by mouth daily with breakfast. blood sugar diagnostic (ACCU-CHEK TOMASZ PLUS TEST STRP) test strip Test daily DX: E11.65 Insulin: No MEDICAL SUPPLY Calculi strainer to be used daily until passage of kidney stone. atorvastatin (LIPITOR) 20 mg tablet Take 1 tablet by mouth once daily. metFORMIN (GLUCOPHAGE) 500 mg tablet Take 2 tablets by mouth twice daily with meals. losartan-hydroCHLOROthiazide (HYZAAR) 50-12.5 mg per tablet Take 1 tablet by mouth once daily. CPAP Initiate Auto PAP @ 10-20 cm of water with humidification. Mask (per patient preference) optional chin strap (if indicated) , filters, tubing, humidifier and lifetime supplies. aspirin 81 mg chewable tablet Take 81 mg by mouth once daily. chondro durham A/vit C/manganese (CHONDROITIN SULFATE COMPLEX ORAL) Take 2 tablets by mouth once daily. Current Facility-Administered Medications on File Prior to Visit Medication perflutren lipid microspheres 1.3 mL in NaCl (PF) 0.9% 10 mL injection (DEFINITY) sodium chloride 0.9 % (flush) 10 mL (BD POSIFLUSH) Social History Social History Tobacco Use Smoking status: Never Smokeless tobacco: Never Substance Use Topics Alcohol use: No Drug use: No Review of Symptoms REVIEW OF SYSTEMS GENERAL: No weight loss, malaise or fevers RESPIRATORY: Negative for cough, hemoptysis, wheezing, COPD, dyspnea or shortness of breath CARDIOVASCULAR: Negative for chest pain, leg swelling, hypertension, CHF or palpitations GI: No nausea, vomiting, or diarrhea SKIN: Negative for lesions, rash, and itching EXAM: BP 122/72 Pulse 100 Resp 16 Wt 114.9 kg (253 lb 6.4 oz) SpO2 94% BMI 40.90 kg/m General Appearance: Well appearing, alert, in no acute distress, well-hydrated, well nourished.. Skin: Skin color, texture, turgor normal, no suspicious rashes or lesions. Lungs: Lungs clear to auscultation. No wheezing, rhonchi, rales.. Heart: RRR without murmur, gallop, or rubs. No ectopy. Abdomen: Normal abdominal exam, Abdomen soft, non-tender. Bowel sounds normal. No masses, organomegaly. Extremities: No deformities, edema, skin discoloration, clubbing or cyanosis. Good capillary refill. . Health Maintenance List BP CONTROLLED (<130/80) Never done SHINGRIX VACCINE(1 of 2) Never done ADVANCE DIRECTIVE DISCUSSION Never done COVID-19 VACCINE(4 - Booster for Moderna series) due on 01/05/2023 HBA1C due on 04/02/2022 LDL CHOLESTEROL due on 06/15/2022 DILATED RETINAL EXAM due on 08/06/2022 DIABETIC FOOT EXAM due on 01/05/2023 ANNUAL PCP TEAM CHRONIC DISEASE VISIT due on 01/05/2023 URINE ALBUMIN:CREATININE RATIO due on 01/09/2023 DTAP,TDAP,TD(2 - Td or Tdap) due on 07/22/2024 COLORECTAL CANCER SCREENING due on 09/03/2025 DEPRESSION ASSESSMENT Completed HEPATITIS C SCREENING Completed PNEUMOCOCCAL: 65+ Completed INFLUENZA Discontinued Data reviewed Component Latest Ref Rng & Units 12/31/2021 01/09/2022 Protein, Total 6.3 - 8.0 g/dL 7.4 Albumin 3.9 - 4.9 g/dL 4.4 Calcium 8.5 - 10.2 mg/dL 9.5 Bilirubin, Total 0.2 - 1.3 mg/dL 0.8 Alkaline Phosphatase 38 - 113 U/L 60 AST 14 - 40 U/L 27 ALT 10 - 54 U/L 23 Glucose 74 - 99 mg/dL 81 BUN 9 - 24 mg/dL 21 Creatinine 0.73 - 1.22 mg/dL 1.23 (H) Sodium 136 - 144 mmol/L 141 Potassium 3.7 - 5.1 mmol/L 4.1 Chloride 97 - 105 mmol/L 103 CO2 22 - 30 mmol/L 25 Anion Gap 9 - 18 mmol/L 13 eGFR >=60 mL/min/1.73m 63 Creatinine, Ur Random (UCRR) 20.0 - 300.0 mg/dL 145.3 Albumin, Urine Random mg/L 62.2 Albumin/Creat Ratio <30 mg/g 43 (H) Hemoglobin A1C 4.3 - 5.6 % 8.4 (H) Estimated Average Glucose mg/dL 194 ASSESSMENT/PLAN: 1. 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 - Discussed diabetic education issues of fpc diabetic complications, hypoglycemic symptoms, hyperglycemic symptoms, diet, medications- side effects and need for compliance, importance of exercise, and importance of annual examinations with Opthalmology with patient. 2. Essential hypertension, benign - ICD9: 401.1, ICD10: I10 - good control - Continue current medication(s) - Encouraged dietary sodium restriction/DASH diet - Recommended regular aerobic exercise. - Reviewed risks of HTN and principles of treatment - Goal of BP <140/90 Rommel Rockwell MD documented in this encounter [facility] 01-20-2022 Miscellaneous Notes Phoned pt, notified of provider response. Pt agrees to appt on 02/02 @ 7pm with PCP. I was unable to schedule on a 2 day hold and no one around to open it so I currently have a hold on it. Appt will need scheduled officially. Jaime Juárez LPN Continue on this regimen and continue to work on low carb diet. Please check sugars daily and come in in 2 weeks with readings to review. Please schedule OV. Since change in medication, his blood sugar levels have gone from 150 to 190. Please contact the patient to advise on plan of care. documented in this encounter [facility] 01-11-2022 Miscellaneous Notes Patient informed and verbalized understanding. No questions at this time. Ann Jolley ----- Message from Rommel Rockwell MD sent at 01/10/2022 11:44 AM EDT ----- Urine albumin level is moderately increased related to his diabetes. Continue current regimen and improve diabetes control as discussed in office. documented in this encounter [facility] 01-05-2022 Miscellaneous Notes Faxed [id number] OV noted from 01/05/22 visit to [employer] fax #[phone]. Type of form: Medical necessity for CPAP requesting [id number] notes. Form received via fax When form is completed, Fax form to [phone] Form has been forwarded to [facility] Patients has appointment on Jan 05 for a 3 month follow up. Johanna telephoned, spoke with Elizabeth, made aware that notes wouldn't be available until after . Note put into their system. Nik Rosario LPN documented in this encounter [facility] 01-05-2022 History of Presen t illness Narrative Chief Complaint Patient presents with: Follow Up: 3 month- discuss CPAP can't get replacement equipment HPI Phillip Wilson is a 71 year old male who presents here today for Above Complaints. DIABETES MELLITUS: Mr. Wilson was last seen 3 months ago. At last OV we increased his Glimepiride to 6 mg and stopped his Actos due to LE edema. Edema has improved. Since our last visit he denies excessive thirst or increased frequency of urination, numbness, tingling or pain in extremities, new or unusual visual symptoms, and low sugar/hypoglycemic reactions. Follows a diabetic diet generally not very much. He is compliant with medication(s) and is tolerating med(s) without any side effects. He reports checking his glucose on a once a day schedule with sugars in the fasting 150-180 range. Patient's last HgA1C was Hemoglobin A1C (%) Date Value 12/31/2021 8.4 06/15/2021 7.1 12/12/2020 6.9 06/14/2020 6.9 ) Last Ophthalmology exam was within the past 12 months ago Last Podiatry exam was more than 12 months ago BRETT: Patient has been using his CPAP on a nightly basis for the last 3 months. Still complaining of daytime somnolence on current settings. No one is able to tell him if he is snoring with mask on. Denies headaches. Has not followed up with sleep medicine as recommended last February. PHQ-2 / Depression screen He in the past two weeks denies having felt down, depressed, hopeless or with little interest or pleasure in doing things. BP controlled on current regimen. Past medical history, appointments, medications, allergies reviewed. 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) 05/26/2015 Type II or unspecified type diabetes mellitus without mention of complication, uncontrolled 08/20/2013 Previous Surgical History PAST SURGICAL HISTORY Procedure Laterality Date COLONOSCOPY FLX DX W/COLLJ SPEC WHEN PFRMD 09/03/2020 ESOPHAGOGASTRODUODENOSCOPY TRANSORAL DIAGNOSTIC 09/03/2020 LAPAROSCOPY SURG CHOLECYSTECTOMY 07/25/2017 Angel PAST SURGICAL HISTORY OF Right 2016 incision and drainage of knee abscess Family History FAMILY HISTORY Problem Relation Age of Onset Diabetes Mother Coronary Artery Disease Mother CABG 7 COPD Father Multiple Sclerosis Sister No Known Problems Brother No Known Problems Brother No Known Problems Son No Known Problems Son No Known Problems Son Patient Allergies ALLERGIES Allergen Reactions Ibuprofen GI Upset Lisinopril Cough Omeprazole Intolerance Bilateral lower extremity swelling and water retention. Penicillins Rash Current Medications Current Outpatient Medications on File Prior to Visit Medication Sig blood sugar diagnostic (ACCU-CHEK TOMASZ PLUS TEST STRP) test strip Test daily DX: E11.65 Insulin: No glimepiride (AMARYL) 4 mg tablet Take 1.5 tablets by mouth daily with breakfast. atorvastatin (LIPITOR) 20 mg tablet Take 1 tablet by mouth once daily. metFORMIN (GLUCOPHAGE) 500 mg tablet Take 2 tablets by mouth twice daily with meals. losartan-hydroCHLOROthiazide (HYZAAR) 50-12.5 mg per tablet Take 1 tablet by mouth once daily. CPAP Initiate Auto PAP @ 10-20 cm of water with humidification. Mask (per patient preference) optional chin strap (if indicated) , filters, tubing, humidifier and lifetime supplies. aspirin 81 mg chewable tablet Take 81 mg by mouth once daily. chondro durham A/vit C/manganese (CHONDROITIN SULFATE COMPLEX ORAL) Take 2 tablets by mouth once daily. MEDICAL SUPPLY Calculi strainer to be used daily until passage of kidney stone. Current Facility-Administered Medications on File Prior to Visit Medication perflutren lipid microspheres 1.3 mL in NaCl (PF) 0.9% 10 mL injection (DEFINITY) sodium chloride 0.9 % (flush) 10 mL (BD POSIFLUSH) Social History Social History Tobacco Use Smoking status: Never Smokeless tobacco: Never Substance Use Topics Alcohol use: No Drug use: No Review of Symptoms REVIEW OF SYSTEMS GENERAL: No weight loss, malaise or fevers RESPIRATORY: Negative for cough, hemoptysis, wheezing, COPD, dyspnea or shortness of breath CARDIOVASCULAR: Negative for chest pain, leg swelling, hypertension, CHF or palpitations GI: No nausea, vomiting, or diarrhea SKIN: Negative for lesions, rash, and itching EXAM: BP 130/72 Pulse 97 Resp 16 Wt 118.4 kg (261 lb) SpO2 94% BMI 42.13 kg/m General Appearance: Well appearing, alert, in no acute distress, well-hydrated, well nourished. and Morbidly obese. Skin: Skin color, texture, turgor normal, no suspicious rashes or lesions. Lungs: Lungs clear to auscultation. No wheezing, rhonchi, rales.. Heart: RRR without murmur, gallop, or rubs. No ectopy. Abdomen: Normal abdominal exam, Abdomen soft, non-tender. Bowel sounds normal. No masses, organomegaly. Extremities: No deformities, edema, skin discoloration, clubbing or cyanosis. Good capillary refill. . Feet: Shoes and socks removed, No deformities, ulcers, calluses, normal distal pulses, sensitive to 10 gm monofilament, and nails notable for Crumbly, Deformed, Hypertrophic, or Yellowish Health Maintenance List BP CONTROLLED (<130/80) Never done SHINGRIX VACCINE(1 of 2) Never done ADVANCE DIRECTIVE DISCUSSION Never done DEPRESSION ASSESSMENT Never done COVID-19 VACCINE(4 - Booster for Moderna series) due on 06/27/2021 URINE ALBUMIN:CREATININE RATIO due on 12/12/2021 DIABETIC FOOT EXAM due on 12/23/2021 HBA1C due on 04/02/2022 LDL CHOLESTEROL due on 06/15/2022 DILATED RETINAL EXAM due on 08/06/2022 ANNUAL PCP TEAM CHRONIC DISEASE VISIT due on 01/05/2023 DTAP,TDAP,TD(2 - Td or Tdap) due on 07/22/2024 COLORECTAL CANCER SCREENING due on 09/03/2025 HEPATITIS C SCREENING Completed PNEUMOCOCCAL: 65+ Completed INFLUENZA Discontinued Data reviewed Component Latest Ref Rng & Units 06/15/2021 12/31/2021 Protein, Total 6.3 - 8.0 g/dL 7.4 7.4 Albumin 3.9 - 4.9 g/dL 4.3 4.4 Calcium 8.5 - 10.2 mg/dL 9.5 9.5 Bilirubin, Total 0.2 - 1.3 mg/dL 0.6 0.8 Alkaline Phosphatase 38 - 113 U/L 48 60 AST 14 - 40 U/L 24 27 ALT 10 - 54 U/L 19 23 Glucose 74 - 99 mg/dL 90 81 BUN 9 - 24 mg/dL 12 21 Creatinine 0.73 - 1.22 mg/dL 0.98 1.23 (H) Sodium 136 - 144 mmol/L 143 141 Potassium 3.7 - 5.1 mmol/L 4.6 4.1 Chloride 97 - 105 mmol/L 104 103 CO2 22 - 30 mmol/L 28 25 Anion Gap 9 - 18 mmol/L 11 13 eGFR >=60 mL/min/1.73m 82 63 Total Cholesterol, Nonfasting <200 mg/dL 130 Triglycerides, Nonfasting <150 mg/dL 78 HDL Cholesterol, Nonfasting >39 mg/dL 54 LDL Cholesterol, Nonfasting <100 mg/dL 60 Non HDL Cholesterol, Nonfasting <130 mg/dL 76 VLDL Cholesterol, Nonfasting <30 mg/dL 16 Total Chol/HDL Ratio, Nonfasting <5.10 mg/dL 2.41 LDL/HDL Ratio, Nonfasting <2.54 mg/dL 1.11 Hemoglobin A1C 4.3 - 5.6 % 7.1 (H) 8.4 (H) Estimated Average Glucose mg/dL 157 194 ASSESSMENT/PLAN: 1. 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 Patient refusing GLP-1 or SGLT-2. Refusing to switch to Glipizide. - Blood glucose monitoring on a once a day schedule - Encouraged regular aerobic exercise and weight loss - Call in 4 weeks, sooner should any other issues arise. - Discussed diabetic education issues of vermin exterminator diabetic complications, hypoglycemic symptoms, hyperglycemic symptoms, diet, medications- side effects and need for compliance, importance of exercise, and importance of annual examinations with Opthalmology with patient. - GLIMEPIRIDE 4 MG TABLET - HGB A1C - COMP METABOLIC PANEL 2. BRETT on CPAP - ICD9: 327.23, V46.8, ICD10: G47.33, Z99.89 Symptoms not improving with current settings. F/u with sleep medicine for further workup. - CONSULT TO SLEEP MEDICINE - ADULT 3. Essential hypertension, benign - ICD9: 401.1, ICD10: I10 - good control - Continue current medication(s) - Encouraged dietary sodium restriction/DASH diet - Recommended regular aerobic exercise. - Reviewed risks of HTN and principles of treatment - Goal of BP <140/90 4. Hyperlipidemia with target LDL less than 100 - ICD9: 272.4, ICD10: E78.5 - good control - Continue current medication. - Encouraged following a low fat, low cholesterol diet. - Discussed the benefits of regular aerobic exercise and weight loss. 5. Obesity, Class III, BMI 40-49.9 (morbid obesity) (HCC) - ICD9: 278.01, ICD10: E66.01 Weight decreasing - Behavioral intervention 6. Onychomycosis - ICD9: 110.1, ICD10: B35.1 Patient refusing terbinafine. Will look into OTC paint on solution. Rommel Rockwell MD documented in this encounter [facility] 12-28-2021 Miscellaneous Notes Patient notified. Deirdre Vásquez MA Patient came in yesterday requesting orders for labs. Orders placed to be drawn if he comes before his scheduled appointment. documented in this encounter [facility] 11-27-2021 Miscellaneous Notes New Rx sent to [facility] APRN.[facility] Pt's called in upset because the pharmacy told him that his accu-check test strips are not covered by his insurance. Pt called his insurance & was told strips are covered. I called [facility] & spoke to Armando, was told strips are covered but at a DME pharmacy such as [facility] - this was the case last year so unless pt has had a change of insurance this still applies. [facility] is not a contract company for pt's supplemental medicare plan. Armando will fax it & it will need signed by provider & faxed back so Armando can run it through, this will tell him which pharmacy pt has to use. Or pt can just have Rx sent to [facility]. I spoke to pt & he is requesting a new Rx be sent to [facility], pending. Pt states he has not had any change in insurance. Joanie Woodward LPN documented in this encounter [facility] 11-25-2021 Miscellaneous Notes Last office visit: 10/14/21 Next appointment scheduled: 01/05/22 Last labs: 06/15/21 HGBA1C 7.1 Patient has been identified by name and date of : Yes Requested Prescriptions Pending Prescriptions Disp Refills blood sugar diagnostic (ACCU-CHEK TOMASZ PLUS TEST STRP) test strip 100 Strip 3 Sig: Test daily DX: E11.65 Insulin: No glimepiride (AMARYL) 4 mg tablet 135 tablet 1 Sig: Take 1.5 tablets by mouth daily with breakfast. RX INSTRUCTIONS: patient completely out of test strips x 1 wk would like refills for 1 year. Please advise if glimepiride is available in 6 mg was taking 4 mg cutting in half for 6 mg total. Patient aware RX will be sent to pharmacy. No need to notify patient. Rosa Bender documented in this encounter [facility] 10-15-2021 Miscellaneous Notes Pt called and notified that Rx was sent. Pt verbalized understanding. Winnie Cyr Ma rx for strainer sent to [facility] as requested. Pt notified and voiced understanding. Said he believes he is schedule to see Urologist Dr. Rosa Maria next week sometime. 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 Jess Wang Ma Patient with 4 mm kidney stone on the left which is being treated with oxycodone, Zofran, and Flomax. Based on the size, he should be able to pass this on his own. I would have him drink lots of water to help flush his system. If he has a strainer for urine at home, we can try to catch the stone and send it for analysis when it passes. Would have him follow up in office next week if symptoms not improving. Let me know if he needs rx for strainer. ER records on providers desk. Jess Wang Ma Please pull ER records so I can see if the size of stone and if he needs urology referral. Pt called in to update provider on ED visit last night. Pt reports they did a CT and he had a kidney stone and it was ready to go into the bladder. Please call and advise. documented in this encounter [facility] 10-14-2021 History of Presen t illness Narrative Chief Complaint Patient presents with: Abdominal Pain: Patient indicated left side pain now moving into back; dry heaves; diarrhea. HPI Phillip Wilson is a 71 year old male who presents here today for Above Complaints.. Patient complaining of 2 days of LLQ pain with radiation into his left lower back. Described as constant aching pain, currently 10/10. Exacerbated with lying down, drinking fluids. Not taking anything OTC for symptoms. Symptoms worsened significantly worsened this morning with severe pain. Admits to dry heaves, diarrhea, low grade fever, abdominal distention. Was able to pass gas yesterday, but none today. Denies constipation, hematochezia, melena, trauma, urinary frequency, urgency, dysuria, hematuria, flank pain. Past medical history, appointments, medications, allergies reviewed. Previous Medical History PAST MEDICAL HISTORY Diagnosis Date Benign prostatic hyperplasia with lower urinary tract symptoms Cervical arthritis Chronic diastolic heart failure (HCC) DDD (degenerative disc disease), lumbar Essential hypertension, benign 08/06/2013 Hyperlipidemia with target LDL less than 100 08/06/2013 Iron deficiency anemia due to chronic blood loss 07/05/2020 Morbid obesity with BMI of 40.0-44.9, adult ([facility]) BRETT (obstructive sleep apnea) 02/05/2021 severe RBBB 2018 Snoring 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 ([facility]) 05/26/2015 Type II or unspecified type diabetes mellitus without mention of complication, uncontrolled 08/20/2013 Previous Surgical History PAST SURGICAL HISTORY Procedure Laterality Date COLONOSCOPY FLX DX W/COLLJ SPEC WHEN PFRMD 09/03/2020 ESOPHAGOGASTRODUODENOSCOPY TRANSORAL DIAGNOSTIC 09/03/2020 LAPAROSCOPY SURG CHOLECYSTECTOMY 07/25/2017 JOEYJose PAST SURGICAL HISTORY OF Right 2016 incision and drainage of knee abscess Family History FAMILY HISTORY Problem Relation Age of Onset Diabetes Mother Coronary Artery Disease Mother CABG 7 COPD Father Multiple Sclerosis Sister No Known Problems Brother No Known Problems Brother No Known Problems Son No Known Problems Son No Known Problems Son Patient Allergies ALLERGIES Allergen Reactions Ibuprofen GI Upset Lisinopril Cough Omeprazole Intolerance Bilateral lower extremity swelling and water retention. Penicillins Rash Current Medications Current Outpatient Medications on File Prior to Visit Medication Sig glimepiride (AMARYL) 4 mg tablet Take 1.5 tablets by mouth daily with breakfast. atorvastatin (LIPITOR) 20 mg tablet Take 1 tablet by mouth once daily. metFORMIN (GLUCOPHAGE) 500 mg tablet Take 2 tablets by mouth twice daily with meals. losartan-hydroCHLOROthiazide (HYZAAR) 50-12.5 mg per tablet Take 1 tablet by mouth once daily. CPAP Initiate Auto PAP @ 10-20 cm of water with humidification. Mask (per patient preference) optional chin strap (if indicated) , filters, tubing, humidifier and lifetime supplies. aspirin 81 mg chewable tablet Take 81 mg by mouth once daily. blood sugar diagnostic (ACCU-CHEK TOMASZ PLUS TEST STRP) test strip Test daily DX: E11.65 Insulin: No chondro durham A/vit C/manganese (CHONDROITIN SULFATE COMPLEX ORAL) Take 2 tablets by mouth once daily. Current Facility-Administered Medications on File Prior to Visit Medication perflutren lipid microspheres 1.3 mL in NaCl (PF) 0.9% 10 mL injection (DEFINITY) sodium chloride 0.9 % (flush) 10 mL (BD POSIFLUSH) Social History Social History Tobacco Use Smoking status: Never Smoker Smokeless tobacco: Never Used Substance Use Topics Alcohol use: No Drug use: No Review of Symptoms REVIEW OF SYSTEMS See HPI EXAM: BP 148/78 (BP Site: Right Arm, BP Position: Sitting, BP Cuff Size: Large Adult) Pulse 88 Temp 37.8 C (100 F) (Axillary) Resp 18 Wt 122.5 kg (270 lb) BMI 43.58 kg/m General Appearance: Well appearing, alert, in no acute distress, well-hydrated, well nourished.. Skin: Skin color, texture, turgor normal, no suspicious rashes or lesions. Lungs: Lungs clear to auscultation. No wheezing, rhonchi, rales.. Heart: RRR without murmur, gallop, or rubs. No ectopy. Abdomen: Abdomen soft. Bowel sounds hypoactive. No masses, organomegaly, Negative CVA tenderness, Positive findings: tenderness moderate LLQ without rebound or guarding. Health Maintenance List BP CONTROLLED (<130/80) Never done SHINGRIX VACCINE(1 of 2) Never done ADVANCE DIRECTIVE DISCUSSION Never done COVID-19 VACCINE(4 - Booster for Moderna series) due on 08/30/2021 URINE ALBUMIN:CREATININE RATIO due on 12/12/2021 HBA1C due on 12/16/2021 DIABETIC FOOT EXAM due on 12/23/2021 LDL CHOLESTEROL due on 06/15/2022 DEPRESSION SCREENING due on 06/30/2022 DILATED RETINAL EXAM due on 08/06/2022 ANNUAL PCP TEAM CHRONIC DISEASE VISIT due on 09/29/2022 DTAP,TDAP,TD(2 - Td or Tdap) due on 07/22/2024 COLORECTAL CANCER SCREENING due on 09/03/2025 HEPATITIS C SCREENING Completed PNEUMOCOCCAL: 65+ Completed INFLUENZA Discontinued ASSESSMENT/PLAN: 1. LLQ abdominal pain - ICD9: 789.04, ICD10: R10.32 (primary diagnosis) Based on symptoms today I am concerned for diverticulitis with/without abscess vs bowel obstruction. Discussed with patient that I would not be able to get a STAT CT done today and with having 10/10 pain which suddenly worsened this morning, I would not feel comfortable waiting on further workup. Will have his son drive him to [facility] ED now. Report sent via ER Passport. Will follow up on discharge. 2. Dry heaves - ICD9: 787.03, ICD10: R11.10 See above. 3. Diarrhea, unspecified type - ICD9: 787.91, ICD10: R19.7 See above. Rommel Rockwell MD documented in this encounter [facility] 10-12-2021 Miscellaneous Notes Phoned patient and updated with PATENT LITIGATION ASSOCIATE's response/recommendations. Patient verbalized understanding. These few blood sugar readings look good. He should update if he is getting the majority of his blood sugars greater than 150. Continue current medications. Thanks, Jenny Vail APRN.STEPHON Phillip Wilson is a 71 year old male who reports glucose readings as noted. Patient calling from work and did not have meter in front of him for some of the readings. States he doesn't have time to call back. Says his AM fasting BS has been running in the 150's. Meal # 1 = Breakfast or first meal of day, Meal # 2 = Lunch, # 3 = Evening meal DATE 09/30 10/01 10/02 10/03 10/04 10/05 10/06 10/07 Fasting 130 142 150 150's 150's 150's 150's 157 Post Meal #1 Before Meal Post Meal # 2 Before Meal Post Meal # 3 Bedtime Other Any low blood sugars during this period of reporting: No Patient's diabetes medications as follows: Per MAR documented in this encounter [facility] 09-29-2021 History of Presen t illness Narrative Chief Complaint Patient presents with: Follow Up: 3 month HPI Phillip Wilson is a 71 year old male who presents here today for 3 month follow up. DIABETES MELLITUS: Mr. Wilson was last seen 3 months ago. Since our last visit he denies excessive thirst or increased frequency of urination, numbness, tingling or pain in extremities, new or unusual visual symptoms and low sugar/hypoglycemic reactions. Follows a diabetic diet some of the time. He is compliant with medication(s) and is tolerating med(s) without any side effects. He reports checking his glucose on a once a day schedule with sugars in the fasting <130 range. Patient's last HgA1C was Hemoglobin A1C (%) Date Value 06/15/2021 7.1 12/12/2020 6.9 06/14/2020 6.9 ) Last Ophthalmology exam was within the past 12 months Last Podiatry exam was within the past 12 months Chronic diastolic HF managed by cardiology. Echo in May showed stage I diastolic dysfunction with normal EF and valves. BP improved on HCTZ, but still had 2+ edema in LE. Discussed low sodium diet, leg elevation and compression stockings. BNP obtained which was normal. Patient states that he is still getting swelling near the end of the day despite wearing compression stockings on a daily basis. Watching salt intake and elevating his legs. Discussed Actos may be contributing to edema/fluid retention and is willing to stop this. BRETT: Just got his CPAP yesterday and plans to set it up this week. Past medical history, appointments, medications, allergies reviewed. 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) 05/26/2015 Type II or unspecified type diabetes mellitus without mention of complication, uncontrolled 08/20/2013 Previous Surgical History PAST SURGICAL HISTORY Procedure Laterality Date COLONOSCOPY FLX DX W/COLLJ SPEC WHEN PFRMD 09/03/2020 ESOPHAGOGASTRODUODENOSCOPY TRANSORAL DIAGNOSTIC 09/03/2020 LAPAROSCOPY SURG CHOLECYSTECTOMY 07/25/2017 JOEYJose PAST SURGICAL HISTORY OF Right 2016 incision and drainage of knee abscess Family History FAMILY HISTORY Problem Relation Age of Onset Diabetes Mother Coronary Artery Disease Mother CABG 7 COPD Father Multiple Sclerosis Sister No Known Problems Brother No Known Problems Brother No Known Problems Son No Known Problems Son No Known Problems Son Patient Allergies ALLERGIES Allergen Reactions Ibuprofen GI Upset Lisinopril Cough Omeprazole Intolerance Bilateral lower extremity swelling and water retention. Penicillins Rash Current Medications Current Outpatient Medications on File Prior to Visit Medication Sig glimepiride (AMARYL) 4 mg tablet take 1 tablet once daily with BREAKFAST pioglitazone (ACTOS) 45 mg tablet Take 1 tablet by mouth once daily. atorvastatin (LIPITOR) 20 mg tablet Take 1 tablet by mouth once daily. metFORMIN (GLUCOPHAGE) 500 mg tablet Take 2 tablets by mouth twice daily with meals. losartan-hydroCHLOROthiazide (HYZAAR) 50-12.5 mg per tablet Take 1 tablet by mouth once daily. CPAP Initiate Auto PAP @ 10-20 cm of water with humidification. Mask (per patient preference) optional chin strap (if indicated) , filters, tubing, humidifier and lifetime supplies. aspirin 81 mg chewable tablet Take 81 mg by mouth once daily. blood sugar diagnostic (ACCU-CHEK TOMASZ PLUS TEST STRP) test strip Test daily DX: E11.65 Insulin: No chondro durham A/vit C/manganese (CHONDROITIN SULFATE COMPLEX ORAL) Take 2 tablets by mouth once daily. Current Facility-Administered Medications on File Prior to Visit Medication perflutren lipid microspheres 1.3 mL in NaCl (PF) 0.9% 10 mL injection (DEFINITY) sodium chloride 0.9 % (flush) 10 mL (BD POSIFLUSH) Social History Social History Tobacco Use Smoking status: Never Smoker Smokeless tobacco: Never Used Substance Use Topics Alcohol use: No Drug use: No Review of Symptoms REVIEW OF SYSTEMS GENERAL: No weight loss, malaise or fevers RESPIRATORY: Negative for cough, hemoptysis, wheezing, COPD, dyspnea or shortness of breath CARDIOVASCULAR: Negative for chest pain, leg swelling, hypertension, CHF or palpitations GI: No nausea, vomiting, or diarrhea SKIN: Negative for lesions, rash, and itching EXAM: BP 134/66 Pulse 90 Resp 16 Wt 125.4 kg (276 lb 6.4 oz) SpO2 97% BMI 44.61 kg/m General Appearance: Well appearing, alert, in no acute distress, well-hydrated, well nourished.. Skin: Skin color, texture, turgor normal, no suspicious rashes or lesions. Lungs: Lungs clear to auscultation. No wheezing, rhonchi, rales.. Heart: RRR without murmur, gallop, or rubs. No ectopy. Abdomen: Normal abdominal exam, Abdomen soft, non-tender. Bowel sounds normal. No masses, organomegaly. Extremities: Edema: 2+ in LE bilaterally. Health Maintenance List SHINGRIX VACCINE(1 of 2) Never done ADVANCE DIRECTIVE DISCUSSION Never done COVID-19 VACCINE(4 - Booster for Moderna series) due on 08/30/2021 URINE ALBUMIN:CREATININE RATIO due on 12/12/2021 HBA1C due on 12/16/2021 DIABETIC FOOT EXAM due on 12/23/2021 LDL CHOLESTEROL due on 06/15/2022 ANNUAL PCP TEAM CHRONIC DISEASE VISIT due on 06/30/2022 DEPRESSION SCREENING due on 06/30/2022 DILATED RETINAL EXAM due on 08/06/2022 BP CONTROLLED (<130/80) due on 08/31/2022 DTAP,TDAP,TD(2 - Td or Tdap) due on 07/22/2024 COLORECTAL CANCER SCREENING due on 09/03/2025 HEPATITIS C SCREENING Completed PNEUMOCOCCAL: 65+ Completed INFLUENZA Discontinued Data reviewed Component Latest Ref Rng & Units 06/15/2021 09/18/2021 Protein, Total 6.3 - 8.0 g/dL 7.4 Albumin 3.9 - 4.9 g/dL 4.3 Calcium 8.5 - 10.2 mg/dL 9.5 Bilirubin, Total 0.2 - 1.3 mg/dL 0.6 Alkaline Phosphatase 38 - 113 U/L 48 AST 14 - 40 U/L 24 ALT 10 - 54 U/L 19 Glucose 74 - 99 mg/dL 90 BUN 9 - 24 mg/dL 12 Creatinine 0.73 - 1.22 mg/dL 0.98 Sodium 136 - 144 mmol/L 143 Potassium 3.7 - 5.1 mmol/L 4.6 Chloride 97 - 105 mmol/L 104 CO2 22 - 30 mmol/L 28 Anion Gap 9 - 18 mmol/L 11 eGFR >=60 mL/min/1.73m 82 Total Cholesterol, Nonfasting <200 mg/dL 130 Triglycerides, Nonfasting <150 mg/dL 78 HDL Cholesterol, Nonfasting >39 mg/dL 54 LDL Cholesterol, Nonfasting <100 mg/dL 60 Non HDL Cholesterol, Nonfasting <130 mg/dL 76 VLDL Cholesterol, Nonfasting <30 mg/dL 16 Total Chol/HDL Ratio, Nonfasting <5.10 mg/dL 2.41 LDL/HDL Ratio, Nonfasting <2.54 mg/dL 1.11 Hemoglobin A1C 4.3 - 5.6 % 7.1 (H) Estimated Average Glucose mg/dL 157 NT Pro BNP <125 pg/mL 51 ASSESSMENT/PLAN: 1. 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 - Increase glimepiride (Amaryl) - Discontinue pioglitazone (Actos) due to LE edema - Blood glucose monitoring on a twice a day schedule - Encouraged regular aerobic exercise and weight loss - Follow up in 3 months, sooner should any other issues arise. - Discussed diabetic education issues of fpc diabetic complications, hypoglycemic symptoms, hyperglycemic symptoms, diet, medications- side effects and need for compliance, importance of exercise and importance of annual examinations with Opthalmology with patient. - Discussed switch to Glipizide from Glimepiride, but patient would like to just make 1 change at a time. - GLIMEPIRIDE 4 MG TABLET 2. Essential hypertension, benign - ICD9: 401.1, ICD10: I10 - good control - Continue current medication(s) - Encouraged dietary sodium restriction/DASH diet - Recommended regular aerobic exercise. - Reviewed risks of HTN and principles of treatment - Goal of BP <140/90 3. Hyperlipidemia with target LDL less than 100 - ICD9: 272.4, ICD10: E78.5 - good control - Continue current medication. - Encouraged following a low fat, low cholesterol diet. - Discussed the benefits of regular aerobic exercise and weight loss. 4. BRETT (obstructive sleep apnea) - ICD9: 327.23, ICD10: G47.33 Patient to start using CPAP this week and call with any issues. 5. Chronic diastolic heart failure (HCC) - ICD9: 428.32, ICD10: I50.32 F/u with cardiology. Will stop Actos to see if LE edema improves. Discussed low sodium diet, leg elevation when resting, continue HCTZ. Call if swelling not improving. 6. Bilateral lower extremity edema - ICD9: 782.3, ICD10: R60.0 See above. Rommel Rockwell MD documented in this encounter [facility] 09-28-2021 Miscellaneous Notes Last office visit: 06/30/21 F/u scheduled: tomorrow 09/29/21 Jess Wang Ma Patient has been identified by name and date of : Yes Pending Prescriptions Disp Refills GLIMEPIRIDE 4 MG TABLET 90 tablet 1 Sig: take 1 tablet once daily with BREAKFAST TRAV: No PIOGLITAZONE 45 MG TABLET 90 tablet 1 Sig: Take 1 tablet by mouth once daily. TRAV: No ATORVASTATIN 20 MG TABLET 90 tablet 1 Sig: Take 1 tablet by mouth once daily. TRAV: No LOSARTAN 50 MG-HYDROCHLOROTHIAZIDE 12.5 MG TABLET 90 tablet 3 Sig: Take 1 tablet by mouth once daily. TRAV: No RX INSTRUCTIONS: Patient aware RX will be sent to pharmacy. No need to notify patient. Bell Moeller documented in this encounter [facility] 09-28-2021 Miscellaneous Notes Call to pt and notified of below. Pt verbalized understanding. ----- Message from Radha Cheek APRN.PATENT LITIGATION ASSOCIATE sent at 09/24/2021 7:55 AM EDT ----- Please call patient and notify him of results. BNP is within normal range and does not indicate fluid overload or CHF as cause for LE swelling. Thank you! documented in this encounter [facility] 08-31-2021 Instructions Radha Cheek APRN.STEPHON - 08/31/2021 4:20 PM EDT High Blood Pressure: Essential Hypertension What is high blood pressure? Blood pressure is the force of blood against artery lakhani as the heart pumps blood through the body. You may be told that you have high blood pressure (hypertension) if your blood pressure is higher than normal. Hypertension is called essential when no cause for it can be found. When the cause of hypertension is known, such as kidney disease or a tumor, it is called secondary hypertension. Blood pressure can rise and fall with exercise, rest, or emotions. Normal resting blood pressure ranges up to 120/80 ( 120 over 80 ). The first number (120 in this example) is the pressure when the heart beats and pushes blood out to the rest of the body. The second number (80 in this example) is the pressure when the heart rests between beats. Blood pressure is borderline high if it is 120/80 or higher but less than 140/90. High blood pressure is 140/90 or higher. If you have chronic kidney disease, 130/80 or higher is considered high blood pressure. Why is high blood pressure a problem? High blood pressure is a problem in many ways. Your heart has to work harder to pump blood through your body. The added workload on the heart causes thickening of the heart muscle. Over time, the thickening damages the heart muscle so that it can no longer pump normally. This can lead to a disease called heart failure. The higher pressure in your arteries may cause them to weaken and bleed, resulting in a stroke. As you get older, blood vessels may become hardened. High blood pressure speeds up this process. Hardened or narrowed arteries may not be able to supply enough blood to all parts of your body. High blood pressure may lead to atherosclerosis, in which deposits of cholesterol, fatty substances, and blood cells clog up an artery. Atherosclerosis is the leading cause of heart attacks. It can also cause strokes. Your kidneys, brain, and eyes may also be damaged. You may need treatment for high blood pressure for the rest of your life. However, proper treatment can control your blood pressure and help prevent heart disease, heart attack, or stroke. It can also help prevent long-term health problems, such as heart failure, kidney failure, blindness, and dementia. If you already have some complications, such as breathing problems or chest pain, lowering your blood pressure may make these problems less severe. What is the cause? There are no clear causes of essential hypertension. However, many things can increase blood pressure, such as: Being overweight Smoking Eating a diet high in salt Drinking a lot of alcohol Other important factors include: Race. Americans are more likely to have high blood pressure. Gender. Males have a greater chance of developing high blood pressure than women until age 55. After the age of 75, women are more likely to develop high blood pressure than men. Heredity. If you have parents with high blood pressure, you are more at risk. Age. The older you get, the more likely you are to have high blood pressure. Also, some medicines increase blood pressure. Stress and drinking caffeine can make blood pressure go up temporarily but it s not clear that they have any long-term effects on blood pressure. What are the symptoms? You may have high blood pressure for a long time without symptoms. You may not be able to tell by the way you feel that your blood pressure is high. The only way to find out if your blood pressure is high is to have it measured. That's why it s important to have your blood pressure checked at least once a year. When high blood pressure does cause symptoms, they may include: Headaches Nosebleeds Getting tired easily Blurred vision Dizziness Fast or irregular heartbeat Shortness of breath Chest pain How is it diagnosed? Blood pressure is checked at most healthcare visits. High blood pressure is usually discovered during one of these visits. If your blood pressure is high, you will be asked to return for follow-up checks. Your healthcare provider will ask about your personal and family medical history and examine you. Tests to look for a possible cause of high blood pressure may include: Urine and blood tests Chest X-ray Electrocardiogram (ECG), which measures and records your heartbeat You may be asked to use a portable blood-pressure measuring device, which will take your pressure at different times during day and night. How is it treated? If your blood pressure is borderline high, you may be able to bring it down to a normal level without medicine. Weight loss, changes in your diet, and exercise may be the only treatment you need. If lifestyle changes don t lower your blood pressure enough, your healthcare provider may prescribe medicine. Many people need to take 2 or more medicines to bring their blood pressure down to a healthy level. It may take several weeks or months to find the best treatment for you. How can I take care of myself? If you have high blood pressure, there are things you can do now to take care of yourself and to prevent problems in the future: Follow your treatment plan and know how to take your medicines. ?Work with your healthcare provider to find what lifestyle changes and medicines are right for you. ?Follow the directions that come with your medicine, including information about food or alcohol. Make sure you know how and when to take your medicine. Do not take more or less than you are supposed to take. ?Many medicines have side effects. A side effect is a symptom or problem that is caused by the medicine. Ask your healthcare provider or pharmacist what side effects your medicine may cause and what you should do if you have side effects. Ask if you should avoid some nonprescription medicines. ?Be careful with nonprescription medicines or herbal supplements. Some can raise blood pressure. This includes diet pills, cold and pain medicines, and energy boosters. Read labels or ask your pharmacist if the medicine or supplement affects blood pressure. Some illegal drugs, like cocaine, can also affect blood pressure. ?Check your blood pressure (or have it checked) as often as your provider advises. Keep a diary of the readings. A diary is also a good place to note your exercise, weight, salt intake, types of food you are eating, and your feelings. This can help you learn how these things can affect your blood pressure. Take your diary with you when you visit your provider. Don t smoke. Eat a healthy diet that is low in salt, saturated fat, trans fat, and cholesterol. Include lots of fruits, vegetables, and fat-free or low-fat milk and milk products. Get regular exercise, according to your healthcare provider's advice. For example, you might walk, bike, or swim at least 30 minutes 3 to 5 times a week. Limit the amount of alcohol you drink. Moderate drinking is up to 1 drink a day for women and up to 2 drinks for men. Lose weight if you need to. Try to reduce the stress in your life or learn how to deal better with situations that make you feel anxious. Ask your healthcare provider: ?How and when you will hear your test results ?How long it will take to recover ?What activities you should avoid and when you can return to your normal activities ?How to take care of yourself at home ?What symptoms or problems you should watch for and what to do if you have them Make sure you know when you should come back for a checkup. How can I help prevent high blood pressure? You can help prevent this disease with a heart-healthy lifestyle: Eat a healthy diet and keep a healthy weight. Stay fit with the right kind of exercise for you. Decrease stress. Don t smoke. Limit your use of alcohol. Talk to your healthcare provider about your personal and family medical history and your lifestyle habits. This will help you know what you can do to lower your risk for high blood pressure. Developed by [employer] Published by [employer] Copyright 2014 [employer] and/or one of its subsidiaries. All rights reserved. documented in this encounter [facility] 08-31-2021 History of Presen t illness Narrative Chief Complaint Patient presents with: Established Patient Follow-Up: 2 month; Echo History of Present Illness: Phillip Wilson is a 71 year old male who presents for routine follow up. He has a PMhx of HTN, HLD, DM2, RBBB, BRETT, obesity. He states he has been doing ok since he was seen last. 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 He also recently traveled to the [facility] on his motorcycle. He continues to have LE swelling that improves with elevation. He was non compliant with lasix in the past d/t diuretic response and now is on low dose HCTZ. He continues to have mild shortness of breath. He otherwise denies cardiac complaints. We reviewed cardiac risk factors and modifications. He is working on weight loss. He reports taking medications as prescribed. Echocardiogram results were reviewed. 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) 05/26/2015 Type II or unspecified type diabetes mellitus without mention of complication, uncontrolled 08/20/2013 PAST SURGICAL HISTORY Procedure Laterality Date COLONOSCOPY FLX DX W/COLLJ SPEC WHEN PFRMD 09/03/2020 ESOPHAGOGASTRODUODENOSCOPY TRANSORAL DIAGNOSTIC 09/03/2020 LAPAROSCOPY SURG CHOLECYSTECTOMY 07/25/2017 Angel PAST SURGICAL HISTORY OF Right 2016 incision and drainage of knee abscess FAMILY HISTORY Problem Relation Age of Onset Diabetes Mother Coronary Artery Disease Mother CABG 7 COPD Father Multiple Sclerosis Sister No Known Problems Brother No Known Problems Brother No Known Problems Son No Known Problems Son No Known Problems Son Social History Tobacco Use Smoking status: Never Smoker Smokeless tobacco: Never Used Substance Use Topics Alcohol use: No Drug use: No ALLERGIES Allergen Reactions Ibuprofen GI Upset Lisinopril Cough Omeprazole Intolerance Bilateral lower extremity swelling and water retention. Penicillins Rash Medications: Current Outpatient Medications Medication Sig Dispense Refill metFORMIN (GLUCOPHAGE) 500 mg tablet Take 2 tablets by mouth twice daily with meals. 120 tablet 11 losartan-hydroCHLOROthiazide (HYZAAR) 50-12.5 mg per tablet Take 1 tablet by mouth once daily. 90 tablet 3 pioglitazone (ACTOS) 45 mg tablet Take 1 tablet by mouth once daily. 90 tablet 1 glimepiride (AMARYL) 4 mg tablet take 1 tablet once daily with BREAKFAST 90 tablet 1 atorvastatin (LIPITOR) 20 mg tablet Take 1 tablet by mouth once daily. 90 tablet 1 CPAP Initiate Auto PAP @ 10-20 cm of water with humidification. Mask (per patient preference) optional chin strap (if indicated) , filters, tubing, humidifier and lifetime supplies. 1 Each 0 aspirin 81 mg chewable tablet Take 81 mg by mouth once daily. blood sugar diagnostic (ACCU-CHEK TOMASZ PLUS TEST STRP) test strip Test daily DX: E11.65 Insulin: No 100 Strip 3 chondro durham A/vit C/manganese (CHONDROITIN SULFATE COMPLEX ORAL) Take 2 tablets by mouth once daily. Current Facility-Administered Medications Medication Dose Route Frequency Provider Last Rate Last Admin perflutren lipid microspheres 1.3 mL in NaCl (PF) 0.9% 10 mL injection (DEFINITY) INTRAVENOUS DIRECTED PRN Rommel Rockwell MD sodium chloride 0.9 % (flush) 10 mL (BD POSIFLUSH) 10 mL INTRAVENOUS DIRECTED PRN Rommel Rockwell MD Review of Systems Constitutional: Negative for chills, diaphoresis, fever, malaise/fatigue and weight loss. HENT: Negative for congestion, ear pain, nosebleeds, sinus pain and sore throat. Eyes: Negative for pain. Respiratory: Positive for shortness of breath. Negative for cough and wheezing. Cardiovascular: Positive for leg swelling. Negative for chest pain, palpitations, orthopnea, claudication and PND. Gastrointestinal: Negative for abdominal pain, blood in stool and melena. Genitourinary: Negative for hematuria. Musculoskeletal: Negative for falls. Neurological: Negative for dizziness, tingling, sensory change, speech change, focal weakness, loss of consciousness, weakness and headaches. Endo/Heme/Allergies: Does not bruise/bleed easily. Psychiatric/Behavioral: Negative for depression, memory loss and suicidal ideas. The patient is not nervous/anxious and does not have insomnia. Physical Examination: Vitals:BP 120/66 Pulse 78 Resp 22 Wt 273 lb (123.8kg) Last 2 Encounter Wt Readings: Date: Wt: 06/30/2021 280 lb (127 kg) 06/15/2021 285 lb (129.3 kg) Physical Exam HENT: Head: Normocephalic. Eyes: Pupils: Pupils are equal, round, and reactive to light. Cardiovascular: Rate and Rhythm: Normal rate and regular rhythm. Pulses: Radial pulses are 2+ on the right side and 2+ on the left side. Dorsalis pedis pulses are 2+ on the right side and 2+ on the left side. Heart sounds: Normal heart sounds, S1 normal and S2 normal. Pulmonary: Effort: Pulmonary effort is normal. No accessory muscle usage or respiratory distress. Breath sounds: Normal breath sounds. Abdominal: General: Bowel sounds are normal. Palpations: Abdomen is soft. Musculoskeletal: General: Normal range of motion. Cervical back: Normal range of motion. Right lower le+ Edema present. Left lower le+ Edema present. Skin: General: Skin is warm and dry. Neurological: Mental Status: He is alert and oriented to person, place, and time. Gait: Gait is intact. Psychiatric: Mood and Affect: Affect normal. Cognition and Memory: Memory normal. Judgment: Judgment normal. Most Recent Cardiac Testing 05/2021 CONCLUSIONS: - Technically difficult exam due to body habitus. - Exam indication: PARKER - The left ventricle is normal in size. There is mild concentric left ventricular hypertrophy. Left ventricular systolic function is normal. EF = 59 5% (2D 4-ch.) Definity contrast used for endocardial border detection. Grade I left ventricular diastolic dysfunction. - The right ventricle is normal in size. Right ventricular systolic function is normal. - There are no significant valvular abnormalities. - The patient has not had a prior CC echocardiographic exam for comparison. 03/16/2021 CONCLUSIONS: 1. SPECT Perfusion Study: Normal. 2. There is no scintigraphic evidence for inducible ischemia. 3. No evidence of scarred myocardium. 4. Left ventricle is small. The left ventricle systolic function is hyperdynamic. 5. This is a low risk scan. Gated Stress FBP Gated Rest FBP LVEF % 77 LEFT VENTRICLE The left ventricle is small. Left ventricular systolic function is hyperdynamic. There is present left ventricular hypertrophy. Stress ECG Conclusion: Conclusion: Normal Assessment and Plan: HTN -120/66. hyzaar started at last office visit -Continue current medication(s) -Encouraged dietary sodium restriction/DASH diet -Recommended regular aerobic exercise. -Recommend home blood pressure monitoring, to bring results in on next visit -Discussed need and benefit for weight loss. -Goal of BP <130/80 Chronic diastolic dysfunction -echocardiogram completed -continue to have LE swelling, improved with elevation, usually wears compression stockings -check BNP, consider increasing HCTZ -recommended heart healthy, 2g low sodium diet, daily weights LVH -mild on echocardiogram -continue BP control and weight loss HLD -Lipid panel 05/2021 LDL 60 -Continue Lipitor 20 mg DM2 -A1c 05/2021 7.1 -metformin and glimepiride BRETT -CPAP compliant Obesity -lifestyle modifications -encouraged a heart healthy diet, routine exercise and weight loss Follow up in 6 months. Patient to call with any issues or concerns prior to then. Electronically signed by Radha Cheek APRN.CNP on August 31, 2021, 3:55 PM documented in this encounter [facility] 07-15-2021 Miscellaneous Notes Last refill: 08/11/2020 QTY: 120 Refills: 11 Pharmacy verified in [facility] Patient has been identified by name and date of : Yes Patient aware RX will be sent to pharmacy. No need to notify patient. Patient phones for refill(s): Pending Prescriptions Disp Refills METFORMIN 500 MG TABLET 120 tablet 11 Sig: Take 2 tablets by mouth twice daily with meals. TRAV: No Date of last office visit : 06/30/2021 Date of next office visit : 09/29/2021 Last 2 Encounter Wt Readings: Date: Wt: 06/30/2021 127 kg (280 lb) 06/15/2021 129.3 kg (285 lb) Please advise. Jo Robles Pss documented in this encounter [facility] 06-30-2021 History of Presen t illness Narrative Chief Complaint Patient presents with: Follow Up: follow up HPI Phillip Wlison is a 71 year old male who presents here today for routine follow up. DIABETES MELLITUS: Mr. Wilson was last seen 6 months ago. Since our last visit he denies excessive thirst or increased frequency of urination, numbness, tingling or pain in extremities, new or unusual visual symptoms and low sugar/hypoglycemic reactions. Follows a diabetic diet generally not very much. He is compliant with medication(s) and is tolerating med(s) without any side effects. He reports checking his glucose on a once a day schedule with sugars in the fasting 120-140 range. Patient's last HgA1C was Hemoglobin A1C (%) Date Value 06/15/2021 7.1 12/12/2020 6.9 06/14/2020 6.9 ) Last Ophthalmology exam was within the past 12 months. Has f/u appointment 08/06. Last Podiatry exam was within the past 12 months BRETT: patient states that he still has not been able to get his CPAP machine. Told it could be 8-10 months when he called in yesterday about. Sleeping on his side. Avoiding sedatives. BP high at OV with cardiology on 06/15. Stopped his Lasix and added HCTZ to his regimen. Has not been taking it yet. Has not been checking his BP at home. Past medical history, appointments, medications, allergies reviewed. 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) 05/26/2015 Type II or unspecified type diabetes mellitus without mention of complication, uncontrolled 08/20/2013 Previous Surgical History PAST SURGICAL HISTORY Procedure Laterality Date COLONOSCOPY FLX DX W/COLLJ SPEC WHEN PFRMD 09/03/2020 ESOPHAGOGASTRODUODENOSCOPY TRANSORAL DIAGNOSTIC 09/03/2020 LAPAROSCOPY SURG CHOLECYSTECTOMY 07/25/2017 JOEYJose PAST SURGICAL HISTORY OF Right 2016 incision and drainage of knee abscess Family History FAMILY HISTORY Problem Relation Age of Onset Diabetes Mother Coronary Artery Disease Mother CABG 7 COPD Father Multiple Sclerosis Sister No Known Problems Brother No Known Problems Brother No Known Problems Son No Known Problems Son No Known Problems Son Patient Allergies ALLERGIES Allergen Reactions Ibuprofen GI Upset Lisinopril Cough Omeprazole Intolerance Bilateral lower extremity swelling and water retention. Penicillins Rash Current Medications Current Outpatient Medications on File Prior to Visit Medication Sig losartan-hydroCHLOROthiazide (HYZAAR) 50-12.5 mg per tablet Take 1 tablet by mouth once daily. pioglitazone (ACTOS) 45 mg tablet Take 1 tablet by mouth once daily. glimepiride (AMARYL) 4 mg tablet take 1 tablet once daily with BREAKFAST atorvastatin (LIPITOR) 20 mg tablet Take 1 tablet by mouth once daily. metFORMIN (GLUCOPHAGE) 500 mg tablet Take 2 tablets by mouth twice daily with meals. aspirin 81 mg chewable tablet Take 81 mg by mouth once daily. blood sugar diagnostic (ACCU-CHEK TOMASZ PLUS TEST STRP) test strip Test daily DX: E11.65 Insulin: No chondro durham A/vit C/manganese (CHONDROITIN SULFATE COMPLEX ORAL) Take 2 tablets by mouth once daily. furosemide (LASIX) 40 mg tablet Take 1 tablet by mouth once daily. CPAP Initiate Auto PAP @ 10-20 cm of water with humidification. Mask (per patient preference) optional chin strap (if indicated) , filters, tubing, humidifier and lifetime supplies. (Patient not taking: Reported on 06/30/2021 ) sildenafil (VIAGRA) 50 mg tablet daily as needed (Patient not taking: Reported on 06/15/2021 ) Current Facility-Administered Medications on File Prior to Visit Medication perflutren lipid microspheres 1.3 mL in NaCl (PF) 0.9% 10 mL injection (DEFINITY) sodium chloride 0.9 % (flush) 10 mL (BD POSIFLUSH) Social History Social History Tobacco Use Smoking status: Never Smoker Smokeless tobacco: Never Used Substance Use Topics Alcohol use: No Drug use: No Review of Symptoms REVIEW OF SYSTEMS GENERAL: No weight loss, malaise or fevers RESPIRATORY: Negative for cough, hemoptysis, wheezing, COPD, dyspnea or shortness of breath CARDIOVASCULAR: Negative for chest pain, leg swelling, hypertension, CHF or palpitations GI: No nausea, vomiting, or diarrhea SKIN: Negative for lesions, rash, and itching EXAM: BP 146/74 Pulse 94 Resp 18 Wt 127 kg (280 lb) SpO2 94% BMI 45.19 kg/m General Appearance: Well appearing, alert, in no acute distress, well-hydrated, well nourished.. Skin: Skin color, texture, turgor normal, no suspicious rashes or lesions. Lungs: Lungs clear to auscultation. No wheezing, rhonchi, rales.. Heart: RRR without murmur, gallop, or rubs. No ectopy. Abdomen: Normal abdominal exam, Abdomen soft, non-tender. Bowel sounds normal. No masses, organomegaly. Extremities: Edema: 1+ edema to mid sequeira bilatearlly. Health Maintenance List BP CONTROLLED (<130/80) Never done SHINGRIX VACCINE(1 of 2) Never done ADVANCE DIRECTIVE DISCUSSION Never done DEPRESSION SCREENING due on 06/24/2021 DILATED RETINAL EXAM due on 07/19/2021 URINE ALBUMIN:CREATININE RATIO due on 12/12/2021 HBA1C due on 12/16/2021 DIABETIC FOOT EXAM due on 12/23/2021 ANNUAL PCP TEAM CHRONIC DISEASE VISIT due on 03/31/2022 LDL CHOLESTEROL due on 06/15/2022 DTAP,TDAP,TD(2 - Td or Tdap) due on 07/22/2024 COLORECTAL CANCER SCREENING due on 09/03/2025 HEPATITIS C SCREENING Completed PNEUMOVAX AGE 65 AND OVER WITH 5YR LOOKBACK Completed COVID-19 VACCINE Completed MENINGOCOCCAL CONJUGATE Aged Out INFLUENZA Discontinued Data reviewed Component Latest Ref Rng & Units 12/12/2020 06/15/2021 Protein, Total 6.3 - 8.0 g/dL 7.4 7.4 Albumin 3.9 - 4.9 g/dL 4.4 4.3 Calcium 8.5 - 10.2 mg/dL 10.0 9.5 Bilirubin, Total 0.2 - 1.3 mg/dL 0.9 0.6 Alkaline Phosphatase 38 - 113 U/L 52 48 AST 14 - 40 U/L 26 24 Glucose 74 - 99 mg/dL 59 (L) 90 BUN 9 - 24 mg/dL 15 12 Creatinine 0.73 - 1.22 mg/dL 0.92 0.98 Sodium 136 - 144 mmol/L 140 143 Potassium 3.7 - 5.1 mmol/L 3.8 4.6 Chloride 97 - 105 mmol/L 101 104 CO2 22 - 30 mmol/L 25 28 Anion Gap 9 - 18 mmol/L 14 11 ALT 10 - 54 U/L 19 19 eGFR- >60 eGFR-All Other Races . >60 eGFR >=60 mL/min/1.73m 82 Total Cholesterol, Nonfasting <200 mg/dL 130 Triglycerides, Nonfasting <150 mg/dL 78 HDL Cholesterol, Nonfasting >39 mg/dL 54 LDL Cholesterol, Nonfasting <100 mg/dL 60 Non HDL Cholesterol, Nonfasting <130 mg/dL 76 VLDL Cholesterol, Nonfasting <30 mg/dL 16 Total Chol/HDL Ratio, Nonfasting <5.10 mg/dL 2.41 LDL/HDL Ratio, Nonfasting <2.54 mg/dL 1.11 Creatinine, Ur Random (UCRR) 20 - 300 mg/dL 94.1 Albumin, Urine Random mg/L 17.8 Albumin/Creat Ratio <30 mg/g 19 Hemoglobin A1C 4.3 - 5.6 % 6.9 (H) 7.1 (H) Estimated Average Glucose mg/dL 151 157 ASSESSMENT/PLAN: 1. 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 - Discussed diabetic education issues of vermin exterminator diabetic complications, hypoglycemic symptoms, hyperglycemic symptoms, diet, medications- side effects and need for compliance, importance of exercise and importance of annual examinations with Opthalmology with patient. 2. Essential hypertension, benign - ICD9: 401.1, ICD10: I10 - good control - Continue current medication(s) - Encouraged dietary sodium restriction/DASH diet - Recommended regular aerobic exercise. - Reviewed risks of HTN and principles of treatment - Goal of BP <130/80 3. Hyperlipidemia with target LDL less than 100 - ICD9: 272.4, ICD10: E78.5 - good control - Continue current medication. - Encouraged following a low fat, low cholesterol diet. - Discussed the benefits of regular aerobic exercise and weight loss. 4. BRETT (obstructive sleep apnea) - ICD9: 327.23, ICD10: G47.33 Discussed weight loss and side sleeping while awaiting CPAP machine. 5. Bilateral lower extremity edema - ICD9: 782.3, ICD10: R60.0 Start losartan and HCTZ. Call if swelling not improving. Discussed low sodium diet and leg elevation when resting. 6. BPH with obstruction/lower urinary tract symptoms - ICD9: 600.01, 599.69, ICD10: N40.1, N13.8 No complaints without rx. Will recheck at future OV. Rommel Rockwell MD documented in this encounter [facility] 06-15-2021 Nurse Note 24 ga angio started to R AC. Good blood return. Flushed easily with NSS. Dressing applied. Definity (Lot # [id number] exp ) mixed per protocol. 3cc administered throughout procedure. 7cc discarded. Pt tolerated procedure well. No C/o's, Hep lock D/c'd and dressing applied. Patient discharged ambulatory with Strategic Manager. Eladio Pena RN documented in this encounter [facility] 06-15-2021 Instructions Radha Cheek APRN.PATENT LITIGATION ASSOCIATE - 06/15/2021 8:53 AM EDT High Blood Pressure: Essential Hypertension What is high blood pressure? Blood pressure is the force of blood against artery lakhani as the heart pumps blood through the body. You may be told that you have high blood pressure (hypertension) if your blood pressure is higher than normal. Hypertension is called essential when no cause for it can be found. When the cause of hypertension is known, such as kidney disease or a tumor, it is called secondary hypertension. Blood pressure can rise and fall with exercise, rest, or emotions. Normal resting blood pressure ranges up to 120/80 ( 120 over 80 ). The first number (120 in this example) is the pressure when the heart beats and pushes blood out to the rest of the body. The second number (80 in this example) is the pressure when the heart rests between beats. Blood pressure is borderline high if it is 120/80 or higher but less than 140/90. High blood pressure is 140/90 or higher. If you have chronic kidney disease, 130/80 or higher is considered high blood pressure. Why is high blood pressure a problem? High blood pressure is a problem in many ways. Your heart has to work harder to pump blood through your body. The added workload on the heart causes thickening of the heart muscle. Over time, the thickening damages the heart muscle so that it can no longer pump normally. This can lead to a disease called heart failure. The higher pressure in your arteries may cause them to weaken and bleed, resulting in a stroke. As you get older, blood vessels may become hardened. High blood pressure speeds up this process. Hardened or narrowed arteries may not be able to supply enough blood to all parts of your body. High blood pressure may lead to atherosclerosis, in which deposits of cholesterol, fatty substances, and blood cells clog up an artery. Atherosclerosis is the leading cause of heart attacks. It can also cause strokes. Your kidneys, brain, and eyes may also be damaged. You may need treatment for high blood pressure for the rest of your life. However, proper treatment can control your blood pressure and help prevent heart disease, heart attack, or stroke. It can also help prevent long-term health problems, such as heart failure, kidney failure, blindness, and dementia. If you already have some complications, such as breathing problems or chest pain, lowering your blood pressure may make these problems less severe. What is the cause? There are no clear causes of essential hypertension. However, many things can increase blood pressure, such as: Being overweight Smoking Eating a diet high in salt Drinking a lot of alcohol Other important factors include: Race. Americans are more likely to have high blood pressure. Gender. Males have a greater chance of developing high blood pressure than women until age 55. After the age of 75, women are more likely to develop high blood pressure than men. Heredity. If you have parents with high blood pressure, you are more at risk. Age. The older you get, the more likely you are to have high blood pressure. Also, some medicines increase blood pressure. Stress and drinking caffeine can make blood pressure go up temporarily but it s not clear that they have any long-term effects on blood pressure. What are the symptoms? You may have high blood pressure for a long time without symptoms. You may not be able to tell by the way you feel that your blood pressure is high. The only way to find out if your blood pressure is high is to have it measured. That's why it s important to have your blood pressure checked at least once a year. When high blood pressure does cause symptoms, they may include: Headaches Nosebleeds Getting tired easily Blurred vision Dizziness Fast or irregular heartbeat Shortness of breath Chest pain How is it diagnosed? Blood pressure is checked at most healthcare visits. High blood pressure is usually discovered during one of these visits. If your blood pressure is high, you will be asked to return for follow-up checks. Your healthcare provider will ask about your personal and family medical history and examine you. Tests to look for a possible cause of high blood pressure may include: Urine and blood tests Chest X-ray Electrocardiogram (ECG), which measures and records your heartbeat You may be asked to use a portable blood-pressure measuring device, which will take your pressure at different times during day and night. How is it treated? If your blood pressure is borderline high, you may be able to bring it down to a normal level without medicine. Weight loss, changes in your diet, and exercise may be the only treatment you need. If lifestyle changes don t lower your blood pressure enough, your healthcare provider may prescribe medicine. Many people need to take 2 or more medicines to bring their blood pressure down to a healthy level. It may take several weeks or months to find the best treatment for you. How can I take care of myself? If you have high blood pressure, there are things you can do now to take care of yourself and to prevent problems in the future: Follow your treatment plan and know how to take your medicines. ?Work with your healthcare provider to find what lifestyle changes and medicines are right for you. ?Follow the directions that come with your medicine, including information about food or alcohol. Make sure you know how and when to take your medicine. Do not take more or less than you are supposed to take. ?Many medicines have side effects. A side effect is a symptom or problem that is caused by the medicine. Ask your healthcare provider or pharmacist what side effects your medicine may cause and what you should do if you have side effects. Ask if you should avoid some nonprescription medicines. ?Be careful with nonprescription medicines or herbal supplements. Some can raise blood pressure. This includes diet pills, cold and pain medicines, and energy boosters. Read labels or ask your pharmacist if the medicine or supplement affects blood pressure. Some illegal drugs, like cocaine, can also affect blood pressure. ?Check your blood pressure (or have it checked) as often as your provider advises. Keep a diary of the readings. A diary is also a good place to note your exercise, weight, salt intake, types of food you are eating, and your feelings. This can help you learn how these things can affect your blood pressure. Take your diary with you when you visit your provider. Don t smoke. Eat a healthy diet that is low in salt, saturated fat, trans fat, and cholesterol. Include lots of fruits, vegetables, and fat-free or low-fat milk and milk products. Get regular exercise, according to your healthcare provider's advice. For example, you might walk, bike, or swim at least 30 minutes 3 to 5 times a week. Limit the amount of alcohol you drink. Moderate drinking is up to 1 drink a day for women and up to 2 drinks for men. Lose weight if you need to. Try to reduce the stress in your life or learn how to deal better with situations that make you feel anxious. Ask your healthcare provider: ?How and when you will hear your test results ?How long it will take to recover ?What activities you should avoid and when you can return to your normal activities ?How to take care of yourself at home ?What symptoms or problems you should watch for and what to do if you have them Make sure you know when you should come back for a checkup. How can I help prevent high blood pressure? You can help prevent this disease with a heart-healthy lifestyle: Eat a healthy diet and keep a healthy weight. Stay fit with the right kind of exercise for you. Decrease stress. Don t smoke. Limit your use of alcohol. Talk to your healthcare provider about your personal and family medical history and your lifestyle habits. This will help you know what you can do to lower your risk for high blood pressure. Developed by [employer] Published by [employer] Copyright 2014 [employer] and/or one of its subsidiaries. All rights reserved. documented in this encounter [facility] 06-15-2021 History of Presen t illness Narrative Images from the original note were not included. [facility] Cardiology ([place] ([facility] [address] [id number] OUTPATIENT VISIT June 15, 2021 8:30 AM Chief Complaint Patient presents with: New Patient History of Present Illness: Phillip Wilson is a very pleasant 71 year old male who presents for cardiology evaluation. He has a PMHx of HTN, HLD, DM2, RBBB, BRETT, obesity. He explains for the past few months he has had an increased LE swelling. He was prescribed lasix but has been out of his prescription and it causes him to urinate often while at work which is bothersome. He can be somewhat active at work but does not participate in regular aerobic exercise. He describes some mild shortness of breath he relates his his weight. He otherwise denies chest pain, chest pain with activity, palpitations, dizziness, syncope, orthopnea. He has had a previous cardiology evaluation with stress testing which was negative for inducible ischemia. Imaging portions were suggestive of LVH. Echocardiogram is pending. We reviewed risk factors and modifications. 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) 05/26/2015 Type II or unspecified type diabetes mellitus without mention of complication, uncontrolled 08/20/2013 PAST SURGICAL HISTORY Procedure Laterality Date COLONOSCOPY FLX DX W/COLLJ SPEC WHEN PFRMD 09/03/2020 ESOPHAGOGASTRODUODENOSCOPY TRANSORAL DIAGNOSTIC 09/03/2020 LAPAROSCOPY SURG CHOLECYSTECTOMY 07/25/2017 JOEYJose PAST SURGICAL HISTORY OF Right 2016 incision and drainage of knee abscess FAMILY HISTORY Problem Relation Age of Onset Diabetes Mother Coronary Artery Disease Mother CABG 7 COPD Father Multiple Sclerosis Sister No Known Problems Brother No Known Problems Brother No Known Problems Son No Known Problems Son No Known Problems Son Social History Tobacco Use Smoking status: Never Smoker Smokeless tobacco: Never Used Substance Use Topics Alcohol use: No Drug use: No Cardiac Risk Factors: age (male over 45, female over 55), hyperlipidemia, obesity, diabetes, hypertension ALLERGIES Allergen Reactions Ibuprofen GI Upset Lisinopril Cough Omeprazole Intolerance Bilateral lower extremity swelling and water retention. Penicillins Rash Medications: Current Outpatient Medications Medication Sig Dispense Refill pioglitazone (ACTOS) 45 mg tablet Take 1 tablet by mouth once daily. 90 tablet 1 glimepiride (AMARYL) 4 mg tablet take 1 tablet once daily with BREAKFAST 90 tablet 1 atorvastatin (LIPITOR) 20 mg tablet Take 1 tablet by mouth once daily. 90 tablet 1 CPAP Initiate Auto PAP @ 10-20 cm of water with humidification. Mask (per patient preference) optional chin strap (if indicated) , filters, tubing, humidifier and lifetime supplies. 1 Each 0 metFORMIN (GLUCOPHAGE) 500 mg tablet Take 2 tablets by mouth twice daily with meals. 120 tablet 11 aspirin 81 mg chewable tablet Take 81 mg by mouth once daily. blood sugar diagnostic (ACCU-CHEK TOMASZ PLUS TEST STRP) test strip Test daily DX: E11.65 Insulin: No 100 Strip 3 chondro durham A/vit C/manganese (CHONDROITIN SULFATE COMPLEX ORAL) Take 2 tablets by mouth once daily. losartan-hydroCHLOROthiazide (HYZAAR) 50-12.5 mg per tablet Take 1 tablet by mouth once daily. 90 tablet 3 furosemide (LASIX) 40 mg tablet Take 1 tablet by mouth once daily. 30 tablet 3 sildenafil (VIAGRA) 50 mg tablet daily as needed (Patient not taking: Reported on 06/15/2021 ) 6 tablet 3 Current Facility-Administered Medications Medication Dose Route Frequency Provider Last Rate Last Admin perflutren lipid microspheres 1.3 mL in NaCl (PF) 0.9% 10 mL injection (DEFINITY) INTRAVENOUS DIRECTED PRN Rommel Rockwell MD sodium chloride 0.9 % (flush) 10 mL (BD POSIFLUSH) 10 mL INTRAVENOUS DIRECTED PRN Rommel Rockwell MD Review of Systems Constitutional: Negative for chills, diaphoresis, fever, malaise/fatigue and weight loss. HENT: Negative for congestion, ear pain, nosebleeds, sinus pain and sore throat. Eyes: Negative for pain. Respiratory: Positive for shortness of breath. Negative for cough and wheezing. Cardiovascular: Positive for leg swelling. Negative for chest pain and palpitations. Gastrointestinal: Negative for abdominal pain, blood in stool and melena. Genitourinary: Positive for frequency. Negative for hematuria. Musculoskeletal: Negative for falls. Neurological: Negative for dizziness, tingling, sensory change, speech change, focal weakness, loss of consciousness, weakness and headaches. Endo/Heme/Allergies: Does not bruise/bleed easily. Psychiatric/Behavioral: Negative for depression, memory loss and suicidal ideas. The patient is not nervous/anxious and does not have insomnia. Physical Examination: Vitals:BP 162/88 Pulse 90 Resp 18 Ht 5' 6 (1.68m) Wt 285 lb (129.3kg) BMI 46.02 kg/(m^2). Last 2 Encounter Wt Readings: Date: Wt: 03/31/2021 279 lb (126.6 kg) 12/23/2020 275 lb (124.7 kg) Physical Exam HENT: Head: Normocephalic. Eyes: Pupils: Pupils are equal, round, and reactive to light. Cardiovascular: Rate and Rhythm: Normal rate and regular rhythm. Pulses: Radial pulses are 2+ on the right side and 2+ on the left side. Dorsalis pedis pulses are 2+ on the right side and 2+ on the left side. Heart sounds: Normal heart sounds, S1 normal and S2 normal. Pulmonary: Effort: Pulmonary effort is normal. No accessory muscle usage or respiratory distress. Breath sounds: Normal breath sounds. Abdominal: General: Bowel sounds are normal. Palpations: Abdomen is soft. Musculoskeletal: General: Normal range of motion. Cervical back: Normal range of motion. Right lower le+ Pitting Edema present. Left lower le+ Pitting Edema present. Skin: General: Skin is warm and dry. Neurological: Mental Status: He is alert and oriented to person, place, and time. Gait: Gait is intact. Psychiatric: Mood and Affect: Affect normal. Cognition and Memory: Memory normal. Judgment: Judgment normal. Most Recent Cardiac Testing 03/16/2021 CONCLUSIONS: 1. SPECT Perfusion Study: Normal. 2. There is no scintigraphic evidence for inducible ischemia. 3. No evidence of scarred myocardium. 4. Left ventricle is small. The left ventricle systolic function is hyperdynamic. 5. This is a low risk scan. Gated Stress FBP Gated Rest FBP LVEF % 77 LEFT VENTRICLE The left ventricle is small. Left ventricular systolic function is hyperdynamic. There is present left ventricular hypertrophy. Stress ECG Conclusion: Conclusion: Normal Assessment and Plan: HTN -162/88, change Cozaar to Hyzaar and increase as tolerated to meet goal. Has pending lab work planned for the end of this week from PCP -Continue current medication(s) -Encouraged dietary sodium restriction/DASH diet -Recommended regular aerobic exercise. -Recommend home blood pressure monitoring, to bring results in on next visit -Discussed need and benefit for weight loss. -Goal of BP <130/80 Chronic diastolic dysfunction -LVH on stress testing -Lower extremity swelling on exam, otherwise without CHF complaints -Not currently taking Lasix, may need to restart. We will see how effective HCTZ is first with follow-up lab work. -recommended heart healthy, 2g low sodium diet, daily weights HLD -Lipid panel 06/14/2020 LDL 58 -Continue Lipitor 20 mg DM2 -A1c 12/12/2020 6.9 RBBB -Echocardiogram to evaluate structure and function BRETT -Patient states he is awaiting CPAP equipment Obesity -lifestyle modifications -encouraged a heart healthy diet, routine exercise and weight loss Follow-up in 8 weeks for volume and blood pressure reassessment. Patient to call with any issues or concerns prior to then. Electronically signed by Radha Cheek APRN.CNP on June 15, 2021, 8:25 AM documented in this encounter [facility] 06-15-2021 History of Presen t illness Narrative Radiology Service Progress Note PATIENT NAME: Phillip Wilson DATE OF SERVICE: June 15, 2021 TIME: 8:13 AM PATIENT IDENTITY VERIFICATION COMPLETED USING TWO (2) IDENTIFIERS: Name and Date of confirmed by patient verbally. FALL SCREENING: Has the patient had 2 falls in the last year or 1 fall with injury or currently using an Ambulatory Assistive Device (Walker, Cane, Wheelchair, Crutches, etc.)? No PATIENT GENDER DATA: Male PATIENT RELEVANT IMPLANT DATA REVIEWED: Not Applicable RADIOLOGY DEPARTMENT: General X-ray: Exam(s) Completed: Chest X-Ray PERIPHERAL IV DATA: Not applicable SIGNED BY: RT Hemant(R) June 15, 2021 8:13 AM documented in this encounter [facility] 03-16-2021 Note HNO ID: [id number] Author: NATACHA Lau Service: Nuclear Medicine Author Type: Technologist Type: Progress Notes Filed: 03/16/2021 10:04 AM Note Text: RADIOLOGY SERVICE PROGRESS NOTE SERVICE DATE: 03/16/2021 SERVICE TIME: 10:03 AM PATIENT IDENTITY VERIFICATION COMPLETED USING TWO (2) STANDARD IDENTIFIERS: Name and Date of confirmed by patient verbally and Name and Date of confirmed by identification band FALL SCREENING: Has the patient had 2 falls in the last year or 1 fall with injury or currently using an Ambulatory Assistive Device (Walker, Cane, Wheelchair, Crutches, etc.)? No PATIENT GENDER DATA: .male ALLERGIES: Reviewed and unchanged MEDICATIONS REVIEWED: Not applicable PATIENT RELEVANT IMPLANT DATA REVIEWED: Not Applicable CREATININE: Creatinine Date Value Ref Range Status 12/12/2020 0.92 0.73 - 1.22 mg/dL Final 12/07/2019 1.07 0.73 - 1.22 mg/dL Final 08/10/2019 1.24 (H) 0.73 - 1.22 mg/dL Final eGFR-All Other Races Date Value Ref Range Status 12/12/2020 >60 . Final Comment: eGFR (Estimated GFR) Units of measure: mL/min/1.73 meters squared eGFR is derived from the reexpressed MDRD Study equation using the following parameters: serum creatinine, age, gender and race. The creatinine assay has been calibrated to be traceable to IDMS. An eGFR <60 mL/min/1.73m2 for >3 months is consistent with chronic kidney disease. Refer to KDOQI guidelines for clinical interpretation. In patients with unstable renal function, e.g. those with acute kidney injury, the eGFR may not accurately reflect actual GFR. eGFR- Date Value Ref Range Status 12/12/2020 >60 Final P.O.C.T. RESULTS: N/A March 16, [address] PERFORMED: No IV SITE: Ambulatory: A peripheral IV was started in the Left hand with a Angio cath: 24 gauge. POST EXAM PIV STATUS: Discontinued PROCEDURE TYPE: MD Stress: 15.4mCi [id number] was administered IV for Rest Imaging at 09:10 by NATACHA Lau. 46.9 mCi [id number] was administered IV for Stress Imaging at 09:58 by NATACHA Lau. PATIENT DISCHARGED TO: Ambulatory patient, left MD department area. A Diagnostic radioactive procedure has taken place, with no further precautions necessary other than routine body substance precautions. More information regarding radiation safety can be found using this link: [email or web address] SIGNATURE: NATACHA Lau PATIENT NAME: Phillip Wilson DATE: March 16, 2021 TIME: 10:03 AM PAGER/CONTACT #: [facility] 12-29-2019 History of Presen t illness Narrative Radiology Service Progress Note PATIENT NAME: Phillip Wilson DATE OF SERVICE: December 29, 2019 TIME: 12:19 PM PATIENT IDENTITY VERIFICATION COMPLETED USING TWO (2) IDENTIFIERS: Name and Date of confirmed by patient verbally. FALL SCREENING: Has the patient had 2 falls in the last year or 1 fall with injury or currently using an Ambulatory Assistive Device (Walker, Cane, Wheelchair, Crutches, etc.)? No PATIENT GENDER DATA: Male PATIENT RELEVANT IMPLANT DATA REVIEWED: Not Applicable RADIOLOGY DEPARTMENT: General X-ray: Exam(s) Completed: Spine X-Ray(s): Lumbar AP / LAT / L5-S1 Pelvis X-Ray: Pelvis with Hip Left PERIPHERAL IV DATA: Not applicable SIGNED BY: RT Juan Daniel December 29, 2019 12:19 PM documented in this encounter [facility] 12-29-2019 Miscellaneous Notes Phillip, 1. There is significant degenerative disc disease in the lower spine without acute fractures. 2. There is moderate arthritis in both hips on the x-ray, but I believe that the physical exam is most impressive at the left hip. I believe that the disabling pain is coming from his hip. I can recommend physical therapy to help loosen this hip and to strengthen it. Otherwise, you may need to see orthopedic surgeon to discuss hip replacement. 3. There is an incidental soft tissue density to the right of the lumbar spine. The radiologist recommends further evaluation with CT scan because we are not sure what this represents. I will place the order and my staff will contact you for scheduling. Ignacio Ayon III, MD, [facility] documented in this [facility] 12-29-2019 Progress note Formatting of t his note might be different from the original. Phillip, 1. There is significant degenerative disc disease in the lower spine without acute fractures. 2. There is moderate arthritis in both hips on the x-ray, but I believe that the physical exam is most impressive at the left hip. I believe that the disabling pain is coming from his hip. I can recommend physical therapy to help loosen this hip and to strengthen it. Otherwise, you may need to see orthopedic surgeon to discuss hip replacement. 3. There is an incidental soft tissue density to the right of the lumbar spine. The radiologist recommends further evaluation with CT scan because we are not sure what this represents. I will place the order and my staff will contact you for scheduling. Ignacio Ayon III, MD, FAAFP [facility] 07-05-2017 History of Past i llness Narrative Problem Noted Date Resolved Date Gallstones 07/05/2017 01/02/2018 Bursitis, prepatellar 07/04/2017 01/02/2018 Non morbid obesity due to excess calories 201612/23/2020 Staphylococcal arthritis of right knee 6 12/08/2015 Supraspinatus tendinitis 07/22/2014 016 Pelvic pain in male 07/22/2014 05/26/2015 documented as of this encounter (statuses as of 06/15/2021) [facility] History of Past illness Narrative* Problem Noted Date Resolved Date Gallstones 07/05/2017 01/02/2018 Bursitis, prepatellar 07/04/2017 01/02/2018 Non morbid obesity due to excess calories 201612/23/2020 Staphylococcal arthritis of right knee 6 12/08/2015 Supraspinatus tendinitis 07/22/2014 016 Pelvic pain in male 07/22/2014 05/26/2015 documented as of this encounter (statuses as of 06/16/2021) [facility] History of Past illness Narrative* Problem Noted Date Resolved Date Gallstones 07/05/2017 01/02/2018 Bursitis, prepatellar 07/04/2017 01/02/2018 Non morbid obesity due to excess calories 201612/23/2020 Staphylococcal arthritis of right knee 6 12/08/2015 Supraspinatus tendinitis 07/22/2014 016 Pelvic pain in male 07/22/2014 05/26/2015 documented as of this encounter (statuses as of 06/18/2021) [facility] History of Past illness Narrative* Problem Noted Date Resolved Date Gallstones 07/05/2017 01/02/2018 Bursitis, prepatellar 07/04/2017 01/02/2018 Non morbid obesity due to excess calories 201612/23/2020 Staphylococcal arthritis of right knee 6 12/08/2015 Supraspinatus tendinitis 07/22/2014 016 Pelvic pain in male 07/22/2014 05/26/2015 documented as of this encounter (statuses as of 07/03/2021) [facility] History of Past illness Narrative* Problem Noted Date Resolved Date Gallstones 07/05/2017 01/02/2018 Bursitis, prepatellar 07/04/2017 01/02/2018 Non morbid obesity due to excess calories 201612/23/2020 Staphylococcal arthritis of right knee 6 12/08/2015 Supraspinatus tendinitis 07/22/2014 016 Pelvic pain in male 07/22/2014 05/26/2015 documented as of this encounter (statuses as of 07/15/2021) [facility] History of Past illness Narrative* Problem Noted Date Resolved Date Gallstones 07/05/2017 01/02/2018 Bursitis, prepatellar 07/04/2017 01/02/2018 Non morbid obesity due to excess calories 201612/23/2020 Staphylococcal arthritis of right knee 6 12/08/2015 Supraspinatus tendinitis 07/22/2014 016 Pelvic pain in male 07/22/2014 05/26/2015 documented as of this encounter (statuses as of 09/01/2021) [facility] History of Past illness Narrative* Problem Noted Date Resolved Date Gallstones 07/05/2017 01/02/2018 Bursitis, prepatellar 07/04/2017 01/02/2018 Non morbid obesity due to excess calories 201612/23/2020 Staphylococcal arthritis of right knee 6 12/08/2015 Supraspinatus tendinitis 07/22/2014 016 Pelvic pain in male 07/22/2014 05/26/2015 documented as of this encounter (statuses as of 09/28/2021) [facility] History of Past illness Narrative* Problem Noted Date Resolved Date Gallstones 07/05/2017 01/02/2018 Bursitis, prepatellar 07/04/2017 01/02/2018 Non morbid obesity due to excess calories 201612/23/2020 Staphylococcal arthritis of right knee 6 12/08/2015 Supraspinatus tendinitis 07/22/2014 016 Pelvic pain in male 07/22/2014 05/26/2015 documented as of this encounter (statuses as of 09/28/2021) [facility] History of Past illness Narrative* Problem Noted Date Resolved Date Gallstones 07/05/2017 01/02/2018 Bursitis, prepatellar 07/04/2017 01/02/2018 Non morbid obesity due to excess calories 201612/23/2020 Staphylococcal arthritis of right knee 6 12/08/2015 Supraspinatus tendinitis 07/22/2014 016 Pelvic pain in male 07/22/2014 05/26/2015 documented as of this encounter (statuses as of 10/02/2021) [facility] History of Past illness Narrative* Problem Noted Date Resolved Date Gallstones 07/05/2017 01/02/2018 Bursitis, prepatellar 07/04/2017 01/02/2018 Non morbid obesity due to excess calories 201612/23/2020 Staphylococcal arthritis of right knee 6 12/08/2015 Supraspinatus tendinitis 07/22/2014 016 Pelvic pain in male 07/22/2014 05/26/2015 documented as of this encounter (statuses as of 10/12/2021) [facility] History of Past illness Narrative* Problem Noted Date Resolved Date Gallstones 07/05/2017 01/02/2018 Bursitis, prepatellar 07/04/2017 01/02/2018 Non morbid obesity due to excess calories 201612/23/2020 Staphylococcal arthritis of right knee 6 12/08/2015 Supraspinatus tendinitis 07/22/2014 016 Pelvic pain in male 07/22/2014 05/26/2015 documented as of this encounter (statuses as of 10/14/2021) [facility] History of Past illness Narrative* Problem Noted Date Resolved Date Gallstones 07/05/2017 01/02/2018 Bursitis, prepatellar 07/04/2017 01/02/2018 Non morbid obesity due to excess calories 201612/23/2020 Staphylococcal arthritis of right knee 6 12/08/2015 Supraspinatus tendinitis 07/22/2014 016 Pelvic pain in male 07/22/2014 05/26/2015 documented as of this encounter (statuses as of 10/15/2021) [facility] History of Past illness Narrative* Problem Noted Date Resolved Date Gallstones 07/05/2017 01/02/2018 Bursitis, prepatellar 07/04/2017 01/02/2018 Non morbid obesity due to excess calories 201612/23/2020 Staphylococcal arthritis of right knee 6 12/08/2015 Supraspinatus tendinitis 07/22/2014 016 Pelvic pain in male 07/22/2014 05/26/2015 documented as of this encounter (statuses as of 11/25/2021) [facility] of Past illness Narrative* Problem Noted Date Resolved Date Gallstones 07/05/2017 01/02/2018 Bursitis, prepatellar 07/04/2017 01/02/2018 Non morbid obesity due to excess calories 201612/23/2020 Staphylococcal arthritis of right knee 6 12/08/2015 Supraspinatus tendinitis 07/22/2014 016 Pelvic pain in male 07/22/2014 05/26/2015 documented as of this encounter (statuses as of 11/27/2021) [facility] History of Past illness Narrative* Problem Noted Date Resolved Date Gallstones 07/05/2017 01/02/2018 Bursitis, prepatellar 07/04/2017 01/02/2018 Non morbid obesity due to excess calories 201612/23/2020 Staphylococcal arthritis of right knee 6 12/08/2015 Supraspinatus tendinitis 07/22/2014 016 Pelvic pain in male 07/22/2014 05/26/2015 documented as of this encounter (statuses as of 12/28/2021) [facility] of Past illness Narrative* Problem Noted Date Resolved Date Gallstones 07/05/2017 01/02/2018 Bursitis, prepatellar 07/04/2017 01/02/2018 Non morbid obesity due to excess calories 201612/23/2020 Staphylococcal arthritis of right knee 6 12/08/2015 Supraspinatus tendinitis 07/22/2014 016 Pelvic pain in male 07/22/2014 05/26/2015 documented as of this encounter (statuses as of 01/05/2022) [facility] History of Past illness Narrative* Problem Noted Date Resolved Date Gallstones 07/05/2017 01/02/2018 Bursitis, prepatellar 07/04/2017 01/02/2018 Non morbid obesity due to excess calories 201612/23/2020 Staphylococcal arthritis of right knee 6 12/08/2015 Supraspinatus tendinitis 07/22/2014 016 Pelvic pain in male 07/22/2014 05/26/2015 documented as of this encounter (statuses as of 01/11/2022) [facility] History of Past illness Narrative* Problem Noted Date Resolved Date Gallstones 07/05/2017 01/02/2018 Bursitis, prepatellar 07/04/2017 01/02/2018 Non morbid obesity due to excess calories 201612/23/2020 Staphylococcal arthritis of right knee 6 12/08/2015 Supraspinatus tendinitis 07/22/2014 016 Pelvic pain in male 07/22/2014 05/26/2015 documented as of this encounter (statuses as of 01/13/2022) [facility] History of Past illness Narrative* Problem Noted Date Resolved Date Gallstones 07/05/2017 01/02/2018 Bursitis, prepatellar 07/04/2017 01/02/2018 Non morbid obesity due to excess calories 201612/23/2020 Staphylococcal arthritis of right knee 6 12/08/2015 Supraspinatus tendinitis 07/22/2014 016 Pelvic pain in male 07/22/2014 05/26/2015 documented as of this encounter (statuses as of 01/20/2022) [facility] of Past illness Narrative* Problem Noted Date Resolved Date Gallstones 07/05/2017 01/02/2018 Bursitis, prepatellar 07/04/2017 01/02/2018 Non morbid obesity due to excess calories 201612/23/2020 Staphylococcal arthritis of right knee 6 12/08/2015 Supraspinatus tendinitis 07/22/2014 016 Pelvic pain in male 07/22/2014 05/26/2015 documented as of this encounter (statuses as of 02/04/2022) [facility] of Past illness Narrative* Problem Noted Date Resolved Date Gallstones 07/05/2017 01/02/2018 Bursitis, prepatellar 07/04/2017 01/02/2018 Non morbid obesity due to excess calories 201612/23/2020 Staphylococcal arthritis of right knee 6 12/08/2015 Supraspinatus tendinitis 07/22/2014 016 Pelvic pain in male 07/22/2014 05/26/2015 documented as of this encounter (statuses as of 03/03/2022) [facility] History of Past illness Narrative* Problem Noted Date Resolved Date Gallstones 07/05/2017 01/02/2018 Bursitis, prepatellar 07/04/2017 01/02/2018 Non morbid obesity due to excess calories 201612/23/2020 Staphylococcal arthritis of right knee 6 12/08/2015 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 04/07/2022 Supraspinatus tendinitis 07/22/2014 016 Pelvic pain in male 07/22/2014 05/26/2015 documented as of this encounter (statuses as of 04/07/2022) [facility] History of Past illness Narrative* Problem Noted Date Resolved Date Gallstones 07/05/2017 01/02/2018 Bursitis, prepatellar 07/04/2017 01/02/2018 Non morbid obesity due to excess calories 201612/23/2020 Staphylococcal arthritis of right knee 6 12/08/2015 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 04/07/2022 Supraspinatus tendinitis 07/22/2014 016 Pelvic pain in male 07/22/2014 05/26/2015 documented as of this encounter (statuses as of 05/24/2022) [facility] History of Past illness Narrative* Problem Noted Date Resolved Date Gallstones 07/05/2017 01/02/2018 Bursitis, prepatellar 07/04/2017 01/02/2018 Non morbid obesity due to excess calories 201612/23/2020 Staphylococcal arthritis of right knee 6 12/08/2015 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 04/07/2022 Supraspinatus tendinitis 07/22/2014 016 Pelvic pain in male 07/22/2014 05/26/2015 documented as of this encounter (statuses as of 06/24/2022) [facility] History of Past illness Narrative* Problem Noted Date Resolved Date Gallstones 07/05/2017 01/02/2018 Bursitis, prepatellar 07/04/2017 01/02/2018 Non morbid obesity due to excess calories 201612/23/2020 Staphylococcal arthritis of right knee 6 12/08/2015 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 04/07/2022 Supraspinatus tendinitis 07/22/2014 016 Pelvic pain in male 07/22/2014 05/26/2015 documented as of this encounter (statuses as of 07/08/2022) [facility] History of Past illness Narrative* Problem Noted Date Resolved Date Gallstones 07/05/2017 01/02/2018 Bursitis, prepatellar 07/04/2017 01/02/2018 Non morbid obesity due to excess calories 201612/23/2020 Staphylococcal arthritis of right knee 6 12/08/2015 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 04/07/2022 Supraspinatus tendinitis 07/22/2014 016 Pelvic pain in male 07/22/2014 05/26/2015 documented as of this encounter (statuses as of 07/12/2022) [facility] History of Past illness Narrative* Problem Noted Date Resolved Date Gallstones 07/05/2017 01/02/2018 Bursitis, prepatellar 07/04/2017 01/02/2018 Non morbid obesity due to excess calories 201612/23/2020 Staphylococcal arthritis of right knee 6 12/08/2015 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 04/07/2022 Supraspinatus tendinitis 07/22/2014 016 Pelvic pain in male 07/22/2014 05/26/2015 documented as of this encounter (statuses as of 08/04/2022) [facility] of Past illness Narrative* Problem Noted Date Resolved Date Gallstones 07/05/2017 01/02/2018 Bursitis, prepatellar 07/04/2017 01/02/2018 Non morbid obesity due to excess calories 201612/23/2020 Staphylococcal arthritis of right knee 6 12/08/2015 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 04/07/2022 Supraspinatus tendinitis 07/22/2014 016 Pelvic pain in male 07/22/2014 05/26/2015 documented as of this encounter (statuses as of 08/17/2022) [facility] History of Past illness Narrative* Problem Noted Date Diagnosed Date Resolved Date Gallstones 07/05/2017 01/02/2018 Bursitis, prepatellar 07/04/20172017 Non morbid obesity due to excess calories 08/23/2016 12/23/2020 Staphylococcal arthritis of right knee 10/27/2015 12/08/2015 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 05/26/19 16 04/07/2022 Supraspinatus tendinitis 07/22/2014 Pelvic pain in male 07/22/2014 05/26/19 16 documented as of this encounter (statuses as of 12/07/2022) [facility] History of Past illness Narrative* Problem Noted Date Diagnosed Date Resolved Date Gallstones 07/05/2017 01/02/2018 Bursitis, prepatellar 07/04/20172017 Non morbid obesity due to excess calories 08/23/2016 12/23/2020 Staphylococcal arthritis of right knee 10/27/2015 12/08/2015 Type 2 diabetes mellitus wit h pressure callus (HCC) 05/26/2015 04/07/2022 Supraspinatus tendinitis 07/22/2014 Pelvic pain in male 07/22/2014 05/26/19 16 documented as of this encounter (statuses as of 01/13/2023) [facility] History of Past illness Narrative* Problem Noted Date Diagnosed Date Resolved Date Gallstones 07/05/2017 01/02/2018 Bursitis, prepatellar 07/04/20172017 Non morbid obesity due to excess calories 08/23/2016 12/23/2020 Staphylococcal arthritis of right knee 10/27/2015 12/08/2015 Type 2 diabetes mellitus wit h pressure callus (HCC) 05/26/2015 04/07/2022 Supraspinatus tendinitis 07/22/2014 Pelvic pain in male 07/22/2014 05/26/19 16 documented as of this encounter (statuses as of 01/19/2023) [facility] History of Past illness Narrative* Problem Noted Date Diagnosed Date Resolved Date Gallstones 07/05/2017 01/02/2018 Bursitis, prepatellar 07/04/20172017 Non morbid obesity due to excess calories 08/23/2016 12/23/2020 Staphylococcal arthritis of right knee 10/27/2015 12/08/2015 Type 2 diabetes mellitus wit h pressure callus (HCC) 05/26/2015 04/07/2022 Supraspinatus tendinitis 07/22/2014 Pelvic pain in male 07/22/2014 05/26/19 16 documented as of this encounter (statuses as of 02/02/2023) [facility] History of Past illness Narrative* Problem Noted Date Diagnosed Date Resolved Date Gallstones 07/05/2017 01/02/2018 Bursitis, prepatellar 07/04/20172017 Non morbid obesity due to excess calories 08/23/2016 12/23/2020 Staphylococcal arthritis of right knee 10/27/2015 12/08/2015 Type 2 diabetes mellitus wit h pressure callus (HCC) 05/26/2015 04/07/2022 Supraspinatus tendinitis 07/22/2014 Pelvic pain in male 07/22/2014 05/26/19 16 documented as of this encounter (statuses as of 02/07/2023) [facility] History of Past illness Narrative* Problem Noted Date Diagnosed Date Resolved Date Gallstones 07/05/2017 01/02/2018 Bursitis, prepatellar 07/04/20172017 Non morbid obesity due to excess calories 08/23/2016 12/23/2020 Staphylococcal arthritis of right knee 10/27/2015 12/08/2015 Type 2 diabetes mellitus wit h pressure callus (HCC) 05/26/2015 04/07/2022 Supraspinatus tendinitis 07/22/2014 Pelvic pain in male 07/22/2014 05/26/19 16 documented as of this encounter (statuses as of 02/17/2023) [facility] History of Past illness Narrative* Problem Noted Date Diagnosed Date Resolved Date Gallstones 07/05/2017 01/02/2018 Bursitis, prepatellar 07/04/20172017 Non morbid obesity due to excess calories 08/23/2016 12/23/2020 Staphylococcal arthritis of right knee 10/27/2015 12/08/2015 Type 2 diabetes mellitus wit h pressure callus (HCC) 05/26/2015 04/07/2022 Supraspinatus tendinitis 07/22/2014 Pelvic pain in male 07/22/2014 05/26/19 16 documented as of this encounter (statuses as of 05/03/2023) [facility] History of Past illness Narrative* Problem Noted Date Diagnosed Date Resolved Date Gallstones 07/05/2017 01/02/2018 Bursitis, prepatellar 07/04/20172017 Non morbid obesity due to excess calories 08/23/2016 12/23/2020 Staphylococcal arthritis of right knee 10/27/2015 12/08/2015 Type 2 diabetes mellitus wit h pressure callus (HCC) 05/26/2015 04/07/2022 Supraspinatus tendinitis 07/22/2014 Pelvic pain in male 07/22/2014 05/26/19 16 documented as of this encounter (statuses as of 05/04/2023) [facility] Essential hypertension, benign- Primary Ventricular hypertrophy Cardiomegaly Hyperlipidemia with target LDL less than 100 Other and unspecified hyperlipidemia Obesity, Class III, BMI 40-49.9 (morbid obesity) (HCC) Morbid obesity [facility] Diagnosis PARKER (dyspnea on exertion) Other dyspnea and respiratory abnormality [facility] Diagnosis PARKER (dyspnea on exertion) Other dyspnea and respiratory abnormality [facility] Diagnosis 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 Type II or unspecified type diabetes mellitus with other specified manifestations, not stated as uncontrolled Essential hypertension, benign Hyperlipidemia with target LDL less than 100 Other and unspecified hyperlipidemia BRETT (obstructive sleep apnea) Obstructive sleep apnea (adult) (pediatric) Bilateral lower extremity edema Edema BPH with obstruction/lower urinary tract symptoms Hypertrophy of prostate with urinary obstruction and other lower urinary tract symptoms (LUTS) [facility] Diagnosis Chronic diastolic (congestive) heart failure (HCC)- Primary Leg swelling Swelling of limb Essential hypertension, benign Hyperlipidemia with target LDL less than 100 Other and unspecified hyperlipidemia Obesity, Class III, BMI 40-49.9 (morbid obesity) (HCC) Morbid obesity Type 2 diabetes mellitus without complication, without long-term current use of insulin (HCC) [facility] Diagnosis 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) Type II or unspecified type diabetes mellitus with other specified manifestations, not stated as uncontrolled Hyperlipidemia with target LDL less than 100 Other and unspecified hyperlipidemia [facility] Diagnosis 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 Type II or unspecified type diabetes mellitus with other specified manifestations, not stated as uncontrolled Essential hypertension, benign Hyperlipidemia with target LDL less than 100 Other and unspecified hyperlipidemia BRETT (obstructive sleep apnea) Obstructive sleep apnea (adult) (pediatric) Chronic diastolic heart failure (HCC) Chronic diastolic heart failure Bilateral lower extremity edema Edema [facility] Diagnosis LLQ abdominal pain- Primary Abdominal pain, left lower quadrant Dry heaves Vomiting alone Diarrhea, unspecified type [facility] Diagnosis 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) Type II or unspecified type diabetes mellitus with other specified manifestations, not stated as uncontrolled [facility] Diagnosis 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) Type II or unspecified type diabetes mellitus with other specified manifestations, not stated as uncontrolled [facility] Diagnosis 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 Type II or unspecified type diabetes mellitus with other specified manifestations, not stated as uncontrolled [facility] Diagnosis 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 Type II or unspecified type diabetes mellitus with other specified manifestations, not stated as uncontrolled BRETT on CPAP Obstructive sleep apnea (adult) (pediatric) Essential hypertension, benign Hyperlipidemia with target LDL less than 100 Other and unspecified hyperlipidemia Obesity, Class III, BMI 40-49.9 (morbid obesity) (HCC) Morbid obesity Onychomycosis Dermatophytosis of nail [facility] Diagnosis 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 Type II or unspecified type diabetes mellitus with other specified manifestations, not stated as uncontrolled Essential hypertension, benign [facility] Chronic diastolic (congestive) heart failure (HCC)- Primary Essential hypertension, benign Hyperlipidemia with target LDL less than 100 Other and unspecified hyperlipidemia Obesity, Class III, BMI 40-49.9 (morbid obesity) (HCC) Morbid obesity Type 2 diabetes mellitus without complication, without long-term current use of insulin (HCC) Cellulitis of face Cellulitis and abscess of face [facility] Diagnosis 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 Type II or unspecified type diabetes mellitus with other specified manifestations, not stated as uncontrolled Essential hypertension, benign BRETT on CPAP Obstructive sleep apnea (adult) (pediatric) Obesity, Class III, BMI 40-49.9 (morbid obesity) (HCC) Morbid obesity Type 2 diabetes mellitus without complication, without long-term current use of insulin (HCC) Chronic diastolic heart failure (HCC) Chronic diastolic heart failure [facility] Diagnosis Hyperlipidemia with target LDL less than 100 Other and unspecified hyperlipidemia [facility] Diagnosis 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) Type II or unspecified type diabetes mellitus with other specified manifestations, not stated as uncontrolled [facility] Diagnosis BRETT on CPAP- Primary Obstructive sleep apnea (adult) (pediatric) Nocturnal hypoxia Hypoxemia Class 3 severe obesity with body mass index (BMI) of 40.0 to 44.9 in adult, unspecified obesity type, unspecified whether serious comorbidity present (HCC) [facility] Diagnosis 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 Type II or unspecified type diabetes mellitus with other specified manifestations, not stated as uncontrolled Stage 3 chronic kidney disease, unspecified whether stage 3a or 3b CKD (HCC) [facility] Diagnosis 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) Type II or unspecified type diabetes mellitus with other specified manifestations, not stated as uncontrolled [facility] Diagnosis 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) Type II or unspecified type diabetes mellitus with other specified manifestations, not stated as uncontrolled [facility] Diagnosis Type 2 diabetes mellitus without complication, without long-term current use of insulin (HCC)- Primary Essential hypertension, benign Stage 3 chronic kidney disease, unspecified whether stage 3a or 3b CKD (HCC) Hyperlipidemia with target LDL less than 100 Other and unspecified hyperlipidemia Obesity, Class III, BMI 40-49.9 (morbid obesity) (HCC) Morbid obesity Chronic diastolic heart failure (HCC) Chronic diastolic heart failure BRETT on CPAP Obstructive sleep apnea (adult) (pediatric) Encounter for immunization Need for other specified prophylactic vaccination against single bacterial disease [facility] BRETT [facility]AP- Primary Obstructive sleep apnea (adult) (pediatric) Nocturnal hypoxia Hypoxemia Class 2 obesity with body mass index (BMI) of 39.0 to 39.9 in adult, unspecified obesity type, unspecified whether serious comorbidity present [facility] Diagnosis 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) Type II or unspecified type diabetes mellitus with other specified manifestations, not stated as uncontrolled [facility] Diagnosis Hyperlipidemia with target LDL less than 100 Other and unspecified hyperlipidemia [facility] Diagnosis Hyperlipidemia with target LDL less than 100 Other and unspecified hyperlipidemia [facility] Diagnosis 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) Type II or unspecified type diabetes mellitus with other specified manifestations, not stated as uncontrolled [facility] Diagnosis 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)- Primary Type II or unspecified type diabetes mellitus with other specified manifestations, not stated as uncontrolled [facility] Diagnosis 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 Type II or unspecified type diabetes mellitus with other specified manifestations, not stated as uncontrolled Obesity, Class II, BMI 35-39.9 Obesity, unspecified Essential hypertension, benign Chronic diastolic heart failure (HCC) Chronic diastolic heart failure BRETT on CPAP Obstructive sleep apnea (adult) (pediatric) Hyperlipidemia with target LDL less than 100 Other and unspecified hyperlipidemia [facility] Diagnosis 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) Type II or unspecified type diabetes mellitus with other specified manifestations, not stated as uncontrolled [facility] Diagnosis Hyperlipidemia with target LDL less than 100 Other and unspecified hyperlipidemia [facility] Diagnosis Preop examination- Primary Preoperative examination, unspecified 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) Type II or unspecified type diabetes mellitus with other specified manifestations, not stated as uncontrolled [facility] Diagnosis Chronic midline low back pain with left-sided sciatica Left hip pain Pain in joint, pelvic region and thigh documented in this encounter [facility] for referral (narrative)* Outpatient Procedure (Routine) - New Request Specialty Diagnoses / Procedures Referred By Ashley zhou Referred To Contact [facility] Diagnoses Preop examination Procedures ECG COMPLETE ECG ROUTINE ECG W/LEAST 12 LDS W/I&R Podlogar, AGNES Alvar[address] [place] [address] [facility] [id number] [place] [address] Referral ID Status Reason Start Date Expiration Date Visits Requested Visits Authorized [id number] New Request Auto-Generat ed Referral 12/07/2023 12/06/2024 1 1 [facility] for visit Narrative* Outpatient Procedure (Urgent) - Closed Specialty Diagnoses / Procedures [facility]erred To Contact [facility] Diagnoses PARKER (dyspnea on exertion) Procedures ECHO TTE W/DOPPLER, COMPLETE Rommel Rockwell MD [address] [place] [address] [facility] [id number] [place] [address] Referral ID Status Reason Start Date Expiration Date V isits Requested Visits Authorized [id number] Closed Auto-Generate d Referral 12/23/2020 12/23/2021 1 1 [facility] Summary Purpose Family History No Family History Records FoundNo Family History Records Found Advance Directives Documents on File Type Date Recorded Patient Director Customer Expl anation Advance Directive(s) 02/28/2019 8:16 AM Advance Directive(s) 02/28/2019 8:15 AM Documents on File Type Date Recorded Patient Director Customer Expl anation Advance Directive(s) 02/28/2019 8:16 AM Advance Directive(s) 02/28/2019 8:15 AM Documents on File Type Date Recorded Patient Director Customer Expl anation Advance Directive(s) 02/28/2019 8:15 AM Documents on File Type Date Recorded Patient Director Customer Expl anation Advance Directive(s) 02/28/2019 8:15 AM Reason for Referral Specialty Diagnoses / Procedures Referred By Ashley t Referred To Contact Diagnoses BRETT on CPAP Procedures CONSULT TO SLEEP MEDICINE - ADULT OFFICE/OUTPATIENT [facility] MDM 60-74 MINUTES Rommel Rockwell MD [address] [place] [address] Referral ID Status Reason Start Date Expiration Date Visits Requested Visits Authorized [id number] Pending Review PCP Requested Referral 2 01/05/2023 1 1 Additional Source Comments (unrecognized sect ion and content) No Status Records FoundNo Status Records Found INFORMATION SOURCE (unrecogn ized section and content) DATE CREATED AUTHOR 03/19/2021 [facility] DATE CREATED AUTHOR AUTHOR'S ORGANIZ ATION 12/09/2023 [facility] Source Comments (unrecognize d section and content) In the event this informatio n is protected by the Federal Confidentiality of Alcohol and Drug Abuse Patient Records regulations: The Federal rules restrict any use of the information to criminally investigate or prosecute any alcohol or drug abuse patient.[facility] event this information is protected by the Federal Confidentiality of Alcohol and Drug Abuse Patient Records regulations: The Federal rules restrict any use of the information to criminally investigate or prosecute any alcohol or drug abuse patient.[facility] the event this information is protected by the Federal Confidentiality of Alcohol and Drug Abuse Patient Records regulations: The Federal rules restrict any use of the information to criminally investigate or prosecute any alcohol or drug abuse patient.[facility] the event this information is protected by the Federal Confidentiality of Alcohol and Drug Abuse Patient Records regulations: The Federal rules restrict any use of the information to criminally investigate or prosecute any alcohol or drug abuse patient.[facility] the event this information is protected by the Federal Confidentiality of Alcohol and Drug Abuse Patient Records regulations: The Federal rules restrict any use of the information to criminally investigate or prosecute any alcohol or drug abuse patient.[facility] the event this information is protected by the Federal Confidentiality of Alcohol and Drug Abuse Patient Records regulations: The Federal rules restrict any use of the information to criminally investigate or prosecute any alcohol or drug abuse patient.[facility] the event this information is protected by the Federal Confidentiality of Alcohol and Drug Abuse Patient Records regulations: The Federal rules restrict any use of the information to criminally investigate or prosecute any alcohol or drug abuse patient.[facility] the event this information is protected by the Federal Confidentiality of Alcohol and Drug Abuse Patient Records regulations: The Federal rules restrict any use of the information to criminally investigate or prosecute any alcohol or drug abuse patient.[facility] the event this information is protected by the Federal Confidentiality of Alcohol and Drug Abuse Patient Records regulations: The Federal rules restrict any use of the information to criminally investigate or prosecute any alcohol or drug abuse patient.[facility] the event this information is protected by the Federal Confidentiality of Alcohol and Drug Abuse Patient Records regulations: The Federal rules restrict any use of the information to criminally investigate or prosecute any alcohol or drug abuse patient.[facility] the event this information is protected by the Federal Confidentiality of Alcohol and Drug Abuse Patient Records regulations: The Federal rules restrict any use of the information to criminally investigate or prosecute any alcohol or drug abuse patient.[facility] the event this information is protected by the Federal Confidentiality of Alcohol and Drug Abuse Patient Records regulations: The Federal rules restrict any use of the information to criminally investigate or prosecute any alcohol or drug abuse patient.[facility] the event this information is protected by the Federal Confidentiality of Alcohol and Drug Abuse Patient Records regulations: The Federal rules restrict any use of the information to criminally investigate or prosecute any alcohol or drug abuse patient.[facility] the event this information is protected by the Federal Confidentiality of Alcohol and Drug Abuse Patient Records regulations: The Federal rules restrict any use of the information to criminally investigate or prosecute any alcohol or drug abuse patient.[facility] the event this information is protected by the Federal Confidentiality of Alcohol and Drug Abuse Patient Records regulations: The Federal rules restrict any use of the information to criminally investigate or prosecute any alcohol or drug abuse patient.[facility] the event this information is protected by the Federal Confidentiality of Alcohol and Drug Abuse Patient Records regulations: The Federal rules restrict any use of the information to criminally investigate or prosecute any alcohol or drug abuse patient.[facility] the event this information is protected by the Federal Confidentiality of Alcohol and Drug Abuse Patient Records regulations: The Federal rules restrict any use of the information to criminally investigate or prosecute any alcohol or drug abuse patient.[facility] the event this information is protected by the Federal Confidentiality of Alcohol and Drug Abuse Patient Records regulations: The Federal rules restrict any use of the information to criminally investigate or prosecute any alcohol or drug abuse patient.[facility] the event this information is protected by the Federal Confidentiality of Alcohol and Drug Abuse Patient Records regulations: The Federal rules restrict any use of the information to criminally investigate or prosecute any alcohol or drug abuse patient.[facility] the event this information is protected by the Federal Confidentiality of Alcohol and Drug Abuse Patient Records regulations: The Federal rules restrict any use of the information to criminally investigate or prosecute any alcohol or drug abuse patient.[facility] the event this information is protected by the Federal Confidentiality of Alcohol and Drug Abuse Patient Records regulations: The Federal rules restrict any use of the information to criminally investigate or prosecute any alcohol or drug abuse patient.[facility] the event this information is protected by the Federal Confidentiality of Alcohol and Drug Abuse Patient Records regulations: The Federal rules restrict any use of the information to criminally investigate or prosecute any alcohol or drug abuse patient.[facility] the event this information is protected by the Federal Confidentiality of Alcohol and Drug Abuse Patient Records regulations: The Federal rules restrict any use of the information to criminally investigate or prosecute any alcohol or drug abuse patient.[facility] the event this information is protected by the Federal Confidentiality of Alcohol and Drug Abuse Patient Records regulations: The Federal rules restrict any use of the information to criminally investigate or prosecute any alcohol or drug abuse patient.[facility] the event this information is protected by the Federal Confidentiality of Alcohol and Drug Abuse Patient Records regulations: The Federal rules restrict any use of the information to criminally investigate or prosecute any alcohol or drug abuse patient.[facility] the event this information is protected by the Federal Confidentiality of Alcohol and Drug Abuse Patient Records regulations: The Federal rules restrict any use of the information to criminally investigate or prosecute any alcohol or drug abuse patient.[facility]In the event this information is protected by the Federal Confidentiality of Alcohol and Drug Abuse Patient Records regulations: The Federal rules restrict any use of the information to criminally investigate or prosecute any alcohol or drug abuse patient.[facility] HospitalIn the event this information is protected by the Federal Confidentiality of Alcohol and Drug Abuse Patient Records regulations: The Federal rules restrict any use of the information to criminally investigate or prosecute any alcohol or drug abuse patient.[facility] HospitalIn the event this information is protected by the Federal Confidentiality of Alcohol and Drug Abuse Patient Records regulations: The Federal rules restrict any use of the information to criminally investigate or prosecute any alcohol or drug abuse patient.[facility] HospitalIn the event this information is protected by the Federal Confidentiality of Alcohol and Drug Abuse Patient Records regulations: The Federal rules restrict any use of the information to criminally investigate or prosecute any alcohol or drug abuse patient.[facility] HospitalIn the event this information is protected by the Federal Confidentiality of Alcohol and Drug Abuse Patient Records regulations: The Federal rules restrict any use of the information to criminally investigate or prosecute any alcohol or drug abuse patient.[facility] HospitalIn the event this information is protected by the Federal Confidentiality of Alcohol and Drug Abuse Patient Records regulations: The Federal rules restrict any use of the information to criminally investigate or prosecute any alcohol or drug abuse patient.[facility] HospitalIn the event this information is protected by the Federal Confidentiality of Alcohol and Drug Abuse Patient Records regulations: The Federal rules restrict any use of the information to criminally investigate or prosecute any alcohol or drug abuse patient.[facility] HospitalIn the event this information is protected by the Federal Confidentiality of Alcohol and Drug Abuse Patient Records regulations: The Federal rules restrict any use of the information to criminally investigate or prosecute any alcohol or drug abuse patient.[facility] HospitalIn the event this information is protected by the Federal Confidentiality of Alcohol and Drug Abuse Patient Records regulations: The Federal rules restrict any use of the information to criminally investigate or prosecute any alcohol or drug abuse patient.[facility] HospitalIn the event this information is protected by the Federal Confidentiality of Alcohol and Drug Abuse Patient Records regulations: The Federal rules restrict any use of the information to criminally investigate or prosecute any alcohol or drug abuse patient.[facility] HospitalIn the event this information is protected by the Federal Confidentiality of Alcohol and Drug Abuse Patient Records regulations: The Federal rules restrict any use of the information to criminally investigate or prosecute any alcohol or drug abuse patient.[facility] HospitalIn the event this information is protected by the Federal Confidentiality of Alcohol and Drug Abuse Patient Records regulations: The Federal rules restrict any use of the information to criminally investigate or prosecute any alcohol or drug abuse patient.[facility] HospitalIn the event this information is protected by the Federal Confidentiality of Alcohol and Drug Abuse Patient Records regulations: The Federal rules restrict any use of the information to criminally investigate or prosecute any alcohol or drug abuse patient.[facility] HospitalIn the event this information is protected by the Federal Confidentiality of Alcohol and Drug Abuse Patient Records regulations: The Federal rules restrict any use of the information to criminally investigate or prosecute any alcohol or drug abuse patient.[facility] HospitalIn the event this information is protected by the Federal Confidentiality of Alcohol and Drug Abuse Patient Records regulations: The Federal rules restrict any use of the information to criminally investigate or prosecute any alcohol or drug abuse patient.[facility] HospitalIn the event this information is protected by the Federal Confidentiality of Alcohol and Drug Abuse Patient Records regulations: The Federal rules restrict any use of the information to criminally investigate or prosecute any alcohol or drug abuse patient.[facility] HospitalIn the event this information is protected by the Federal Confidentiality of Alcohol and Drug Abuse Patient Records regulations: The Federal rules restrict any use of the information to criminally investigate or prosecute any alcohol or drug abuse patient.[facility] HospitalIn the event this information is protected by the Federal Confidentiality of Alcohol and Drug Abuse Patient Records regulations: The Federal rules restrict any use of the information to criminally investigate or prosecute any alcohol or drug abuse patient.[facility] HospitalIn the event this information is protected by the Federal Confidentiality of Alcohol and Drug Abuse Patient Records regulations: The Federal rules restrict any use of the information to criminally investigate or prosecute any alcohol or drug abuse patient.[facility] HospitalIn the event this information is protected by the Federal Confidentiality of Alcohol and Drug Abuse Patient Records regulations: The Federal rules restrict any use of the information to criminally investigate or prosecute any alcohol or drug abuse patient.[facility] HospitalIn the event this information is protected by the Federal Confidentiality of Alcohol and Drug Abuse Patient Records regulations: The Federal rules restrict any use of the information to criminally investigate or prosecute any alcohol or drug abuse patient.[facility] HospitalIn the event this information is protected by the Federal Confidentiality of Alcohol and Drug Abuse Patient Records regulations: The Federal rules restrict any use of the information to criminally investigate or prosecute any alcohol or drug abuse patient.[facility] Reason for Visit (unrecogniz ed section and content) Reason Comments New Patient Specialty Diagnoses / Procedures Referred By Ashley t Referred To Contact Cardiology Diagnoses Ventricular hypertrophy Procedures CONSULT TO CARDIOLOGY NEW PATIENT VISIT LEVEL 5 Rommel Rockwell MD [address] [place] [address] Referral ID Status Reason Start Date Expiration Date V isits Requested Visits Authorized [id number] Closed PCP Requested Referral 03/18/2021 03/18/2022 1 1 Reason Comments Follow Up follow up Reason Onset Date Comments Refill Request 07/15/2021 Reason Comments Established Patient Follow-Up 2 month; E cho Reason Comments Results Reason Onset Date Comments Refill Request 09/28/2021 Reason Comments Follow Up 3 month Reason Comments Blood Sugar Reading Reason Comments Abdominal Pain Patient indicated le ft side pain now moving into back; dry heaves; diarrhea. Reason Comments Patient Update Reason Onset Date Comments Refill Request 11/25/2021 Reason Comments Medication Problem Reason Comments Orders Reason Comments Follow Up 3 month- discuss CPA P can't get replacement equipment needs medical necessity paperwork Reason Comments Forms Cpiq-sq-ajoe note be ing requested by Johanna Reason Comments Follow Up 2 Week DM Reason Comments Established Patient Follow-Up Reason Comments Follow Up Reason Comments Refill Request Reason Comments Follow Up 3 month- refills 90 day supplies please Reason Comments New Patient Sleep Apnea Specialty Diagnoses / Procedures Referred By Ashley zhou Referred To Contact Diagnoses BRETT on CPAP Procedures CONSULT TO SLEEP MEDICINE - ADULT OFFICE/OUTPATIENT NEW HIGH MDM 60-74 MINUTES Rommel Rockwell MD [address] [place] [address] Referral ID Status Reason Start Date Expiration Date Visits Requested Visits Authorized [id number] Pending Review PCP Requested Referral 2 01/05/2023 1 1 Reason Comments Follow Up 4 week Reason Onset Date Comments Refill Request 12/07/2022 Reason Comments F/U 3 Month Reason Comments Follow Up Pt denied current co ncerns, reported feeling rested. Reason Onset Date Comments Refill Request 02/16/2023 Reason Onset Date Comments Refill Request 05/03/2023 Refill Request 05/04/2023 Reason Onset Date Comments Refill Request 08/11/2023 Reason Onset Date Comments Refill Request 09/06/2023 Reason Comments 6 Month Exam Reason Comments Med Change Request Reason Comments Opened In Error Reason Onset Date Comments Refill Request 11/16/2023 Reason Comments Preop Appt Reason Comments Pre-Op Exam Left ear Reason Comments Forms Pre-Op clearance Reason Comments Radiology XR Care Teams (unrecognized sec tion and content) Chief Nurse Anesthetist Relationship Specialty Start Date End Date Rommel Rockwell MD [address] [facility] [place] [address] PCP - General Family Practice 10/09/20 Chief Nurse Anesthetist Relationship Specialty Start Date End Date Rommel Rockwell MD [address] [facility] [place] [address] PCP - General Family Practice 10/09/20 Chief Nurse Anesthetist Relationship Specialty Start Date End Date Rommel Rockwell MD [address] [facility] [place] [address] PCP - General Family Practice 10/09/20 Chief Nurse Anesthetist Relationship Specialty Start Date End Date Rommel Rockwell MD [address] [facility] [place] [address] PCP - General Family Practice 10/09/20 Chief Nurse Anesthetist Relationship Specialty Start Date End Date Rommel Rockwell MD [address] [facility] [place] [address] PCP - General Family Practice 10/09/20 Chief Nurse Anesthetist Relationship Specialty Start Date End Date Rommel Rockwell MD [address] [facility] [place] [address] PCP - General Family Practice 10/09/20 Chief Nurse Anesthetist Relationship Specialty Start Date End Date Rommel Rockwell MD [address] [facility] [place] [address] PCP - General Family Practice 10/09/20 Chief Nurse Anesthetist Relationship Specialty Start Date End Date Rommel Rockwell MD [address] [facility] [place] [address] PCP - General Family Practice 10/09/20 Chief Nurse Anesthetist Relationship Specialty Start Date End Date Rommel Rockwell MD [address] [facility] [place] [address] PCP - General Family Practice 10/09/20 Chief Nurse Anesthetist Relationship Specialty Start Date End Date Rommel Rockwell MD [address] [facility] [place] [address] PCP - General Family Medicine 10/09/20 Chief Nurse Anesthetist Relationship Specialty Start Date End Date Rommel Rockwell MD [address] [facility] [place] [address] PCP - General Family Medicine 10/09/20 Chief Nurse Anesthetist Relationship Specialty Start Date End Date Rommel Rockwell MD [address] [facility] [place] [address] PCP - General Family Medicine 10/09/20 Chief Nurse Anesthetist Relationship Specialty Start Date End Date Rommel Rockwell MD [address] [facility] [place] [address] PCP - General Family Medicine 10/09/20 Chief Nurse Anesthetist Relationship Specialty Start Date End Date Rommel Rockwell MD [address] [facility] [place] [address] PCP - General Family Medicine 10/09/20 Chief Nurse Anesthetist Relationship Specialty Start Date End Date Rommel Rockwell MD [address] [facility] [place] [address] PCP - General Family Medicine 10/09/20 Chief Nurse Anesthetist Relationship Specialty Start Date End Date Rommel Rockwell MD [address] [facility] [place] [address] PCP - General Family Medicine 10/09/20 Chief Nurse Anesthetist Relationship Specialty Start Date End Date Rommel Rockwell MD [address] [facility] [place] [address] PCP - General Family Medicine 10/09/20 Chief Nurse Anesthetist Relationship Specialty Start Date End Date Rommel Rockwell MD [address] [facility] [place] [address] PCP - General Family Medicine 10/09/20 Chief Nurse Anesthetist Relationship Specialty Start Date End Date Rommel Rockwell MD [address] [facility] [place] [address] PCP - General Family Medicine 10/09/20 Chief Nurse Anesthetist Relationship Specialty Start Date End Date Rommel Rockwell MD [address] [facility] [place] [address] PCP - General Family Medicine 10/09/20 Chief Nurse Anesthetist Relationship Specialty Start Date End Date Rommel Rockwell MD [address] [facility] [place] [address] PCP - General Family Medicine 10/09/20 Chief Nurse Anesthetist Relationship Specialty Start Date End Date Rommel Rockwell MD [address] [facility] [place] [address] PCP - General Family Medicine 10/09/20 Chief Nurse Anesthetist Relationship Specialty Start Date End Date Rommel Rockwell MD [address] [facility] [place] [address] PCP - General Family Medicine 10/09/20 Chief Nurse Anesthetist Relationship Specialty Start Date End Date Rommel Rockwell MD [address] [facility] [place] [address] PCP - General Family Medicine 10/09/20 Chief Nurse Anesthetist Relationship Specialty Start Date End Date Rommel Rockwell MD [address] [facility] [place] [address] PCP - General Family Medicine 10/09/20 Chief Nurse Anesthetist Relationship Specialty Start Date End Date Rommel Rockwell MD [address] [facility] [place] [address] PCP - General Family Medicine 10/09/20 Chief Nurse Anesthetist Relationship Specialty Start Date End Date Rommel Rockwell MD [address] [place] [address] PCP - General Family Medicine 10/09/20 Chief Nurse Anesthetist Relationship Specialty Start Date End Date Rommel Rockwell MD [address] [place] [address] PCP - General Family Medicine 10/09/20 Chief Nurse Anesthetist Relationship Specialty Start Date End Date Rommel Rockwell MD [address] [place] [address] PCP - General Family Medicine 10/09/20 Chief Nurse Anesthetist Relationship Specialty Start Date End Date Rommel Rockwell MD [address] [facility] [place] [address] PCP - General Family Medicine 10/09/20 Chief Nurse Anesthetist Relationship Specialty Start Date End Date Rommel Rockwell MD [address] [facility] [place] [address] PCP - General Family Medicine 10/09/20 Chief Nurse Anesthetist Relationship Specialty Start Date End Date Rommel Rockwell MD [address] [place] [address] PCP - General Family Medicine 10/09/20 Chief Nurse Anesthetist Relationship Specialty Start Date End Date Ignacio Ayon III, MD NO FORWARDING ADDRESS PCP - General 02/22/02 10/08/20 FOR RECORDS PERTAINING TO PATIENTS WHO ARE OR HAVE BEEN ENROLLED IN A CHEMICAL DEPENDENCY/SUBSTANCEABUSE PROGRAM, SOME INFORMATION MAY BE OMITTED. This clinical summary was aggregated from multiple sources. Caution should be exercised in using it in the provision of clinical care. This summary normalizes information from multiple sources, and as a consequence, information in this document may materially change the coding, format and clinical context of patient data. In addition, data may be omitted in some cases. CLINICAL DECISIONS SHOULD BE BASED ON THE PRIMARY CLINICAL RECORDS. [email or web address] provides no warranty or guarantee of the accuracy or completeness of information in this document.
--- NOTE | 2024-01-09 07:53 | PRE.ANES_ITS ---
ASA Classification* ASA Classification ASA Classification: 3 Assessment & Plan Anesthesia* Anesthesia Assessment Anesthesia Assessment: Discussed sedation and/or anesthesia options, risks, benefits, and alternatives with patient/parents/legal guardian/POA. Questions invited. The patient/parents/legal guardian/POA seems to understand and agrees to proceed with anesthesia plan. Reviewed the physical assessment, medical history, allergy history and patient home medications list prior to surgery/procedure/anesthetic and documented any changes. Performed airway and anesthesia risk assessments. Anesthesia Type Anesthesia Type: General (see written pre anesthesia record for full assessment) Anesthesia Focused Assessment* Airway Assessment Mouth opens: >3 cm Mallampati Score: II Focused Labs Anesthesia Preop lab: CBC WBC 11.6 K/mm3 (4.4-11.0) H 10/14/21 17:10 RBC 4.30 M/mm3 (4.6-6.2) L 10/14/21 17:10 Hgb 13.2 g/dL (13.0-16.5) 10/14/21 17:10 Hct 38.9 % (40-54) L 10/14/21 17:10 Plt Count 232 K/mm3 (150-450) 10/14/21 17:10 CHEMISTRY Potassium 3.9 mmol/L (3.5-5.1) 01/03/24 09:34 Sodium 140 mmol/L (136-145) 01/03/24 09:34 BUN 26 mg/dL (7-18) H 01/03/24 09:34 Creatinine 1.46 mg/dL (0.70-1.30) H 01/03/24 09:34 Glucose 173 mg/dL (74-106) H 01/03/24 09:34 POC Glucose 149 mg/dL (70-110) H 09/03/20 08:14 COAG Pre-Assessment Diagnosis/Proposed Procedure Planned Operative Procedure(s): (L) excision left ear basal cell carcinoma with frozen section Anesthesia History Anesthesia History - 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 When Was Last Pacemaker Check QUESTION #4 FULL TEXT: You/Your Family Experience fever (hyperthermia) with Anesthesia Last Oral Intake Last Oral intake: Last Oral Intake NPO since Meds taken in AM with sips of water? Meds patient instructed to take am of surgery PONV PONV - director of enterprise applications: PONV - director of enterprise applications Female No 01/02/24 13:57 HX of Motion Sickness Yes 01/02/24 13:57 HX of N/V After Surgery No 01/02/24 13:57 Non-Smoker Yes 01/02/24 13:57 Duration of Surgery greater Yes 01/02/24 13:57 than 60 minutes Number of Risk Factors 3 01/02/24 13:57 PONV Score Moderate Risk 01/02/24 13:57 Height & Weight Height & Weight: Anesthesia: Height & Weight Height 5 ft 6 in 10/07/23 05:41 Respiratory Assessment Respiratory Assessment - director of enterprise applications: Respiratory Tract Infection Hx - director of enterprise applications Hx Respiratory Tract Infection Yes: 11/202301/02/24 13:57 STOP Sleep Apnea STOP Sleep Apnea - director of enterprise applications: STOP Sleep Apnea - director of enterprise applications Hx Hypertension Yes 01/02/24 13:57 Hx Sleep Apnea Yes 01/02/24 13:57 CPAP Yes 01/02/24 13:57 BIPAP No 01/02/24 13:57 Do you snore loudly (louder than talking or can be heard Do you often feel tired/ fatigued/ sleepy during daytime? Has anyone observed you stop breathing during sleep? STOP Results Positive 01/02/24 13:57 QUESTION #5 FULL TEXT : Do you snore loudly (louder than talking or can be heard through closed doors)? 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 Specify any problems Hx of Preganancy in last 3 N/A 01/02/24 13:57 Months Nurse Filling Out Transfusion [facility] 01/02/24 13:57 & Questions: Date: 01/02/24 01/02/24 13:57 Time: 14:08 01/02/24 13:57 Patient unable to answer at this time (ie. confused, unrespo /Reproduction History /Reproductive History - director of enterprise applications: /Reproductive Hx- director of enterprise applications Hx Now Gestational Age (in weeks): EDC: Hx Hx Para Hx Section SAB Active Medications Active Medications: Current Medications Generic Name Dose Route Start Last Admin Trade Name Freq PRN Reason Stop Dose Admin Lactated Ringer's 1,000 mls @ 15 mls/hr 01/09/24 07:15 IV 01/14/24 20:34 .Q48H [facility] Protocol PFSH Medical History Wears hearing aid Cancer Arthritis High cholesterol Dietary restriction CPAP (continuous positive airway pressure) dependence Sleep apnea History of edema History of stress test Cardiology follow-up encounter Wears glasses Diabetes Anemia Injury of back (~2012) Non-smoker Shortness of breath on exertion Hypertension Home Medications ?Medication ?Instructions ?Recorded ?Last Taken ?Type antiarthritic combination no.2 900 900 mg PO DAILY 10/27/15 10/27/15 History mg tablet (glucosamine-chondroitin) atorvastatin 20 mg tablet 20 mg PO DAILY 10/27/15 10/27/15 History glimepiride 4 mg tablet 8 mg PO DAILY 09/01/20 Unknown History metformin 500 mg tablet 1,000 mg PO BID 09/01/20 Unknown History empagliflozin 25 mg tablet 25 mg PO DAILY 10/07/23 Unknown History (Jardiance) losartan 50 mg-hydrochlorothiazide 1 tab PO DAILY 10/07/23 Unknown History 12.5 mg tablet sitagliptin phosphate 100 mg 100 mg PO DAILY 10/07/23 Unknown History tablet (Januvia) Allergy/AdvReac Type Severity Reaction Status Date / Time Penicillins Allergy Hives Verified 01/09/24 07:28 ibuprofen (From Motrin) AdvReac Nausea Verified 01/09/24 07:28 lisinopril AdvReac COUGH Verified 01/09/24 07:28 Surgical History Hx of right knee surgery Hx laparoscopic cholecystectomy (~07/25/17) Social History Smoking Status: Never smoker Review of Systems (Anesthesia) ROS Narrative System reviewed and no additional complaints, except as documented.
[2024-01-09] MEDS: Lactated Ringers 1,000 ML 15 ML IV (07:55)
[2024-01-09 08:28] LABS: Bedside Glucose 182 mg/dL (74-106)
[2024-01-09] MEDS: Lidocaine 1% /Epi 1:100 (20ml) 20 ML Vial (10:02)
[2024-01-09] MEDS: BACITRACIN/POLYMYXIN B 15 GM Tube 1 APPLIC (10:25)
[2024-01-09] MEDS: Ciprofloxacin 0.3% 2.5ml Bottle 1 DRP (10:25)
[2024-01-09] MEDS: Mineral Oil, Light Sterile 10 ML Vial MC (10:28)
--- NOTE | 2024-01-09 12:15 | DS.PCM_ITS ---
Providers Primary Care Physician: Dr. Sorin Miranda MD Reason For Visit: excision left ear basal cell carcin Medications at Discharge Home Medications antiarthritic combination no.2 900 mg tablet (glucosamine-chondroitin) 900 mg PO DAILY 10/27/15 atorvastatin 20 mg tablet 20 mg PO DAILY 10/27/15 glimepiride 4 mg tablet 8 mg PO DAILY 09/01/20 metformin 500 mg tablet 1,000 mg PO BID 09/01/20 empagliflozin 25 mg tablet (Jardiance) 25 mg PO DAILY 10/07/23 losartan 50 mg-hydrochlorothiazide 12.5 mg tablet 1 tab PO DAILY 10/07/23 sitagliptin phosphate 100 mg tablet (Januvia) 100 mg PO DAILY 10/07/23 Weight / BMI Weight Weight: 111 kg Body Mass Index (BMI) 39.4 ABG / Lab / Microbiology Data 01/03/24 09:34 Laboratory: Laboratory Results - last 24 hr 01/09/24 07:24: POC Glucose 182 H D/C Instructions Discharge Diet: No restrictions Additional Dressing/Incision Instructions: Remove dressing tomorrow and discard. Removed cotton ball and telfa (this says remove on it). You will see two white sponges with an X on them. Do not remove these. Apply drops to these sponges twice a day. Keep the inside of the ear dry Please Follow Up With: Lester Jimenez MD When: next Meaningful Use Info Meaningful Use Meaningful Use Diagnoses (Choose all that apply): None applicable Ischemic Stroke Statin Dosing Therapy Reference: STATIN DOSE THERAPY REFERENCE: * Patients > 75 years receive moderate or high dose statin therapy. * Patients 75 years or YOUNGER should receive HIGH intensity statin dose unless contraindicated. You will be required to document reason for non-treatment if statin daily dose does not meet guidelines. HIGH DOSE STATIN THERAPY DAILY Atorvastatin > than or = to 40 mg Rosuvastatin > than or = to 20 mg Amlodipine + Atorvastatin > than or = to 2.5/40 mg Ezetimibe + Simvastatin 10/80 mg Simvastatin 80mg Discharge Plan Admission Attending Provider: Lester Jimenez Primary Care Provider: Sorin Miranda Instructions Print Language: Tamazight Discharge Orders/Prescriptions Prescriptions: No Action atorvastatin 20 MG tablet 20 mg PO DAILY Patient Comments: CHOLESTEROL LOWERING glucosamine-chondroitin 900 MG tablet 900 mg PO DAILY Patient Comments: [facility] metformin 500 mg tablet 1,000 mg PO BID Patient Comments: take 2 tablets by mouth twice a day with meals glimepiride 4 mg tablet 8 mg PO DAILY Patient Comments: take 1 tablet by mouth once daily with BREAKFAST Jardiance 25 mg tablet 25 mg PO DAILY losartan-hydrochlorothiazide 50-12.5 mg tablet 1 tab PO DAILY Januvia 100 mg tablet 100 mg PO DAILY Referrals / Follow Up: Sorin Miranda MD [Primary Care Provider] - Disposition Disposition (needs filled in before D/C Order can be placed): Home, Self Care
--- NOTE | 2024-01-09 12:18 | PCM.OPRPT ---
Report of Operation Date of Procedure: 01/09/24 Pre-Operative Diagnosis: basal cell carcinoma left ear canal Post-Operative Diagnosis: same Surgery/Procedure Performed:: Excision basal cell carcinoma left ear canal 2.5x2.5 cm Split thickness skin graft from the left thigh to the ear for reconstruction Surgeon: Lester Jimenez Type of Anesthesia: General Anesthesiologist: Duglas Tanner Estimated Blood Loss (mL): minimal Description of Procedure: The patient was taken the operating room on 01/09/2024. He was placed in the supine position on the operating room table. He was given sufficient general endotracheal anesthesia. The table was turned 90 degrees in a clockwise fashion. The left ear and left thigh were prepped and draped sterilely. 1% lidocaine with epinephrine was injected into the left external auditory canal. After sufficient vasoconstriction, I used a round [place] blade, and straight [place] blade as well as a 15 blade to circumferentially make an incision around the carcinoma. Dissection was carried down with middle ear scissors to the cartilage. I kept the cartilage with the Specimen in the Area of the Carcinoma. Eventually the carcinoma was excised. The specimen was marked with suture. I then sent additional lateral medial anterior and posterior and deep margins for frozen section. Eventually we heard back from pathology that the margins were clear. I irrigated the wound with saline. Hemostasis was achieved with bipolar cautery. Next, I injected 1% lidocaine with epinephrine into the skin overlying the intended skin graft. A Hannah dermatome was used to harvest a 1 x 1 inch piece of split-thickness skin graft from the left thigh. This was then treated with topical 1% lidocaine with epinephrine topically. A Tegaderm and Malick bandage were eventually applied. I hand piecrusted of the split-thickness skin graft with a 15 blade. This split-thickness skin graft was then placed into the ear defect. This was sewn circumferentially with 6-0 fast-absorbing gut. I then placed Xeroflo onto the graft. I placed 2 David packs within the meatus and inflated these with ciprofloxacin drops. A Ashley dressing was then applied. The patient was then awoken and brought to the recovery room in stable condition. Blood loss minimal, replacement none. Sponge, needle, and instrument count were correct at the end of the procedure.
--- NOTE | 2024-01-09 12:35 | PCM.POST.ANE ---
Anesthesia: Postop Eval I Current Vital Signs Temperature: 97.6 F Pulse Rate: 86 Blood Pressure: 141/81 Respiratory Rate: 16 Pulse Ox: 92 Oxygen Delivery Method: Nasal Cannula Oxygen Flow Rate (L/min): 3 Assessment Airway patent: Yes Spontaneous unlabored respirations: Yes nausea: No Vomiting: No Anesthesia Complication: No Fluid Hydration Crystalloid volume administer (ml): 900 Total IV fluid infused: 900 Progress Note Anesthesia document: Postop Eval 1 completed: Yes
--- NOTE | 2024-01-09 12:42 | PCM.POSTANE2 ---
Anesthesia Postop Eval I Sum Postop Eval Completion status Anesthesia document: Postop Eval 1 completed: Yes Anesthesia Postop Eval I Summary Anesthesia Postop Eval I Summary: Anesthesia Postop Eval I: Assessment Summary Airway patent Yes 01/09/24 12:37 Spontaneous unlabored Yes 01/09/24 12:37 respirations Mental status nausea No 01/09/24 12:37 Vomiting No 01/09/24 12:37 Anesthesia Postop Eval I: Fluid Summary Crystalloid volume administer 900 01/09/24 12:37 (ml) Colloids volume administered ( ml) Blood Product volume administered (ml) Total IV fluid infused 900 01/09/24 12:37 Anesthesia Postop Eval I: Summary Notes Anesthesia Complication No 01/09/24 12:37 Anesthesia Complication Comment: Post-operative progress note Anesthesia: Postop Eval II Evaluation Mental status: Awake Pain Level: 0 nausea: No Vomiting: No
[2024-01-09 13:02] LABS: Bedside Glucose 186 mg/dL (74-106)
== END 2024-01-09 14:18 | disposition home or self-care (01) ==
LOC: SDC 07:02 → AC 07:04
PROVIDERS: PCP Family Medicine; Referring Provider Otolaryngology; Visit Provider Otolaryngology
PROC: (CPT 11643; principal; 2024-01-09 08:45)
DX: C44.219 Basal cell carcinoma of skin of left ear and external auricular canal (principal); E11.9 Type 2 diabetes mellitus without complications; I10 Essential (primary) hypertension; E78.00 Pure hypercholesterolemia, unspecified; M19.90 Unspecified osteoarthritis, unspecified site; G47.30 Sleep apnea, unspecified; Z88.0 Allergy status to penicillin; Z90.49 Acquired absence of other specified parts of digestive tract; Z79.84 Long term (current) use of oral hypoglycemic drugs; Z79.899 Other long term (current) drug therapy
CPT/HCPCS: 11643; 00300; 15120; 36415; 80048; 82962; 88305; 88331; 88332; J7120